=== PATIENT | female | born 1945 | race Caucasian/White ===

== ENCOUNTER → 2020-02-14 11:13 | Outpatient (BNVA) | payer MEDICARE, OTHER, SELFPAY | PROVIDERS: PCP Internal Medicine; Referring Provider Internal Medicine; Visit Provider Surgery | DX: Z85.3 Personal history of malignant neoplasm of breast (principal) | CPT/HCPCS: 99212 ==

== ENCOUNTER → 2020-02-21 08:05 | Outpatient (BNVA) | payer MEDICARE, OTHER, SELFPAY | PROVIDERS: PCP Internal Medicine; Referring Provider Internal Medicine; Visit Provider Psychiatry & Neurology Neurology | DX: R06.83 Snoring (principal); G47.19 Other hypersomnia | CPT/HCPCS: Q3014 ==

== ENCOUNTER 2020-03-07 08:22 | Outpatient (REF) | payer MEDICARE, OTHER, SELFPAY ==
[2020-03-07 11:23] LABS: MANUAL DIFF FLAG NO
[2020-03-07 11:39] LABS: Estimated Average Glucose 126 mg/dL; Hemoglobin A1C 149.2796 umol/L
[2020-03-07 11:42] LABS: Basophils Absolute Auto 0.1 X10*3/uL (0.0-0.2); Basophils Percent Auto 0.9 % (0-2); Eosinophils Absolute Auto 0.2 X10*3/uL (0.0-0.4); Eosinophils Percent Auto 2.8 % (0-4); Hematocrit 41.8 % (37-47); Imm Gran Abs Auto 0.02 X10*3/uL (0.00-0.03); Imm Gran Pct Auto 0.3 % (0.0-0.4); Lymphocytes Absolute Auto 3.2 X10*3/uL (1.2-4.9); Lymphocytes Percent Auto 40.8 % (20-40); Mean Corpuscular HGB Conc 33.5 g/dl (31.0-35.0); Mean Corpuscular Hemoglobin 32.7 pg (27.0-33.0); Mean Corpuscular Volume 97.7 fL (80-98); Mean Platelet Volume 11.6 fL (9.4-12.3); Monocytes Absolute Auto 0.5 X10*3/uL (0.1-1.2); Monocytes Percent Auto 6.2 % (2-11); Neutrophils Absolute Auto 3.9 X10*3/uL (2.0-8.3); Platelet Count 251 X10*3/uL (160-400); Red Blood Count 4.28 X10*6/uL (4.20-5.50); Red Cell Distribution Width 12.8 % (11.0-16.0); White Blood Count 7.9 X10*3/uL (4.8-10.8)
[2020-03-07 11:44] LABS: Glucose Urine UA NEG (NEG); Leukocyte Esterase Urine NEG (NEG); Nitrite Urine NEG (NEG); PH 6.5 (5.0-8.0); Urine Blood NEG (NEG); Urine Ketones NEG (NEG); Urine Protein NEG (NEG-TRACE)
[2020-03-07 11:51] LABS: Appearance Urine CLEAR; Color Urine YELLOW
[2020-03-07 12:03] LABS: Alanine Aminotransferase 16 U/L (0-31); Albumin Level 4.4 g/dL (3.5-5.0); Alkaline Phosphatase 70 U/L (39-117); Anion Gap 14 (12-20); Aspartate Amino Transferase 14 U/L (5-31); Blood Urea Nitrogen 17 mg/dL (9-16); Calcium 9.2 mg/dL (8.4-10.2); Carbon Dioxide 28 mmol/L (22-29); Chloride 103 mmol/L (96-108); Cholesterol 195 mg/dL; Estimated Glomerular Filt Rate > 60; Glucose Fasting 112 mg/dL (60-99); HDL Cholesterol 49 mg/dL; LDL Cholesterol Calculated 121 mg/dl; Potassium 4.3 mmol/l (3.3-5.1); Sodium 141 mmol/L (135-145); Total Protein 6.7 g/dL (6.5-8.0); Triglycerides 129 mg/dL
[2020-03-07 12:05] LABS: RBC Urine 0 /HPF (0); Squamous Epithelial Cell Urine 1+ /LPF; WBC Urine 0 /HPF (0-4)
[2020-03-07 12:25] LABS: Free T4 (Free Thyroxine) 0.87 ng/dL (0.71-1.85); Thyroid Stimulating Hormone 4.45 uIU/mL (0.32-4.0)
== END 2020-03-07 08:23 | disposition home or self-care (01) ==
LOC: HO.HMGCLDS 08:22
PROVIDERS: PCP Internal Medicine; Visit Provider Internal Medicine
DX: E78.00 Pure hypercholesterolemia, unspecified (principal); I10 Essential (primary) hypertension; R73.01 Impaired fasting glucose; E03.9 Hypothyroidism, unspecified; R53.83 Other fatigue; E66.3 Overweight; K21.9 Gastro-esophageal reflux disease without esophagitis; J30.9 Allergic rhinitis, unspecified
CPT/HCPCS: 36415; 80053; 80061; 81001; 83036; 84439; 84443; 85025

== ENCOUNTER → 2020-04-11 19:24 | Outpatient (REF) | payer MEDICARE, OTHER, SELFPAY | LOC: HO.SL 19:24 | PROVIDERS: Visit Provider Psychiatry & Neurology Neurology | DX: G47.19 Other hypersomnia (principal); G47.33 Obstructive sleep apnea (adult) (pediatric); G47.61 Periodic limb movement disorder | CPT/HCPCS: 95810 ==

== ENCOUNTER 2020-05-07 10:47 | Outpatient (REF) | payer MEDICARE, OTHER, SELFPAY ==
--- NOTE | 2020-05-07 10:51 | XR_ITS ---
EXAMINATION: XR CHEST CLINICAL INFORMATION: SOB COMPARISON: None TECHNIQUE: 2 views of the chest were obtained. FINDINGS: The lungs are well-expanded and clear. The heart size and pulmonary vascularity is normal. There is mild spondylosis dorsal spine. No lytic process. XR/XR chest 2V IMPRESSION: Unremarkable chest exam.
== END 2020-05-07 10:48 | disposition home or self-care (01) ==
LOC: HO.HMGCX 10:47
PROVIDERS: PCP Internal Medicine; Visit Provider Physician Assistant
DX: R06.02 Shortness of breath (principal); J98.8 Other specified respiratory disorders; R05 Cough; Z20.822 Contact with and (suspected) exposure to COVID-19
CPT/HCPCS: 36415; 71046; U0003; U0005

== ENCOUNTER 2020-06-19 09:32 | Outpatient (REF) | payer MEDICARE, OTHER, SELFPAY ==
[2020-06-19 11:11] LABS: MANUAL DIFF FLAG NO
[2020-06-19 11:29] LABS: Glucose Urine UA NEG (NEG); Leukocyte Esterase Urine NEG (NEG); Nitrite Urine NEG (NEG); Specific Gravity - Urine 1.015 (1.005-1.025); Urine Blood TRACE (NEG); Urine Ketones NEG (NEG); Urine Protein NEG (NEG-TRACE)
[2020-06-19 11:31] LABS: Appearance Urine HAZY; Basophils Absolute Auto 0.1 X10*3/uL (0.0-0.2); Basophils Percent Auto 0.8 % (0-2); Color Urine YELLOW; Eosinophils Absolute Auto 0.2 X10*3/uL (0.0-0.4); Eosinophils Percent Auto 3.3 % (0-4); Hematocrit 42.7 % (37-47); Hemoglobin 13.9 g/dl (12.0-16.0); Imm Gran Abs Auto 0.02 X10*3/uL (0.00-0.03); Imm Gran Pct Auto 0.3 % (0.0-0.4); Lymphocytes Absolute Auto 2.5 X10*3/uL (1.2-4.9); Lymphocytes Percent Auto 38.4 % (20-40); Mean Corpuscular HGB Conc 32.6 g/dl (31.0-35.0); Mean Corpuscular Volume 98.4 fL (80-98); Mean Platelet Volume 11.3 fL (9.4-12.3); Monocytes Absolute Auto 0.4 X10*3/uL (0.1-1.2); Monocytes Percent Auto 6.1 % (2-11); Neutrophils Absolute Auto 3.4 X10*3/uL (2.0-8.3); Neutrophils Percent Auto 51.1 % (45-73); Platelet Count 231 X10*3/uL (160-400); Red Blood Count 4.34 X10*6/uL (4.20-5.50); Red Cell Distribution Width 12.6 % (11.0-16.0); White Blood Count 6.6 X10*3/uL (4.8-10.8)
[2020-06-19 11:44] LABS: Alanine Aminotransferase 14 U/L (0-31); Albumin Level 4.4 g/dL (3.5-5.0); Alkaline Phosphatase 69 U/L (39-117); Anion Gap 12 (12-20); Aspartate Amino Transferase 15 U/L (5-31); Bilirubin Total 1.4 mg/dL (0.0-1.0); Blood Urea Nitrogen 13 mg/dL (9-16); Calcium 9.5 mg/dL (8.4-10.2); Carbon Dioxide 30 mmol/L (22-29); Chloride 104 mmol/L (96-108); Cholesterol 185 mg/dL; Estimated Glomerular Filt Rate > 60; Glucose Fasting 108 mg/dL (60-99); HDL Cholesterol 46 mg/dL; LDL Cholesterol Calculated 105 mg/dl; Potassium 4.1 mmol/L (3.3-5.1); Sodium 142 mmol/L (135-145); Total Protein 6.9 g/dL (6.5-8.0); Triglycerides 170 mg/dL
[2020-06-19 12:10] LABS: Thyroid Stimulating Hormone 3.76 uIU/mL (0.32-4.0); Vitamin D 25-OH Total 63.4 ng/mL (>30)
[2020-06-19 12:11] LABS: RBC Urine 0-2 /HPF (0); Squamous Epithelial Cell Urine 3+ /LPF; WBC Urine 0-2 /HPF (0-4)
== END 2020-06-19 09:33 | disposition home or self-care (01) ==
LOC: HO.HMGCLDS 09:32
PROVIDERS: PCP Internal Medicine; Visit Provider Internal Medicine
DX: I10 Essential (primary) hypertension (principal); K59.00 Constipation, unspecified; K21.9 Gastro-esophageal reflux disease without esophagitis; E78.00 Pure hypercholesterolemia, unspecified; R73.01 Impaired fasting glucose; E03.9 Hypothyroidism, unspecified; E55.9 Vitamin D deficiency, unspecified; Z85.528 Personal history of other malignant neoplasm of kidney
CPT/HCPCS: 36415; 80053; 80061; 81001; 82306; 84439; 84443; 85025

== ENCOUNTER 2020-06-27 14:39 | Outpatient (REF) | payer MEDICARE, OTHER, SELFPAY ==
--- NOTE | ~2020-06-27 | XR_ITS ---
EXAMINATION: XR HAND, RIGHT CLINICAL INFORMATION: Pain COMPARISON: Previous x-ray March 2007 TECHNIQUE: PA, lateral, and oblique views of the right hand. FINDINGS: Bone alignment is normal. No fracture or dislocation is seen. There is a new screw and arthrodesis at the IP joint of the thumb. There is arthritis at the IP joints with joint space narrowing and osteophyte formation. This is greatest at the second finger. There is also mild arthritis at the first and third MCP joints and first [facility] joint. Soft tissues are unremarkable. XR/XR hand RT min 3V IMPRESSION: Osteoarthritis.
== END 2020-06-27 14:40 | disposition home or self-care (01) ==
LOC: HO.HMGCX 14:39
PROVIDERS: PCP Internal Medicine; Visit Provider Internal Medicine
DX: M79.641 Pain in right hand (principal); Z91.81 History of falling
CPT/HCPCS: 73130

== ENCOUNTER → 2020-07-17 09:40 | Outpatient (BNVA) | payer MEDICARE, OTHER, SELFPAY | PROVIDERS: PCP Internal Medicine; Visit Provider Psychiatry & Neurology Neurology | DX: Z13.89 Encounter for screening for other disorder (principal) | CPT/HCPCS: Q3014 ==

== ENCOUNTER → 2020-10-09 09:38 | Outpatient (REF) | payer MEDICARE, OTHER, SELFPAY | LOC: HO.SL 09:38 | PROVIDERS: PCP Internal Medicine; Visit Provider Psychiatry & Neurology Neurology | DX: G47.33 Obstructive sleep apnea (adult) (pediatric) (principal) | CPT/HCPCS: 99211 ==

== ENCOUNTER 2020-12-18 12:47 | Outpatient (REF) | payer MEDICARE, OTHER, SELFPAY ==
--- NOTE | ~2020-12-18 | MM_ITS ---
EXAMINATION: BONE DENSITOMETRY CLINICAL INDICATION: Asymptomatic menopausal state. COMPARISON: This is the patient's baseline examination. TECHNIQUE: Using a [employer] DXA System (software version: 13.1) manufactured by [employer], dual-energy x-ray absorptiometry was performed of the lumbar spine and left hip. The images are of good technical quality. Summary results are attached. FINDINGS: AP SPINE L1-L4: BMD 1.188 g/cm2, Z-score 1.6, T-score 0.1, normal. LEFT FEMUR, NECK: BMD 0.952 g/cm2, Z-score 1.2, T-score -0.6, normal. LEFT FEMUR, TOTAL: BMD 1.054 g/cm2, Z-score 2.0, T-score 0.4, normal. IDENTIFIED RISK FACTORS: Height loss, renal, menopause. HISTORY OF FRACTURE: None listed. MEDICATIONS: Vitamin D. MM/XR DEXA axial skeleton IMPRESSION: 1. DIAGNOSIS: Normal bone density based on the lowest T-score value of -0.6 in the femoral neck applying World Health Organization criteria. 2. 10-YEAR FRACTURE RISK PREDICTION, FRAX: Major osteoporotic fracture (clinical spine, forearm, hip or shoulder) 8.3%. Hip fracture 1.0%. 3. Treatment Recommendations: NOF guidelines recommend consideration for treatment in postmenopausal women and men age 50 and older presenting with the following: -A hip or vertebral (clinical or morphometric) fracture. -T-score less than or equal to -2.5 at the femoral neck or spine after appropriate evaluation to exclude secondary causes. -Low bone mass at the hip or spine and a 10-year fracture probability by FRAX of greater than or equal to 3% for hip fracture or greater than or equal to 20% for major osteoporotic fracture based on the [place] adapted WHO algorithm. 4. Other Recommendations: All treatment decisions require clinical judgment and consideration of individual patient factors, including patient preferences, comorbidities, previous drug use, risk factors not captured in the FRAX model (e.g. frailty, falls, vitamin D deficiency, increased bone turnover, interval significant decline in bone density) and possible under or overestimation of fracture risk by FRAX. FUTURE SCAN RECOMMENDATION: People with diagnosed cases of osteoporosis or at high risk for fracture should have regular bone mineral density tests. For patients eligible for Medicare, routine testing is allowed once every 2 years. The testing frequency can be increased to one year for patients who have rapidly progressing disease, those who are receiving or discontinuing medical therapy to restore bone mass, or have additional risk factors.
== END 2020-12-18 12:48 | disposition home or self-care (01) ==
LOC: HO.MAMMO 12:47
PROVIDERS: PCP Internal Medicine; Visit Provider Nurse Practitioner Family
DX: Z13.820 Encounter for screening for osteoporosis (principal); Z78.0 Asymptomatic menopausal state; Z79.899 Other long term (current) drug therapy
CPT/HCPCS: 77080

== ENCOUNTER 2020-12-25 10:24 | Outpatient (REF) | payer MEDICARE, OTHER, SELFPAY ==
[2020-12-25 11:30] LABS: Appearance Urine HAZY; Color Urine YELLOW; Glucose Urine UA NEG (NEG); Leukocyte Esterase Urine NEG (NEG); Nitrite Urine NEG (NEG); Urine Blood NEG (NEG); Urine Ketones NEG (NEG); Urine Protein NEG (NEG-TRACE)
[2020-12-25 11:38] LABS: MANUAL DIFF FLAG NO
[2020-12-25 11:50] LABS: Basophils Percent Auto 0.7 % (0-2); Eosinophils Absolute Auto 0.1 X10*3/uL (0.0-0.4); Eosinophils Percent Auto 2.3 % (0-4); Hematocrit 41.2 % (37-47); Hemoglobin 13.7 g/dl (12.0-16.0); Imm Gran Abs Auto 0.03 X10*3/uL (0.00-0.03); Imm Gran Pct Auto 0.5 % (0.0-0.4); Lymphocytes Percent Auto 32.7 % (20-40); Mean Corpuscular HGB Conc 33.3 g/dl (31.0-35.0); Mean Corpuscular Hemoglobin 32.3 pg (27.0-33.0); Mean Corpuscular Volume 97.2 fL (80-98); Mean Platelet Volume 11.3 fL (9.4-12.3); Monocytes Absolute Auto 0.4 X10*3/uL (0.1-1.2); Monocytes Percent Auto 6.3 % (2-11); Neutrophils Absolute Auto 3.5 X10*3/uL (2.0-8.3); Neutrophils Percent Auto 57.5 % (45-73); Platelet Count 246 X10*3/uL (160-400); Red Blood Count 4.24 X10*6/uL (4.20-5.50); Red Cell Distribution Width 12.4 % (11.0-16.0)
[2020-12-25 12:08] LABS: Alanine Aminotransferase 15 U/L (0-31); Albumin Level 4.4 g/dL (3.5-5.0); Alkaline Phosphatase 78 U/L (39-117); Anion Gap 13 (12-20); Aspartate Amino Transferase 13 U/L (5-31); Bilirubin Total 1.1 mg/dL (0.0-1.0); Blood Urea Nitrogen 11 mg/dL (9-16); Calcium 9.6 mg/dL (8.4-10.2); Carbon Dioxide 28 mmol/L (22-29); Chloride 104 mmol/L (96-108); Cholesterol 191 mg/dL; Estimated Glomerular Filt Rate > 60; Glucose Fasting 114 mg/dL (60-99); HDL Cholesterol 47 mg/dL; LDL Cholesterol Calculated 115 mg/dl; Potassium 4.2 mmol/L (3.3-5.1); Sodium 141 mmol/L (135-145); Total Protein 6.8 g/dL (6.5-8.0); Triglycerides 147 mg/dL
[2020-12-25 12:18] LABS: Free T4 (Free Thyroxine) 0.96 ng/dL (0.71-1.85); Thyroid Stimulating Hormone 1.03 uIU/mL (0.32-4.0)
[2020-12-25 12:34] LABS: Estimated Average Glucose 126 mg/dL; Hemoglobin A1C 152.7056 umol/L
== END 2020-12-25 10:25 | disposition home or self-care (01) ==
LOC: HO.HMGCLDS 10:24
PROVIDERS: PCP Internal Medicine; Visit Provider Internal Medicine
DX: R73.01 Impaired fasting glucose (principal); E78.00 Pure hypercholesterolemia, unspecified; E03.9 Hypothyroidism, unspecified; E66.3 Overweight; I10 Essential (primary) hypertension; E55.9 Vitamin D deficiency, unspecified; K21.9 Gastro-esophageal reflux disease without esophagitis; Z85.528 Personal history of other malignant neoplasm of kidney
CPT/HCPCS: 36415; 80053; 80061; 81003; 82306; 83036; 84439; 84443; 85025

== ENCOUNTER → 2021-02-05 11:06 | Outpatient (BNVA) | payer MEDICARE, OTHER, SELFPAY | PROVIDERS: PCP Internal Medicine; Referring Provider Internal Medicine; Visit Provider Psychiatry & Neurology Neurology | DX: G47.33 Obstructive sleep apnea (adult) (pediatric) (principal); G47.61 Periodic limb movement disorder | CPT/HCPCS: Q3014 ==

== ENCOUNTER → 2021-02-14 10:42 | Outpatient (BNVA) | payer MEDICARE, OTHER, SELFPAY | PROVIDERS: PCP Internal Medicine; Referring Provider Internal Medicine; Visit Provider Surgery | DX: C50.912 Malignant neoplasm of unspecified site of left female breast (principal) | CPT/HCPCS: 99212 ==

== ENCOUNTER 2021-03-18 10:39 | Outpatient (REF) | payer MEDICARE, OTHER, SELFPAY ==
--- NOTE | ~2021-03-18 | XR_ITS ---
EXAMINATION: XR CHEST CLINICAL INFORMATION: Acute upper respiratory infection. COMPARISON: None TECHNIQUE: 2 views of the chest were obtained. FINDINGS: No significant abnormality is noted involving the heart, lungs, mediastinum, bony thorax or soft tissues. XR/XR chest 2V IMPRESSION: Unremarkable chest examination.
[2021-03-18 12:54] LABS: Influenza A PCR NEGATIVE (Negative); Influenza B PCR NEGATIVE (Negative); Resp Syncy Virus RNA Qual PCR NEGATIVE (Negative); SARS COV2 PCR INHOUSE NEGATIVE (Negative)
== END 2021-03-18 10:40 | disposition home or self-care (01) ==
LOC: HO.HMGCX 10:39
PROVIDERS: PCP Internal Medicine; Visit Provider Physician Assistant
DX: J06.9 Acute upper respiratory infection, unspecified (principal); R09.89 Other specified symptoms and signs involving the circulatory and respiratory systems; Z20.822 Contact with and (suspected) exposure to COVID-19
CPT/HCPCS: 0241U; 36415; 71046

== ENCOUNTER → 2021-03-19 08:57 | Outpatient (REF) | payer MEDICARE, OTHER, SELFPAY | LOC: HO.SL 08:57 | PROVIDERS: PCP Internal Medicine; Visit Provider Psychiatry & Neurology Neurology | DX: G47.33 Obstructive sleep apnea (adult) (pediatric) (principal) | CPT/HCPCS: 99211 ==

== ENCOUNTER 2021-05-07 08:47 | Outpatient (REF) | payer MEDICARE, OTHER, SELFPAY ==
[2021-05-07 11:32] LABS: Appearance Urine HAZY; Color Urine YELLOW; Glucose Urine UA NEG (NEG); Leukocyte Esterase Urine NEG (NEG); Nitrite Urine NEG (NEG); Urine Blood NEG (NEG); Urine Ketones NEG (NEG); Urine Protein NEG (NEG-TRACE)
[2021-05-07 11:34] LABS: MANUAL DIFF FLAG NO
[2021-05-07 11:38] LABS: Basophils Absolute Auto 0.1 X10*3/uL (0.0-0.2); Basophils Percent Auto 0.9 % (0-2); Eosinophils Absolute Auto 0.2 X10*3/uL (0.0-0.4); Eosinophils Percent Auto 2.1 % (0-4); Hematocrit 43.9 % (37.0-47.0); Hemoglobin 14.7 g/dl (12.0-16.0); Imm Gran Abs Auto 0.03 X10*3/uL (0.00-0.03); Imm Gran Pct Auto 0.4 % (0.0-0.4); Lymphocytes Absolute Auto 3.2 X10*3/uL (1.2-4.9); Lymphocytes Percent Auto 42.5 % (20-40); Mean Corpuscular HGB Conc 33.5 g/dl (31.0-35.0); Mean Corpuscular Hemoglobin 32.9 pg (27.0-33.0); Mean Corpuscular Volume 98.2 fL (80.0-98.0); Mean Platelet Volume 11.3 fL (9.4-12.3); Monocytes Absolute Auto 0.5 X10*3/uL (0.1-1.2); Monocytes Percent Auto 6.1 % (2-11); Neutrophils Absolute Auto 3.7 x10*3/uL (2.0-8.3); Platelet Count 263 X10*3/uL (160-400); Red Blood Count 4.47 X10*6/uL (4.20-5.50); Red Cell Distribution Width 12.5 % (11.0-16.0); White Blood Count 7.6 X10*3/uL (4.8-10.8)
[2021-05-07 11:52] LABS: Estimated Average Glucose 128 mg/dL; Hemoglobin A1c % 6.1 %
[2021-05-07 12:00] LABS: Creatinine Urine 108.55 mg/dL; Microalbum/Creatinine Ratio Ur 5.5 ug/mg cr
[2021-05-07 12:13] LABS: Free T4 (Free Thyroxine) 0.98 ng/dL (0.71-1.85); Thyroid Stimulating Hormone 2.72 uIU/mL (0.32-4.0); Vitamin D 25-OH Total 66.6 ng/mL (>30)
[2021-05-07 12:16] LABS: Alanine Aminotransferase 18 U/L (0-31); Albumin Level 4.4 g/dL (3.5-5.0); Alkaline Phosphatase 74 U/L (39-117); Anion Gap 10 (12-20); Aspartate Amino Transferase 18 U/L (5-31); Bilirubin Total 1.2 mg/dL (0.0-1.0); Blood Urea Nitrogen 12 mg/dL (9-16); Calcium 10.2 mg/dL (8.4-10.2); Carbon Dioxide 30 mmol/L (22-29); Chloride 105 mmol/L (96-108); Cholesterol 198 mg/dL; Estimated Glomerular Filt Rate > 60; Glucose Fasting 113 mg/dL (60-99); HDL Cholesterol 44 mg/dL; LDL Cholesterol Calculated 113 mg/dl; Potassium 4.4 mmol/L (3.3-5.1); Sodium 141 mmol/L (135-145); Total Protein 6.9 g/dL (6.5-8.0); Triglycerides 209 mg/dL
[2021-05-08 03:26] LABS: SARS COV2 IgG Negative (Negative)
== END 2021-05-07 08:48 | disposition home or self-care (01) ==
LOC: HO.HMGCLDS 08:47
PROVIDERS: Visit Provider Internal Medicine
DX: Z20.822 Contact with and (suspected) exposure to COVID-19 (principal); E03.9 Hypothyroidism, unspecified; R73.01 Impaired fasting glucose; E78.00 Pure hypercholesterolemia, unspecified; E55.9 Vitamin D deficiency, unspecified; I10 Essential (primary) hypertension
CPT/HCPCS: 36415; 80053; 80061; 81003; 82043; 82306; 83036; 84439; 84443; 85025; 86769

== ENCOUNTER 2021-08-28 08:47 | Outpatient (REF) | payer MEDICARE, OTHER, SELFPAY ==
[2021-08-28 11:15] LABS: MANUAL DIFF FLAG NO
[2021-08-28 11:22] LABS: Basophils Absolute Auto 0.1 X10*3/uL (0.0-0.2); Basophils Percent Auto 0.6 % (0-2); Eosinophils Absolute Auto 0.2 X10*3/uL (0.0-0.4); Eosinophils Percent Auto 2.4 % (0-4); Hematocrit 41.8 % (37.0-47.0); Imm Gran Abs Auto 0.03 X10*3/uL (0.00-0.03); Imm Gran Pct Auto 0.4 % (0.0-0.4); Lymphocytes Absolute Auto 3.4 X10*3/uL (1.2-4.9); Lymphocytes Percent Auto 43.3 % (20-40); Mean Corpuscular HGB Conc 33.5 g/dl (31.0-35.0); Mean Corpuscular Hemoglobin 32.8 pg (27.0-33.0); Mean Corpuscular Volume 97.9 fL (80.0-98.0); Mean Platelet Volume 11.2 fL (9.4-12.3); Monocytes Absolute Auto 0.5 X10*3/uL (0.1-1.2); Monocytes Percent Auto 6.8 % (2-11); Neutrophils Absolute Auto 3.6 x10*3/uL (2.0-8.3); Neutrophils Percent Auto 46.5 % (45-73); Platelet Count 248 X10*3/uL (160-400); Red Blood Count 4.27 X10*6/uL (4.20-5.50); Red Cell Distribution Width 12.5 % (11.0-16.0); White Blood Count 7.8 X10*3/uL (4.8-10.8)
[2021-08-28 11:36] LABS: Estimated Average Glucose 128 mg/dL; Hemoglobin A1c % 6.1 %
[2021-08-28 11:42] LABS: Appearance Urine HAZY; Color Urine YELLOW; Glucose Urine UA NEG (NEG); Leukocyte Esterase Urine NEG (NEG); Nitrite Urine NEG (NEG); Urine Blood NEG (NEG); Urine Ketones NEG (NEG); Urine Protein NEG (NEG-TRACE)
[2021-08-28 11:46] LABS: Alanine Aminotransferase 16 U/L (0-31); Albumin Level 4.2 g/dL (3.5-5.0); Alkaline Phosphatase 77 U/L (39-117); Anion Gap 11 (12-20); Aspartate Amino Transferase 11 U/L (5-31); Bilirubin Total 1.1 mg/dL (0.0-1.0); Blood Urea Nitrogen 14 mg/dL (9-16); Calcium 9.4 mg/dL (8.4-10.2); Carbon Dioxide 27 mmol/L (22-29); Chloride 107 mmol/L (96-108); Cholesterol 187 mg/dL; Estimated Glomerular Filt Rate > 60; Glucose Fasting 123 mg/dL (60-99); HDL Cholesterol 44 mg/dL; LDL Cholesterol Calculated 114 mg/dl; Potassium 4.2 mmol/L (3.3-5.1); Sodium 141 mmol/L (135-145); Total Protein 6.8 g/dL (6.5-8.0); Triglycerides 148 mg/dL
[2021-08-28 11:54] LABS: Free T4 (Free Thyroxine) 0.89 ng/dL (0.71-1.85); Thyroid Stimulating Hormone 2.23 uIU/mL (0.32-4.0); Vitamin D 25-OH Total 67.3 ng/mL (>30)
== END 2021-08-28 08:48 | disposition home or self-care (01) ==
LOC: HO.HMGCLDS 08:47
PROVIDERS: PCP Internal Medicine; Visit Provider Internal Medicine
DX: E78.00 Pure hypercholesterolemia, unspecified (principal); R73.01 Impaired fasting glucose; E55.9 Vitamin D deficiency, unspecified; E03.9 Hypothyroidism, unspecified; I10 Essential (primary) hypertension
CPT/HCPCS: 36415; 80053; 80061; 81003; 82306; 83036; 84439; 84443; 85025

== ENCOUNTER 2021-09-05 15:06 | Outpatient (REF) | payer MEDICARE, OTHER, SELFPAY ==
--- NOTE | ~2021-09-05 | XR_ITS ---
EXAMINATION: XR LUMBOSACRAL SPINE CLINICAL INFORMATION: Low back pain COMPARISON: None TECHNIQUE: Three views of the lumbosacral spine. FINDINGS: Bone alignment is normal. No fracture or dislocation is seen. There is degenerative spondylosis of the lower thoracic spine. There is mild disc space narrowing at L3-L4. Disc spaces are otherwise normal. There is lower lumbar spine facet arthritis. There are surgical clips in the left upper quadrant. XR/XR lumbar spine 2-3V IMPRESSION: Degenerative changes.
--- NOTE | ~2021-09-05 | XR_ITS ---
EXAMINATION: XR HIP, RIGHT CLINICAL INFORMATION: Right hip pain COMPARISON: None TECHNIQUE: Two views of the right hip. FINDINGS: Bones and soft tissues are normal. No fracture. Alignment is anatomic. Hip joint space is maintained. XR/XR hip RT min 2V IMPRESSION: Normal right hip.
== END 2021-09-05 15:07 | disposition home or self-care (01) ==
LOC: HO.HMGCX 15:06
PROVIDERS: PCP Internal Medicine; Visit Provider Internal Medicine
DX: M25.551 Pain in right hip (principal); M54.50 Low back pain, unspecified
CPT/HCPCS: 72100; 73502

== ENCOUNTER 2021-12-11 09:39 | Outpatient (REF) | payer MEDICARE, OTHER, SELFPAY ==
[2021-12-11 11:13] LABS: MANUAL DIFF FLAG NO
[2021-12-11 11:31] LABS: Appearance Urine Clear; Basophils Percent Auto 0.5 % (0-2); Color Urine Yellow; Eosinophils Absolute Auto 0.1 X10*3/uL (0.0-0.4); Eosinophils Percent Auto 1.5 % (0-4); Glucose Urine UA Negative (Negative); Hematocrit 42.9 % (37.0-47.0); Hemoglobin 14.6 g/dl (12.0-16.0); Imm Gran Abs Auto 0.03 X10*3/uL (0.00-0.03); Imm Gran Pct Auto 0.4 % (0.0-0.4); Leukocyte Esterase Urine Negative (Negative); Lymphocytes Absolute Auto 2.7 X10*3/uL (1.2-4.9); Lymphocytes Percent Auto 35.1 % (20-40); Mean Corpuscular Hemoglobin 32.9 pg (27.0-33.0); Mean Corpuscular Volume 96.6 fL (80.0-98.0); Mean Platelet Volume 11.2 fL (9.4-12.3); Monocytes Absolute Auto 0.4 X10*3/uL (0.1-1.2); Monocytes Percent Auto 5.5 % (2-11); Neutrophils Absolute Auto 4.5 x10*3/uL (2.0-8.3); Nitrite Urine Negative (Negative); Platelet Count 244 X10*3/uL (160-400); Red Blood Count 4.44 X10*6/uL (4.20-5.50); Red Cell Distribution Width 11.9 % (11.0-16.0); Urine Blood Negative (Negative); Urine Ketones Negative (Negative); Urine Protein Negative (Neg-Trace); White Blood Count 7.8 X10*3/uL (4.8-10.8)
[2021-12-11 12:08] LABS: Free T4 (Free Thyroxine) 1.03 ng/dL (0.71-1.85); Thyroid Stimulating Hormone 2.03 uIU/mL (0.32-4.0); Vitamin D 25-OH Total 72.6 ng/mL (>30)
[2021-12-11 12:20] LABS: Alanine Aminotransferase 15 U/L (0-31); Albumin Level 4.5 g/dL (3.5-5.0); Alkaline Phosphatase 80 U/L (39-117); Anion Gap 16 (12-20); Aspartate Amino Transferase 14 U/L (5-31); Blood Urea Nitrogen 11 mg/dL (9-16); Calcium 9.4 mg/dL (8.4-10.2); Carbon Dioxide 27 mmol/L (22-29); Chloride 102 mmol/L (96-108); Cholesterol 217 mg/dL; Estimated Glomerular Filt Rate > 60; Glucose Fasting 125 mg/dL (60-99); HDL Cholesterol 43 mg/dL; LDL Cholesterol Calculated 122 mg/dl; Potassium 4.3 mmol/L (3.3-5.1); Sodium 141 mmol/L (135-145); Total Protein 7.3 g/dL (6.5-8.0); Triglycerides 263 mg/dL
== END 2021-12-11 09:40 | disposition home or self-care (01) ==
LOC: HO.HMGCLDS 09:39
PROVIDERS: PCP Internal Medicine; Visit Provider Internal Medicine
DX: E03.9 Hypothyroidism, unspecified (principal); E55.9 Vitamin D deficiency, unspecified; E78.00 Pure hypercholesterolemia, unspecified; I10 Essential (primary) hypertension
CPT/HCPCS: 36415; 80053; 80061; 81003; 82306; 84439; 84443; 85025

== ENCOUNTER 2022-01-01 08:12 | Day surgery (SDC) | payer MEDICARE, OTHER, SELFPAY ==
[2021-12-27 10:03] VITALS: BMI 32.6
--- NOTE | 2021-12-31 12:48 | P.CONAN_ITS ---
Documented by User: Sarah Samaniego NP 12/31/21 12:51 HPI - Anesthesia Eval Consult details Narrative: 76yo F for Colonoscopy PMFSH Active Problems Active Problems: All Active Problems (Updated 12/18/21 @ 04:10 by Calvin Maldonado MD) Headache (Acute) Obesity (BMI 30-39.9) (Acute) Restless legs syndrome (RLS) (Acute) Right hip pain (Acute) Upper respiratory tract infection (Acute) CAP (community acquired pneumonia) (Acute) URI (upper respiratory infection) (Acute) Laryngitis (Acute) Adult general medical exam (Acute) Post-menopausal (Acute) Overweight (BMI 25.0-29.9) (Acute) Periodic limb movements of sleep (Acute) Obstructive sleep apnea (Acute) Right hand pain (Acute) Cough in adult (Acute) Overweight (Acute) Anxiety (Acute) Daytime somnolence (Acute) History of renal cell cancer (Acute) History of breast cancer (Acute) Constipation (Acute) Vitamin D deficiency (Acute) Allergic rhinitis (Acute) Osteoarthritis of right knee (Acute) GERD without esophagitis (Acute) Impaired fasting glucose (Acute) Acquired hypothyroidism (Acute) Pure hypercholesterolemia (Acute) Benign essential hypertension (Acute) Excessive daytime sleepiness (Acute) Sleep disorder (Acute) Snoring (Acute) Past Medical History Medical History Acquired hypothyroidism Allergic rhinitis Anxiety Benign essential hypertension Congestion of upper respiratory tract Constipation Daytime somnolence Esophagitis GERD without esophagitis History of breast cancer History of renal cell cancer HTN (hypertension) Hypothyroid Impaired fasting glucose Invasive ductal carcinoma of left breast Mixed irritable bowel syndrome Obesity (BMI 30-39.9) Obstructive sleep apnea Osteoarthritis of right knee Otitis media of right ear Overweight Overweight (BMI 25.0-29.9) Post-menopausal Pure hypercholesterolemia Renal cancer Right hand pain Short of breath on exertion Vitamin D deficiency Family History Family History Father History of gastric cancer History of lung cancer Mother History of heart disease Brother Family history of prostate cancer History of colon cancer History of lung cancer Daughter History of breast cancer Paternal Aunt History of breast cancer Maternal Uncle History of leukemia Maternal Aunt History of breast cancer Surgical History Surgical History History of bunionectomy History of cataract surgery History of colon resection (~2001) History of colonoscopy History of esophagogastroduodenoscopy (EGD) (~09/16/12) History of eye surgery (~09/2012) History of kidney surgery History of left breast biopsy (~01/2014) History of lumpectomy of left breast (~03/2014) History of partial nephrectomy (~2002) History of removal of cyst History of removal of skin mole History of right knee surgery (~06/2017) History of thumb surgery (~04/26/15) Social History Social History Housing: [facility] Alcohol intake: current Alcohol intake frequency: holidays/special occasions only Alcohol type: wine Patient Tobacco Use Status: Never used Tobacco Second Hand Smoke Exposure: Yes Use of substances other than those prescribed or required for medical reasons: No Are you DNR?: No Advance Directives: No Advance Directives Information Provided: Yes service: No Current occupational status: retired Cognitive needs: No Hearing needs: No Vision needs: Yes Meds Allergies Allergy/AdvReac Type Severity Reaction Status Date / Time adhesive tape Allergy Intermediate BLISTERS Verified 12/17/21 16:58 albuterol [From PROAIR HFA] Allergy Intermediate TREMOR Verified 12/17/21 16:58 Sulfa (Sulfonamide Allergy Intermediate ITCH/RASH, Verified 12/17/21 16:58 Antibiotics) itching, [SULFA (SULFONAMIDE hives ANTIBIOTICS)] ropinirole Allergy Mild joint pain Verified 12/17/21 16:58 oxybutynin Allergy shortness Verified 12/27/21 09:54 of breath codeine [CODEINE] AdvReac Intermediate GI UPSET Verified 12/17/21 16:58 Home Medications Medication Instructions Recorded Confirmed Last Taken Type cetirizine 10 mg tablet (Zyrtec) 5 mg PO DAILY PRN 02/14/20 12/17/21 Unknown History cholecalciferol (vitamin D3) 50 50 mcg PO DAILY 02/14/20 12/17/21 Unknown History mcg (2,000 unit) capsule multivitamin (Multiple Vitamins 1 tab PO DAILY 02/14/20 12/17/21 Unknown History tablet) olopatadine 0.2 % eye drops 1 drp ophthalmic (eye) DAILY 02/14/20 12/17/21 Unknown History (Pat) omega-3 fatty acids 1,000 mg 1,000 mg PO DAILY 11/22/20 12/17/21 12/25/21 History capsule (Fish Oil Concentrate) glucosamine sulfate 750 mg tablet 750 mg PO DAILY 01/09/21 12/17/21 Unknown History clobetasol 0.05 % scalp solution 0.25 - 0.5 ml topical 05/14/21 12/17/21 Unknown History azelastine 137 mcg (0.1 %) nasal 2 spray intranasal BID 09/04/21 12/17/21 Unknown History spray aerosol Exam Exam Date and Time: December 31, 2021 1249 Height,Weight and Vital Signs: Height 4 ft 10.5 in Weight 72.121 kg Pertinent Lab Results Pertinent Lab Results: Laboratory Tests 12/11/21 12/11/21 09:47 09:47 WBC 7.8 Hgb 14.6 Hct 42.9 Plt Count 244 Sodium 141 Potassium 4.3 Chloride 102 Carbon Dioxide 27 BUN 11 Creatinine 0.75 Assessment and Plan Assessment Anesthesia Assessment: Chart Reviewed Documented by User: Cassandra Toure MD 01/01/22 09:55 PMFSH Past Medical History Medical History Acquired hypothyroidism Allergic rhinitis Anxiety Benign essential hypertension Congestion of upper respiratory tract Constipation Daytime somnolence Esophagitis GERD without esophagitis History of breast cancer History of renal cell cancer HTN (hypertension) Hypothyroid Impaired fasting glucose Invasive ductal carcinoma of left breast Mixed irritable bowel syndrome Obesity (BMI 30-39.9) Obstructive sleep apnea Osteoarthritis of right knee Otitis media of right ear Overweight Overweight (BMI 25.0-29.9) Post-menopausal Pure hypercholesterolemia Renal cancer Right hand pain Short of breath on exertion Vitamin D deficiency Family History Family History Father History of gastric cancer History of lung cancer Mother History of heart disease Brother Family history of prostate cancer History of colon cancer History of lung cancer Daughter History of breast cancer Paternal Aunt History of breast cancer Maternal Uncle History of leukemia Maternal Aunt History of breast cancer Surgical History Surgical History History of bunionectomy History of cataract surgery History of colon resection (~2001) History of colonoscopy History of esophagogastroduodenoscopy (EGD) (~09/16/12) History of eye surgery (~09/2012) History of kidney surgery History of left breast biopsy (~01/2014) History of lumpectomy of left breast (~03/2014) History of partial nephrectomy (~2002) History of removal of cyst History of removal of skin mole History of right knee surgery (~06/2017) History of thumb surgery (~04/26/15) History of Problems with Anesthesia: No Social History Social History Housing: [facility] Alcohol intake: current Alcohol intake frequency: holidays/special occasions only Alcohol type: wine Patient Tobacco Use Status: Never used Tobacco Second Hand Smoke Exposure: Yes Use of substances other than those prescribed or required for medical reasons: No Are you DNR?: No Advance Directives: No Advance Directives Information Provided: Yes service: No Current occupational status: retired Cognitive needs: No Hearing needs: No Vision needs: Yes Meds Allergies Allergy/AdvReac Type Severity Reaction Status Date / Time adhesive tape Allergy Intermediate BLISTERS Verified 12/17/21 16:58 albuterol [From PROAIR HFA] Allergy Intermediate TREMOR Verified 12/17/21 16:58 Sulfa (Sulfonamide Allergy Intermediate ITCH/RASH, Verified 12/17/21 16:58 Antibiotics) itching, [SULFA (SULFONAMIDE hives ANTIBIOTICS)] ropinirole Allergy Mild joint pain Verified 12/17/21 16:58 oxybutynin Allergy shortness Verified 12/27/21 09:54 of breath codeine [CODEINE] AdvReac Intermediate GI UPSET Verified 12/17/21 16:58 Home Medications Medication Instructions Recorded Confirmed Last Taken Type cetirizine 10 mg tablet (Zyrtec) 5 mg PO DAILY PRN 02/14/20 12/17/21 Unknown History cholecalciferol (vitamin D3) 50 50 mcg PO DAILY 02/14/20 12/17/21 Unknown History mcg (2,000 unit) capsule multivitamin (Multiple Vitamins 1 tab PO DAILY 02/14/20 12/17/21 Unknown History tablet) olopatadine 0.2 % eye drops 1 drp ophthalmic (eye) DAILY 02/14/20 12/17/21 Unknown History (Pataday) omega-3 fatty acids 1,000 mg 1,000 mg PO DAILY 11/22/20 12/17/21 12/25/21 History capsule (Fish Oil Concentrate) glucosamine sulfate 750 mg tablet 750 mg PO DAILY 01/09/21 12/17/21 Unknown History clobetasol 0.05 % scalp solution 0.25 - 0.5 ml topical 05/14/21 12/17/21 Unknown History azelastine 137 mcg (0.1 %) nasal 2 spray intranasal BID 09/04/21 12/17/21 Unknown History spray aerosol Exam Airway Mallampati Class: II TM Dist: >3cm Neck ROM: Full Loose/Missing/Broken Teeth: No Heart: RRR Lungs: CTA Assessment and Plan Assessment Anesthesia Assessment: Anesthesia Plan Discussed Final Anesthetic Review History of Problems with Anesthesia: No NPO: Yes ASA Class: III Final Preanesthetic Review: Meds/Allgs Chart Reviewed, Consent Obtained/Reviewed and Anes Risks/Benef Reviewed Patient Risk: Intermediate Procedure Risk: Low Anesthetic Plan Anesthetic Plan: MAC: Disposition: Standard PACU
[2022-01-01 08:26] VITALS: BMI 31.8
[2022-01-01 08:30] VITALS: BP 153/77; PULSE 83; RESP 16; TEMP 36.2; O2SAT 94
[2022-01-01] MEDS: Lactated Ringers 1,000 ML 100 ML IVCONT (09:23)
[2022-01-01 10:48] VITALS: BP 116/60; PULSE 80; RESP 20; TEMP 36.6; O2SAT 96
--- NOTE | 2022-01-01 10:51 | PM.OP ---
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 Transverse colon polyp B. Cecal polyp C. Polyp at 40cm ) Condition: stable Disposition: PACU
[2022-01-01 11:03] VITALS: BP 128/71; PULSE 66; RESP 20; TEMP 36.8; O2SAT 96
[2022-01-01 11:18] VITALS: BP 138/78; PULSE 70; RESP 16; TEMP 36.9; O2SAT 95
--- NOTE | 2022-01-01 11:33 | OP_ITS ---
SURGEON: Uziel Ventura MD INDICATIONS: The patient presents for evaluation of personal history of tubular adenoma of the colon, family history of colon polyps, and colorectal cancer screening. Full consent has been obtained from her for this, including risks of bleeding and perforation. PREOPERATIVE DIAGNOSIS: POSTOPERATIVE DIAGNOSIS: PROCEDURE PERFORMED: Colonoscopy to the cecum with cold snare polypectomy x3. ESTIMATED BLOOD LOSS: COMPLICATIONS: ANESTHESIA: Monitored anesthesia care. ASSISTANTS: SPECIMENS: PREOPERATIVE DIAGNOSES: Colorectal cancer screening and personal history of tubular adenoma of the colon, and family history of colorectal polyps and colon cancer. POSTOPERATIVE DIAGNOSES: Colorectal cancer screening and personal history of tubular adenoma of the colon, and family history of colorectal polyps and colon cancer, colon polyps, diverticulosis, and internal hemorrhoids. DESCRIPTION OF PROCEDURE: The patient was placed in the left lateral decubitus position the digital rectal exam revealed no abnormalities. The [employer] video pediatric colonoscope was entered into the rectum and advanced easily to the cecum. Once in the cecum, I did identify cecal pouch with appendiceal orifice and a normal-appearing ileocecal valve. In the region of the appendiceal orifice was an approximately 4 or 5 mm polyp. This was initially removed by cold snare polypectomy and then recovered with the biopsy forceps. The remainder of the cecum appeared normal. There was no sign of any residual polyp nor significant bleeding at the polypectomy site. The scope was slowly withdrawn assessing all mucosal surfaces carefully. Preparation was excellent. In the transverse colon and at 40 cm were approximately 4 or 5 mm polyps, which were each removed by cold snare polypectomy and recovered by suction. The polypectomy sites appeared clean, without any sign of residual polyp nor bleeding. I did not visualize any other polyps, colitis, nor angiodysplasia. There was a mild amount of sigmoid diverticulosis. The anastomosis from her previous surgery appeared normal at approximately 20 cm. In the rectum, scope was retroflexed visualizing some small internal hemorrhoids, but no other pathology. The rectal mucosa appeared normal. Scope was straightened and withdrawn from the patient, she tolerated the procedure well and was returned to the recovery area in stable condition. IMPRESSION: 1. Colon polyps. 2. Diverticulosis. 3. Internal hemorrhoids. PLAN: The results of the pathology will be checked. Given these relatively minimal findings and her age, I do not think she will need a further screening colonoscopy. She will see me on a p.r.n. basis. MD ARJUN Kern/RAFAL / [phone]
== END 2022-01-01 12:18 | disposition home or self-care (01) ==
PROVIDERS: PCP Internal Medicine; Visit Provider Internal Medicine
PROC: 0DJD8ZZ Inspection of Lower Intestinal Tract, Via Natural or Artificial Opening Endoscopic (ICD-10-PCS; CPT 45378; principal; 2022-01-01 09:30)
DX: Z12.11 Encounter for screening for malignant neoplasm of colon (principal); Z86.010 Personal history of colon polyps; Z83.71 Family history of colonic polyps; D12.0 Benign neoplasm of cecum; D12.5 Benign neoplasm of sigmoid colon; K57.30 Diverticulosis of large intestine without perforation or abscess without bleeding; K64.8 Other hemorrhoids; K58.9 Irritable bowel syndrome, unspecified; K21.9 Gastro-esophageal reflux disease without esophagitis; I10 Essential (primary) hypertension; E78.5 Hyperlipidemia, unspecified; Z79.899 Other long term (current) drug therapy; Z85.3 Personal history of malignant neoplasm of breast; Z85.528 Personal history of other malignant neoplasm of kidney; Z88.2 Allergy status to sulfonamides; Z88.8 Allergy status to other drugs, medicaments and biological substances; Z98.0 Intestinal bypass and anastomosis status; Z90.49 Acquired absence of other specified parts of digestive tract
CPT/HCPCS: 45385; 88300; 88305

== ENCOUNTER 2022-03-10 07:44 | Outpatient (REF) | payer MEDICARE, OTHER, SELFPAY ==
[2022-03-10 11:20] LABS: MANUAL DIFF FLAG NO
[2022-03-10 11:35] LABS: Basophils Absolute Auto 0.1 X10*3/uL (0.0-0.2); Basophils Percent Auto 0.8 % (0-2); Eosinophils Absolute Auto 0.2 X10*3/uL (0.0-0.4); Hematocrit 41.2 % (37.0-47.0); Hemoglobin 13.7 g/dl (12.0-16.0); Imm Gran Abs Auto 0.04 X10*3/uL (0.00-0.03); Imm Gran Pct Auto 0.5 % (0.0-0.4); Lymphocytes Absolute Auto 2.8 X10*3/uL (1.2-4.9); Lymphocytes Percent Auto 35.5 % (20-40); Mean Corpuscular HGB Conc 33.3 g/dl (31.0-35.0); Mean Corpuscular Hemoglobin 32.5 pg (27.0-33.0); Mean Corpuscular Volume 97.9 fL (80.0-98.0); Mean Platelet Volume 11.6 fL (9.4-12.3); Monocytes Absolute Auto 0.5 X10*3/uL (0.1-1.2); Monocytes Percent Auto 5.8 % (2-11); Neutrophils Absolute Auto 4.4 x10*3/uL (2.0-8.3); Neutrophils Percent Auto 55.4 % (45-73); Platelet Count 253 X10*3/uL (160-400); Red Blood Count 4.21 X10*6/uL (4.20-5.50); Red Cell Distribution Width 12.4 % (11.0-16.0)
[2022-03-10 11:37] LABS: Appearance Urine Cloudy; Color Urine Dark Yellow; Glucose Urine UA Negative (Negative); Leukocyte Esterase Urine Trace (Negative); Nitrite Urine Negative (Negative); UMIC TRIGGER UACC YES; Urine Blood Trace (Negative); Urine Ketones Trace mg/dL (Negative); Urine Protein Negative (Neg-Trace)
[2022-03-10 11:41] LABS: Bacteria Urine 2+ (None Seen); Hyaline Casts Urine 0-2 /LPF (0-2); Squamous Epithelial Cell Urine >20 /HPF (0-2); WBC Urine 0-5 /HPF (0-5)
[2022-03-10 11:48] LABS: Estimated Average Glucose 131 mg/dL; Hemoglobin A1c % 6.2 %
[2022-03-10 12:19] LABS: Alanine Aminotransferase 13 U/L (0-31); Albumin Level 4.3 g/dL (3.5-5.0); Alkaline Phosphatase 76 U/L (39-117); Anion Gap 13 (12-20); Aspartate Amino Transferase 12 U/L (5-31); Bilirubin Total 1.6 mg/dL (0.0-1.0); Blood Urea Nitrogen 12 mg/dL (9-16); Calcium 9.4 mg/dL (8.4-10.2); Carbon Dioxide 27 mmol/L (22-29); Chloride 107 mmol/L (96-108); Cholesterol 195 mg/dL; Estimated Glomerular Filt Rate > 60; Free T4 (Free Thyroxine) 1.01 ng/dL (0.71-1.85); Glucose Fasting 135 mg/dL (60-99); HDL Cholesterol 41 mg/dL; LDL Cholesterol Calculated 118 mg/dl; Potassium 4.2 mmol/L (3.3-5.1); Sodium 143 mmol/L (135-145); Thyroid Stimulating Hormone 2.86 uIU/mL (0.32-4.0); Total Protein 6.7 g/dL (6.5-8.0); Triglycerides 180 mg/dL; Vitamin D 25-OH Total 68.4 ng/mL (>30)
== END 2022-03-10 07:45 | disposition home or self-care (01) ==
LOC: HO.HMGCLDS 07:44
PROVIDERS: PCP Internal Medicine; Visit Provider Internal Medicine
DX: E11.9 Type 2 diabetes mellitus without complications (principal); E03.9 Hypothyroidism, unspecified; E55.9 Vitamin D deficiency, unspecified; I10 Essential (primary) hypertension; E78.00 Pure hypercholesterolemia, unspecified
CPT/HCPCS: 36415; 80053; 80061; 81001; 82306; 83036; 84439; 84443; 85025

== ENCOUNTER 2022-07-08 07:50 | Outpatient (REF) | payer MEDICARE, OTHER, SELFPAY ==
[2022-07-08 11:30] LABS: MANUAL DIFF FLAG NO
[2022-07-08 11:40] LABS: Appearance Urine Clear; Color Urine Yellow; Glucose Urine UA Negative (Negative); Leukocyte Esterase Urine Negative (Negative); Nitrite Urine Negative (Negative); Urine Blood Negative (Negative); Urine Ketones Negative (Negative); Urine Protein Negative (Neg-Trace)
[2022-07-08 11:52] LABS: Basophils Absolute Auto 0.1 X10*3/uL (0.0-0.2); Basophils Percent Auto 0.8 % (0-2); Eosinophils Absolute Auto 0.2 X10*3/uL (0.0-0.4); Eosinophils Percent Auto 2.2 % (0-4); Hemoglobin 14.1 g/dl (12.0-16.0); Imm Gran Abs Auto 0.02 X10*3/uL (0.00-0.03); Imm Gran Pct Auto 0.3 % (0.0-0.4); Lymphocytes Absolute Auto 3.1 X10*3/uL (1.2-4.9); Lymphocytes Percent Auto 40.5 % (20-40); Mean Corpuscular HGB Conc 33.6 g/dl (31.0-35.0); Mean Corpuscular Hemoglobin 32.6 pg (27.0-33.0); Mean Platelet Volume 11.2 fL (9.4-12.3); Monocytes Absolute Auto 0.5 X10*3/uL (0.1-1.2); Monocytes Percent Auto 6.2 % (2-11); Neutrophils Absolute Auto 3.8 x10*3/uL (2.0-8.3); Platelet Count 233 X10*3/uL (160-400); Red Blood Count 4.33 X10*6/uL (4.20-5.50); Red Cell Distribution Width 12.3 % (11.0-16.0); White Blood Count 7.6 X10*3/uL (4.8-10.8)
[2022-07-08 12:43] LABS: Alanine Aminotransferase 15 U/L (0-31); Albumin Level 4.1 g/dL (3.5-5.0); Alkaline Phosphatase 71 U/L (39-117); Anion Gap 14 (12-20); Aspartate Amino Transferase 12 U/L (5-31); Bilirubin Total 1.1 mg/dL (0.0-1.0); Blood Urea Nitrogen 17 mg/dL (9-16); Calcium 9.1 mg/dL (8.4-10.2); Carbon Dioxide 27 mmol/L (22-29); Chloride 104 mmol/L (96-108); Cholesterol 191 mg/dL; Estimated Glomerular Filt Rate > 60; Free T4 (Free Thyroxine) 0.93 ng/dL (0.71-1.85); Glucose Fasting 134 mg/dL (60-99); HDL Cholesterol 44 mg/dL; LDL Cholesterol Calculated 119 mg/dl; Potassium 4.2 mmol/L (3.3-5.1); Sodium 141 mmol/L (135-145); Thyroid Stimulating Hormone 1.82 uIU/mL (0.32-4.0); Total Protein 6.3 g/dL (6.5-8.0); Triglycerides 142 mg/dL; Vitamin D 25-OH Total 79.2 ng/mL (>30)
== END 2022-07-08 07:51 | disposition home or self-care (01) ==
LOC: HO.HMGCLDS 07:50
PROVIDERS: PCP Internal Medicine; Visit Provider Internal Medicine
DX: I10 Essential (primary) hypertension (principal); R30.0 Dysuria; E03.9 Hypothyroidism, unspecified; E55.9 Vitamin D deficiency, unspecified; E78.00 Pure hypercholesterolemia, unspecified
CPT/HCPCS: 36415; 80053; 80061; 81003; 82306; 84439; 84443; 85025

== ENCOUNTER → 2022-07-15 08:50 | Outpatient (BNVA) | payer MEDICARE, OTHER, SELFPAY | PROVIDERS: PCP Internal Medicine; Visit Provider Psychiatry & Neurology Neurology | DX: G47.33 Obstructive sleep apnea (adult) (pediatric) (principal); G47.61 Periodic limb movement disorder | CPT/HCPCS: 99212 ==

== ENCOUNTER 2022-10-21 10:41 | Outpatient (AMB) | payer MEDICARE, OTHER, SELFPAY ==
--- NOTE | 2022-10-21 10:43 | A.OFFVIS_ITS ---
Intake Vital Signs 10/21/22 10:45 Height 4 ft 1 in Weight 157 lb 8 oz BMI 46.1 BP 134/78 Blood Pressure Location Rt brachial Position Sitting Pulse 73 Pulse Source Pulse Oximeter Pulse Oximetry (%) 96 Oxygen Delivery Method Room Air Intake Visit Reasons: 3m follow up JEWELS Intake Note: Patient presents for 3 month follow up Allergies adhesive tape Allergy (Intermediate, Verified 10/21/22 10:47) BLISTERS albuterol [From PROAIR HFA] Allergy (Intermediate, Verified 10/21/22 10:47) TREMOR Sulfa (Sulfonamide Antibiotics) [SULFA (SULFONAMIDE ANTIBIOTICS)] Allergy (Intermediate, Verified 10/21/22 10:47) ITCH/RASH, itching, hives ropinirole Allergy (Mild, Verified 10/21/22 10:47) joint pain oxybutynin Allergy (Verified 10/21/22 10:47) shortness of breath codeine [CODEINE] Adverse Reaction (Intermediate, Verified 10/21/22 10:47) GI UPSET HPI HPI Comments History of Present Illness Details 77 y/o female comes for follow up of JEWELS on CPAP. Pt reports her mask is good but air leaks and caused her eyes very red and dry in the morning. The nocturia has been improved and she sleeps better, but her cat usually bothers her sleep. Sleeps better with CPAP and daytime functioning has improved. Leg movements are better with gabapentin 100 mg. Pt is on APAP [id number]. The compliance and therapy response (07/23/22-10/20/22) reviewed with the patient. Compliance report- 94%. The average usage hrs-7 hrs. AHI-0.3/hr. [facility] Medical History Acquired hypothyroidism Allergic rhinitis Anxiety Benign essential hypertension Constipation Daytime somnolence Esophagitis GERD without esophagitis History of breast cancer History of renal cell cancer HTN (hypertension) Hypothyroid Impaired fasting glucose Invasive ductal carcinoma of left breast Mixed irritable bowel syndrome Obesity (BMI 30-39.9) Obstructive sleep apnea Osteoarthritis of right knee Overactive bladder Overweight (BMI 25.0-29.9) Post-menopausal Pure hypercholesterolemia Renal cancer Short of breath on exertion Vitamin D deficiency Surgical History History of bunionectomy History of cataract surgery History of colon resection (~2001) History of colonoscopy History of esophagogastroduodenoscopy (EGD) (~09/16/12) History of eye surgery (~09/2012) History of kidney surgery History of left breast biopsy (~01/2014) History of lumpectomy of left breast (~03/2014) History of partial nephrectomy (~2002) History of removal of cyst History of removal of skin mole History of right knee surgery (~06/2017) History of thumb surgery (~04/26/15) Family History Father History of gastric cancer History of lung cancer Mother History of heart disease Brother Family history of prostate cancer History of colon cancer History of lung cancer Daughter History of breast cancer Paternal Aunt History of breast cancer Maternal Uncle History of leukemia Maternal Aunt History of breast cancer [facility] Alcohol intake: current Alcohol intake frequency: holidays/special occasions only Alcohol type: wine Patient Tobacco Use Status: Never used Tobacco Second Hand Smoke Exposure: Yes service: No Current occupational status: retired Cognitive needs: No Hearing needs: No Vision needs: Yes Review of Systems Const All systems reviewed & are unremarkable except as noted in HPI and below Physical Exam Vital Signs: Last Vital Signs Pulse 73 10/21/22 10:45 BP 134/78 10/21/22 10:45 Pulse Ox 96 10/21/22 10:45 Oxygen Delivery Method Room Air 10/21/22 10:45 BMI result Body Mass Index 46.1 Const General: cooperative, healthy appearing, comfortable and no acute distress Nutritional Appearance: average body habitus Orientation/consciousness: patient oriented x3 HEENT Head: Yes normal to inspection Neuro General: patient oriented x3 Assessment & Plan Assessment & Plan (1) Obstructive sleep apnea: Code(s): G47.33 - Obstructive sleep apnea (adult) (pediatric) Plan: Continue CPAP 5-20 cm . compliance stressed. (2) Periodic limb movements of sleep: Code(s): G47.61 - Periodic limb movement disorder Plan: she is sleeping better with CPAP. Plan Continue to use CPAP at [id number] as patient experiences good clinical effects. Advised patient to try CPAP mask liner or memory foam cushion to prevent air leaking. Continue to take gabapentin 100mg qhs. Coding Level of Care Code Est Pt Level 3 (13294) Diagnoses Obstructive sleep apnea G47.33 Periodic limb movements of sleep G47.61
[2022-10-21 10:45] VITALS: BP 134/78; PULSE 73; O2SAT 96; BMI 46.1
== END 2022-10-21 11:04 | disposition home or self-care (01) ==
LOC: HO.HSMC 10:41
PROVIDERS: PCP Internal Medicine; Visit Provider Nurse Practitioner Family
DX: G47.33 Obstructive sleep apnea (adult) (pediatric) (principal); G47.61 Periodic limb movement disorder
CPT/HCPCS: 99213

== ENCOUNTER → 2022-10-21 10:41 | Outpatient (BNVA) | payer MEDICARE, OTHER, SELFPAY | PROVIDERS: PCP Internal Medicine; Visit Provider Nurse Practitioner Family | DX: G47.33 Obstructive sleep apnea (adult) (pediatric) (principal); G47.61 Periodic limb movement disorder | CPT/HCPCS: 99212 ==

== ENCOUNTER 2022-11-10 08:23 | Outpatient (REF) | payer MEDICARE, OTHER, SELFPAY ==
[2022-11-10 11:24] LABS: MANUAL DIFF FLAG NO
[2022-11-10 11:25] LABS: Appearance Urine Clear; Color Urine Yellow; Glucose Urine UA Negative (Negative); Leukocyte Esterase Urine Negative (Negative); Nitrite Urine Negative (Negative); PH 6.5 (5.0-9.0); Urine Blood Negative (Negative); Urine Ketones Negative (Negative); Urine Protein Negative (Neg-Trace)
[2022-11-10 11:46] LABS: Basophils Absolute Auto 0.1 X10*3/uL (0.0-0.2); Basophils Percent Auto 0.7 % (0-2); Eosinophils Absolute Auto 0.2 X10*3/uL (0.0-0.4); Eosinophils Percent Auto 2.1 % (0-4); Hemoglobin 13.8 g/dl (12.0-16.0); Imm Gran Abs Auto 0.02 X10*3/uL (0.00-0.03); Imm Gran Pct Auto 0.3 % (0.0-0.4); Lymphocytes Absolute Auto 2.9 X10*3/uL (1.2-4.9); Lymphocytes Percent Auto 38.4 % (20-40); Mean Corpuscular HGB Conc 32.9 g/dl (31.0-35.0); Mean Corpuscular Hemoglobin 32.7 pg (27.0-33.0); Mean Corpuscular Volume 99.5 fL (80.0-98.0); Mean Platelet Volume 11.8 fL (9.4-12.3); Monocytes Absolute Auto 0.5 X10*3/uL (0.1-1.2); Monocytes Percent Auto 6.3 % (2-11); Neutrophils Percent Auto 52.2 % (45-73); Platelet Count 230 X10*3/uL (160-400); Red Blood Count 4.22 X10*6/uL (4.20-5.50); Red Cell Distribution Width 12.2 % (11.0-16.0); White Blood Count 7.6 X10*3/uL (4.8-10.8)
[2022-11-10 12:12] LABS: Estimated Average Glucose 134 mg/dL; Hemoglobin A1C 167.2496 umol/L; Hemoglobin A1c % 6.3 %
[2022-11-10 12:39] LABS: Alanine Aminotransferase 14 U/L (0-31); Albumin Level 4.1 g/dL (3.5-5.0); Alkaline Phosphatase 63 U/L (39-117); Anion Gap 16 (12-20); Aspartate Amino Transferase 14 U/L (5-31); Bilirubin Total 0.9 mg/dL (0.0-1.0); Blood Urea Nitrogen 16 mg/dL (9-16); Calcium 9.7 mg/dL (8.4-10.2); Carbon Dioxide 24 mmol/L (22-29); Chloride 105 mmol/L (96-108); Cholesterol 185 mg/dL; Estimated Glomerular Filt Rate > 60; Glucose Fasting 142 mg/dL (60-99); HDL Cholesterol 44 mg/dL; LDL Cholesterol Calculated 103 mg/dl; Potassium 4.3 mmol/L (3.3-5.1); Sodium 141 mmol/L (135-145); Triglycerides 194 mg/dL
[2022-11-10 12:43] LABS: TSH reflex Free T4 3.24 uIU/mL (0.32-4.0); Vitamin D 25-OH Total 100.7 ng/mL (>30)
== END 2022-11-10 08:24 | disposition home or self-care (01) ==
LOC: HO.HMGCLDS 08:23
PROVIDERS: PCP Internal Medicine; Visit Provider Internal Medicine
DX: I10 Essential (primary) hypertension (principal); R30.0 Dysuria; E55.9 Vitamin D deficiency, unspecified; E78.00 Pure hypercholesterolemia, unspecified; E11.9 Type 2 diabetes mellitus without complications
CPT/HCPCS: 36415; 80053; 80061; 81003; 82306; 83036; 84443; 85025

== ENCOUNTER 2022-11-17 12:44 | Outpatient (AMB) | payer MEDICARE, OTHER, SELFPAY ==
[2022-11-17 13:00] VITALS: BP 118/60; PULSE 68; O2SAT 96; BMI 32.3
--- NOTE | 2022-11-17 13:00 | A.OFFPC_ITS ---
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 Required: No Accompanied by: Self / Same As Patient Allergies adhesive tape Allergy (Intermediate, Verified 11/17/22 13:15) BLISTERS albuterol [From PROAIR HFA] Allergy (Intermediate, Verified 11/17/22 13:15) TREMOR Sulfa (Sulfonamide Antibiotics) [SULFA (SULFONAMIDE ANTIBIOTICS)] Allergy (Intermediate, Verified 11/17/22 13:15) ITCH/RASH, itching, hives ropinirole Allergy (Mild, Verified 11/17/22 13:15) joint pain oxybutynin Allergy (Verified 11/17/22 13:15) shortness of breath codeine [CODEINE] Adverse Reaction (Intermediate, Verified 11/17/22 13:15) GI UPSET Medication List - Last Reconciled 11/17/22 by Calvin Maldonado MD azelastine 2 sprays intranasal BID yrcdqqfufi-jenyeemvvoflp-iobi 50-300-40 mg (Fioricet) 1 cap PO Q8H PRN 10 days cetirizine (Zyrtec) 5 mg PO DAILY PRN cholecalciferol (vitamin D3) 50 mcg PO DAILY citalopram 10 mg PO DAILY clobetasol 0.05% 0.25 - 0.5 mL topical esomeprazole magnesium 40 mg PO DAILY gabapentin 100 mg PO BEDTIME glucosamine sulfate 750 mg PO DAILY levothyroxine 50 mcg PO DAILY 90 days losartan 50 mg PO DAILY mirabegron ER (Myrbetriq) 25 mg PO DAILY 30 days multivitamin (Multiple Vitamins tablet) 1 tab PO DAILY olopatadine 0.2% (Pataday) 1 drp ophthalmic (eye) DAILY omega-3 fatty acids (Fish Oil Concentrate) 1,000 mg PO DAILY rosuvastatin 5 mg PO DAILY Tobacco use date assessed: 11/17/22 Fall risk assessment: No Falls in past year Last assessed Fall Risk: 11/17/22 Dental Screening Dental Screen Date: 11/17/22 Did you have a dental visit in the last 12 months?: Yes Did you have a dental problem in the last 6 months where you did not have access to dental care?: No Was dental information given to patient?: Patient has dentist HPI 4mth f/u HPI Details Patient comes in today for her follow up visit States that she feels okay She denies any headaches or dizziness Denies any chest pains, no SOB No nausea/vomiting, no abdominal pain No change in bowel habits noted Still has trouble sleeping at night but this has improved a lot with CPAP therapy for her JEWELS although she continues to experience problems with the fit of her mask Needs a couple of her Rx refilled Had her follow up labs done last week - to discuss her results [facility] Medical History Acquired hypothyroidism Allergic rhinitis Anxiety Benign essential hypertension Constipation Daytime somnolence Esophagitis GERD without esophagitis History of breast cancer History of renal cell cancer HTN (hypertension) Hypothyroid Impaired fasting glucose Invasive ductal carcinoma of left breast Mixed irritable bowel syndrome Obesity (BMI 30-39.9) Obstructive sleep apnea Osteoarthritis of right knee Overactive bladder Overweight (BMI 25.0-29.9) Post-menopausal Pure hypercholesterolemia Renal cancer Short of breath on exertion Vitamin D deficiency Surgical History History of bunionectomy History of cataract surgery History of colon resection (~2001) History of colonoscopy History of esophagogastroduodenoscopy (EGD) (~09/16/12) History of eye surgery (~09/2012) History of kidney surgery History of left breast biopsy (~01/2014) History of lumpectomy of left breast (~03/2014) History of partial nephrectomy (~2002) History of removal of cyst History of removal of skin mole History of right knee surgery (~06/2017) History of thumb surgery (~04/26/15) Family History Father History of gastric cancer History of lung cancer Mother History of heart disease Brother Family history of prostate cancer History of colon cancer History of lung cancer Daughter History of breast cancer Paternal Aunt History of breast cancer Maternal Uncle History of leukemia Maternal Aunt History of breast cancer Social History Housing: [facility] Alcohol intake: current Alcohol intake frequency: holidays/special occasions only Alcohol type: wine Patient Tobacco Use Status: Never used Tobacco e-Cigarette/Vaping Use: Never Used Second Hand Smoke Exposure: Yes service: No Current occupational status: retired Cognitive needs: No Hearing needs: No Vision needs: Yes Questionnaire PHQ-9 Over the last 2 weeks, how often have you been bothered by any of the following problems? 1. Little interest or pleasure in doing things: not at all 2. Feeling down, depressed, or hopeless: not at all 3. Trouble falling or staying asleep, or sleeping too much: not at all 4. Feeling tired or having little energy: not at all 5. Poor appetite or overeating: not at all 6. Feeling bad about yourself - or that you are a failure or have let yourself or your family down: not at all 7. Trouble concentrating on things, such as reading the newspaper or watching television: not at all 8. Moving or speaking so slowly that other people could have noticed. Or the opposite - being so fidgety or restless that you have been moving around a lot more than usual: not at all 9. Thoughts that you would be better off or of hurting yourself in some way: not at all Total score: 0 Depression Screening Interpretation: Negative 73332 - PHQ-9 Billing: Yes Source: Developed by Drs. Uziel Morillo, Celina Matute, Pete Patterson and colleagues, with an educational sandra from [employer]. Thrive Questionnaire Date Thrive assessed: 11/17/22 I am a: Patient What is your living situation today?: I have a steady place to live Within the past 12 months, did the food you bought not last and you didn't have the money to get more?: Never true Within the past 12 months, did you worry whether your food would run out before you got money to buy more?: Never true Do you have trouble paying for medicines?: No Do you have trouble getting transportation to medical appointments?: No Do you have trouble paying your heating and electricity bill?: No Do you have trouble taking care of your child, family member or friend?: No Do you have trouble with day-to-day activities such as bathing, preparing meals, shopping, managing finances, etc.?: No Are you currently unemployed and looking for a job?: No Are you interested in more education?: No Please select the resources that you would like help with: None Currently or been in a relationship where the following occur: no concerns reported AUDIT C Alcohol Use Questionnaire (AUDIT-C) 1. How often do you have a drink containing alcohol?: Monthly or less 2. How many drinks containing alcohol do you have on a typical day when you are drinking?: 1 or 2 3. How often do you have six or more drinks on one occasion?: Never Total Score: 1 Score Reviewed/Action Taken: Yes DELIA-7 AMB Questionnaire DELIA-7 Date DELIA - 7 assessed: 11/17/22 Feeling nervous, anxious, or on edge: 0 = Not at all Not being able to stop or control worryin = Not at all Worrying too much about different things: 0 = Not at all Trouble relaxin = Not at all Being so restless that it is hard to sit still: 0 = Not at all Becoming easily annoyed or irritable: 0 = Not at all Feeling afraid as if something awful might happen: 0 = Not at all Total DELIA-7 score (0-4 normal; 5-9 mild; 10-14 moderate; 15-21 severe): 0 Source: Developed by Drs. Uziel Morillo, Celina Matute, Pete Patterson and colleagues, with an educational sandra from [employer]. Review of Systems Const Denies chills, Reports difficulty sleeping (improved with CPAP device), Reports fatigue, Denies fever(s) and Denies headache(s) ENT Denies dysphagia, Denies dizziness, Denies otalgia, Denies headache(s) and Denies sore throat Card Denies chest pain, Reports palpitations (on and off, mostly at night - see HPI) and Denies dyspnea Resp Denies cough and Denies dyspnea GI Denies abdominal pain, Denies constipation, Denies dysphagia, Denies heartburn, Denies diarrhea, Denies nausea and Denies vomiting Denies difficulty voiding, Reports nocturia (at least 3 times a night), Denies dysuria and Denies urinary incontinence Musc Reports back pain (over the lower back - on and off) and Reports arthralgias (above the right hip - on and off) Neuro Denies dizziness, Denies headache(s) and Reports restless legs Endo Reports fatigue and Reports palpitations (on and off, mostly at night - see HPI) Physical exam (Primary Care) Vital Signs: Oxygen Delivery Method Room Air 11/17/22 13:00 Tobacco/Smoking Status: Tobacco use Status Tobacco use date assessed 11/17/22 11/17/22 13:03 Patient Tobacco Use Status Never used Tobacco 11/17/22 13:03 e-Cigarette/Vaping Use Never Used 11/17/22 13:03 PHQ-9: PHQ-9 Score PHQ-9: Total score 0 11/17/22 13:03 Depression Screening Interpretation: Negative Thrive Assessment: Date of Thrive Assessment Date Thrive assessed 11/17/22 11/17/22 13:03 Currently or been in a relationship where the following occur: no concerns r eported Const General: no acute distress and alert HENMT Ears: TM's normal bilaterally and EAC's normal Throat: Yes posterior oropharynx normal and Yes tonsils normal (no TP congestion noted) Neck Neck: Yes no lymphadenopathy and Yes supple Resp Auscultation: clear to auscultation bilaterally, no rales and no wheezes Cardio Rate: regular rate Rhythm: regular rhythm Heart sounds: no murmurs GI Palpation (GI): Soft to palpation and nontender Auscultation: normal bowel sounds Extrem General: Yes no clubbing, cyanosis or edema Results Reviewed Results Reviewed: Laboratory Tests 11/10/22 11/10/22 11/10/22 08:29 08:29 08:29 WBC 7.6 Hgb 13.8 Hct 42.0 Plt Count 230 Sodium 141 Potassium 4.3 Creatinine 0.74 Estimated GFR > 60 Fasting Glucose 142 H Hemoglobin A1c % Calcium 9.7 D AST 14 ALT 14 Triglycerides 194 Cholesterol 185 LDL Cholesterol, Calc 103 HDL Cholesterol 44 25-OH Vitamin D Total 100.7 TSH 3.24 Ur Specific [place] 1.010 Urine Protein Negative Urine Glucose (UA) Negative Urine Blood Negative 11/10/22 08:29 WBC Hgb Hct Plt Count Sodium Potassium Creatinine Estimated GFR Fasting Glucose Hemoglobin A1c % 6.3 Calcium AST ALT Triglycerides Cholesterol LDL Cholesterol, Calc HDL Cholesterol 25-OH Vitamin D Total TSH Ur Specific [place] Urine Protein Urine Glucose (UA) Urine Blood Assessment and Plan Assessment & Plan (1) Pure hypercholesterolemia: Code(s): E78.00 - Pure hypercholesterolemia, unspecified Plan: Results of her labs done last week reviewed and discussed with patient - lipids have improved slightly from previous Reinforced low cholesterol diet Continue Crestor 5 mg QD Will recheck her labs in 4 months for follow-up (2) Benign essential hypertension: Code(s): I10 - Essential (primary) hypertension Plan: Reinforced low sodium diet - goal is systolic BP of at least 130 to 140 mm or less Continue Losartan 50 mg QD (3) Obstructive sleep apnea: Code(s): G47.33 - Obstructive sleep apnea (adult) (pediatric) Plan: Continue using her CPAP machine at 5 - 15 cm pressure when sleeping at night States that she has been sleeping better with Tx of her JEWELS Follow up with sleep medicine as scheduled (4) Acquired hypothyroidism: Code(s): E03.9 - Hypothyroidism, unspecified Plan: TFTs were normal on her recent labs done last week Continue Levothyroxine 50 mcg QD Will continue to monitor her TFTs regularly (5) Palpitations: Code(s): R00.2 - Palpitations Plan: States that these occur only occasionally now and mostly at night when she is sitting down watching television; episodes usually last only a few seconds at most, and that their duration is too short to even be associated with any other significant symptoms Have offered to refer her for additional testing and work ups but patient continues to decline - states that they are not occurring often enough or lasting long enough to really bother her and she will call for referrals/orders if she changes her mind about getting these checked out further (6) Impaired fasting glucose: Code(s): R73.01 - Impaired fasting glucose Plan: HgbA1c was at 6.3% on her labs done last week; was previously at 6.2% a few months ago Reinforced low calorie diet / exercise as tolerated (7) Headache: Code(s): R51.9 - Headache, unspecified Qualifiers: Headache type: tension-type Headache chronicity pattern: chronic headache Intractability: not intractable Qualified Code(s): G44.229 - Chronic tension-type headache, not intractable Plan: Likely tension headaches - states that these occur rarely now Continue Fioricet 50-300-40 mg 1 capsule TID PRN (8) GERD without esophagitis: Code(s): K21.9 - Gastro-esophageal reflux disease without esophagitis Plan: Dietary restrictions reinforced Continue on Nexium 40 mg QD; she also takes Tums 500 mg 4 times a day when needed (9) Osteoarthritis of right knee: Comment: S/P arthroplasty of the right knee in November 2019 Code(s): M17.11 - Unilateral primary osteoarthritis, right knee Qualifiers: Osteoarthritis type: primary Qualified Code(s): M17.11 - Unilateral primary osteoarthritis, right knee Plan: Continue Gabapentin 100 mg 2 times a day in the morning and afternoon and 2 capsules at bedtime, Celebrex 200 mg once a day and Tylenol Arthritis 650 mg 3 times a day as needed Also takes CBD (OTC Cannabidiol) as needed for increased knee pain (10) Restless legs syndrome (RLS): Code(s): G25.81 - Restless legs syndrome Plan: Was started on Ropinirole 0.5 mg QHS but patient had to stop taking this recently as she feels that the Rx made her headaches worse States that her leg symptoms have been better controlled lately (11) Allergic rhinitis: Code(s): J30.9 - Allergic rhinitis, unspecified Qualifiers: Allergic rhinitis trigger: unspecified Allergic rhinitis seasonality: unspecified Qualified Code(s): J30.9 - Allergic rhinitis, unspecified Plan: Continue Cetirizine 10 mg QD PRN and Montelukast 10 mg QD (12) Vitamin D deficiency: Code(s): E55.9 - Vitamin D deficiency, unspecified Plan: Corrected Was on Vitamin D3 2000 units QD but is also advised to HOLD her Vitamin D for now as her Vitamin D level has been steadily increasing over the past year and her level is now high at 100.7 ng/ml Will recheck her Vitamin D level in 4 months for follow up (13) Constipation: Code(s): K59.00 - Constipation, unspecified Qualifiers: Constipation type: unspecified constipation type Qualified Code(s): K59.00 - Constipation, unspecified Plan: Encouraged increased oral fluids and dietary fiber Continue MiraLax 17 gm once a day (14) Overactive bladder: Code(s): N32.81 - Overactive bladder Plan: Is most likely the reason for her nocturia and increased fatigue She was started on a trial of Myrbetriq 25 mg Q HS and if we can control / limit her trips to the bathroom at night, she may be able to sleep better (uninterrupted) and not feel as tired constantly throughout the day (15) History of breast cancer: Comment: S/P Tamoxifen x 5 years Code(s): Z85.3 - Personal history of malignant neoplasm of breast Plan: Follow up with Oncology as scheduled for continuing surveillance (16) History of renal cell cancer: Comment: S/P partial left nephrectomy Code(s): Z85.528 - Personal history of other malignant neoplasm of kidney Plan: Follow up with Oncology and Nephrology as scheduled for continuing surveillance (17) Anxiety: Code(s): F41.9 - Anxiety disorder, unspecified Plan: Continue Citalopram 10 mg QD (18) Obesity (BMI 30-39.9): Code(s): E66.9 - Obesity, unspecified Plan: Reinforced diet/exercise as tolerated/lose weight Plan Follow up in 4 months Orders: Orders Vitamin B12 and Folate 4 Months E53.8 - Deficiency of other specified B group vitamins Comprehensive [place]. Panel Fast 4 Months E78.00 - Pure hypercholesterolemia, unspecified Hemoglobin A1c 4 Months R73.01 - Impaired fasting glucose Lipid Panel 4 Months E78.00 - Pure hypercholesterolemia, unspecified Free T4 (Free Thyroxine) 4 Months E03.9 - Hypothyroidism, unspecified Thyroid Stimulating Hormone 4 Months E03.9 - Hypothyroidism, unspecified Vitamin D 25-OH Total 4 Months E55.9 - Vitamin D deficiency, unspecified Complete Blood Count Auto Diff 4 Months I10 - Essential (primary) hypertension UA CC w/rflx Micro + Cult 4 Months R30.0 - Dysuria Medications: Refilled esomeprazole magnesium 40 mg PO DAILY 90 caps 3RF levothyroxine 50 mcg PO DAILY 90 days 90 tabs 3RF E03.9 - Hypothyroidism, unspecified Coding Level of Care Code Est Pt Level 4 (10245) Diagnoses Pure hypercholesterolemia E78.00 Benign essential hypertension I10 Obstructive sleep apnea G47.33 Acquired hypothyroidism E03.9 Palpitations R00.2 Impaired fasting glucose R73.01 Headache G44.229 Headache type: tension-type Headache chronicity pattern: chronic headache Intractability: not intractable GERD without esophagitis K21.9 Osteoarthritis of right knee M17.11 Osteoarthritis type: primary Restless legs syndrome (RLS) G25.81 Allergic rhinitis J30.9 Allergic rhinitis trigger: unspecified Allergic rhinitis seasonality: unspecified Vitamin D deficiency E55.9 Constipation K59.00 Constipation type: unspecified constipation type Overactive bladder N32.81 History of breast cancer Z85.3 History of renal cell cancer Z85.528 Anxiety F41.9 Obesity (BMI 30-39.9) E66.9
== END 2022-11-17 13:56 | disposition home or self-care (01) ==
PROVIDERS: Visit Provider Internal Medicine
DX: I10 Essential (primary) hypertension (principal); E03.9 Hypothyroidism, unspecified; G44.229 Chronic tension-type headache, not intractable; E55.9 Vitamin D deficiency, unspecified; E78.00 Pure hypercholesterolemia, unspecified; R00.2 Palpitations; G47.33 Obstructive sleep apnea (adult) (pediatric); R73.01 Impaired fasting glucose; K21.9 Gastro-esophageal reflux disease without esophagitis; M17.11 Unilateral primary osteoarthritis, right knee; G25.81 Restless legs syndrome; J30.9 Allergic rhinitis, unspecified
CPT/HCPCS: 99214

== ENCOUNTER 2023-03-19 08:06 | Outpatient (REF) | payer MEDICARE, OTHER, SELFPAY ==
[2023-03-19 11:28] LABS: MANUAL DIFF FLAG NO
[2023-03-19 12:02] LABS: Basophils Absolute Auto 0.1 X10*3/uL (0.0-0.2); Basophils Percent Auto 0.6 % (0-2); Eosinophils Absolute Auto 0.2 X10*3/uL (0.0-0.4); Eosinophils Percent Auto 2.6 % (0-4); Hematocrit 42.8 % (37.0-47.0); Hemoglobin 14.2 g/dl (12.0-16.0); Imm Gran Abs Auto 0.03 X10*3/uL (0.00-0.03); Imm Gran Pct Auto 0.4 % (0.0-0.4); Lymphocytes Absolute Auto 2.5 X10*3/uL (1.2-4.9); Lymphocytes Percent Auto 30.4 % (20-40); Mean Corpuscular HGB Conc 33.2 g/dl (31.0-35.0); Mean Corpuscular Hemoglobin 32.7 pg (27.0-33.0); Mean Corpuscular Volume 98.6 fL (80.0-98.0); Mean Platelet Volume 11.3 fL (9.4-12.3); Monocytes Absolute Auto 0.5 X10*3/uL (0.1-1.2); Monocytes Percent Auto 6.1 % (2-11); Neutrophils Absolute Auto 4.9 x10*3/uL (2.0-8.3); Neutrophils Percent Auto 59.9 % (45-73); Platelet Count 233 X10*3/uL (160-400); Red Blood Count 4.34 X10*6/uL (4.20-5.50); Red Cell Distribution Width 12.6 % (11.0-16.0); White Blood Count 8.2 X10*3/uL (4.8-10.8)
[2023-03-19 12:04] LABS: Appearance Urine Clear; Color Urine Yellow; Estimated Average Glucose 140 mg/dL; Glucose Urine UA Negative (Negative); Hemoglobin A1c % 6.5 % (<6.0); Leukocyte Esterase Urine Negative (Negative); Nitrite Urine Negative (Negative); PH 6.5 (5.0-9.0); Specific Gravity - Urine 1.015 (1.005-1.025); Urine Blood Negative (Negative); Urine Ketones Negative (Negative); Urine Protein Negative (Neg-Trace)
[2023-03-19 12:29] LABS: Alanine Aminotransferase 14 U/L (0-31); Albumin Level 4.3 g/dL (3.5-5.0); Alkaline Phosphatase 61 U/L (39-117); Anion Gap 13 (12-20); Aspartate Amino Transferase 15 U/L (5-31); Bilirubin Total 1.2 mg/dL (0.0-1.0); Blood Urea Nitrogen 14 mg/dL (9-16); Calcium 9.5 mg/dL (8.4-10.2); Carbon Dioxide 28 mmol/L (22-29); Chloride 102 mmol/L (96-108); Cholesterol 186 mg/dL (<200); Estimated Glomerular Filt Rate > 60; Glucose Fasting 142 mg/dL (60-99); HDL Cholesterol 42 mg/dL (>40); LDL Cholesterol Calculated 107 mg/dL (<100); Sodium 139 mmol/L (135-145); Total Protein 7.2 g/dL (6.5-8.0); Triglycerides 189 mg/dL (<150)
[2023-03-19 12:32] LABS: Free T4 (Free Thyroxine) 0.93 ng/dL (0.71-1.85); Thyroid Stimulating Hormone 2.27 uIU/mL (0.32-4.0); Vitamin D 25-OH Total 82.3 ng/mL (>30)
[2023-03-19 12:34] LABS: Folate 14.5 ng/mL (> or = 4.0); Vitamin B12 508 pg/mL (200-900)
== END 2023-03-19 08:07 | disposition home or self-care (01) ==
LOC: HO.HMGCLDS 08:06
PROVIDERS: PCP Internal Medicine; Visit Provider Internal Medicine
DX: R73.01 Impaired fasting glucose (principal); E03.9 Hypothyroidism, unspecified; E53.8 Deficiency of other specified B group vitamins; I10 Essential (primary) hypertension; E78.00 Pure hypercholesterolemia, unspecified; E55.9 Vitamin D deficiency, unspecified; R30.0 Dysuria
CPT/HCPCS: 36415; 80053; 80061; 81003; 82306; 82607; 82746; 83036; 84439; 84443; 85025

== ENCOUNTER 2023-03-25 10:09 | Outpatient (AMB) | payer MEDICARE, OTHER, SELFPAY ==
[2023-03-25 10:15] VITALS: BP 150/92; PULSE 88; O2SAT 98; BMI 32.4
--- NOTE | 2023-03-25 10:15 | MHC.PC.OV ---
Vital Signs 03/25/23 10:15 03/25/23 11:47 Height 4 ft 10.5 in Weight 157 lb 8 oz BMI 32.4 BP 150/92 H 160/90 H Blood Pressure Location Lt brachial Lt brachial Position Sitting Sitting Pulse 88 Pulse Source Pulse Oximeter Pulse Oximetry (%) 98 Oxygen Delivery Method Room Air Intake Visit Reasons: 4mth f/u Senior [employer]st Required: No Accompanied by: Self / Same As Patient Allergies adhesive tape Allergy (Intermediate, Verified 03/25/23 11:22) BLISTERS albuterol [From PROAIR HFA] Allergy (Intermediate, Verified 03/25/23 11:22) TREMOR Sulfa (Sulfonamide Antibiotics) [SULFA (SULFONAMIDE ANTIBIOTICS)] Allergy (Intermediate, Verified 03/25/23 11:22) ITCH/RASH, itching, hives ropinirole Allergy (Mild, Verified 03/25/23 11:22) joint pain oxybutynin Allergy (Verified 03/25/23 11:22) shortness of breath codeine [CODEINE] Adverse Reaction (Intermediate, Verified 03/25/23 11:22) GI UPSET Medication List - Last Reconciled 03/25/23 by Calvin Maldonado MD azelastine 2 sprays intranasal BID [id number] 50-300-40 mg (Fioricet) 1 cap PO Q8H PRN 10 days cetirizine (Zyrtec) 5 mg PO DAILY PRN cholecalciferol (vitamin D3) 50 mcg PO DAILY citalopram 10 mg PO DAILY clobetasol 0.05% 0.25 - 0.5 mL topical esomeprazole magnesium 40 mg PO DAILY gabapentin 100 mg PO BEDTIME glucosamine sulfate 750 mg PO DAILY levothyroxine 50 mcg PO DAILY 90 days losartan 50 mg PO DAILY multivitamin (Multiple Vitamins tablet) 1 tab PO DAILY olopatadine 0.2% (Pataday) 1 drp ophthalmic (eye) DAILY rosuvastatin 5 mg PO DAILY Tobacco use date assessed: 03/25/23 Fall risk assessment: No Falls in past year Last assessed Fall Risk: 03/25/23 Dental Screening Dental Screen Date: 03/25/23 Did you have a dental visit in the last 12 months?: Yes Did you have a dental problem in the last 6 months where you did not have access to dental care?: No Was dental information given to patient?: Patient has dentist HPI 4mth f/u HPI Details Patient comes in today for her follow up visit States that she feels okay but has some nasal and chest congestion for the past couple of weeks Relates that she tested positive for COVID back in January 2023 when they got back from [place] and her respiratory symptoms have been recurrent since She denies any fever or sore throat She denies any headaches or dizziness Denies any chest pains, no increased SOB No nausea/vomiting, no abdominal pain No change in bowel habits noted Had her follow up labs done last week - to discuss her results [facility] Medical History Overactive bladder Obesity (BMI 30-39.9) Post-menopausal Overweight (BMI 25.0-29.9) Obstructive sleep apnea Short of breath on exertion Anxiety Daytime somnolence History of renal cell cancer History of breast cancer Constipation Vitamin D deficiency Allergic rhinitis Osteoarthritis of right knee GERD without esophagitis Impaired fasting glucose Acquired hypothyroidism Pure hypercholesterolemia Benign essential hypertension Invasive ductal carcinoma of left breast Renal cancer Hypothyroid HTN (hypertension) Esophagitis Mixed irritable bowel syndrome Surgical History History of removal of skin mole History of right knee surgery (~06/2017) History of thumb surgery (~04/26/15) History of lumpectomy of left breast (~03/2014) History of left breast biopsy (~01/2014) History of removal of cyst History of bunionectomy History of kidney surgery History of cataract surgery History of colon resection (~2001) History of partial nephrectomy (~2002) History of colonoscopy History of esophagogastroduodenoscopy (EGD) (~09/16/12) History of eye surgery (~09/2012) Family History Father History of gastric cancer History of lung cancer Mother History of heart disease Brother Family history of prostate cancer History of colon cancer History of lung cancer Daughter History of breast cancer Paternal Aunt History of breast cancer Maternal Uncle History of leukemia Maternal Aunt History of breast cancer Social History Housing: Condominium Alcohol intake: current Alcohol intake frequency: holidays/special occasions only Alcohol type: wine Patient Tobacco Use Status: Never used Tobacco e-Cigarette/Vaping Use: Never Used Second Hand Smoke Exposure: Yes service: No Current occupational status: retired Cognitive needs: No Hearing needs: No Vision needs: Yes Questionnaire PHQ-9 Over the last 2 weeks, how often have you been bothered by any of the following problems? 1. Little interest or pleasure in doing things: not at all 2. Feeling down, depressed, or hopeless: not at all 3. Trouble falling or staying asleep, or sleeping too much: not at all 4. Feeling tired or having little energy: not at all 5. Poor appetite or overeating: not at all 6. Feeling bad about yourself - or that you are a failure or have let yourself or your family down: not at all 7. Trouble concentrating on things, such as reading the newspaper or watching television: not at all 8. Moving or speaking so slowly that other people could have noticed. Or the opposite - being so fidgety or restless that you have been moving around a lot more than usual: not at all 9. Thoughts that you would be better off or of hurting yourself in some way: not at all Total score: 0 Depression Screening Interpretation: Negative Depression Screening Done: Yes 76190 - PHQ-9 Billing: Yes Source: Developed by Drs. Uziel Morillo, Celina Matute, Pete Patterson and colleagues, with an educational sandra from [employer]. Thrive Questionnaire Date Thrive assessed: 03/25/23 I am a: Patient What is your living situation today?: I have a steady place to live Within the past 12 months, did the food you bought not last and you didn't have the money to get more?: Never true Within the past 12 months, did you worry whether your food would run out before you got money to buy more?: Never true Do you have trouble paying for medicines?: No Do you have trouble getting transportation to medical appointments?: No Do you have trouble paying your heating and electricity bill?: No Do you have trouble taking care of your child, family member or friend?: No Do you have trouble with day-to-day activities such as bathing, preparing meals, shopping, managing finances, etc.?: No Are you currently unemployed and looking for a job?: No Are you interested in more education?: No Please select the resources that you would like help with: None Currently or been in a relationship where the following occur: no concerns reported AUDIT C Alcohol Use Questionnaire (AUDIT-C) 1. How often do you have a drink containing alcohol?: Monthly or less 2. How many drinks containing alcohol do you have on a typical day when you are drinking?: 1 or 2 3. How often do you have six or more drinks on one occasion?: Never Total Score: 1 Score Reviewed/Action Taken: Yes DELIA-7 AMB Questionnaire DELIA-7 Date DELIA - 7 assessed: 03/25/23 Feeling nervous, anxious, or on edge: 0 = Not at all Not being able to stop or control worryin = Not at all Worrying too much about different things: 0 = Not at all Trouble relaxin = Not at all Being so restless that it is hard to sit still: 0 = Not at all Becoming easily annoyed or irritable: 0 = Not at all Feeling afraid as if something awful might happen: 0 = Not at all Total DELIA-7 score (0-4 normal; 5-9 mild; 10-14 moderate; 15-21 severe): 0 Source: Developed by Drs. Uziel Morillo, Celina Matute, Pete Patterson and colleagues, with an educational sandra from [employer]. Review of Systems Const Denies chills, Reports difficulty sleeping (improved with CPAP device), Reports fatigue, Denies fever(s) and Denies headache(s) ENT Denies dysphagia, Denies dizziness, Denies otalgia, Denies headache(s), Reports nasal congestion (on and off), Denies odynophagia and Denies sore throat Card Denies chest pain, Reports palpitations (on and off, mostly at night - see HPI) and Denies dyspnea Resp Denies cough and Denies dyspnea GI Denies abdominal pain, Denies constipation, Denies dysphagia, Denies heartburn, Denies diarrhea, Denies nausea, Denies odynophagia and Denies vomiting Denies difficulty voiding, Reports nocturia (at least 3 times a night), Denies dysuria, Denies urinary incontinence and Denies urinary urgency Musc Reports back pain (over the lower back - on and off) and Reports arthralgias (above the right hip - on and off) Skin/Breast Denies rash Neuro Denies dizziness, Denies headache(s) and Reports restless legs Endo Reports fatigue and Reports palpitations (on and off, mostly at night - see HPI) Physical exam (Primary Care) Vital Signs: Last Vital Signs Pulse 88 03/25/23 10:15 BP 160/90 H 03/25/23 11:47 Pulse Ox 98 03/25/23 10:15 Oxygen Delivery Method Room Air 03/25/23 10:15 BMI result Body Mass Index 32.4 Tobacco/Smoking Status: Tobacco use Status Tobacco use date assessed 03/25/23 03/25/23 10:16 Patient Tobacco Use Status Never used Tobacco 03/25/23 10:16 e-Cigarette/Vaping Use Never Used 03/25/23 10:16 PHQ-9: PHQ-9 Score PHQ-9: Total score 0 03/25/23 11:27 Depression Screening Interpretation: Negative Thrive Assessment: Date of Thrive Assessment Date Thrive assessed 03/25/23 03/25/23 10:16 Currently or been in a relationship where the following occur: no concerns reported Const General: no acute distress and alert HENMT Ears: TM's normal bilaterally and EAC's normal Throat: Yes posterior oropharynx normal and Yes tonsils normal (no TP congestion noted) Neck Neck: Yes no lymphadenopathy and Yes supple Resp Auscultation: clear to auscultation bilaterally, no rales and no wheezes Cardio Rate: regular rate Rhythm: regular rhythm Heart sounds: no murmurs GI Palpation (GI): Soft to palpation and nontender Auscultation: normal bowel sounds Skin Rashes: no rashes Extrem General: Yes no clubbing, cyanosis or edema Results Reviewed Results Reviewed: Laboratory Tests 03/19/23 08:18 WBC 8.2 Hgb 14.2 Hct 42.8 Plt Count 233 Sodium 139 Potassium 4.0 Creatinine 0.72 Estimated GFR > 60 Fasting Glucose 142 H Hemoglobin A1c % 6.5 H Calcium 9.5 AST 15 ALT 14 Triglycerides 189 H Cholesterol 186 LDL Cholesterol, Calc 107 H HDL Cholesterol 42 Vitamin B12 508 25-OH Vitamin D Total 82.3 TSH 2.27 Free T4 0.93 Urine pH 6.5 Ur Specific [place] 1.015 Urine Protein Negative Urine Glucose (UA) Negative Urine Blood Negative Assessment and Plan Assessment & Plan (1) Pure hypercholesterolemia: Code(s): E78.00 - Pure hypercholesterolemia, unspecified Plan: Results of her labs done last week reviewed and discussed with patient Reinforced low cholesterol diet Continue Crestor 5 mg QD Will recheck her labs and fasting lipids in 4 months for follow-up (2) Benign essential hypertension: Code(s): I10 - Essential (primary) hypertension Plan: Reinforced low sodium diet - goal is systolic BP of at least 130 to 140 mm or less Continue Losartan 50 mg QD (3) Palpitations: Code(s): R00.2 - Palpitations Plan: States that these occur only occasionally now and mostly at night when she is sitting down watching television; episodes usually last only a few seconds at most, and that their duration is too short to even be associated with any other significant symptoms Have offered to refer her for additional testing and work ups but patient continues to decline - states that they are not occurring often enough or lasting long enough to really bother her and she will call for referrals/orders if she changes her mind about getting these checked out further (4) Impaired fasting glucose: Code(s): R73.01 - Impaired fasting glucose Plan: Her HgbA1c has gone up at 6.5% on her labs done last week; was previously at 6.3% a few months ago She is advised that her HgbA1c of 6.5% puts her in diabetes category and if she still cannot get her glycemic control improved significantly at her next visit, will have to start her on some Rx for diabetes Reinforced low calorie diet / exercise as tolerated (5) Acquired hypothyroidism: Code(s): E03.9 - Hypothyroidism, unspecified Plan: TFTs were normal on her recent labs done last week Continue Levothyroxine 50 mcg QD Will continue to monitor her TFTs regularly (6) Obstructive sleep apnea: Code(s): G47.33 - Obstructive sleep apnea (adult) (pediatric) Plan: Continue using her CPAP machine at 5 - 15 cm pressure when sleeping at night States that she has been sleeping better with Tx of her JEWELS Follow up with Sleep Medicine as scheduled (7) Headache: Code(s): R51.9 - Headache, unspecified Qualifiers: Headache chronicity pattern: chronic headache Headache type: tension-type Intractability: not intractable Qualified Code(s): G44.229 - Chronic tension-type headache, not intractable Plan: Likely tension headaches - states that these occur rarely now Continue Fioricet 50-300-40 mg 1 capsule TID PRN (8) GERD without esophagitis: Code(s): K21.9 - Gastro-esophageal reflux disease without esophagitis Plan: Dietary restrictions reinforced Continue Nexium 40 mg QD; she also takes Tums 500 mg 4 times a day when needed (9) Osteoarthritis of right knee: Comment: S/P arthroplasty of the right knee in November 2019 Code(s): M17.11 - Unilateral primary osteoarthritis, right knee Qualifiers: Osteoarthritis type: primary Qualified Code(s): M17.11 - Unilateral primary osteoarthritis, right knee Plan: Continue Gabapentin 100 mg 2 times a day in the morning and afternoon and 2 capsules at bedtime, Celebrex 200 mg once a day and Tylenol Arthritis 650 mg 3 times a day as needed Also takes CBD (OTC Cannabidiol) as needed for increased knee pain (10) Restless legs syndrome (RLS): Code(s): G25.81 - Restless legs syndrome Plan: Was started on Ropinirole 0.5 mg QHS but patient had to stop taking this recently as she feels that the Rx made her headaches worse States that her leg symptoms have been better controlled lately (11) Allergic rhinitis: Code(s): J30.9 - Allergic rhinitis, unspecified Qualifiers: Allergic rhinitis seasonality: unspecified Allergic rhinitis trigger: unspecified Qualified Code(s): J30.9 - Allergic rhinitis, unspecified Plan: Continue Cetirizine 10 mg QD PRN and Montelukast 10 mg QD (12) Vitamin D deficiency: Code(s): E55.9 - Vitamin D deficiency, unspecified Plan: She was previously advised to HOLD her Vitamin D as her Vitamin D level has steadily increased over the past year and her level was at 100.7 ng/ml a few months ago Her level has decreased since to 82.3 recently Will recheck her Vitamin D level in 4 months for follow up (13) Constipation: Code(s): K59.00 - Constipation, unspecified Qualifiers: Constipation type: unspecified constipation type Qualified Code(s): K59.00 - Constipation, unspecified Plan: Encouraged increased oral fluids and dietary fiber Continue MiraLax 17 gm once a day (14) Overactive bladder: Code(s): N32.81 - Overactive bladder Plan: Is most likely the reason for her nocturia and increased fatigue She was started on a trial of Myrbetriq 25 mg Q HS but she could not tolerate the Rx Was advised that she should probably see urology for further evaluation and management of her urinary symptoms - patient states that she will call for referral when she is ready to see urology but would like to hold off on referral for now (15) History of breast cancer: Comment: S/P Tamoxifen x 5 years Code(s): Z85.3 - Personal history of malignant neoplasm of breast Plan: Follow up with Oncology as scheduled for continuing surveillance (16) History of renal cell cancer: Comment: S/P partial left nephrectomy Code(s): Z85.528 - Personal history of other malignant neoplasm of kidney Plan: Follow up with Oncology and Nephrology as scheduled for continuing surveillance (17) Anxiety: Code(s): F41.9 - Anxiety disorder, unspecified Plan: Continue Citalopram 10 mg QD (18) Obesity (BMI 30-39.9): Code(s): E66.9 - Obesity, unspecified Plan: Reinforced diet/exercise as tolerated/lose weight Plan Follow up in 4 months Orders: Orders Complete Blood Count Auto Diff 4 Months I10 - Essential (primary) hypertension Hemoglobin A1c 4 Months R73.01 - Impaired fasting glucose Thyroid Stimulating Hormone 4 Months E03.9 - Hypothyroidism, unspecified Vitamin B12 and Folate 4 Months E53.8 - Deficiency of other specified B group vitamins Comprehensive [place]. Panel Fast 4 Months E78.00 - Pure hypercholesterolemia, unspecified Lipid Panel 4 Months E78.00 - Pure hypercholesterolemia, unspecified Free T4 (Free Thyroxine) 4 Months E03.9 - Hypothyroidism, unspecified Vitamin D 25-OH Total 4 Months E55.9 - Vitamin D deficiency, unspecified UA CC w/rflx Micro + Cult 4 Months R30.0 - Dysuria Coding Level of Care Code Est Pt Level 4 (29587) Diagnoses Pure hypercholesterolemia E78.00 Benign essential hypertension I10 Palpitations R00.2 Impaired fasting glucose R73.01 Acquired hypothyroidism E03.9 Obstructive sleep apnea G47.33 Chronic tension-type headache, not intractable G44.229 Headache chronicity pattern: chronic headache Headache type: tension-type Intractability: not intractable GERD without esophagitis K21.9 Primary osteoarthritis of right knee M17.11 Osteoarthritis type: primary Restless legs syndrome (RLS) G25.81 Allergic rhinitis, unspecified seasonality, unspecified trigger J30.9 Allergic rhinitis seasonality: unspecified Allergic rhinitis trigger: unspecified Vitamin D deficiency E55.9 Constipation, unspecified constipation type K59.00 Constipation type: unspecified constipation type Overactive bladder N32.81 History of breast cancer Z85.3 History of renal cell cancer Z85.528 Anxiety F41.9 Obesity (BMI 30-39.9) E66.9
[2023-03-25 11:47] VITALS: BP 160/90
== END 2023-03-25 11:52 | disposition home or self-care (01) ==
PROVIDERS: PCP Internal Medicine; Visit Provider Internal Medicine
DX: E78.00 Pure hypercholesterolemia, unspecified (principal); I10 Essential (primary) hypertension; E66.9 Obesity, unspecified; Z68.32 Body mass index [BMI] 32.0-32.9, adult; R00.2 Palpitations; R73.01 Impaired fasting glucose; E03.9 Hypothyroidism, unspecified; G47.33 Obstructive sleep apnea (adult) (pediatric); G44.229 Chronic tension-type headache, not intractable; K21.9 Gastro-esophageal reflux disease without esophagitis; G25.81 Restless legs syndrome; F41.9 Anxiety disorder, unspecified
CPT/HCPCS: 99214

== ENCOUNTER 2023-07-21 09:08 | Outpatient (REF) | payer MEDICARE, OTHER, SELFPAY ==
[2023-07-21 10:17] LABS: MANUAL DIFF FLAG NO
[2023-07-21 10:18] LABS: Appearance Urine Clear; Color Urine Yellow; Glucose Urine UA Negative (Negative); Leukocyte Esterase Urine Negative (Negative); Nitrite Urine Negative (Negative); PH 6.5 (5.0-9.0); Urine Blood Negative (Negative); Urine Ketones Negative (Negative); Urine Protein Negative (Neg-Trace)
[2023-07-21 10:23] LABS: Basophils Absolute Auto 0.1 X10*3/uL (0.0-0.2); Basophils Percent Auto 0.8 % (0-2); Eosinophils Absolute Auto 0.2 X10*3/uL (0.0-0.4); Eosinophils Percent Auto 2.4 % (0-4); Hematocrit 43.3 % (37.0-47.0); Hemoglobin 14.7 g/dl (12.0-16.0); Imm Gran Abs Auto 0.03 X10*3/uL (0.00-0.03); Imm Gran Pct Auto 0.4 % (0.0-0.4); Lymphocytes Percent Auto 38.5 % (20-40); Mean Corpuscular HGB Conc 33.9 g/dl (31.0-35.0); Mean Corpuscular Hemoglobin 32.8 pg (27.0-33.0); Mean Corpuscular Volume 96.7 fL (80.0-98.0); Mean Platelet Volume 11.2 fL (9.4-12.3); Monocytes Absolute Auto 0.5 X10*3/uL (0.1-1.2); Monocytes Percent Auto 6.4 % (2-11); Neutrophils Absolute Auto 4.1 x10*3/uL (2.0-8.3); Neutrophils Percent Auto 51.5 % (45-73); Platelet Count 259 X10*3/uL (160-400); Red Blood Count 4.48 X10*6/uL (4.20-5.50); Red Cell Distribution Width 12.5 % (11.0-16.0); White Blood Count 7.9 X10*3/uL (4.8-10.8)
[2023-07-21 10:57] LABS: Estimated Average Glucose 151 mg/dL; Hemoglobin A1c % 6.9 % (<6.0)
[2023-07-21 11:07] LABS: Alanine Aminotransferase 18 U/L (0-31); Albumin Level 4.3 g/dL (3.5-5.0); Alkaline Phosphatase 71 U/L (39-117); Anion Gap 12 (12-20); Aspartate Amino Transferase 17 U/L (5-31); Bilirubin Total 1.3 mg/dL (0.0-1.0); Blood Urea Nitrogen 12 mg/dL (9-16); Calcium 9.6 mg/dL (8.4-10.2); Carbon Dioxide 28 mmol/L (22-29); Chloride 104 mmol/L (96-108); Cholesterol 207 mg/dL (<200); Estimated Glomerular Filt Rate > 60; Glucose Fasting 149 mg/dL (60-99); HDL Cholesterol 45 mg/dL (>40); LDL Cholesterol Calculated 128 mg/dL (<100); Potassium 3.9 mmol/L (3.3-5.1); Sodium 140 mmol/L (135-145); Total Protein 7.1 g/dL (6.5-8.0); Triglycerides 173 mg/dL (<150)
[2023-07-21 11:11] LABS: Free T4 (Free Thyroxine) 0.99 ng/dL (0.71-1.85); Thyroid Stimulating Hormone 2.71 uIU/mL (0.32-4.0)
[2023-07-21 11:39] LABS: Folate 12.5 ng/mL (> or = 4.0); Vitamin B12 645 pg/mL (200-900)
== END 2023-07-21 09:09 | disposition home or self-care (01) ==
LOC: HO.HMGCLDS 09:08
PROVIDERS: PCP Internal Medicine; Visit Provider Internal Medicine
DX: I10 Essential (primary) hypertension (principal); E03.9 Hypothyroidism, unspecified; R73.01 Impaired fasting glucose; R30.0 Dysuria; E78.00 Pure hypercholesterolemia, unspecified; E53.8 Deficiency of other specified B group vitamins; E55.9 Vitamin D deficiency, unspecified
CPT/HCPCS: 36415; 80053; 80061; 81003; 82306; 82607; 82746; 83036; 84439; 84443; 85025

== ENCOUNTER 2023-07-30 11:05 | Outpatient (AMB) | payer MEDICARE, OTHER, SELFPAY ==
[2023-07-30 11:07] VITALS: BP 130/80; PULSE 70; O2SAT 96; BMI 32.3
--- NOTE | 2023-07-30 11:07 | A.OFFPC_ITS ---
Vital Signs 07/30/23 11:07 Height 4 ft 10.5 in Weight 157 lb BMI 32.3 BP 130/80 Blood Pressure Location Lt brachial Position Sitting Pulse 70 Pulse Source Pulse Oximeter Pulse Oximetry (%) 96 Oxygen Delivery Method Room Air Intake Visit Reasons: HTN, hyperlipidemia Boiler Installer Required: No Box Fabricator: Not Required per policy Accompanied by: Self / Same As Patient Allergies adhesive tape Allergy (Intermediate, Verified 07/30/23 11:29) BLISTERS albuterol [From PROAIR HFA] Allergy (Intermediate, Verified 07/30/23 11:29) TREMOR Sulfa (Sulfonamide Antibiotics) [SULFA (SULFONAMIDE ANTIBIOTICS)] Allergy (Intermediate, Verified 07/30/23 11:29) ITCH/RASH, itching, hives ropinirole Allergy (Mild, Verified 07/30/23 11:29) joint pain oxybutynin Allergy (Verified 07/30/23 11:29) shortness of breath codeine [CODEINE] Adverse Reaction (Intermediate, Verified 07/30/23 11:29) GI UPSET Medication List - Last Reconciled 07/30/23 by Calvin Maldonado MD azelastine 2 sprays intranasal BID [id number]-matszqwnwwhmn-vovm 50-300-40 mg (Fioricet) 1 cap PO Q8H PRN 10 days cetirizine (Zyrtec) 5 mg PO DAILY PRN cholecalciferol (vitamin D3) 50 mcg PO DAILY citalopram 10 mg PO DAILY clobetasol 0.05% 0.25 - 0.5 mL topical esomeprazole magnesium 40 mg PO DAILY gabapentin 100 mg PO BEDTIME glucosamine sulfate 750 mg PO DAILY levothyroxine 50 mcg PO DAILY 90 days losartan 50 mg PO DAILY multivitamin (Multiple Vitamins tablet) 1 tab PO DAILY olopatadine 0.2% (Pataday) 1 drp ophthalmic (eye) DAILY rosuvastatin 5 mg PO DAILY Tobacco use date assessed: 07/30/23 Fall risk assessment: No Falls in past year Last assessed Fall Risk: 07/30/23 Dental Screening Dental Screen Date: 07/30/23 Did you have a dental visit in the last 12 months?: Yes Did you have a dental problem in the last 6 months where you did not have access to dental care?: No Was dental information given to patient?: Patient has dentist HPI HTN, hyperlipidemia HPI Details Patient comes in today for her follow up visit States that she has been experiencing a recurrent tickle /pressure-like sensation over the back of the right side of her throat for a while now Notes that this will often be followed by repeated coughing spells that can last for a few minutes She denies any recent cough/cold symptoms but notes that her throat sometimes feel sore at night She denies any trouble swallowing She contacted ENT a while back to schedule an appointment so she can get her symptoms checked out and was scheduled to see Dr. Gallardo on 10/13/2023 - was advised that this is the earliest appointment they could give her She denies any headaches or dizziness; denies any fever or ear symptoms Denies any chest pains, no SOB No nausea/vomiting, no abdominal pain No change in bowel habits noted Had her follow up labs done last week - to discuss her results FOR[facility]LY [facility], [facility] Medical History Overactive bladder Obesity (BMI 30-39.9) Post-menopausal Overweight (BMI 25.0-29.9) Obstructive sleep apnea Short of breath on exertion Anxiety Daytime somnolence History of renal cell cancer History of breast cancer Constipation Vitamin D deficiency Allergic rhinitis Osteoarthritis of right knee GERD without esophagitis Impaired fasting glucose Acquired hypothyroidism Pure hypercholesterolemia Benign essential hypertension Invasive ductal carcinoma of left breast Renal cancer Hypothyroid HTN (hypertension) Esophagitis Mixed irritable bowel syndrome Surgical History History of removal of skin mole History of right knee surgery (~06/2017) History of thumb surgery (~04/26/15) History of lumpectomy of left breast (~03/2014) History of left breast biopsy (~01/2014) History of removal of cyst History of bunionectomy History of kidney surgery History of cataract surgery History of colon resection (~2001) History of partial nephrectomy (~2002) History of colonoscopy History of esophagogastroduodenoscopy (EGD) (~09/16/12) History of eye surgery (~09/2012) Family History Father History of gastric cancer History of lung cancer Mother History of heart disease Brother Family history of prostate cancer History of colon cancer History of lung cancer Daughter History of breast cancer Paternal Aunt History of breast cancer Maternal Uncle History of leukemia Maternal Aunt History of breast cancer Social History Housing: Condominium Alcohol intake: current Alcohol intake frequency: holidays/special occasions only Alcohol type: wine Patient Tobacco Use Status: Never used Tobacco e-Cigarette/Vaping Use: Never Used Second Hand Smoke Exposure: Yes service: No Current occupational status: retired Cognitive needs: No Hearing needs: No Vision needs: Yes (glasses) Questionnaire PHQ-9 Over the last 2 weeks, how often have you been bothered by any of the following problems? 1. Little interest or pleasure in doing things: not at all 2. Feeling down, depressed, or hopeless: not at all 3. Trouble falling or staying asleep, or sleeping too much: not at all 4. Feeling tired or having little energy: not at all 5. Poor appetite or overeating: not at all 6. Feeling bad about yourself - or that you are a failure or have let yourself or your family down: not at all 7. Trouble concentrating on things, such as reading the newspaper or watching television: not at all 8. Moving or speaking so slowly that other people could have noticed. Or the opposite - being so fidgety or restless that you have been moving around a lot more than usual: not at all 9. Thoughts that you would be better off or of hurting yourself in some way: not at all Total score: 0 Depression Screening Interpretation: Negative Depression Screening Done: Yes 94576 - PHQ-9 Billing: Yes Source: Developed by Drs. Uziel Morillo, Celina Matute, Pete Patterson and colleagues, with an educational sandra from [employer]. Thrive Questionnaire Date Thrive assessed: 07/30/23 I am a: Patient What is your living situation today?: I have a steady place to live Within the past 12 months, did the food you bought not last and you didn't have the money to get more?: Never true Within the past 12 months, did you worry whether your food would run out before you got money to buy more?: Never true Do you have trouble paying for medicines?: No Do you have trouble getting transportation to medical appointments?: No Do you have trouble paying your heating and electricity bill?: No Do you have trouble taking care of your child, family member or friend?: No Do you have trouble with day-to-day activities such as bathing, preparing meals, shopping, managing finances, etc.?: No Are you currently unemployed and looking for a job?: No Are you interested in more education?: No Please select the resources that you would like help with: None Currently or been in a relationship where the following occur: no concerns reported THRIVE Score: 0 AUDIT C Alcohol Use Questionnaire (AUDIT-C) 1. How often do you have a drink containing alcohol?: Monthly or less 2. How many drinks containing alcohol do you have on a typical day when you are drinking?: 1 or 2 3. How often do you have six or more drinks on one occasion?: Never Total Score: 1 Score Reviewed/Action Taken: Yes DELIA-7 AMB Questionnaire DELIA-7 Date DELIA - 7 assessed: 07/30/23 Feeling nervous, anxious, or on edge: 0 = Not at all Not being able to stop or control worryin = Not at all Worrying too much about different things: 0 = Not at all Trouble relaxin = Not at all Being so restless that it is hard to sit still: 0 = Not at all Becoming easily annoyed or irritable: 0 = Not at all Feeling afraid as if something awful might happen: 0 = Not at all Total DELIA-7 score (0-4 normal; 5-9 mild; 10-14 moderate; 15-21 severe): 0 Source: Developed by Drs. Uziel Morillo, Celina Matute, Pete Patterson and colleagues, with an educational sandra from [employer]. Review of Systems Const Denies chills, Reports difficulty sleeping (improved with CPAP device), Reports fatigue, Denies fever(s) and Denies headache(s) ENT Reports as per HPI, Denies dysphagia, Denies dizziness, Denies otalgia, Denies headache(s), Denies nasal congestion, Denies odynophagia and Reports sore throat (at night sometimes) Card Denies chest pain, Denies palpitations and Denies dyspnea Resp Denies cough and Denies dyspnea GI Denies abdominal pain, Denies constipation, Denies dysphagia, Denies heartburn, Denies diarrhea, Denies nausea, Denies odynophagia and Denies vomiting Denies difficulty voiding, Reports nocturia (at least 3 times a night), Denies dysuria, Denies urinary incontinence and Denies urinary urgency Musc Reports back pain (over the lower back - on and off) and Reports arthralgias (a taurus the right hip - on and off) Skin/Breast Denies rash Neuro Denies dizziness, Denies headache(s) and Reports restless legs Endo Reports fatigue and Denies palpitations Physical exam (Primary Care) Vital Signs: Last Vital Signs Pulse 70 07/30/23 11:07 BP 130/80 07/30/23 11:07 Pulse Ox 96 07/30/23 11:07 Oxygen Delivery Method Room Air 07/30/23 11:07 BMI result Body Mass Index 32.3 Tobacco/Smoking Status: Tobacco use Status Tobacco use date assessed 07/30/23 07/30/23 11:08 Patient Tobacco Use Status Never used Tobacco 07/30/23 11:08 e-Cigarette/Vaping Use Never Used 07/30/23 11:08 PHQ-9: PHQ-9 Score PHQ-9: Total score 0 07/30/23 14:32 Depression Screening Interpretation: Negative Thrive Assessment: Date of Thrive Assessment Date Thrive assessed 07/30/23 07/30/23 11:08 Currently or been in a relationship where the following occur: no concerns reported Const General: no acute distress and alert HENMT Ears: TM's normal bilaterally and EAC's normal Throat: Yes posterior oropharynx normal and Yes tonsils normal (no TP congestion noted) Neck Neck: Yes no lymphadenopathy and Yes supple Thyroid: Thyroid normal Resp Auscultation: clear to auscultation bilaterally, no rales and no wheezes Cardio Rate: regular rate Rhythm: regular rhythm Heart sounds: no murmurs GI Palpation (GI): Soft to palpation and nontender Auscultation: normal bowel sounds General: Yes no CVA tenderness Back/Spine/Pelvis Back: no CVA tenderness Skin Rashes: no rashes Extrem General: Yes no clubbing, cyanosis or edema Results Reviewed Results Reviewed: Laboratory Tests 07/21/23 07/21/23 07/21/23 09:11 09:12 09:20 WBC 7.9 Hgb 14.7 Hct 43.3 Plt Count 259 Sodium 140 Potassium 3.9 Creatinine 0.72 Estimated GFR > 60 Fasting Glucose 149 H Hemoglobin A1c % 6.9 H Calcium 9.6 AST 17 ALT 18 Triglycerides 173 H Cholesterol 207 H LDL Cholesterol, Calc 128 H HDL Cholesterol 45 Vitamin B12 645 25-OH Vitamin D Total 91.0 TSH 2.71 Free T4 0.99 Ur Specific [place] 1.020 Urine Protein Negative Urine Glucose (UA) Negative Urine Blood Negative Urine Nitrite Negative Ur Leukocyte Esterase Negative Assessment and Plan Assessment & Plan (1) Pure hypercholesterolemia: Code(s): E78.00 - Pure hypercholesterolemia, unspecified Plan: Results of her labs done last week reviewed and discussed with patient - she is advised that her cholesterol levels, especially her LDL cholesterol, has increased from previous Reinforced low cholesterol diet - patient states that she has not changed anything in her diet at all lately so she cannot understand why her cholesterol level would have gone up recently Continue Crestor 5 mg QD but advised that we may need to increase her dose at her next appointment if her cholesterol levels do not improve much over the next few months Will recheck her labs and fasting lipids in 4 months for follow-up (2) Benign essential hypertension: Code(s): I10 - Essential (primary) hypertension Plan: Reinforced low sodium diet - goal is systolic BP of at least 130 to 140 mm or less Continue Losartan 50 mg QD (3) Impaired fasting glucose: Code(s): R73.01 - Impaired fasting glucose Plan: Have cautioned patient as well that her HgbA1c has been slowly but steadily going up over the past year and her most recent HgbA1c last week is now at 6.9%, which makes her now officially a diabetic (her HgbA1c was at 6.5% a few months ago) - goal is at least <6.5% but should be lower IF she wants to continue trying to control this with diet modification alone Have advised her that we should start her on Rx at this time but she asked to hold off and will try one more time to get her HgbA1c back down without Rx and if she is not successful at her next visit, then will agree to start taking Rx Reinforced diabetic diet / exercise as tolerated (4) Palpitations: Code(s): R00.2 - Palpitations Plan: States that these only occur very occasionally nowadays and mostly at night when she is sitting down watching television; episodes usually last only a few seconds at most, and that their duration is too short to even be associated with any other significant symptoms Have offered to refer her for additional testing and work ups but patient continues to decline - states that they are not occurring often or lasting long enough to really bother her and she will call for referrals/orders if she changes her mind (5) Acquired hypothyroidism: Code(s): E03.9 - Hypothyroidism, unspecified Plan: TFTs were normal on her recent labs done last week Continue Levothyroxine 50 mcg QD Will continue to monitor her TFTs regularly (6) Obstructive sleep apnea: Code(s): G47.33 - Obstructive sleep apnea (adult) (pediatric) Plan: Continue using her CPAP machine at 5 - 15 cm pressure when sleeping at night States that she has been sleeping better with Tx of her JEWELS Follow up with Sleep Medicine as scheduled (7) Headache: Code(s): R51.9 - Headache, unspecified Qualifiers: Headache chronicity pattern: chronic headache Headache type: tension- type Intractability: not intractable Qualified Code(s): G44.229 - Chronic tension-type headache, not intractable Plan: Likely tension headaches - states that these occur rarely now Continue Fioricet 50-300-40 mg 1 capsule TID PRN (8) GERD without esophagitis: Code(s): K21.9 - Gastro-esophageal reflux disease without esophagitis Plan: Dietary restrictions reinforced Continue Nexium 40 mg QD; she also takes Tums 500 mg 4 times a day when needed (9) Osteoarthritis of right knee: Comment: S/P arthroplasty of the right knee in November 2019 Code(s): M17.11 - Unilateral primary osteoarthritis, right knee Qualifiers: Osteoarthritis type: primary Qualified Code(s): M17.11 - Unilateral primary osteoarthritis, right knee Plan: Continue Gabapentin 100 mg 2 times a day in the morning and afternoon and 2 capsules at bedtime, Celebrex 200 mg once a day and Tylenol Arthritis 650 mg 3 times a day as needed Also takes CBD (OTC Cannabidiol) as needed for increased knee pain (10) Restless legs syndrome (RLS): Code(s): G25.81 - Restless legs syndrome Plan: Was started on Ropinirole 0.5 mg QHS in the past but patient had to stop taking this as she felt that the Rx made her headaches worse States that her leg symptoms have been better controlled lately (11) Allergic rhinitis: Code(s): J30.9 - Allergic rhinitis, unspecified Qualifiers: Allergic rhinitis seasonality: unspecified Allergic rhinitis trigger: unspecified Qualified Code(s): J30.9 - Allergic rhinitis, unspecified Plan: Continue Cetirizine 10 mg QD PRN and Montelukast 10 mg QD Continue Azelastine nasal spray BID PRN - Rx refilled (12) Vitamin D deficiency: Code(s): E55.9 - Vitamin D deficiency, unspecified Plan: She was previously advised to HOLD her Vitamin D as her Vitamin D level has steadily increased over the past year and her level was as high as 100.7 ng/ml a few months ago Her level decreased 82.3 previously but she is back up slightly at 91 on her labs done last week Have advised patient to continue holding off on taking her Vitamin D daily and to take it only once a week for now Will recheck her Vitamin D level in 4 months for follow up (13) Constipation: Code(s): K59.00 - Constipation, unspecified Qualifiers: Constipation type: unspecified constipation type Qualified Code(s): K59.00 - Constipation, unspecified Plan: Encouraged increased oral fluids and dietary fiber Continue MiraLax 17 gm once a day (14) Overactive bladder: Code(s): N32.81 - Overactive bladder Plan: Is most likely the reason for her nocturia and increased fatigue She was started on a trial of Myrbetriq 25 mg Q HS but she could not tolerate the Rx Was advised that she should probably see urology for further evaluation and management of her urinary symptoms - patient states that she will call for referral when she feels she is ready to see urology but would like to hold off on referral for now (15) History of breast cancer: Comment: S/P Tamoxifen x 5 years Code(s): Z85.3 - Personal history of malignant neoplasm of breast Plan: Follow up with Oncology as scheduled for continuing surveillance (16) History of renal cell cancer: Comment: S/P partial left nephrectomy Code(s): Z85.528 - Personal history of other malignant neoplasm of kidney Plan: Follow up with Oncology and Nephrology as scheduled for continuing surveillance (17) Anxiety: Code(s): F41.9 - Anxiety disorder, unspecified Plan: Continue Citalopram 10 mg QD (18) Obesity (BMI 30-39.9): Code(s): E66.9 - Obesity, unspecified Plan: Reinforced diet/exercise as tolerated/lose weight Plan Follow up in 4 months Orders: Orders Thyroid Stimulating Hormone 4 Months E03.9 - Hypothyroidism, unspecified Vitamin D 25-OH Total 4 Months E55.9 - Vitamin D deficiency, unspecified Complete Blood Count Auto Diff 4 Months D64.9 - Anemia, unspecified Comprehensive [place]. Panel Fast 4 Months E78.00 - Pure hypercholesterolemia, unspecified Lipid Panel 4 Months E78.00 - Pure hypercholesterolemia, unspecified Hemoglobin A1c 4 Months E11.9 - Type 2 diabetes mellitus without complications Free T4 (Free Thyroxine) 4 Months E03.9 - Hypothyroidism, unspecified Microalbumin, Random (w Creat) 4 Months E11.9 - Type 2 diabetes mellitus without complications UA CC w/rflx Micro + Cult 4 Months R30.0 - Dysuria Medications: Changed From azelastine 2 sprays intranasal BID To azelastine 2 sprays intranasal BID 30 days 30 mL 5RF Coding Level of Care Code Est Pt Level 4 (00262) Diagnoses Pure hypercholesterolemia E78.00 Benign essential hypertension I10 Impaired fasting glucose R73.01 Palpitations R00.2 Acquired hypothyroidism E03.9 Obstructive sleep apnea G47.33 Chronic tension-type headache, not intractable G44.229 Headache chronicity pattern: chronic headache Headache type: tension-type Intractability: not intractable GERD without esophagitis K21.9 Primary osteoarthritis of right knee M17.11 Osteoarthritis type: primary Restless legs syndrome (RLS) G25.81 Allergic rhinitis, unspecified seasonality, unspecified trigger J30.9 Allergic rhinitis seasonality: unspecified Allergic rhinitis trigger: unspecified Vitamin D deficiency E55.9 Constipation, unspecified constipation type K59.00 Constipation type: unspecified constipation type Overactive bladder N32.81 History of breast cancer Z85.3 History of renal cell cancer Z85.528 Anxiety F41.9 Obesity (BMI 30-39.9) E66.9
== END 2023-07-30 12:10 | disposition home or self-care (01) ==
PROVIDERS: PCP Internal Medicine; Visit Provider Internal Medicine
DX: E78.00 Pure hypercholesterolemia, unspecified (principal); E66.9 Obesity, unspecified; Z68.32 Body mass index [BMI] 32.0-32.9, adult; I10 Essential (primary) hypertension; R73.01 Impaired fasting glucose; R00.2 Palpitations; E03.9 Hypothyroidism, unspecified; G47.33 Obstructive sleep apnea (adult) (pediatric); G44.229 Chronic tension-type headache, not intractable; K21.9 Gastro-esophageal reflux disease without esophagitis; M17.11 Unilateral primary osteoarthritis, right knee; G25.81 Restless legs syndrome
CPT/HCPCS: 99214

== ENCOUNTER 2023-10-29 08:06 | Outpatient (REF) | payer MEDICARE, OTHER, SELFPAY ==
[2023-10-29 10:56] LABS: MANUAL DIFF FLAG NO
[2023-10-29 10:58] LABS: Appearance Urine Clear; Color Urine Yellow; Glucose Urine UA Negative (Negative); Leukocyte Esterase Urine Negative (Negative); Nitrite Urine Negative (Negative); PH 7.5 (5.0-9.0); Urine Blood Negative (Negative); Urine Ketones Negative (Negative); Urine Protein Negative (Neg-Trace)
[2023-10-29 11:14] LABS: Basophils Absolute Auto 0.1 X10*3/uL (0.0-0.2); Basophils Percent Auto 0.7 % (0-2); Eosinophils Absolute Auto 0.2 X10*3/uL (0.0-0.4); Eosinophils Percent Auto 2.6 % (0-4); Hemoglobin 14.5 g/dl (12.0-16.0); Imm Gran Abs Auto 0.03 X10*3/uL (0.00-0.03); Imm Gran Pct Auto 0.4 % (0.0-0.4); Lymphocytes Absolute Auto 2.5 X10*3/uL (1.2-4.9); Lymphocytes Percent Auto 35.9 % (20-40); Mean Corpuscular HGB Conc 34.5 g/dl (31.0-35.0); Mean Corpuscular Hemoglobin 33.6 pg (27.0-33.0); Mean Corpuscular Volume 97.4 fL (80.0-98.0); Mean Platelet Volume 11.7 fL (9.4-12.3); Monocytes Absolute Auto 0.4 X10*3/uL (0.1-1.2); Monocytes Percent Auto 6.2 % (2-11); Neutrophils Absolute Auto 3.8 x10*3/uL (2.0-8.3); Neutrophils Percent Auto 54.2 % (45-73); Platelet Count 231 X10*3/uL (160-400); Red Blood Count 4.31 X10*6/uL (4.20-5.50); Red Cell Distribution Width 12.2 % (11.0-16.0); White Blood Count 7.1 X10*3/uL (4.8-10.8)
[2023-10-29 11:34] LABS: Estimated Average Glucose 143 mg/dL; Hemoglobin A1c % 6.6 % (<6.0)
[2023-10-29 11:42] LABS: Alanine Aminotransferase 15 U/L (0-31); Albumin Level 4.2 g/dL (3.5-5.0); Alkaline Phosphatase 53 U/L (39-117); Anion Gap 14 (12-20); Aspartate Amino Transferase 14 U/L (5-31); Bilirubin Total 0.9 mg/dL (0.0-1.0); Blood Urea Nitrogen 10 mg/dL (9-16); Calcium 9.5 mg/dL (8.4-10.2); Carbon Dioxide 26 mmol/L (22-29); Chloride 106 mmol/L (96-108); Cholesterol 183 mg/dL (<200); Estimated Glomerular Filt Rate > 60; Glucose Fasting 147 mg/dL (60-99); HDL Cholesterol 45 mg/dL (>40); LDL Cholesterol Calculated 104 mg/dL (<100); Sodium 142 mmol/L (135-145); Total Protein 6.9 g/dL (6.5-8.0); Triglycerides 174 mg/dL (<150)
[2023-10-29 11:48] LABS: Creatinine Urine 50.75 mg/dL; Microalbumin Urine < 5.0 mg/L
[2023-10-29 12:09] LABS: Free T4 (Free Thyroxine) 0.88 ng/dL (0.71-1.85); Thyroid Stimulating Hormone 2.26 uIU/mL (0.32-4.0); Vitamin D 25-OH Total 74.1 ng/mL (>30)
== END 2023-10-29 08:07 | disposition home or self-care (01) ==
LOC: HO.HMGCLDS 08:06
PROVIDERS: PCP Internal Medicine; Visit Provider Internal Medicine
DX: D64.9 Anemia, unspecified (principal); E55.9 Vitamin D deficiency, unspecified; E78.00 Pure hypercholesterolemia, unspecified; E03.9 Hypothyroidism, unspecified; E11.9 Type 2 diabetes mellitus without complications; R30.0 Dysuria
CPT/HCPCS: 36415; 80053; 80061; 81003; 82043; 82306; 82570; 83036; 84439; 84443; 85025

== ENCOUNTER 2023-11-04 10:25 | Outpatient (AMB) | payer MEDICARE, OTHER, SELFPAY ==
--- NOTE | 2023-11-04 10:41 | A.OFFPC_ITS ---
Vital Signs 11/04/23 10:42 Height 4 ft 10.5 in Weight 153 lb 0.2 oz BMI 31.4 BP 132/64 Blood Pressure Location Lt brachial Position Sitting Pulse 65 Pulse Source Pulse Oximeter Pulse Oximetry (%) 98 Oxygen Delivery Method Room Air Intake Visit Reasons: hyperlipidemia, DM, hypothyroidism Foreclosure Field Inspector Required: No Allergies adhesive tape Allergy (Intermediate, Verified 11/04/23 11:20) BLISTERS albuterol [From PROAIR HFA] Allergy (Intermediate, Verified 11/04/23 11:20) TREMOR Sulfa (Sulfonamide Antibiotics) [SULFA (SULFONAMIDE ANTIBIOTICS)] Allergy (Intermediate, Verified 11/04/23 11:20) ITCH/RASH, itching, hives ropinirole Allergy (Mild, Verified 11/04/23 11:20) joint pain oxybutynin Allergy (Verified 11/04/23 11:20) shortness of breath codeine [CODEINE] Adverse Reaction (Intermediate, Verified 11/04/23 11:20) GI UPSET Medication List - Last Reconciled 11/04/23 by Calvin Maldonado MD azelastine 2 sprays intranasal BID 30 days [id number]-oybmhlpjmlaww-[id number] 50-300-40 mg (Fioricet) 1 cap PO Q8H PRN 10 days cetirizine (Zyrtec) 5 mg PO DAILY PRN cholecalciferol (vitamin D3) 50 mcg PO DAILY citalopram 10 mg PO DAILY clobetasol 0.05% 0.25 - 0.5 mL topical esomeprazole magnesium 40 mg PO DAILY gabapentin 100 mg PO BEDTIME glucosamine sulfate 750 mg PO DAILY levothyroxine 50 mcg PO DAILY 90 days losartan 50 mg PO DAILY multivitamin (Multiple Vitamins tablet) 1 tab PO DAILY olopatadine 0.2% (Pataday) 1 drp ophthalmic (eye) DAILY rosuvastatin 5 mg PO DAILY Tobacco use date assessed: 07/30/23 Fall risk assessment: No Falls in past year Last assessed Fall Risk: 11/04/23 Dental Screening Dental Screen Date: 07/30/23 HPI hyperlipidemia, DM, hypothyroidism HPI Details Patient comes in today for her follow up visit States that she feels okay She denies any headaches or dizziness Denies any chest pains, no SOB No nausea/vomiting, no abdominal pain No change in bowel habits noted Had her follow up labs done last week - to discuss her results [facility] Medical History Overactive bladder Obesity (BMI 30-39.9) Post-menopausal Overweight (BMI 25.0-29.9) Obstructive sleep apnea Short of breath on exertion Anxiety Daytime somnolence History of renal cell cancer History of breast cancer Constipation Vitamin D deficiency Allergic rhinitis Osteoarthritis of right knee GERD without esophagitis Impaired fasting glucose Acquired hypothyroidism Pure hypercholesterolemia Benign essential hypertension Invasive ductal carcinoma of left breast Renal cancer Hypothyroid HTN (hypertension) Esophagitis Mixed irritable bowel syndrome Surgical History History of removal of skin mole History of right knee surgery (~06/2017) History of thumb surgery (~04/26/15) History of lumpectomy of left breast (~03/2014) History of left breast biopsy (~01/2014) History of removal of cyst History of bunionectomy History of kidney surgery History of cataract surgery History of colon resection (~2001) History of partial nephrectomy (~2002) History of colonoscopy History of esophagogastroduodenoscopy (EGD) (~09/16/12) History of eye surgery (~09/2012) Family History Father History of gastric cancer History of lung cancer Mother History of heart disease Brother Family history of prostate cancer History of colon cancer History of lung cancer Daughter History of breast cancer Paternal Aunt History of breast cancer Maternal Uncle History of leukemia Maternal Aunt History of breast cancer Social History Housing: Condominium Alcohol intake: current Alcohol intake frequency: holidays/special occasions only Alcohol type: wine Patient Tobacco Use Status: Never used Tobacco e-Cigarette/Vaping Use: Never Used Second Hand Smoke Exposure: Yes service: No Current occupational status: retired Cognitive needs: No Hearing needs: No Vision needs: Yes (glasses) Questionnaire Thrive Questionnaire Date Thrive assessed: 07/30/23 AUDIT C Alcohol Use Questionnaire (AUDIT-C) 1. How often do you have a drink containing alcohol?: Monthly or less 2. How many drinks containing alcohol do you have on a typical day when you are drinking?: 1 or 2 3. How often do you have six or more drinks on one occasion?: Never Total Score: 1 Score Reviewed/Action Taken: Yes DELIA-7 AMB Questionnaire DELIA-7 Date DELIA - 7 assessed: 07/30/23 Source: Developed by Drs. Uziel Morillo, Celina Matute, Pete Patterson and colleagues, with an educational sandra from [employer]. Review of Systems Const Denies chills, Reports difficulty sleeping (improved with CPAP device), Reports fatigue, Denies fever(s) and Denies headache(s) ENT Denies dysphagia, Denies dizziness, Denies otalgia, Denies headache(s), Denies odynophagia and Reports sore throat (at night sometimes) Card Denies chest pain, Denies palpitations and Denies dyspnea Resp Denies cough and Denies dyspnea GI Denies abdominal pain, Denies constipation, Denies dysphagia, Denies heartburn, Denies diarrhea, Denies nausea, Denies odynophagia and Denies vomiting Denies difficulty voiding, Reports nocturia (at least 3 times a night), Denies dysuria, Denies urinary incontinence and Denies urinary urgency Musc Reports back pain (over the lower back - on and off) and Reports arthralgias (above the right hip - on and off) Skin/Breast Denies rash Neuro Denies dizziness, Denies headache(s) and Reports restless legs Endo Reports fatigue and Denies palpitations Physical exam (Primary Care) Vital Signs: Last Vital Signs Pulse 65 11/04/23 10:42 BP 132/64 11/04/23 10:42 Pulse Ox 98 11/04/23 10:42 Oxygen Delivery Method Room Air 11/04/23 10:42 BMI result Body Mass Index 31.4 Tobacco/Smoking Status: Tobacco use Status Tobacco use date assessed 07/30/23 11/04/23 10:42 Patient Tobacco Use Status Never used Tobacco 11/04/23 10:42 e-Cigarette/Vaping Use Never Used 11/04/23 10:42 Thrive Assessment: Date of Thrive Assessment Date Thrive assessed 07/30/23 11/04/23 10:42 Const General: no acute distress and alert HENMT Ears: TM's normal bilaterally and EAC's normal Throat: Yes posterior oropharynx normal and Yes tonsils normal (no TP congestion noted) Neck Neck: Yes no lymphadenopathy and Yes supple Thyroid: Thyroid normal Resp Auscultation: clear to auscultation bilaterally, no rales and no wheezes Cardio Rate: regular rate Rhythm: regular rhythm Heart sounds: no murmurs GI Palpation (GI): Soft to palpation and nontender Auscultation: normal bowel sounds General: Yes no CVA tenderness Back/Spine/Pelvis Back: no CVA tenderness Skin Rashes: no rashes Extrem General: Yes no clubbing, cyanosis or edema Results Reviewed Results Reviewed: Laboratory Tests 10/29/23 10/29/23 06:18 08:16 WBC 7.1 Hgb 14.5 Hct 42.0 Plt Count 231 Sodium 142 Potassium 4.0 Creatinine 0.71 Estimated GFR > 60 Fasting Glucose 147 H Hemoglobin A1c % 6.6 H Calcium 9.5 AST 14 ALT 15 Triglycerides 174 H Cholesterol 183 LDL Cholesterol, Calc 104 H HDL Cholesterol 45 25-OH Vitamin D Total 74.1 TSH 2.26 Free T4 0.88 Ur Specific [place] 1.010 Urine Protein Negative Urine Glucose (UA) Negative Urine Blood Negative Urine Nitrite Negative Ur Leukocyte Esterase Negative Assessment and Plan Assessment & Plan (1) Pure hypercholesterolemia: Code(s): E78.00 - Pure hypercholesterolemia, unspecified Plan: Results of her labs done last week reviewed and discussed with patient - she is advised that her cholesterol levels, especially her LDL cholesterol, have impro minerva significantly from previous Reinforced low cholesterol diet Continue Crestor 5 mg QD Will recheck her labs and fasting lipids in 4 months for follow-up (2) Benign essential hypertension: Code(s): I10 - Essential (primary) hypertension Plan: Reinforced low sodium diet - goal is systolic BP of at least 130 to 140 mm or less Continue Losartan 50 mg QD (3) Impaired fasting glucose: Code(s): R73.01 - Impaired fasting glucose Plan: Her HgbA1c has improved to 6.6% on her labs done last week; was at 6.9% a few months ago - goal is again at least <6.5% but should be lower IF she wants to continue trying to control this with diet modification alone She would like to continue to hold off on Rx and prefers to continue on diet modification and lifestyle changes to control her blood sugar Reinforced diabetic diet / exercise as tolerated (4) Palpitations: Code(s): R00.2 - Palpitations Plan: States that these only occur very occasionally nowadays and mostly at night when she is sitting down watching television; episodes usually last only a few seconds at most, and that their duration is too short to even be associated with any pertinent symptoms Have offered to refer her for additional testing and work ups but patient continues to decline - states that they are not occurring often or lasting long enough to really bother her and she will call for referrals/orders if she changes her mind (5) Acquired hypothyroidism: Code(s): E03.9 - Hypothyroidism, unspecified Plan: Her TFTs were normal on her labs done last week Continue Levothyroxine 50 mcg QD Will continue to monitor her TFTs regularly (6) Obstructive sleep apnea: Code(s): G47.33 - Obstructive sleep apnea (adult) (pediatric) Plan: Continue using her CPAP machine at 5 - 15 cm pressure when sleeping at night States that she has been sleeping better with Tx of her JEWELS Follow up with Sleep Medicine as scheduled (7) Headache: Code(s): R51.9 - Headache, unspecified Qualifiers: Headache type: tension-type Headache chronicity pattern: chronic headache Intractability: not intractable Qualified Code(s): G44.229 - Chronic tension-type headache, not intractable Plan: Likely tension headaches - states that these are occuring very rarely nowadays Continue Fioricet 50-300-40 mg 1 capsule TID PRN (8) GERD without esophagitis: Code(s): K21.9 - Gastro-esophageal reflux disease without esophagitis Plan: Dietary restrictions reinforced Continue Nexium 40 mg QD; she also takes Tums 500 mg 4 times a day when needed (9) Osteoarthritis of right knee: Comment: S/P arthroplasty of the right knee in November 2019 Code(s): M17.11 - Unilateral primary osteoarthritis, right knee Qualifiers: Osteoarthritis type: primary Qualified Code(s): M17.11 - Unilateral primary osteoarthritis, right knee Plan: Continue Gabapentin 100 mg 2 times a day in the morning and afternoon and 2 capsules at bedtime, Celebrex 200 mg once a day and Tylenol Arthritis 650 mg 3 times a day as needed Also takes CBD (OTC Cannabidiol) as needed for increased knee pain (10) Restless legs syndrome (RLS): Code(s): G25.81 - Restless legs syndrome Plan: Was started on Ropinirole 0.5 mg QHS in the past but patient had to stop taking this as she felt that the Rx made her headaches worse States that her leg symptoms have been better controlled lately and she does not require anything else at this time (11) Allergic rhinitis: Code(s): J30.9 - Allergic rhinitis, unspecified Qualifiers: Allergic rhinitis trigger: unspecified Allergic rhinitis seasonality: unspecified Qualified Code(s): J30.9 - Allergic rhinitis, unspecified Plan: Continue Cetirizine 10 mg QD PRN and Montelukast 10 mg QD Continue Azelastine nasal spray BID PRN (12) Vitamin D deficiency: Code(s): E55.9 - Vitamin D deficiency, unspecified Plan: She was previously advised to HOLD her Vitamin D as her Vitamin D level has steadily increased over the past year and her level was as high as 100.7 ng/ml a few months ago Her level is now normal at 74.1 Have advised patient to continue taking her Vitamin D only once a week Will recheck her Vitamin D level in 4 months for follow up (13) Constipation: Code(s): K59.00 - Constipation, unspecified Qualifiers: Constipation type: unspecified constipation type Qualified Code(s): K59.00 - Constipation, unspecified Plan: Encouraged increased oral fluids and dietary fiber Continue MiraLax 17 gm QD (14) Overactive bladder: Code(s): N32.81 - Overactive bladder Plan: Is most likely the reason for her nocturia and increased fatigue She was started on a trial of Myrbetriq 25 mg Q HS but she could not tolerate the Rx Was advised that she should probably see urology for further evaluation and management of her urinary symptoms - patient states that she will call for referral when she feels she is ready to see urology but would like to hold off on referral for now (15) History of breast cancer: Comment: S/P Tamoxifen x 5 years Code(s): Z85.3 - Personal history of malignant neoplasm of breast Plan: Follow up with Oncology as scheduled for continuing surveillance (16) History of renal cell cancer: Comment: S/P partial left nephrectomy Code(s): Z85.528 - Personal history of other malignant neoplasm of kidney Plan: Follow up with Oncology and Nephrology as scheduled for continuing surveillance (17) Anxiety: Code(s): F41.9 - Anxiety disorder, unspecified Plan: Continue Citalopram 10 mg QD (18) Obesity (BMI 30-39.9): Code(s): E66.9 - Obesity, unspecified Plan: Reinforced diet/exercise as tolerated/lose weight Plan Follow up in 4 months Orders: Orders Complete Blood Count Auto Diff 4 Months D64.9 - Anemia, unspecified Vitamin D 25-OH Total 4 Months E55.9 - Vitamin D deficiency, unspecified Vitamin B12 and Folate 4 Months E53.8 - Deficiency of other specified B group vitamins Lipid Panel 4 Months E78.00 - Pure hypercholesterolemia, unspecified Comprehensive [place]. Panel Fast 4 Months E78.00 - Pure hypercholesterolemia, unspecified Thyroid Stimulating Hormone 4 Months E03.9 - Hypothyroidism, unspecified Free T4 (Free Thyroxine) 4 Months E03.9 - Hypothyroidism, unspecified Hemoglobin A1c 4 Months R73.01 - Impaired fasting glucose UA CC w/rflx Micro + Cult 4 Months R30.0 - Dysuria Coding Level of Care Code Est Pt Level 4 (73593) Complex EM visit Add On G2211 Diagnoses Pure hypercholesterolemia E78.00 Benign essential hypertension I10 Impaired fasting glucose R73.01 Palpitations R00.2 Acquired hypothyroidism E03.9 Obstructive sleep apnea G47.33 Chronic tension-type headache, not intractable G44.229 Headache type: tension-type Headache chronicity pattern: chronic headache Intractability: not intractable GERD without esophagitis K21.9 Primary osteoarthritis of right knee M17.11 Osteoarthritis type: primary Restless legs syndrome (RLS) G25.81 Allergic rhinitis, unspecified seasonality, unspecified trigger J30.9 Allergic rhinitis trigger: unspecified Allergic rhinitis seasonality: unspecified Vitamin D deficiency E55.9 Constipation, unspecified constipation type K59.00 Constipation type: unspecified constipation type Overactive bladder N32.81 History of breast cancer Z85.3 History of renal cell cancer Z85.528 Anxiety F41.9 Obesity (BMI 30-39.9) E66.9
[2023-11-04 10:42] VITALS: BP 132/64; PULSE 65; O2SAT 98; BMI 31.4
== END 2023-11-04 11:47 | disposition home or self-care (01) ==
PROVIDERS: PCP Internal Medicine; Visit Provider Internal Medicine
DX: E78.00 Pure hypercholesterolemia, unspecified (principal); I10 Essential (primary) hypertension; R73.01 Impaired fasting glucose; R00.2 Palpitations; E03.9 Hypothyroidism, unspecified; G47.33 Obstructive sleep apnea (adult) (pediatric); G44.229 Chronic tension-type headache, not intractable; K21.9 Gastro-esophageal reflux disease without esophagitis; M17.11 Unilateral primary osteoarthritis, right knee; G25.81 Restless legs syndrome; J30.9 Allergic rhinitis, unspecified; E55.9 Vitamin D deficiency, unspecified
CPT/HCPCS: 99214; G2211

== ENCOUNTER 2024-03-09 07:59 | Outpatient (REF) | payer MEDICARE, OTHER, SELFPAY ==
[2024-03-09 10:24] LABS: MANUAL DIFF FLAG NO
[2024-03-09 10:32] LABS: Basophils Absolute Auto 0.1 X10*3/uL (0.0-0.2); Eosinophils Absolute Auto 0.1 X10*3/uL (0.0-0.4); Eosinophils Percent Auto 1.9 % (0-4); Hematocrit 41.4 % (37.0-47.0); Hemoglobin 14.1 g/dl (12.0-16.0); Imm Gran Abs Auto 0.04 X10*3/uL (0.00-0.03); Imm Gran Pct Auto 0.6 % (0.0-0.4); Lymphocytes Absolute Auto 2.8 X10*3/uL (1.2-4.9); Lymphocytes Percent Auto 41.7 % (20-40); Mean Corpuscular HGB Conc 34.1 g/dl (31.0-35.0); Mean Corpuscular Hemoglobin 32.9 pg (27.0-33.0); Mean Corpuscular Volume 96.7 fL (80.0-98.0); Mean Platelet Volume 11.3 fL (9.4-12.3); Monocytes Absolute Auto 0.4 X10*3/uL (0.1-1.2); Monocytes Percent Auto 5.6 % (2-11); Neutrophils Absolute Auto 3.3 x10*3/uL (2.0-8.3); Neutrophils Percent Auto 49.2 % (45-73); Platelet Count 257 X10*3/uL (160-400); Red Blood Count 4.28 X10*6/uL (4.20-5.50); Red Cell Distribution Width 12.2 % (11.0-16.0); White Blood Count 6.8 X10*3/uL (4.8-10.8)
[2024-03-09 10:36] LABS: Estimated Average Glucose 157 mg/dL; Hemoglobin A1C 192.6818 umol/L; Hemoglobin A1c % 7.1 % (<6.0); Total Hemoglobin (HGBA1C) 3581.3628 umol/L
[2024-03-09 11:06] LABS: Appearance Urine Clear; Color Urine Yellow; Glucose Urine UA Negative (Negative); Leukocyte Esterase Urine Negative (Negative); Nitrite Urine Negative (Negative); Specific Gravity - Urine 1.015 (1.005-1.025); Urine Blood Negative (Negative); Urine Ketones Negative (Negative); Urine Protein Negative (Neg-Trace)
[2024-03-09 11:07] LABS: Alanine Aminotransferase 15 U/L (0-31); Albumin Level 4.2 g/dL (3.5-5.0); Alkaline Phosphatase 72 U/L (39-117); Anion Gap 11 (12-20); Aspartate Amino Transferase 19 U/L (5-31); Bilirubin Total 1.1 mg/dL (0.0-1.0); Blood Urea Nitrogen 12 mg/dL (9-16); Calcium 9.3 mg/dL (8.4-10.2); Carbon Dioxide 25 mmol/L (22-29); Chloride 108 mmol/L (96-108); Cholesterol 181 mg/dL (<200); Estimated Glomerular Filt Rate > 60; Glucose Fasting 149 mg/dL (60-99); HDL Cholesterol 47 mg/dL (>40); LDL Cholesterol Calculated 105 mg/dL (<100); Potassium 3.8 mmol/L (3.3-5.1); Sodium 140 mmol/L (135-145); Total Protein 6.8 g/dL (6.5-8.0); Triglycerides 147 mg/dL (<150)
[2024-03-09 11:19] LABS: Vitamin B12 511 pg/mL (200-900)
[2024-03-09 11:25] LABS: Thyroid Stimulating Hormone 3.06 uIU/mL (0.32-4.0); Vitamin D 25-OH Total 112.7 ng/mL (>30)
== END 2024-03-09 08:00 | disposition home or self-care (01) ==
LOC: HO.HMGCLDS 07:59
PROVIDERS: PCP Internal Medicine; Visit Provider Internal Medicine
DX: E78.00 Pure hypercholesterolemia, unspecified (principal); E53.8 Deficiency of other specified B group vitamins; E03.9 Hypothyroidism, unspecified; R30.0 Dysuria; D64.9 Anemia, unspecified; E55.9 Vitamin D deficiency, unspecified; R73.01 Impaired fasting glucose
CPT/HCPCS: 36415; 80053; 80061; 81003; 82306; 82607; 82746; 83036; 84439; 84443; 85025

== ENCOUNTER 2024-03-16 10:20 | Outpatient (AMB) | payer MEDICARE, OTHER, SELFPAY ==
[2024-03-16 10:29] VITALS: BP 120/84; PULSE 62; O2SAT 97; BMI 31.0
--- NOTE | 2024-03-16 10:29 | A.OFFPC_ITS ---
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: No Accompanied by: Spouse Allergies adhesive tape Allergy (Intermediate, Verified 03/20/24 14:44) BLISTERS albuterol [From PROAIR HFA] Allergy (Intermediate, Verified 03/20/24 14:44) TREMOR Sulfa (Sulfonamide Antibiotics) [SULFA (SULFONAMIDE ANTIBIOTICS)] Allergy (Intermediate, Verified 03/20/24 14:44) ITCH/RASH, itching, hives ropinirole Allergy (Mild, Verified 03/20/24 14:44) joint pain oxybutynin Allergy (Verified 03/20/24 14:44) shortness of breath codeine [CODEINE] Adverse Reaction (Intermediate, Verified 03/20/24 14:44) GI UPSET Medication List - Last Reconciled 03/20/24 by Calvin Maldonado MD azelastine 2 sprays intranasal BID 30 days [id number] 50-300-40 mg (Fioricet) 1 cap PO Q8H PRN 10 days cetirizine (Zyrtec) 5 mg PO DAILY PRN cholecalciferol (vitamin D3) 50 mcg PO DAILY citalopram 10 mg PO DAILY clobetasol 0.05% 0.25 - 0.5 mL topical esomeprazole magnesium 40 mg PO DAILY gabapentin 100 mg PO BEDTIME 90 days glucosamine sulfate 750 mg PO DAILY hydrocortisone 1% (Cortisone (hydrocortisone)) 1 appl topical BID PRN levothyroxine 50 mcg PO DAILY 90 days losartan 50 mg PO DAILY multivitamin (Multiple Vitamins tablet) 1 tab PO DAILY olopatadine 0.2% (Pataday) 1 drp ophthalmic (eye) DAILY rosuvastatin 5 mg PO DAILY sitagliptin phosphate (Januvia) 50 mg PO DAILY 90 days Tobacco use date assessed: 03/16/24 Fall risk assessment: No Falls in past year Last assessed Fall Risk: 03/16/24 Dental Screening Dental Screen Date: 03/16/24 HPI 4 Month F/U HPI Details Patient comes in today for her follow up visit Relates that she has been forgetting a lot for a while now and feels that her memory loss has been getting worse lately and she is very concerned about this She denies any headaches or dizziness Denies any chest pains, no increased shortness of breath No nausea/vomiting, no abdominal pain No change in bowel habits noted - she has a history of chronic constipation and takes some OTC stool softeners when needed States that she has not used her CPAP device in a while now and she feels much better without it - she no longer struggles with recurrent sore throat, nasal congestion and other symptoms that she attributed to the use of her CPAP device She had her last colonoscopy done with Dr. Ventura a couple of years ago in 2021 and was advised that she should not require anymore repeat screening colonoscopy unless there is an indication to do so She needs her Gabapentin and cortisone cream Rx refilled today She had her follow-up labs done last week - to discuss the results [facility] Medical History (Updated 03/20/24 @ 15:00 by Calvin Maldonado MD) Diabetes mellitus Overactive bladder Obesity (BMI 30-39.9) Post-menopausal Overweight (BMI 25.0-29.9) Obstructive sleep apnea Short of breath on exertion Anxiety Daytime somnolence History of renal cell cancer History of breast cancer Constipation Vitamin D deficiency Allergic rhinitis Osteoarthritis of right knee GERD without esophagitis Impaired fasting glucose Acquired hypothyroidism Pure hypercholesterolemia Benign essential hypertension Invasive ductal carcinoma of left breast Renal cancer Hypothyroid HTN (hypertension) Esophagitis Mixed irritable bowel syndrome Surgical History History of removal of skin mole History of right knee surgery (~06/2017) History of thumb surgery (~04/26/15) History of lumpectomy of left breast (~03/2014) History of left breast biopsy (~01/2014) History of removal of cyst History of bunionectomy History of kidney surgery History of cataract surgery History of colon resection (~2001) History of partial nephrectomy (~2002) History of colonoscopy History of esophagogastroduodenoscopy (EGD) (~09/16/12) History of eye surgery (~09/2012) Family History Father History of gastric cancer History of lung cancer Mother History of heart disease Brother Family history of prostate cancer History of colon cancer History of lung cancer Daughter History of breast cancer Paternal Aunt History of breast cancer Maternal Uncle History of leukemia Maternal Aunt History of breast cancer Social History Housing: Condominium Alcohol intake: current Alcohol intake frequency: holidays/special occasions only Alcohol type: wine Patient Tobacco Use Status: Never used Tobacco e-Cigarette/Vaping Use: Never Used Second Hand Smoke Exposure: Yes service: No Current occupational status: retired Cognitive needs: No Hearing needs: No Vision needs: Yes (glasses) Questionnaire PHQ-9 Over the last 2 weeks, how often have you been bothered by any of the following problems? 1. Little interest or pleasure in doing things: not at all 2. Feeling down, depressed, or hopeless: not at all 3. Trouble falling or staying asleep, or sleeping too much: not at all 4. Feeling tired or having little energy: not at all 5. Poor appetite or overeating: not at all 6. Feeling bad about yourself - or that you are a failure or have let yourself or your family down: not at all 7. Trouble concentrating on things, such as reading the newspaper or watching television: not at all 8. Moving or speaking so slowly that other people could have noticed. Or the opposite - being so fidgety or restless that you have been moving around a lot more than usual: not at all 9. Thoughts that you would be better off or of hurting yourself in some way: not at all Total score: 0 Depression Screening Interpretation: Negative Depression Screening Done: Yes 94600 - PHQ-9 Billing: Yes Source: Developed by Drs. Uziel Morillo, Celina Matute, Pete Patterson and colleagues, with an educational sandra from [employer]. Thrive Questionnaire Date Thrive assessed: 03/16/24 I am a: Patient What is your living situation today?: I have a steady place to live Within the past 12 months, did the food you bought not last and you didn't have the money to get more?: Never true Within the past 12 months, did you worry whether your food would run out before you got money to buy more?: Never true Do you have trouble paying for medicines?: No Do you have trouble getting transportation to medical appointments?: No Do you have trouble paying your heating and electricity bill?: No Do you have trouble taking care of your child, family member or friend?: No Do you have trouble with day-to-day activities such as bathing, preparing meals, shopping, managing finances, etc.?: No Are you currently unemployed and looking for a job?: No Are you interested in more education?: No Please select the resources that you would like help with: None Currently or been in a relationship where the following occur: No concerns reported THRIVE Score: 0 AUDIT C Alcohol Use Questionnaire (AUDIT-C) 1. How often do you have a drink containing alcohol?: Monthly or less 2. How many drinks containing alcohol do you have on a typical day when you are drinking?: 1 or 2 3. How often do you have six or more drinks on one occasion?: Never Total Score: 1 Score Reviewed/Action Taken: Yes DELIA-7 AMB Questionnaire DELIA-7 Date DELIA - 7 assessed: 03/16/24 Feeling nervous, anxious, or on edge: 0 = Not at all Not being able to stop or control worryin = Not at all Worrying too much about different things: 0 = Not at all Trouble relaxin = Not at all Being so restless that it is hard to sit still: 0 = Not at all Becoming easily annoyed or irritable: 0 = Not at all Feeling afraid as if something awful might happen: 0 = Not at all Total DELIA-7 score (0-4 normal; 5-9 mild; 10-14 moderate; 15-21 severe): 0 Source: Developed by Drs. Uziel Morillo, Celina Matute, Pete Patterson and colleagues, with an educational sandra from [employer]. Review of Systems Const Denies chills, Denies difficulty sleeping, Reports fatigue, Denies fever(s) and Denies headache(s) ENT Denies dysphagia, Denies dizziness, Denies otalgia, Denies headache(s), Denies neck pain, Denies odynophagia and Denies sore throat Card Denies chest pain, Denies palpitations and Denies dyspnea Resp Denies chest congestion, Denies cough and Denies dyspnea GI Denies abdominal pain, Denies constipation, Denies dysphagia, Denies heartburn, Denies diarrhea, Denies nausea, Denies odynophagia and Denies vomiting Denies difficulty voiding, Reports nocturia (at least 3 times a night), Denies dysuria, Denies urinary incontinence and Denies urinary urgency Musc Reports back pain (over the lower back - on and off), Reports arthralgias (above the right hip - on and off) and Denies neck pain Skin/Breast Denies rash Neuro Denies dizziness, Denies headache(s), Reports memory loss (feels that this is slowly getting worse) and Reports restless legs Psych Reports anxiety and Reports memory loss (feels that this is slowly getting worse) Endo Reports fatigue and Denies palpitations Physical exam (Primary Care) Vital Signs: Last Vital Signs Pulse 62 03/16/24 10:29 BP 120/84 03/16/24 10:29 Pulse Ox 97 03/16/24 10:29 Oxygen Delivery Method Room Air 03/16/24 10:29 BMI result Body Mass Index 31.0 Tobacco/Smoking Status: Tobacco use Status Tobacco use date assessed 03/16/24 03/16/24 10:32 Patient Tobacco Use Status Never used Tobacco 03/16/24 10:32 e-Cigarette/Vaping Use Never Used 03/16/24 10:32 PHQ-9: PHQ-9 Score PHQ-9: Total score 0 03/16/24 11:58 Depression Screening Interpretation: Negative Thrive Assessment: Date of Thrive Assessment Date Thrive assessed 03/16/24 03/16/24 10:32 Currently or been in a relationship where the following occur: No concerns reported Const General: no acute distress and alert HENMT Ears: TM's normal bilaterally and EAC's normal Throat: Yes posterior oropharynx normal and Yes tonsils normal (no TP congestion noted) Neck Neck: Yes supple and No lymphadenopathy Thyroid: Thyroid normal Resp Auscultation: clear to auscultation bilaterally, no rales and no wheezes Cardio Rate: regular rate Rhythm: regular rhythm Heart sounds: no murmurs GI Palpation (GI): Soft to palpation and nontender Auscultation: normal bowel sounds General: Yes no CVA tenderness Back/Spine/Pelvis Back: no CVA tenderness Thoracic/Lumbar Spine: No lumbar spinal tenderness Skin Rashes: no rashes Extrem General: Yes no clubbing, cyanosis or edema Results Reviewed Results Reviewed: Laboratory Tests 03/09/24 03/09/24 08:12 08:20 WBC 6.8 Hgb 14.1 Hct 41.4 Plt Count 257 Sodium 140 Potassium 3.8 Creatinine 0.73 Estimated GFR > 60 Fasting Glucose 149 H Hemoglobin A1c % 7.1 H Calcium 9.3 AST 19 ALT 15 Triglycerides 147 Cholesterol 181 LDL Cholesterol, Calc 105 H HDL Cholesterol 47 Vitamin B12 511 25-OH Vitamin D Total 112.7 TSH 3.06 Free T4 1.00 Ur Specific [place] 1.015 Urine Protein Negative Urine Glucose (UA) Negative Urine Blood Negative Urine Nitrite Negative Ur Leukocyte Esterase Negative Coding Level of Care Code Est Pt Level 4 (08405) Complex EM visit Add On G2211 Diagnoses Memory impairment R41.3 Pure hypercholesterolemia E78.00 Benign essential hypertension I10 Type 2 diabetes mellitus without complication, without long-term current use of insulin E11.9 Diabetes mellitus type: type 2 Diabetes mellitus prison insulin use: without prison use Diabetes mellitus complication status: without complication Palpitations R00.2 Acquired hypothyroidism E03.9 Obstructive sleep apnea G47.33 GERD without esophagitis K21.9 Primary osteoarthritis of right knee M17.11 Osteoarthritis type: primary Restless legs syndrome (RLS) G25.81 Allergic rhinitis, unspecified seasonality, unspecified trigger J30.9 Allergic rhinitis trigger: unspecified Allergic rhinitis seasonality: unspecified Vitamin D deficiency E55.9 Constipation, unspecified constipation type K59.00 Constipation type: unspecified constipation type Overactive bladder N32.81 History of breast cancer Z85.3 History of renal cell cancer Z85.528 Anxiety F41.9 Obesity (BMI 30-39.9) E66.9 Additional Codes PHQ-9 - 61871 - PHQ-9 Billing: Yes ([id number]) Assessment & Plan Assessment & Plan (1) Memory impairment: Code(s): R41.3 - Other amnesia Category: Medical Plan: Will refer patient to neurology for further evaluation and management (2) Pure hypercholesterolemia: Code(s): E78.00 - Pure hypercholesterolemia, unspecified Category: Medical Plan: Results of her labs done last week reviewed and discussed with patient Reinforced low cholesterol diet Continue Rosuvastatin 5 mg QD Will recheck her labs and fasting lipids in 4 months for follow-up (3) Benign essential hypertension: Code(s): I10 - Essential (primary) hypertension Category: Medical Plan: Reinforced low sodium diet - goal is systolic BP of at least 130 to 140 mm or less Continue Losartan 50 mg QD (4) Diabetes mellitus: Code(s): E11.9 - Type 2 diabetes mellitus without complications Category: Medical Qualifiers: Diabetes mellitus type: type 2 Diabetes mellitus 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 Diabetes mellitus complication status: without complication Qualified Code(s): E11.9 - Type 2 diabetes mellitus without complications Plan: Her HgbA1c has increased to 7.1% on her labs done last week (she was previously at 6.6% and 6.9% earlier this year She is advised that at her HgbA1c numbers this past year, she is now a diabetic and is no longer just borderline - her HgbA1c goal is again at least <7.0% but ideally should be <6.5% Reinforced diabetic diet / exercise as tolerated Will now go ahead and start her on Januvia 50 mg QD Will recheck her FBS and HgbA1c in 4 months for follow up (5) Palpitations: Code(s): R00.2 - Palpitations Category: Medical Plan: States that these only occur very occasionally nowadays and mostly at night when she is sitting down watching television; episodes usually last only a few seconds at most, and that their duration is too short to even be associated with any pertinent symptoms Have offered to refer her for additional testing and work ups but patient continues to decline - states that they are not occurring often or lasting long enough to really bother her and she will call for referrals/orders if she changes her mind (6) Acquired hypothyroidism: Code(s): E03.9 - Hypothyroidism, unspecified Category: Medical Plan: Her TFTs were again normal on her labs done last week Continue Levothyroxine 50 mcg QD Will continue to monitor her TFTs regularly (7) Obstructive sleep apnea: Code(s): G47.33 - Obstructive sleep apnea (adult) (pediatric) Category: Medical Plan: She was using her CPAP device at 5 - 15 cm pressure when sleeping at night previously but states that she decided to stop using it a while back and ironically started feeling much better without her device, with all of her previous symptoms of headaches, nasal congestion and sore throat completely clearing up once she stopped using her device Adds that she has actually been sleeping better without her CPAP device and she does not wish to go back on it at this time Follow up with Sleep Medicine as scheduled or as needed (8) GERD without esophagitis: Code(s): K21.9 - Gastro-esophageal reflux disease without esophagitis Category: Medical Plan: Dietary restrictions reinforced Continue Nexium 40 mg QD; she also takes Tums 500 mg 4 times a day when needed (9) Osteoarthritis of right knee: Comment: S/P arthroplasty of the right knee in November 2019 Code(s): M17.11 - Unilateral primary osteoarthritis, right knee Category: Medical Qualifiers: Osteoarthritis type: primary Qualified Code(s): M17.11 - Unilateral primary osteoarthritis, right knee Plan: Continue Gabapentin 100 mg 2 times a day in the morning and afternoon and 2 capsules at bedtime, Celebrex 200 mg once a day and Tylenol Arthritis 650 mg 3 times a day as needed She also takes CBD (OTC Cannabidiol) as needed for increased knee pain (10) Restless legs syndrome (RLS): Code(s): G25.81 - Restless legs syndrome Category: Medical Plan: She was started on Ropinirole 0.5 mg QHS in the past but patient had to stop taking this as she felt that the Rx made her headaches worse States that her leg symptoms have been better controlled lately and she does not require anything else at this time (11) Allergic rhinitis: Code(s): J30.9 - Allergic rhinitis, unspecified Category: Medical Qualifiers: Allergic rhinitis trigger: unspecified Allergic rhinitis seasonality: unspecified Qualified Code(s): J30.9 - Allergic rhinitis, unspecified Plan: Continue Cetirizine 10 mg QD PRN and Montelukast 10 mg QD Continue Azelastine nasal spray BID PRN Patient feels that her symptoms have improved a lot since she stopped using her CPAP device a few months ago (12) Vitamin D deficiency: Code(s): E55.9 - Vitamin D deficiency, unspecified Category: Medical Plan: Continue Vitamin D3 2000 units once a week Will recheck her Vitamin D level in 4 months for follow up (13) Constipation: Code(s): K59.00 - Constipation, unspecified Category: Medical Qualifiers: Constipation type: unspecified constipation type Qualified Code(s): K59.00 - Constipation, unspecified Plan: She is again encouraged on increased oral fluids and dietary fiber Continue MiraLax 17 gm QD (14) Overactive bladder: Code(s): N32.81 - Overactive bladder Category: Medical Plan: This is most likely the reason for her nocturia and increased fatigue She was started on a trial of Myrbetriq 25 mg Q HS but she could not tolerate the Rx She was advised that she should probably see urology for further evaluation and management of her urinary symptoms - patient states that she will call for referral when she feels she is ready to see urology but would like to hold off on referral for now (15) History of breast cancer: Comment: S/P Tamoxifen x 5 years Code(s): Z85.3 - Personal history of malignant neoplasm of breast Category: Medical Plan: Follow up with Oncology as scheduled for continuing surveillance (16) History of renal cell cancer: Comment: S/P partial left nephrectomy Code(s): Z85.528 - Personal history of other malignant neoplasm of kidney Category: Medical Plan: Follow up with Oncology and Nephrology as scheduled for continuing surveillance (17) Anxiety: Code(s): F41.9 - Anxiety disorder, unspecified Category: Medical Plan: Continue Citalopram 10 mg QD (18) Obesity (BMI 30-39.9): Code(s): E66.9 - Obesity, unspecified Category: Medical Plan: Reinforced diet/exercise as tolerated/lose weight Plan Follow up in 4 months Orders: Orders Hemoglobin A1c 4 Months E11.9 - Type 2 diabetes mellitus without complications Comprehensive [place]. Panel Fast 4 Months E78.00 - Pure hypercholesterolemia, unspecified Lipid Panel 4 Months E78.00 - Pure hypercholesterolemia, unspecified Thyroid Stimulating Hormone 4 Months E03.9 - Hypothyroidism, unspecified Microalbumin, Random (w Creat) 4 Months E11.9 - Type 2 diabetes mellitus without complications UA CC w/rflx Micro + Cult 4 Months R30.0 - Dysuria Vitamin D 25-OH Total 4 Months E55.9 - Vitamin D deficiency, unspecified Free T4 (Free Thyroxine) 4 Months E03.9 - Hypothyroidism, unspecified Complete Blood Count Auto Diff 4 Months D64.9 - Anemia, unspecified Vitamin B12 and Folate 4 Months E53.8 - Deficiency of other specified B group vitamins Referrals Neurology Referral R41.3 - Other amnesia Medications: New hydrocortisone 1% (Cortisone (hydrocortisone)) 1 appl topical BID PRN 60 grams 3RF skin irritation/rash sitagliptin phosphate (Januvia) 50 mg PO DAILY 90 days 90 tabs 1RF Changed From gabapentin 100 mg PO BEDTIME 30 caps 1RF To gabapentin 100 mg PO BEDTIME 90 days 90 caps 3RF
--- OUTSIDE RECORDS SUMMARY | 2024-03-17 00:19 | XMS_ITS | Continuity of Care Document ---
Author Name [facility] Organization [facility] Care Team Providers Care Lay Out Technician Name Role Phone [facility] Unavailable Unavailable Medications Combined list of outpatient medications from Department of Defense and Veterans Affairs facilities.Medications provided include 1) outpatient medications from the last 15 months, and 2) patient-reported medications. Medication Details Route Status Patient Instructions Prescription Expires Prescription Number Last Dispense Date Ordering Provider Order Date Order Qty Source AMOXICILLIN (AMOXICILLI N), 500 MG, CAPSULE, ORAL, SANDOZ, 500 ea. BOTTLE Active [id number] 4 2023 20 Pharmac y Data Transac tion Service Facilit y AZELASTINE HCL (AZELASTINE HCL), 137 MCG, SPRAY/PUMP, NASAL, [employer] KAY, 30 ml SQUEEZ BTL Active [id number] 4 2023 90 Pharmac y Data Transac tion Service Facilit y Benzonatate ([employer]) 100 CAPSULE in 1 BOTTLE Active [id number] 04/07/19 2 4 2023 21 Pharmac y Data Transac tion Service Facilit y CLOBETASOL PROPIONATE (clobetasol propionate) , 0.05 %, SOLUTION, TOPICAL, [employer] 50 ml BOTTLE Active [id number] 4 2023 150 Pharmac y Data Transac tion Service Facilit y CLOBETASOL PROPIONATE (clobetasol propionate) , 0.05 %, SOLUTION, TOPICAL, [facility],, 50 ml BOTTLE Cancele d [id number] : 2023 0 Pharmac y Data Transac tion Service Facilit y CLOBETASOL PROPIONATE (clobetasol propionate) , 0.05 %, SOLUTION, TOPICAL, [facility],, 50 ml BOTTLE Active [id number] 4 2023 50 Pharmac y Data Transac tion Service Facilit y ESOMEPRAZOL E MAGNESIUM (esomeprazo le magnesium), 40 MG, CAPSULE DR, ORAL, [employer], 30 ea. BOTTLE Cancele d [id number] : 2023 0 Pharmac y Data Transac tion Service Facilit y GABAPENTIN (gabapentin ), 100 MG, CAPSULE, ORAL, [employer] 1000 ea. BOTTLE Active [id number] 4 2023 90 Pharmac y Data Transac tion Service Facilit y GABAPENTIN (gabapentin ), 100 MG, CAPSULE, ORAL, [employer], 500 ea. BOTTLE Active [id number] 4 2023 90 Pharmac y Data Transac tion Service Facilit y LOSARTAN POTASSIUM (losartan potassium), 50 MG, TABLET, ORAL, [employer], 90 ea. BOTTLE Active [id number] 4 2023 90 Pharmac y Data Transac tion Service Facilit y LOSARTAN POTASSIUM (losartan potassium), 50 MG, TABLET, ORAL, [employer], 90 ea. BOTTLE Active [id number] 4 2023 90 Pharmac y Data Transac tion Service Facilit y ROSUVASTATI N CALCIUM (rosuvastat in calcium), 5 MG, TABLET, ORAL, [employer] 1000 ea. BOTTLE Active [id number] 4 2023 90 Pharmac y Data Transac tion Service Facilit y ROSUVASTATI N CALCIUM (rosuvastat in calcium), 5 MG, TABLET, ORAL, [employer] 1000 ea. BOTTLE Active [id number] 4 2023 90 Pharmac y Data Transac tion Service Facilit y ROSUVASTATI N CALCIUM (rosuvastat in calcium), 5 MG, TABLET, ORAL, [employer] 90 ea. BOTTLE Active [id number] 3 2022 90 Pharmac y Data Transac tion Service Facilit y SERNIVO (betamethas one dipropionat e), 0.05 %, SPRAY/PUMP, TOPICAL, [employer], 120 ml BOTTLE Cancele d [id number] : 2023 0 Pharmac y Data Transac tion Service Facilit y TRETINOIN (tretinoin) , 0.025 %, CREAM (G), TOPICAL, PERRIGO/PAD AGIS, 45 g TUBE Active [id number] 3 2022 135 Pharmac y Data Transac tion Service Facilit y Immunizations Combined list of available immunizations from the Department of Defense and Veterans Affairs facilities. Immunization Series Date Given Administered By Site Reaction Lot Number CVX Code Drug Cherry Pitter Status Comments Source influenza, high-dose, quadrivalent 2020 DICK, () Not Given influenza , high-dose , quadrival ent [facility] influenza, high-dose, quadrivalent 2019 BOGDASARIAN, () Not Given influenza , high-dose , quadrival ent [facility] influenza, trivalent, adjuvanted 2018 BOGDASARIAN, () Not Given influenza , trivalent , adjuvante d [facility] zoster recombinant 2017 BOGDASARIAN, () Not Given zoster recombina nt [facility] Influenza, high dose seasonal 2014 JORDIN, () Not Given Influenza , high dose seasonal [employer] influenza virus vaccine, split virus (incl. purified surface antigen)-reti red CODE 1 2004 Unknown, Provider [id number] 15 Sanofi Pasteur ([facility]) complet ed influenza virus vaccine, split virus (incl. purified surface antigen)- retired CODE [employer] Social History Combined list of available smoking, tobacco, and other social history from Department of Defense and Veterans Affairs facilities. Social History Type Response Date Comment Sour e This section is an empty social history section. [facility]
== END 2024-03-16 12:08 | disposition home or self-care (01) ==
PROVIDERS: PCP Internal Medicine; Visit Provider Internal Medicine
DX: R41.3 Other amnesia (principal); E11.9 Type 2 diabetes mellitus without complications; E78.00 Pure hypercholesterolemia, unspecified; I10 Essential (primary) hypertension; R00.2 Palpitations; E03.9 Hypothyroidism, unspecified; G47.33 Obstructive sleep apnea (adult) (pediatric); K21.9 Gastro-esophageal reflux disease without esophagitis; M17.11 Unilateral primary osteoarthritis, right knee; G25.81 Restless legs syndrome; J30.9 Allergic rhinitis, unspecified; E55.9 Vitamin D deficiency, unspecified

== ENCOUNTER → 2024-03-16 10:20 | Outpatient (BNVA) | payer MEDICARE, OTHER, SELFPAY | PROVIDERS: PCP Internal Medicine; Visit Provider Internal Medicine | DX: R41.3 Other amnesia (principal); E78.00 Pure hypercholesterolemia, unspecified; I10 Essential (primary) hypertension; E11.9 Type 2 diabetes mellitus without complications; E03.9 Hypothyroidism, unspecified; G47.33 Obstructive sleep apnea (adult) (pediatric); K21.9 Gastro-esophageal reflux disease without esophagitis; M17.11 Unilateral primary osteoarthritis, right knee; G25.81 Restless legs syndrome; J30.9 Allergic rhinitis, unspecified; E55.9 Vitamin D deficiency, unspecified; K59.00 Constipation, unspecified; N32.81 Overactive bladder; F41.9 Anxiety disorder, unspecified; E66.9 Obesity, unspecified; Z85.3 Personal history of malignant neoplasm of breast; Z85.528 Personal history of other malignant neoplasm of kidney | CPT/HCPCS: 96127; 99212 ==

== ENCOUNTER 2024-05-23 13:23 | Outpatient (REF) | payer MEDICARE, OTHER, SELFPAY ==
--- NOTE | ~2024-05-23 | XR_ITS ---
EXAMINATION: XR SHOULDER, RIGHT CLINICAL INFORMATION: M25.511 - Pain in right shoulder COMPARISON: None available. TECHNIQUE: AP external rotation, Grashey, scapular Y, and axillary views of the right shoulder. FINDINGS: Normal bone mineralization. No fracture, dislocation, or suspicious bone lesion. Normal alignment. The glenohumeral joint demonstrates mild to moderate degenerative arthritis with small marginal osteophytes. There is mild to moderate predominantly superior surface spurring of the AC joint. There is a neutral lateral acromion. No undersurface spurring. The subacromial space is preserved. Remainder of the soft tissue and bony structures appear normal. XR/XR shoulder RT min 2V IMPRESSION: 1. No acute abnormalities right shoulder. 2. Mild to moderate glenohumeral joint and AC joint osteoarthrosis. Electronically signed by: Melvin Salvador MD 05/24/2024 10:37 AM JUAN CARLOS THAO
--- OUTSIDE RECORDS SUMMARY | 2024-05-23 13:26 | XMS_ITS | Clinical Summary ---
Author Organization [facility] Address [address] [place] [address] Phone Care Team Providers Care Yield Analyst Name Role Phone Calvin Maldonado MD Primary Care Provider Surgical History Surgery Date Site/Laterality Comments BREAST LUMPECTOMY PROCEDURE:BREAST LUMPECTOMY Medical History Medical History Date Comments Breast cancer (CMS/HCC) DX:Breas t cancer (HCC) IBS (irritable bowel syndrome) D X:IBS (irritable bowel syndrome) Esophagitis DX:Esophagitis Acid reflux DX:Acid reflux Hypertension DX:Hypertension Disease of thyroid gland DX:Dise ase of thyroid gland;COMMENT:hypothyroidism Anxiety DX:Anxiety Chronic kidney disease DX:Chroni c kidney disease;COMMENT:nephrectomy Family History Medical History Relation Name Comments Cancer Brother prostate,colon ,and lung ca Cancer Father gqastric,lung c ancer Cancer Father's Sister breast ca Cancer Mother's Sister leukemia Relation Name Status Comments Brother Father Father's Sister Mother's Sister Social History Tobacco Use Types Packs/Day Years Used Date Smoking Tobacco: Never Smokeless Tobacco: Never Alcohol Use Standard Drinks/Week Comments No 0 (1 standard drink = 0.6 oz pur e alcohol) Comments Unknown Sex and Gender Information Value Date Recorded Sex Assigned at Not on file Legal Sex Female 8:48 PM EST Gender Identity Not on file Sexual Orientation Not on file Obstetrics History Last Filed Vital Signs Vital Sign Reading [...] Mass Index 32.19 01/06/2024 11:33 AM EDT Plan of Treatment Upcoming Encounters Date Type Department Care Team (Late st Contact Info) Description 01/31/2025 11:30 AM EDT Office Visit [facility] Hematology Oncology [address] [place] [id number] Rema Carlos, [address] [place] [address] Health Maintenance Due Date Last Done Comments COVID-19 Vaccine (#1) 1950 DTaP,Tdap,and Td Vaccines (1 - Tdap) 1965 Pneumococcal Vaccine: 50+ Years (1 of 2 - PCV) 1965 Zoster Vaccines (1 of 2) 1965 RSV Immunization Patients 60 + Years Old (1 - 1-dose 75+ series) 2021 Cholesterol Screening (Lipid Panel) 03/13/2022 Depression Screening 03/13/2022 Falls Risk Assessment 03/13/2022 Hepatitis C Screening 03/13/2022 Medicare Annual Wellness Visit 03/13/2022 Osteoporosis Screening (Bone Density Screening) 03/13/2022 Social Influencers of Health Screening 03/13/2022 Influenza Vaccine (#1) 2023 12/19/2016 HIB Vaccines Aged Out No longer eligi ble based on patient's age to complete this topic HPV Vaccines Aged Out No longer eligi ble based on patient's age to complete this topic Hepatitis A Vaccines Aged Out No long er eligible based on patient's age to complete this topic Hepatitis B Vaccines Aged Out No long er eligible based on patient's age to complete this topic IPV Vaccines Aged Out No longer eligi ble based on patient's age to complete this topic MMR Vaccines Aged Out No longer eligi ble based on patient's age to complete this topic Meningococcal ACWY Vaccine Aged Out N o longer eligible based on patient's age to complete this topic Meningococcal B Vacine Aged Out No lo nger eligible based on patient's age to complete this topic RSV Immunization Patients Under 20 months Aged Out No longer eligible b ased on patient's age to complete this topic Varicella Vaccines Aged Out No longer eligible based on patient's age to complete this topic Insurance MEDICARE [employer] Care Teams Yield Analyst Relationship Specialty Start Date End Date Calvin Maldonado MD [address] [place] [address] [address] CHINYERE Ramsay PCP - General Internal Medicine 12/22/19
--- OUTSIDE RECORDS SUMMARY | 2024-05-23 13:26 | XMS_ITS | Patient Health Record ---
Author Organization [facility] Address [address] [place] [address] Care Team Providers Care Senior Principal Process Engineer Name Role Phone Calvin Maldonado MD Primary Care Provider Melia Montes Unavailable [phone] ALLERGIES Allergen (clinical drug ingredient) Drug/Non Drug Allergy documented on EMR Reaction Allergy Type Onset Date Status Surgical Glue Unknown Allergy Active Substance with sulfonamide structure and antibacterial mechanism of action (substance) Sulfa Antibiotics Unknown Drug Allergy Active codeine Codeine Unknown Drug Allergy Active REASON FOR REFERRAL No Information MEDICATIONS Medication SIG (Take, Route, Frequency, Duration) Notes Start Date End Date Status Multivitamin Active Levothyroxine Sodium Active Biotin Active Rosuvastatin Calcium Active Melatonin Active Citalopram Hydrobromide Active Losartan Potassium A ctive Pataday Active Magnesium Active Esomeprazole Magnesium Active Fish Oil Active Triamcinolone Acetonide Active Azelastine HCl Activ e rOPINIRole HCl Activ e ZyrTEC 10 MG 1 tablet Orally Once a day Active Vitamin D 50 MCG (1999 [place]) 1 tablet Orally bid Active Nasonex Not-Taking Crestor Active Hydrocortisone-Iodoquinol Active IMMUNIZATIONS Vaccine Route Administration Date Status Comme nts Influenza Unknown 11/19/2021 Administered SOCIAL HISTORY Tobacco Use: Social History Observation Description Date Details (start date - stop date) Never Smoker NA - NA Sex Assigned At : Social History Observation Description Sex Assigned At Unknown Tobacco Use/Smoking Question Answer Notes Patient is a nonsmoker Alcohol Screen Question Answer Notes Did you have a drink contain ing alcohol in the past year? Yes How often did you have a dri nk containing alcohol in the past year? Monthly or less (1 point) How many drinks did you have on a typical day when you were drinking in the past year? 1 or 2 drinks (0 point) How often did you have 6 or more drinks on one occasion in the past year? Never (0 point) Points 1 Interpretation Negative PROBLEMS Problem Type ICD Code Onset Dates Problem Status W/U Status Risk SNOMED Code Notes Problem History of adenomatous polyp of colon (Z86.010) Active confirmed History of adenomatous polyp of colon (210435373) Problem Colon cancer screening (Z12.11) Active confirmed Colon cancer screening (999726466) Problem GERD (gastroesophageal reflux disease) (K21.9) Active confirmed Gastroesophagea l reflux disease (641127144) Problem Irritable bowel syndrome (K58.9) Active confirmed Irritable b owel syndrome (77082305) Problem Diverticulosis of colon (K57.30) Active confirmed Diverticulosi s of colon (234611639) PLAN OF TREATMENT Pending Test Test Name Order Date Pathology 01/01/2022 Future Test Test Name Order Date COLONOSCOPY 11/19/2021 Insurance Providers Payer Name Payer Address Payer Phone Subscriber Number Group Number Insured Name Patient Relationship to Insured Coverage Start Date Coverage End Date MEDICARE OF [place] [address] [facility] [place] [address] [id number] ROSE MENARD Self - patient is the insured [employer] [address] [place] [address] [phone] [id number] ROSE MENARD Self - patient is the insured MEDICAL (GENERAL) HISTORY Medical History History ICD Code HTN Breast cancer in 2014 with lumpectomy an d XRT Left Kidney cancer as below Denies [place],DM,CVA,Lung disease,renal dise ase GERD-EGD [place] [address] Randi hendersonis was negative for any esophagitis or Steward's esophagus-gastric biopsies were negative for H. pylori Hyperlipidemia Tubular adenoma removed in with Dr. Meeks; previous colonoscopies with Dr. David Cortez and Dr. Restrepo will reportedly negative for polyps. The colonoscopy with Dr. Cortez over 20 years ago was complicated by a sigmoid perforation and need for sigmoid resection. Surgical History Surgery Date(Month/Year) Lumpectomy right breast--benign 1968 Lumpectomy left breast stag e 1 cancer with negative lymph node dissection 2014 Partial left nephrectomy for cancer 2002 Colon resection due to perf from a colon oscopy 1999 Knee replacements 2017 & 2018 Bunion surgery 2000 Cataract surgery bilaterally 2015 Thumb fusion right hand 2016
--- OUTSIDE RECORDS SUMMARY | 2024-05-23 13:26 | XMS_ITS | Data Portability ---
Author Organization [place] - [facility], Allergy Address [address] [address] Assessment Encounter Date Assessment Date Assessment LastModified by Organization Details LastModified Time 08/27/2023 08/27/2023 78-year-old female presents for evaluation of red spot in the throat. Examination today demonstrated scarring of the tonsillar fossa bilaterally from prior tonsillectomy. No ulcer, lesion, or mass was noted. Reassurance was provided. We discussed fiberoptic laryngoscopy and CT neck with contrast to rule out underlying pathology. Patient elected to proceed with imaging today. Patient deferred FOL today. CT scan of the neck with contrast was ordered and patient will follow-up to review results. [email or web address] Not available 08/27/2023 15:12:56 11/06/2023 11/06/2023 78-year-old female presents for review of CT neck for chronic sore throat and intermittent otalgia. CT neck with contrast 10/20/2023 was normal. Reassurance was provided. She will follow-up in June for cerumen removal, or sooner with any concerns. [email or web address] Not available 11/06/2023 10:33:07 Plan of Treatment Reminders Order Date Submit Date Provider Last Modified By Organization Details Last Modified Time Details Appointments [facility] 2024 11:15A M LOWELL SANTILLAN PA-C Not available Not available Not available Lab None recorded . Referral None recorded . Procedures None recorded . Surgeries None recorded . Imaging CT, neck, soft tissue, w/ contrast - ct neck w contrast , red lesion in throat. hx of tonsille ctomy 2023 024 [email or web address] [facility], [address] [place] [address], [facility] [address], [place], [address], 09/29/2023 10:29:32 Medication Orders None recorded . Patient TargetsNo targets recorded. Patient InstructionsNo instructions recorded. Reason for Referral None Reported. Results Created Date Observation Date Name Description Value Unit Range Abnormal Flag Note LastModifiedBy Organization Detail LastModifiedTime 08/27/19 24 08/28/2023 BUN BUN 17 mg/dL 8-27 Not Available [facility] ([facility]) [address] [facility], [place], [address], 08/28/2023 03:11:17 08/27/19 24 08/28/2023 CREAT ININE creatinine 0.78 mg/dL 0.57-1 .00 Not Available [facility] ([facility]) [address] [facility], [place], [address], 08/28/2023 03:11:18 08/27/19 24 08/28/2023 CREAT ININE eGFR 78 mL/mi n/1.7 3 >59 Not Available [facility] ([facility]) [address] [facility], [place], [address], 08/28/2023 03:11:18 10/20/19 24 10/20/2023 CT, neck, soft tissu e, w/ contr ast No observ ation record ed. [email or web address] [facility] [address], [address], 10/21/2023 11:12:59 11/25/1906/09/2018 imagi ng/di agnos tic resul t No observ ation record ed. [email or web address] Not Available 16:40:37 11/25/1910/20/2019 imagi ng/di agnos tic resul t No observ ation record ed. [email or web address] Not Available 16:40:40 11/25/1906/09/2018 audio gram No observ ation record ed. [email or web address] Not Available 16:40:45 11/25/19 24 10/20/2019 audio gram No observ ation record ed. [email or web address] Not Available 16:40:53 Result Notes None recorded. Problems Name Problem SNOMED Code Status Onset Date Resolution Date Notes Provider Name and Address Organization Details Recorded Time Sensorine ural hearing loss of bilateral ears 907569377 Active 2018 Sensorine ural hearing loss, bilateral ; Note: Date Diagnosed : 06/09/2018 10:58 AM (H90.3) Not Available [facility] 4 02:14:21 Hypertrop hy of nasal turbinate s 48914233 Active 2013 Nasal turbinate hypertrop hy; Location: bilateral CMS Risk: low risk Not Available [facility] 4 02:14:55 Allergic rhinitis 83170135 Active 2021 Allergic rhinitis, unspecifi ed; Note: Date Diagnosed : 08/05/2021 1:48 PM (J30.9) Not Available [facility] 4 02:14:58 Postopera tive follow-up visit Active 2013 Post op; Note: Date Diagnosed : 4 10:45 AM (V67.00) Not Available [facility] 4 02:13:52 Impacted cerumen in right ear 19354877843 90727 Active 2021 Impacted cerumen, right ear; Note: Date Diagnosed : 08/05/2021 1:48 PM (H61.21) Not Available [facility] 4 02:12:53 Cough 71118126 Active 2021 Cough, unspecifi ed; Note: Changed from R05 to R05.9 (08/06/2021 1:29 PM) , Date Diagnosed : 08/05/2021 1:48 PM (R05) Not Available [facility] 4 02:15:09 Bilateral disorder of Eustachia n tubes 45407943756 47301 Active 2018 Other specified disorders of Eustachia n tube, bilateral ; Note: Date Diagnosed : 06/09/2018 12:44 PM (H69.83) Not Available [facility] 4 02:13:38 Gastroeso phageal reflux disease without esophagit is 878600570 Active 2021 Gastro-es ophageal reflux disease without esophagit is; Note: Date Diagnosed : 08/05/2021 1:48 PM (K21.9) Not Available [facility] 4 02:13:28 Deviated nasal septum 283127096 Active 2013 Nasal septal deviation ; [facility] Risk: moderate risk Note : Date Diagnosed : 4 11:41 AM (470) Not Available [facility] 02:14:51 Chronic rhinitis 06198237 Active 2013 Rhinitis, chronic; CMS Risk: moderate risk Note : Date Diagnosed : 4 11:41 AM (472.0) Not Available [facility] 02:14:55 Chronic sore throat 494102774 Active 2023 LOWELL SANTILLAN PA-C [address] [place] [address], [place], [address] , [facility] - [facility] 4 15:10:01 Otalgia of right ear 9129987576 Active 2023 LOWELL SANTILLAN PA-C [address] [place] [address], [place], [address] , [facility] - [facility] 4 15:10:59 Impacted cerumen of bilateral ears 89651818447 48346 Active 2023 Impacted cerumen, bilateral ; Note: Date Diagnosed : 06/22/2023 4:28 PM (H61.23) Not Available [facility] 4 02:13:05 Problem Notes None recorded. Procedures Surgical History None recorded. Imaging Results Imaging Date Name Status LastModified by [facility] Details LastModified Time 10/20/2023 CT, neck, soft tissue, w/ contrast completed [email or web address] [facility] [address] [facility] [address], [place], [address], 10/21/2023 11:12:59 06/09/2018 imaging/diagno stic result completed Information not available 11/25/2023 16:40:37 10/20/2019 imaging/diagno stic result completed [email or web address] Information not available 11/25/2023 16:40:40 06/09/2018 audiogram completed Information not available 11/25/2023 16:40:45 10/20/2019 audiogram completed Information not available 11/25/2023 16:40:53 Procedure Notes None recorded. Medical Equipment None Reported. Allergies Allergen ID Allergen Name Allergen Category Reaction Reaction Severity Criticality Documentation Date Start Date Code Code System Note Provider Name and Address Organization Details Recorded Time 62212 adhesive tape environme nt,medica tion other Not available Not available 08/18/2023 18797 UNK React ion: unkno wn, unspe cifie d;; Not Available [facility] 4 00:49:11 83673 Substance with sulfonami de structure and antibacte rial mechanism of action (substanc e) medicatio n other Not available Not available 08/18/2023 40966 8003 SNOMED React ion: unkno wn, unspe cifie d;; Not Available [facility] 4 00:50:15 Medications Name Sig Start Date Stop Date Status Note LastModified by Organization Details LastModified Time losartan 50 mg tablet active Not Available Not Available Not Available amoxicilli n 500 mg capsule TAKE 1 CAPSULE BY MOUTH TWICE DAILY FOR 10 DAYS active Not Available Not Available No t Available citalopram 10 mg tablet 2013 active Medicatio n ID: [id number] [address] Name: citalopra m Send Method: E-Prescri bed Subs Allowed: subs OK Medica tionGener icName: citalopra m Not Available Not Available Not Available hydrocodon e 5 mg-acetami nophen 325 mg tablet 1-2 tablet by mouth 2013 active Medicatio n ID: [id number] Dur ation Value: 7 Prescrib ed By Name: Drew Ascencio Name: hydrocodo ne-acetam inophen S end Method: E-Prescri bed Subs Allowed: subs OK Medica tionGener icName: hydrocodo ne-acetam inophen Not Available Not Available Not Available tretinoin 0.025 % topical cream APPLY TO FACE AFTER WASHING AND MOISTURIZ ING AT BEDTIME active Not Available Not Available No t Available alclometas one 0.05 % topical cream 2019 active Medicatio n ID: [id number] Du ration Value: 7 Brand Name: alclometa sone Send Method: E-Prescri bed Subs Allowed: subs OK Specia l Instructi on: APPLY TO EARS BID PRN Medic ationGene ricName: alclometa sone Not Available Not Available Not Available levothyrox ine 25 mcg tablet 2013 active Medicatio n ID: [id number] Bran d Name: levothyro xine Send Method: E-Prescri bed Subs Allowed: subs OK Medica tionGener icName: levothyro xine Not Available Not Available Not Available benzonatat e 100 mg capsule TAKE 1 CAPSULE BY MOUTH THREE TIMES DAILY active Not Available Not Available No t Available levothyrox ine 50 mcg tablet active Not Available Not Available Not Available esomeprazo le magnesium 40 mg capsule,de layed release active Not Available Not Available Not Available betamethas one dipropiona te 0.05 % topical cream 2019 active Medicatio n ID: [id number] Du ration Value: 14 Brand Name: betametha sone dipropion ate Send Method: E-Prescri bed Subs Allowed: subs OK Specia l Instructi on: APPLY TO RASH ON THE NECK BID FOR 1 TO 2 WEEKS Med icationGe nericName : betametha sone dipropion ate Not Available Not Available Not Available omeprazole 20 mg capsule,de layed release 2018 active Medicatio n ID: [id number] Du ration Value: 90 Brand Name: omeprazol e Send Method: E-Prescri bed Subs Allowed: subs OK Medica tionGener icName: omeprazol e Not Available Not Available Not Available gabapentin 100 mg capsule TAKE 1 CAPSULE BY MOUTH AT BEDTIME active Not Available Not Available No t Available azelastine 137 mcg (0.1 %) nasal spray USE 2 SPRAYS IN EACH NOSTRIL TWICE DAILY active Not Available Not Available No t Available clobetasol 0.05 % scalp solution APPLY 5 TO 10 DROPS ONCE TO TWICE DAILY TO SCALP AND MASSAGE IN active Not Available Not Available No t Available neomycin 3.5 mg/g-polym yxin B 10,000 unit/g-dex ameth 0.1 % eye oint APPLY SMALL RIBBON TO BOTH EYELIDS THREE TIMES DAILY active Not Available Not Available No t Available rosuvastat in 5 mg tablet active Not Available Not Available Not Available biotin 1 mg tablet 2019 active Medicatio n ID: [id number] Br and Name: biotin Se nd Method: E-Prescri bed Subs Allowed: subs OK Medica tionGener icName: biotin Not Available Not Available Not Available Fish Oil 300 mg-1,000 mg capsule 2013 active Medicatio n ID: [id number] Bran d Name: Fish Oil Send Method: E-Prescri bed Subs Allowed: subs OK Medica tionGener icName: Fish Oil Not Available Not Available Not Available Zyrtec 10 mg capsule 2013 active Medicatio n ID: [id number] Bran d Name: Zyrtec Se nd Method: E-Prescri bed Subs Allowed: subs OK Specia l Instructi on: take 1 tablet by mouth everyday Medicatio nGenerbentleyN trevor: Zyrtec Not Available Not Available Not Available Vitamin D3 50 mcg (2,000 unit) capsule 2013 active Medicatio n ID: [id number] Bran d Name: Vitamin D3 Send Method: E-Prescri bed Subs Allowed: subs OK Medica tionGener icName: Vitamin D3 Not Available Not Available Not Available Myrbetriq 25 mg tablet,ext ended release active Not Available Not Available Not Available Azo Bladder Control 300 mg capsule 2019 active Medicatio n ID: [id number] Br and Name: Azo Bladder Control S end Method: E-Prescri bed Subs Allowed: subs OK Medica tionGener icName: Azo Bladder Control Not Available Not Available Not Available Vitals Date Recorded Body height Body mass index (BMI) Body weight Provider Name and Address Organization Details Last Updated DateTime 11/06/2023 157.48 cm 27.8 kg/m2 84543.04 g Artemio Blum [place] - [facility] 11/06/2023 10:17:29 Date Recorded Body height Provider Name an d Address Organization Details Last Updated DateTime 08/27/2023 157.48 cm Eduardo Vera [facility] 08/27/2023 14:33:20 Social History None recorded. Functional Status None recorded. Mental Status None recorded. Family History Nothing Reported. Medical History No medical history recorded. Gynecological HistoryNo gynecological history recorded. Obstetrics History GPAL:G 0 P 0 0 0 0 Past Encounters Encounter ID Performer Location Encounter Start Date Encounter Closed Date Diagnosis/Indication Diagnosis SNOMED-CT Code Diagnosis ICD10 Code Diagnosis Note [id number] JASE DALEY MD [facility] [address] [place] [address] 08/27/2023 13:39:36 08/27/2023 14:44:09 Chronic sore throat 211438448 R07.0 Otalgia of right ear 891 2070882 H92.01 [id number] LELE CUEVAS MD [facility] [address] [place] [address] 11/06/2023 09:48:18 11/06/2023 10:32:19 Chronic sore throat 292090872 R07.0 Otalgia of right ear 250 2799920 H92.01 Health Concerns Section Related Observation LastModified by Organization Detai ls LastModified Time None Recorded Concern Status LastModified by Organization Details LastModified Time None Recorded Advance Directives Directive None Recorded Payers Encounter Date Sequence Insurance Name Policy Number Policy Young Covered Member ID Young Member ID Guarantor Name 08/27/2023 2 FOR LIFE () Uziel Kramer [id number] Lisa Gonzalez 08/27/2023 1 MEDICARE B-KS: NATIONAL [employer] Татьяна Kramer [id number] Lisa Gonzalez 11/06/2023 2 FOR LIFE () Uziel Kramer [id number] Lisa Gonzalez 11/06/2023 1 MEDICARE B-KS: NATIONAL [employer] Татьяна Kramer [id number] Lisa Gonzalez Notes Date Note Type Note Provider Name and Address Organization Details Recorded Time 08/27/2023 text/html 78-year-old princess edwards presents for evaluation of red spot in the throat. She noticed this last December. She was previously evaluated for this and examination was benign. She continues to appreciate a red spot in the back of her throat near her tonsillar pillar on the right. Intermittently has right-sided ear pain, but denies sore throat, dysphagia, voice changes, and hemoptysis. Denies history of tobacco use. History of breast and renal cancer. JASE DALEY MD [address] [facility],[address], [address], [place] - [facility] 08/27/2023 16:00:26 11/06/2023 text/html 78-year-old femkain edwards presents for review of CT neck. Patient was previously evaluated for a spot in the throat and was noted to be benign. She was evaluated again back in August and exam was benign. Patient declined FOL and elected to proceed with imaging. Intermittently has right-sided ear pain, but denies sore throat, dysphagia, voice changes, and hemoptysis. Denies history of tobacco use. History of breast and renal cancer. LELE CUEVAS MD [address] [facility],[place] [address], [place], [address], [place] - [facility] 11/06/2023 10:38:11 OBGyn Episode No OBEpisode recorded.
--- OUTSIDE RECORDS SUMMARY | 2024-05-23 13:26 | XMS_ITS | Continuity of Care Document ---
Author Name [facility] Organization [facility] Care Team Providers Care Reconstructive Surgeon Name Role Phone [facility] Unavailable Unavailable Medications Combined list of outpatient medications from Department of Defense and Veterans Affairs facilities.Medications provided include 1) outpatient medications from the last 15 months, and 2) patient-reported medications. Medication Details Route Status Patient Instructions Prescription Expires Prescription Number Last Dispense Date Ordering Provider Order Date Order Qty Source AMOXICILLIN (AMOXICILLI N), 500 MG, CAPSULE, ORAL, SANDOZ, 500 ea. BOTTLE Active [id number] 4 2023 20 Pharmac y Data Transac tion Service Facilit y AZELASTINE HCL (AZELASTINE HCL), 137 MCG, SPRAY/PUMP, NASAL, [employer] KAY, 30 ml SQUEEZ BTL Active [id number] 4 2023 90 Pharmac y Data Transac tion Service Facilit y Benzonatate ([employer]) 100 CAPSULE in 1 BOTTLE Active [id number] 04/07/19 2 4 2023 21 Pharmac y Data Transac tion Service Facilit y CLOBETASOL PROPIONATE (clobetasol propionate) , 0.05 %, SOLUTION, TOPICAL, [employer] 50 ml BOTTLE Active [id number] 4 2023 150 Pharmac y Data Transac tion Service Facilit y CLOBETASOL PROPIONATE (clobetasol propionate) , 0.05 %, SOLUTION, TOPICAL, [facility],, 50 ml BOTTLE Cancele d [id number] : 2023 0 Pharmac y Data Transac tion Service Facilit y CLOBETASOL PROPIONATE (clobetasol propionate) , 0.05 %, SOLUTION, TOPICAL, [facility],, 50 ml BOTTLE Active [id number] 4 2023 50 Pharmac y Data Transac tion Service Facilit y ESOMEPRAZOL E MAGNESIUM (esomeprazo le magnesium), 40 MG, CAPSULE DR, ORAL, [employer], 30 ea. BOTTLE Cancele d [id number] : 2023 0 Pharmac y Data Transac tion Service Facilit y GABAPENTIN (gabapentin ), 100 MG, CAPSULE, ORAL, [employer] 1000 ea. BOTTLE Active [id number] 4 2023 90 Pharmac y Data Transac tion Service Facilit y GABAPENTIN (gabapentin ), 100 MG, CAPSULE, ORAL, [employer], 500 ea. BOTTLE Active [id number] 4 2023 90 Pharmac y Data Transac tion Service Facilit y ROSUVASTATI N CALCIUM (rosuvastat in calcium), 5 MG, TABLET, ORAL, [employer] 1000 ea. BOTTLE Active [id number] 4 2023 90 Pharmac y Data Transac tion Service Facilit y ROSUVASTATI N CALCIUM (rosuvastat in calcium), 5 MG, TABLET, ORAL, [employer] 1000 ea. BOTTLE Active [id number] 4 2023 90 Pharmac y Data Transac tion Service Facilit y ROSUVASTATI N CALCIUM (rosuvastat in calcium), 5 MG, TABLET, ORAL, [employer] 90 ea. BOTTLE Active [id number] 3 2022 90 Pharmac y Data Transac tion Service Facilit y SERNIVO (betamethas one dipropionat e), 0.05 %, SPRAY/PUMP, TOPICAL, [employer], 120 ml BOTTLE Cancele d [id number] : 2023 0 Pharmac y Data Transac tion Service Facilit y TRETINOIN (tretinoin) , 0.025 %, CREAM (G), TOPICAL, PERRIGO/PAD AGIS, 45 g TUBE Active [id number] 3 2022 135 Pharmac y Data Transac tion Service Facilit y Immunizations Combined list of available immunizations from the Department of Defense and Veterans Affairs facilities. Immunization Series Date Given Administered By Site Reaction Lot Number CVX Code Drug Digital Sales Director Status Comments Source influenza, high-dose, quadrivalent 2020 DICK, () Not Given influenza , high-dose , quadrival ent DoD influenza, high-dose, quadrivalent 2019 BOGDASARIAN, () Not Given influenza , high-dose , quadrival ent DoD influenza, trivalent, adjuvanted 2018 BOGDASARIAN, () Not Given influenza , trivalent , adjuvante d DoD zoster recombinant 2017 BOGDASARIAN, () Not Given zoster recombina nt DoD Influenza, high dose seasonal 2014 WOOD, () Not Given Influenza , high dose seasonal DoD influenza virus vaccine, split virus (incl. purified surface antigen)-reti red CODE 1 2004 Unknown, Provider [id number] 15 Sanofi Pasteur ([facility]MC) complet ed influenza virus vaccine, split virus (incl. purified surface antigen)- retired CODE DoD Social History Combined list of available smoking, tobacco, and other social history from Department of Defense and Veterans Affairs facilities. Social History Type Response Date Comment Sour e This section is an empty social history section. DoD
--- OUTSIDE RECORDS SUMMARY | 2024-05-23 13:26 | XMS_ITS | Clinical Summary ---
Author Organization [facility] Address [address] [place] [address] Care Team Providers Care Mental Health Practitioner Name Role Phone Calvin Maldonado MD Primary Care Provider [phone] Allergies Active Allergy Reactions Criticality Noted Date Comments Codeine 12/04/2016 Albuterol 12/04/2016 Sulfa Antibiotics 12/04/2016 Tape 12/04/2016 Medications Medication Sig Dispensed Refills Start Date End Date Status Magnesium 500 MG TABS Take 500 mg by mouth daily. 0 Active levothyroxine (SYNTHROID, LEVOXYL) tablet 25 mcg Take 2 tablets (50 mcg total) by mouth every morning on an empty stomach. 0 Active mometasone (NASONEX) 50 MCG/ACT nasal spray spray or apply 2 sprays inside Nose daily. 0 Active [place]-3 Fatty Acids (FISH OIL PO) Take 1,400 mg by mouth daily. 0 Active losartan (COZAAR) tablet 50 mg Take 1 tablet (50 mg total) by mouth daily. 0 Active Probiotic Product (PROBIOTIC DAILY PO) Take by mouth. 0 Active esomeprazole (NEXIUM) 40 MG packet Take 40 mg by mouth every morning before breakfast. 0 Active omeprazole (PRILOSEC) 40 MG capsule Take 1 capsule (40 mg total) by mouth daily. 0 Active VITAMIN D PO Take 5,000 Units by mouth daily. 0 Active rosuvastatin (CRESTOR) tablet 40 mg Take 1 tablet (40 mg total) by mouth daily. 0 Active Olopatadine HCl (Pataday) 0.2 % ophthalmic solution 1 drop daily. 0 Ac tive Respiratory Therapy Supplies (CareTouch 2 CPAP Hose Wood Crew Supervisor) MISC by Does not apply route. 0 Active Active Problems Problem Noted Date Diagnosed Date Malignant neoplasm of central portion of left fe male breast 12/09/2016 Family History Medical History Relation Name Comments Cancer Brother prostate,colon ,and lung ca Cancer Father gqastric,lung c ancer Cancer Maternal Aunt leukemia Cancer Paternal Aunt breast ca Relation Name Status Comments Brother Father Maternal Aunt Paternal Aunt Social History Tobacco Use Types Packs/Day Years Used Date Smoking Tobacco: Never Smokeless Tobacco: Never Alcohol Use Standard Drinks/Week Comments No 0 (1 standard drink = 0.6 oz pur e alcohol) Sex and Gender Information Value Date Recorded Sex Assigned at Not on file Gender Identity Not on file Sexual Orientation Not on file Job Start Date Occupation Industry Not on file Not on file Not on file Last Filed Vital Signs Vital Sign Reading Time Taken Comments Blood Pressure 148/61 01/06/2024 11:33 AM EDT Pulse 64 01/06/2024 11:33 AM EDT Temperature 36.8 ??C (98.2 ??F) 01/06/2024 11:33 AM E DT Respiratory Rate - - Oxygen Saturation 95% 01/06/2024 11:33 AM EDT Inhaled Oxygen Concentration - - Weight 69.9 kg (154 lb) 01/06/2024 11:33 AM EDT Height 147.3 cm (4' 10 ) 01/06/2024 11:33 AM EDT Body Mass Index 32.19 01/06/2024 11:33 AM EDT Plan of Treatment Health Maintenance Due Date Last Done Comments Hepatitis C Screening 1945 COVID-19 Vaccine (#1) 1951 Pneumococcal Vaccine (1 of 2 - PCV) 1952 Depression Screening 1958 Preventative Health Evaluation 1964 DTap / Tdap / Td (1 - Tdap) 1965 Shingrix-Zoster Vaccine (1 of 2) 1965 Fall Risk Assessment 2011 Osteoporosis Screening (DEXA Scan) 2011 RSV Adult > 60+ Yrs or Pregn ant (1 - 1-dose 75+ series) 2021 Influenza Vaccine (#1) 2023 11/19/2021 Hepatitis B Vaccines Aged Out No long er eligible based on patient's age to complete this topic RSV Ped < 20 months Aged Out No longe r eligible based on patient's age to complete this topic Care Teams Mental Health Practitioner Relationship Specialty Start Date End Date Calvin Maldonado MD [address] [place] [address] [place] [address] PCP - General Internal Medicine 12/01/16
--- OUTSIDE RECORDS SUMMARY | 2024-05-23 13:26 | XMS_ITS | Continuity of Care Document ---
Author Organization [employer] Address [address] [place] [address] Insurance Providers Payer Plan Claims Address Claims Phone Policy Number Group Number Relation Employer Guarantor Name Guarantor Guarantor Address Guarantor Phone [employer] [facility] [employer] [address], [place] [address] tel:[phone] Self Татьяна Kramer [address] [place] [address] [employer] [address] [address] tel:[phone] Self Татьяна Kramer [address] [place] [address] [employer] [place] [address], [place] [address] tel:[phone] Self Татьяна Kramer [address] [place] [address] Problems Unknown Problems Results Test Value / Unit Interpretation Reference Ran ge Lab Report Татьяна [email or web address].pdf Allergies, adverse reactions, alerts No known allergies and adverse reactions Medications No administered medications reported Vital Signs No vital signs reported Social History No smoking Hx information available
--- OUTSIDE RECORDS SUMMARY | 2024-05-23 13:26 | XMS_ITS | Encounter Summary ---
Author Organization [email or web address] Address [address] [place] [address] Care Team Providers Care Production Assembly Operator Name Role Phone Calvin Maldonado MD Primary Care Provider [phone] Encounter Details Date Type Department Care Team (Late st Contact Info) Description 01/06/2024 10:44 AM EDT Hospital Encounter TH HISTORIC ENCOUNTERS EASTERN CONVERSION ONLY Rema Carlos, DO [address] [place] [address] Social History Tobacco Use Types Packs/Day Years [...] 12:02 PM Encounter Date: 01/06/2024 Status: Signed Lean Manufacturing Engineer: Rema Carlos DO (Physician) Hematology/Oncology Progress [...] HCl (Pataday) 0.2 % ophthalmic solution ? [place]-3 Fatty Acids (FISH OIL PO) ? omeprazole (PRILOSEC) 40 MG capsule ? Probiotic Product (PROBIOTIC DAILY PO) ? Respiratory Therapy Supplies (CareTouch 2 CPAP Hose Counseling Center Director) MISC ? rosuvastatin (CRESTOR) tablet 40 mg [...] Social history She is , lives in [place]. She is a never smoker Labs: Relevant data reviewed. 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 She also completed 5 years of tamoxifen. She is doing well and remains NICKO Left breast carcinoma, pT1b, ER + [place] + HER 2 negative Continue to monitor [...] DO - Hematology/Oncology [facility] documented in this encounter Plan of Treatment Upcoming Encounters Date Type Department Care Team (Late st Contact Info) Description 01/31/2025 11:30 AM EDT Office Visit [facility] Hematology Oncology [address] [place] [address] Rema Carlos DO [address] [place] [address] documented as of this encounter Procedures Procedure Name Priority Date/Time Associated Diagnosis Comments HISTORICAL IMAGING SCAN RESULT 01/06/2024 documented in this encounter Results * HISTORICAL IMAGING SCAN RESULT (01/06/2024) Anatomical Region Laterality Modality Ultrasound us Provider Onbase IMG US PROCEDURES Final Resul t documented in this encounter Visit Diagnoses Not on filedocumented in this encounter Care Teams Production Assembly Operator Relationship Specialty Start Date End Date Calvin Maldonado MD [address] [place] [address] [address] [place] PCP - General Internal Medicine 12/22/19 documented as of this encounter
== END 2024-05-23 13:24 | disposition home or self-care (01) ==
LOC: HO.XRAY 13:23
PROVIDERS: PCP Internal Medicine; Visit Provider Internal Medicine
DX: M25.511 Pain in right shoulder (principal)
CPT/HCPCS: 73030

== ENCOUNTER → 2024-05-23 13:28 | Outpatient (BNV) | payer MEDICARE, OTHER, SELFPAY | PROVIDERS: PCP Internal Medicine; Visit Provider Radiology Diagnostic Radiology | DX: M19.011 Primary osteoarthritis, right shoulder (principal) | CPT/HCPCS: 73030 ==

== ENCOUNTER 2024-06-30 10:38 | Outpatient (AMB) | payer MEDICARE, OTHER, SELFPAY ==
--- NOTE | 2024-06-30 10:42 | A.OFFVIS_ITS ---
Vital Signs 06/30/24 10:43 Height 4 ft 10.5 in Weight 151 lb BMI 31.0 Intake Visit Reasons: Right shoulder pain and weakness Intake Note: Татьяна is a 79 year old right hand dominant female who presents with complaints of progressively worsening right shoulder pain and weakness. The patient states that her symptoms have gotten worse over the last year in spite of continued non operative treatments. She has failed the last 3 months of conservative treatment which has included physical therapy exercises, a home exercise program, Tylenol, anti-inflammatory medicines and topical creams. She reports weakness when lifting her right hand above shoulder height. Allergies adhesive tape Allergy (Intermediate, Verified 06/30/24 10:49) BLISTERS albuterol [From PROAIR HFA] Allergy (Intermediate, Verified 06/30/24 10:49) TREMOR Sulfa (Sulfonamide Antibiotics) [SULFA (SULFONAMIDE ANTIBIOTICS)] Allergy (Intermediate, Verified 06/30/24 10:49) ITCH/RASH, itching, hives ropinirole Allergy (Mild, Verified 06/30/24 10:49) joint pain oxybutynin Allergy (Verified 06/30/24 10:49) shortness of breath codeine [CODEINE] Adverse Reaction (Intermediate, Verified 06/30/24 10:49) GI UPSET Medication List - Last Reconciled 06/30/24 by Chris Valenzuela MD azelastine 2 sprays intranasal BID 30 days duayfinkpr-bkjghdtqkvxar-czmt 50-300-40 mg (Fioricet) 1 cap PO Q8H PRN 10 days cetirizine (Zyrtec) 5 mg PO DAILY PRN cholecalciferol (vitamin D3) 50 mcg PO DAILY citalopram 10 mg PO DAILY clobetasol 0.05% 0.25 - 0.5 mL topical esomeprazole magnesium 40 mg PO DAILY gabapentin 100 mg PO BEDTIME 90 days glucosamine sulfate 750 mg PO DAILY hydrocortisone 1% (Cortisone (hydrocortisone)) 1 appl topical BID PRN levothyroxine 50 mcg PO DAILY 90 days losartan 50 mg PO DAILY multivitamin (Multiple Vitamins tablet) 1 tab PO DAILY olopatadine 0.2% (Pataday) 1 drp ophthalmic (eye) DAILY rosuvastatin 5 mg PO DAILY COUNTS INCLUDE 234 BEDS AT [facility] Medical History (Updated 06/30/24 @ 11:26 by Chris Valenzuela MD) Diabetes mellitus Overactive bladder Obesity (BMI 30-39.9) Post-menopausal Overweight (BMI 25.0-29.9) Obstructive sleep apnea Short of breath on exertion Anxiety Daytime somnolence History of renal cell cancer History of breast cancer Constipation Vitamin D deficiency Allergic rhinitis Osteoarthritis of right knee GERD without esophagitis Impaired fasting glucose Acquired hypothyroidism Pure hypercholesterolemia Benign essential hypertension Invasive ductal carcinoma of left breast Renal cancer Hypothyroid HTN (hypertension) Esophagitis Mixed irritable bowel syndrome Surgical History History of removal of skin mole History of right knee surgery (~06/2017) History of thumb surgery (~04/26/15) History of lumpectomy of left breast (~03/2014) History of left breast biopsy (~01/2014) History of removal of cyst History of bunionectomy History of kidney surgery History of cataract surgery History of colon resection (~2001) History of partial nephrectomy (~2002) History of colonoscopy History of esophagogastroduodenoscopy (EGD) (~09/16/12) History of eye surgery (~09/2012) Family History Father History of gastric cancer History of lung cancer Mother History of heart disease Brother Family history of prostate cancer History of colon cancer History of lung cancer Daughter History of breast cancer Paternal Aunt History of breast cancer Maternal Uncle History of leukemia Maternal Aunt History of breast cancer Social [facility] Alcohol intake: current Alcohol intake frequency: holidays/special occasions on ly Alcohol type: wine Patient Tobacco Use Status: Never used Tobacco e-Cigarette/Vaping Use: Never Used Second Hand Smoke Exposure: Yes service: No Current occupational status: retired Cognitive needs: No Hearing needs: No Vision needs: Yes (glasses) Physical Exam Vital Signs: BMI result Body Mass Index 31.0 Const Other: Well-nourished well-developed very friendly female awake alert and oriented x3 in no acute distress Extrem Other: Bilateral upper extremity examination shows good capillary refill, no skin lesions noted, normal sensation light touch Right shoulder examination shows decreased range motion when compared to her left shoulder, 4+ out of 5 strength with supraspinatus testing, positive impingement signs, tenderness over her acromioclavicular joint, no instability Results Reviewed Results Reviewed: X-rays of the patient's right shoulder show severe acromioclavicular joint narrowing, a type 2 acromion, no acute bony abnormalities Assessment & Plan Assessment & Plan (1) Rotator cuff insufficiency of right shoulder: Code(s): M25.311 - Other instability, right shoulder Category: Medical Plan Ms. Kramer presents with right shoulder pain and weakness due to impingement syndrome and possible rotator cuff tearing. Thus, I will send the patient for an MRI of her right shoulder for further evaluation. I will see her back once the MRI is completed to discuss the findings and treatment options. Feel free to call me at any time should questions regarding her orthopedic management arise. I spent 20 minutes in reviewing the patient's records and imaging studies, seeing the patient and documenting in the medical record. Orders: Orders MR shoulder RT wo con Today M25.311 - Other instability, right shoulder Medications: New methylprednisolone (Medrol (Miki)) PO PER PKG DIR 21 ea 0RF Coding Level of Care Code New Pt Level 3 (80530) Complex EM visit Add On G2211 Diagnoses Rotator cuff insufficiency of right shoulder M25.311
[2024-06-30 10:43] VITALS: BMI 31.0
== END 2024-06-30 11:20 | disposition home or self-care (01) ==
LOC: HO.HOS 10:38
PROVIDERS: PCP Internal Medicine; Visit Provider Orthopaedic Surgery
DX: M25.311 Other instability, right shoulder (principal); M75.41 Impingement syndrome of right shoulder
CPT/HCPCS: 99203; G2211

== ENCOUNTER → 2024-06-30 10:38 | Outpatient (BNVA) | payer MEDICARE, OTHER, SELFPAY | PROVIDERS: PCP Internal Medicine; Visit Provider Orthopaedic Surgery | DX: M25.311 Other instability, right shoulder (principal); M25.511 Pain in right shoulder | CPT/HCPCS: 99202 ==

== ENCOUNTER 2024-07-06 08:14 | Outpatient (REF) | payer MEDICARE, OTHER, SELFPAY ==
--- OUTSIDE RECORDS SUMMARY | 2024-07-06 08:25 | XMS_ITS | Encounter Summary ---
Author Organization [employer] Address [address] [place] [address] Care Team Providers Care Neon Tube Pumper Name Role Phone Calvin Maldonado MD Primary Care Provider Encounter Details Date Type Department Care Team (Late st Contact Info) Description 01/06/2024 10:44 AM EDT Hospital Encounter TH HISTORIC ENCOUNTERS EASTERN CONVERSION ONLY Rema Carlos, DO [address] [place] [address] Social History Tobacco Use Types Packs/Day Years [...] 12:02 PM Encounter Date: 01/06/2024 Status: Signed Aluminum Siding Applicator: Rema Carlos DO (Physician) Hematology/Oncology Progress Note [...] HCl (Pataday) 0.2 % ophthalmic solution ? [place]-3 Fatty Acids (FISH OIL PO) ? omeprazole (PRILOSEC) 40 MG capsule ? Probiotic Product (PROBIOTIC DAILY PO) ? Respiratory Therapy Supplies (CareTouch 2 CPAP Hose Help Desk Technician) MISC ? rosuvastatin (CRESTOR) tablet 40 mg [...] Social history She is , lives in [place]. She is a never smoker Labs: Relevant data reviewed. 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 She also completed 5 years of tamoxifen. She is doing well and remains NICKO Left breast carcinoma, pT1b, ER + [place] + HER 2 negative Continue to monitor [...] 01/31/2025 11:30 AM EDT Office Visit [facility] Hematology Oncology [address] [place] [address] Rema Carlos DO [address] [place] [address] documented as of this encounter Procedures Procedure Name Priority Date/Time Associated Diagnosis Comments HISTORICAL IMAGING SCAN RESULT 01/06/2024 documented in this encounter Results * HISTORICAL IMAGING SCAN RESULT (01/06/2024) Anatomical Region Laterality Modality Ultrasound us Provider Onbase IMG US PROCEDURES Final Resul t documented in this encounter Visit Diagnoses Not on filedocumented in this encounter Care Teams Neon Tube Pumper Relationship Specialty Start Date End Date Calvin Maldonado MD [address] [place] [address] [address] [place] PCP - General Internal Medicine 12/22/19 documented as of this encounter
--- OUTSIDE RECORDS SUMMARY | 2024-07-06 08:25 | XMS_ITS | Clinical Summary ---
Author Organization [facility] Address [address] [place] [address] Phone Care Team Providers Care Vacuum Cleaner Repairer Name Role Phone Calvin Maldonado MD Primary Care Provider Surgical History Surgery Date Site/Laterality Comments BREAST LUMPECTOMY PROCEDURE:BREAST LUMPECTOMY Medical History Medical History Date Comments Breast cancer DX:Breast cancer (HCC) IBS (irritable bowel syndrome) D [...] Description 01/31/2025 11:30 AM EDT Office Visit [facility] Hematology Oncology [address] [place] [id number] Rema Carlos, DO [address] [place] [address] Health Maintenance Due Date Last Done Comments COVID-19 Vaccine (#1) 1950 DTaP,Tdap,and Td Vaccines (1 - Tdap) 1965 Pneumococcal Vaccine: 50+ Years (1 of 2 - PCV) 1965 Zoster Vaccines (1 of 2) 1965 RSV Immunization Adult Patients (1 - 1-dose 75+ series) 2021 Cholesterol Screening (Lipid Panel) 03/13/2022 Depression Screening 03/13/2022 Falls Risk Assessment 03/13/2022 Hepatitis C Screening 03/13/2022 Medicare Annual Wellness Visit 03/13/2022 Osteoporosis Screening (Bone Density Screening) 03/13/2022 Social Influencers of Health Screening 03/13/2022 Influenza Vaccine (#1) 2023 8, 12/19/2016 HIB Vaccines Aged Out No longer [...] age to complete this topic Insurance MEDICARE [facility] Care Teams Vacuum Cleaner Repairer Relationship Specialty Start Date End Date Calvin Maldonado MD [address] [place] [address] [address] [place] PCP - General Internal Medicine 12/22/19
--- OUTSIDE RECORDS SUMMARY | 2024-07-06 08:25 | XMS_ITS | Clinical Summary ---
Author Organization [facility] Address [address] [place] [address] Care Team Providers Care Ring Striker Name Role Phone Calvin Maldonado MD Primary Care Provider [phone] Allergies Active Allergy Reactions Criticality Noted Date [...] 2 sprays inside Nose daily. 0 Active [place]-3 Fatty Acids (FISH OIL PO) Take 1,400 [...] Respiratory Therapy Supplies (CareTouch 2 CPAP Hose Branch Sales And Service Representative) MISC by Does not apply route. 0 [...] age to complete this topic Care Teams Ring Striker Relationship Specialty Start Date End Date Calvin Maldonado MD [address] [place] [address] [place] [address] PCP - General Internal Medicine 12/01/16
--- OUTSIDE RECORDS SUMMARY | 2024-07-06 08:26 | XMS_ITS | Data Portability ---
Author Organization [place] - [facility], Allergy Address [address] [address] Care Team Providers Care Director Organizational Name Role Phone DUKE RODRIGUEZ Primary Care Provider Assessment Encounter Date Assessment Date Assessment LastModified [...] and patient will follow-up to review results. miguel a Not available 08/27/2023 15:12:56 11/06/2023 11/06/2023 78-year-old female presents for review of CT neck for chronic sore throat and intermittent otalgia. CT neck with contrast 10/20/2023 was normal. Reassurance was provided. She will follow-up in June for cerumen removal, or sooner with any concerns. miguel a Not available 11/06/2023 10:33:07 06/06/2024 06/06/2024 79-year-old female presents for cerumen removal. Cerumen impaction removed bilaterally. Bilateral TMs are intact with well aerated middle ear spaces. Follow up in 6 months for routine debridement, or sooner with concerns. miguel a Not available 06/06/2024 11:32:06 Plan of Treatment Reminders Order Date Submit Date Provider Last Modified By Organization Details Last Modified Time Details Appointments Establis hed 15 2024 09:15A M LOWELL SANTILLAN PA-C Not available Not available Not available Lab None recorded . Referral None recorded . Procedures None recorded . Surgeries None recorded . Imaging CT, neck, soft tissue, w/ contrast - ct neck w contrast , red lesion in throat. hx of tonsille ctomy 2023 024 [email or web address] [facility] [place], [address] [facility], [address], [address], 09/29/2023 10:29:32 Medication Orders None recorded . Patient TargetsNo targets recorded. Patient InstructionsNo instructions recorded. Reason for Referral None Reported. Results Created Date Observation Date Name Description Value Unit Range Abnormal Flag Note LastModifiedBy Organization Detail LastModifiedTime 08/27/19 24 08/28/2023 BUN BUN 17 mg/dL 8-27 Not Available [facility] ([facility]) [address] [facility], [place], [address], 08/28/2023 03:11:17 08/27/19 24 08/28/2023 CREAT ININE creatinine 0.78 mg/dL 0.57-1 .00 Not Available [facility] ([facility]) [address] [facility], [place], [address], 08/28/2023 03:11:18 08/27/19 24 08/28/2023 CREAT ININE eGFR 78 mL/mi n/1.7 3 >59 Not Available [facility] ([facility]) [address] [place], [address], 08/28/2023 03:11:18 10/20/19 24 10/20/2023 CT, neck, soft tissu e, w/ contr ast No observ ation record ed. [email or web address] [facility] [place] [address], [address], 10/21/2023 11:12:59 11/25/19 24 06/09/2018 imagi ng/di agnos tic resul t No observ ation record ed. [email or web address] Not Available 16:40:37 11/25/19 24 10/20/2019 imagi ng/di agnos tic resul t No observ ation record ed. [email or web address] Not Available 16:40:40 11/25/19 24 06/09/2018 audio gram No observ ation record ed. [email or web address] Not Available 16:40:45 11/25/19 24 10/20/2019 audio gram No observ ation record ed. [email or web address] Not Available 16:40:53 Result Notes None recorded. Problems Name Problem SNOMED Code Status Onset Date Resolution Date Notes Provider Name and Address Organization Details Recorded Time Sensorine ural hearing loss of bilateral ears 320764440 Active 2018 Sensorine ural hearing loss, bilateral ; Note: Date Diagnosed : 06/09/2018 10:58 AM (H90.3) Not Available [facility] 4 02:14:21 Hypertrop hy of nasal turbinate s 79738686 Active 2013 Nasal turbinate hypertrop hy; Location: bilateral CMS Risk: low risk Not Available [facility] 4 02:14:55 Allergic rhinitis 88573018 Active 2021 Allergic rhinitis, unspecifi ed; Note: Date Diagnosed : 08/05/2021 1:48 PM (J30.9) Not Available [facility] 4 02:14:58 Postopera tive follow-up visit Active 2013 Post op; Note: Date Diagnosed : 4 10:45 AM (V67.00) Not Available [facility] 4 02:13:52 Impacted cerumen in right ear 88189778440 91317 Active 2021 Impacted cerumen, right ear; Note: Date Diagnosed : 08/05/2021 1:48 PM (H61.21) Not Available [facility] 4 02:12:53 Cough 23003645 Active 2021 Cough, unspecifi ed; Note: Changed from R05 to R05.9 (08/06/2021 1:29 PM) , Date Diagnosed : 08/05/2021 1:48 PM (R05) Not Available [facility] 4 02:15:09 Bilateral disorder of Eustachia n tubes 47266230236 81644 Active 2018 Other specified disorders of Eustachia n tube, bilateral ; Note: Date Diagnosed : 06/09/2018 12:44 PM (H69.83) Not Available [facility] 4 02:13:38 Gastroeso phageal reflux disease without esophagit is 753512015 Active 2021 Gastro-es ophageal reflux disease without esophagit is; Note: Date Diagnosed : 08/05/2021 1:48 PM (K21.9) Not Available [facility] 4 02:13:28 Deviated nasal septum 117130729 Active 2013 Nasal septal deviation ; CMS Risk: moderate risk Note : Date Diagnosed : 4 11:41 AM (470) Not Available [facility] 4 02:14:51 Chronic rhinitis 65483409 Active 2013 Rhinitis, chronic; CMS Risk: moderate risk Note : Date Diagnosed : 4 11:41 AM (472.0) Not Available [facility] 4 02:14:55 Chronic sore throat 934197460 Active 2023 LOWELL SANTILLAN PA-C [address] [facility],[place] [address], [place], [address] , [facility] - [facility] 4 15:10:01 Otalgia of right ear 6843169279 Active 2023 LOWELL SANTILLAN PA-C [address] [facility] [address], [place], [address] , [facility] - [facility] 4 15:10:59 Impacted cerumen of bilateral ears 96769579089 02119 Active 2023 Impacted cerumen, bilateral ; Note: Date Diagnosed : 06/22/2023 4:28 PM (H61.23) Not Available [facility] 4 02:13:05 Problem Notes None recorded. Procedures Surgical History Date Name Laterality Status Provider Name and Address Organization Details Recorded Time Cerumen removal without microscope bilat completed LOWELL SANTILLAN PA-C [address] [facility] [address], [place], [address], [facility] - [facility] 06/06/2024 11:30:34 Imaging Results Imaging Date Name Status LastModified by Organiz ation Details LastModified Time 10/20/2023 CT, neck, soft tissue, w/ contrast completed [email or web address] [facility] [place] [address] [facility] [address], [place], [address], 10/21/2023 11:12:59 06/09/2018 imaging/diagno stic result completed Information not available 11/25/2023 16:40:37 10/20/2019 imaging/diagno stic result completed Information not available 11/25/2023 16:40:40 06/09/2018 audiogram completed Information not available 11/25/2023 16:40:45 10/20/2019 audiogram completed Information not available 11/25/2023 16:40:53 Procedure Notes None recorded. Medical Equipment None Reported. Allergies Allergen ID Allergen Name Allergen Category Reaction Reaction Severity Criticality Documentation Date Start Date Code Code System Note Provider Name and Address Organization Details Recorded Time 20894 adhesive tape environme nt,medica tion other Not available Not available 08/18/2023 24063 UNK React ion: unkno wn, unspe cifie d;; Not Available [facility] 4 00:49:11 65482 Substance with sulfonami de structure and antibacte rial mechanism of action (substanc e) medicatio n other Not available Not available 08/18/2023 27895 8003 SNOMED React ion: unkno wn, unspe cifie d;; Not Available [facility] 4 00:50:15 Medications Name Sig Start Date Stop Date Status Note LastModified by Organization Details LastModified Time losartan 50 mg tablet active Not Available Not Available Not Available amoxicilli n 500 mg capsule TAKE 1 CAPSULE BY MOUTH TWICE DAILY FOR 10 DAYS active Not Available Not Available No t Available prednisone 10 mg tablet TAKE 5 TABLETS BY MOUTH DAILY FOR 5 DAYS active Not Available Not Available No t Available citalopram 10 mg tablet 2013 active Medicatio n ID: [id number] Bran jazmin Name: citalopra m Send Method: E-Prescri bed Subs Allowed: subs OK Medica tionGener icName: citalopra m Not Available Not Available Not Available hydrocodon e 5 mg-acetami nophen 325 mg tablet 1-2 tablet by mouth 2013 active Medicatio n ID: [id number] Dur ation Value: 7 Prescrib ed By [...] topical cream 2019 active Medicatio n ID: [id number] Du ration Value: 7 Brand Name: alclometa sone Send Method: E-Prescri bed Subs Allowed: subs OK Specia l Instructi on: APPLY TO EARS BID PRN Medic ationGene ricName: alclometa sone Not Available Not Available Not Available levothyrox ine 25 mcg tablet 2013 active Medicatio n ID: [id number] [place]u Name: levothyro xine Send Method: E-Prescri bed Subs Allowed: subs OK Medica tionGener icName: levothyro xine Not Available Not Available Not Available benzonatat e 100 mg capsule TAKE 1 CAPSULE BY MOUTH THREE TIMES DAILY active Not Available Not Available No t Available hydrocorti sone 1 % topical cream APPLY TOPICALLY TWICE DAILY NEEDED FOR SKIN IRRITATIO N RASH active Not Available Not Available No t Available levothyrox ine 50 mcg tablet active Not Available Not Available Not Available esomeprazo le magnesium 40 mg capsule,de layed release active Not Available Not Available Not Available betamethas one dipropiona te 0.05 % topical cream 2019 active Medicatio n ID: [id number] Du ration Value: 14 Brand Name: betametha sone dipropion ate Send Method: E-Prescri bed Subs Allowed: subs OK Specia l Instructi on: APPLY TO RASH ON THE NECK BID FOR 1 TO 2 WEEKS Med icationGe nericName : betametha sone dipropion ate Not Available Not Available Not Available omeprazole 20 mg capsule,de layed release 2018 active Medicatio n ID: [id number] Du ration Value: 90 Brand Name: omeprazol [...] mg tablet 2019 active Medicatio n ID: [id number] Br and Name: biotin Se nd Method: E-Prescri bed Subs Allowed: subs OK Medica tionGener icName: biotin Not Available Not Available Not Available Fish Oil 300 mg-1,000 mg capsule 2013 active Medicatio n ID: [id number] Bran d Name: Fish Oil Send Method: E-Prescri bed Subs Allowed: subs OK Medica tionGener icName: Fish Oil Not Available Not Available Not Available Januvia 50 mg tablet active Not Available Not Available No t Available Zyrtec 10 mg capsule 2013 active Medicatio n ID: [id number] Bran d Name: Zyrtec Se nd Method: E-Prescri bed Subs Allowed: subs OK Specia l Instructi on: take 1 tablet by mouth everyday Medicatio nGenericN trevor: Zyrtec Not Available Not Available Not Available Vitamin D3 50 mcg (2,000 unit) capsule 2013 active Medicatio n ID: [id number] Bran d Name: Vitamin D3 Send Method: E-Prescri bed Subs Allowed: subs OK Medica tiDylan icName: Vitamin D3 Not Available Not Available Not Available Myrbetriq 25 mg tablet,ext ended release active Not Available Not Available Not Available Azo Bladder Control 300 mg capsule 2019 active Medicatio n ID: [id number] Br and Name: Azo Bladder Control S end Method: E-Prescri bed Subs Allowed: subs OK Medica tionGener icName: Azo Bladder Control Not Available Not Available Not Available Vitals Date Recorded Body height Body mass index (BMI) Body weight Provider Name and Address Organization Details Last Updated DateTime 06/06/2024 157.48 cm 27.8 kg/m2 61693.04 g Mone Boland [place] - [facility] 06/06/2024 11:07:34 Date Recorded Body height Body mass index (BMI) Body weight Provider Name and Address Organization Details Last Updated DateTime 11/06/2023 157.48 cm 27.8 kg/m2 03819.04 g Artemio Blum [facility] 11/06/2023 10:17:29 Date Recorded Body height Provider Name an d Address Organization Details Last Updated DateTime 08/27/2023 157.48 cm Eduardo Vera [facility] 08/27/2023 14:33:20 [...] Note 1338 JASE DALEY MD [facility] [address] [address] 08/27/2023 13:39:36 08/27/2023 14:44:09 Chronic sore throat 405670267 R07.0 Otalgia of right ear 234 9670687 H92.01 65314 LELE CUEVAS MD [facility] [address] [place] [address] 11/06/2023 09:48:18 11/06/2023 10:32:19 Chronic sore throat 384260618 R07.0 Otalgia of right ear 397 7857778 H92.01 59211 LELE CUEVAS MD [facility] [address] [place] [address] 06/06/2024 10:57:50 06/06/2024 12:10:45 Impacted cerumen of bilateral ears 4666750902 560406 H61.23 Health Concerns Section Related Observation LastModified by Organization Detai ls LastModified Time None Recorded Concern Status LastModified by Organization Details LastModified Time None Recorded Advance Directives Directive None Recorded Payers Encounter Date Sequence Insurance Name Policy Number Policy Young Covered Member ID Young Member ID Guarantor Name 08/27/2023 2 FOR LIFE () Uziel Kramer [id number] Lisa Gonzalez 08/27/2023 1 MEDICARE B-[place]: [facility] Татьяна Kramer [id number] Lisa Gonzalez 11/06/2023 2 FOR LIFE () Uziel Kramer [id number] Lisa Gonzalez 11/06/2023 1 [place] [facility] Татьяна Kramer [id number] Lias Gonzalez 06/06/2024 2 FOR LIFE () Uziel Kramer [id number] Lisa Gonzalez 06/06/2024 1 [place] [facility] Татьяна Kramer [id number] Lisa Gonzalez Notes Date Note Type Note [...] and renal cancer. JASE DALEY MD [address] [facility],[address], [address], [place] - [facility] [place] 08/27/2023 16:00:26 11/06/2023 text/html 78-year-old princess edwards presents for review of CT neck. [...] and renal cancer. LELE CUEVAS MD [address] [facility],[address], [address], [facility] - [facility] 11/06/2023 10:38:11 06/06/2024 text/html 79-year-old princess edwards presents for cerumen removal. No concerns today. LELE CUEVAS MD [address] [facility],[place] [address], [place], [address], [facility] - [facility] 06/06/2024 17:09:07 OBGyn Episode No OBEpisode recorded.
--- OUTSIDE RECORDS SUMMARY | 2024-07-06 08:26 | XMS_ITS | Patient Health Record ---
Author Organization [facility] Address [address] [place] [address] Care Team Providers Care Skiagrapher Name Role Phone Calvin Maldonado MD Primary Care Provider UnaMelia Simon Unavailable [phone] Allergies Allergen (clinical drug ingredient) Drug/Non Drug Allergy documented on EMR Reaction Allergy Type Onset Date Status Surgical Glue Unknown Allergy Active Substance with sulfonamide structure and antibacterial mechanism of action (substance) Sulfa Antibiotics Unknown Drug Allergy Active codeine Codeine Unknown Drug Allergy Active Reason For Referral No Information Medications Medication SIG (Take, Route, Frequency, Duration) Notes [...] Active Nasonex Not-Taking Crestor Active Hydrocortisone-Iodoquinol Active Immunizations Vaccine Route Administration Date Status Comme nts Influenza Unknown 11/19/2021 Administered Social History Tobacco Use: Social History Observation Description Date Details (start date - stop date) Never Smoker NA - NA Tobacco Use/Smoking Question Answer Notes Patient is [...] Never (0 point) Points 1 Interpretation Negative Section Notes: Nonsmoker; no sig. alcohol u se Problems Problem Type SNOMED Code ICD Code Onset Dates Problem Status W/U Status Risk Notes Problem Colon cancer screening (717782761) Colon cancer screening (Z12.11) Active confirmed Problem Irritable bowel syndrome (29689899) Irritable bowel syndrome (K58.9) Active confirmed Problem History of adenomatous polyp of colon (992730277) History of adenomatous polyp of colon (Z86.010) Active confirmed Problem Gastroesophageal reflux disease (741279051) GERD (gastroesophageal reflux disease) (K21.9) Active confirmed Problem Diverticulosis of colon (702648234) Diverticulosis of colon (K57.30) Active confirmed Plan Of Treatment Pending Test Test Name Order Date Pathology 01/01/2022 Future Test Test Name Order Date COLONOSCOPY 11/19/2021 Insurance Providers Payer Name Payer Address Payer Phone Subscriber Number Group Number Insured Name Patient Relationship to Insured Coverage Start Date Coverage End Date MEDICARE OF [place] [address] [place] [address] [phone] [id number] ROSE MENARD Self - patient is the insured [employer] [address] [place] [address] [id number] ROSE MENARD Self - patient is the insured Medical (General) History Medical History History ICD Code HTN Breast cancer in 2014 with lumpectomy an d XRT Left Kidney cancer as below Denies NH,DM,CVA,Lung disease,renal dise ase GERD-EGD [place] [address] Bryan rris was negative for any esophagitis or Steward's [...] due to perf from a colon oscopy 1998 Knee replacements 2017 & 2018 Bunion surgery 2000 Cataract surgery bilaterally 2015 Thumb fusion right hand 2016
[2024-07-06 10:26] LABS: Appearance Urine Clear; Color Urine Yellow; Glucose Urine UA Negative (Negative); Leukocyte Esterase Urine Negative (Negative); Nitrite Urine Negative (Negative); Urine Blood Negative (Negative); Urine Ketones Negative (Negative); Urine Protein Negative (Neg-Trace)
[2024-07-06 10:34] LABS: MANUAL DIFF FLAG NO
[2024-07-06 10:43] LABS: Basophils Percent Auto 0.4 % (0-2); Eosinophils Absolute Auto 0.1 X10*3/uL (0.0-0.4); Hematocrit 44.1 % (37.0-47.0); Hemoglobin 15.3 g/dl (12.0-16.0); Imm Gran Abs Auto 0.09 X10*3/uL (0.00-0.03); Imm Gran Pct Auto 0.9 % (0.0-0.4); Lymphocytes Absolute Auto 2.8 X10*3/uL (1.2-4.9); Lymphocytes Percent Auto 27.9 % (20-40); Mean Corpuscular HGB Conc 34.7 g/dl (31.0-35.0); Mean Corpuscular Hemoglobin 32.8 pg (27.0-33.0); Mean Corpuscular Volume 94.6 fL (80.0-98.0); Mean Platelet Volume 10.9 fL (9.4-12.3); Monocytes Absolute Auto 0.5 X10*3/uL (0.1-1.2); Monocytes Percent Auto 4.8 % (2-11); Neutrophils Absolute Auto 6.6 x10*3/uL (2.0-8.3); Platelet Count 277 X10*3/uL (160-400); Red Blood Count 4.66 X10*6/uL (4.20-5.50); Red Cell Distribution Width 12.6 % (11.0-16.0); White Blood Count 10.2 X10*3/uL (4.8-10.8)
[2024-07-06 10:48] LABS: Estimated Average Glucose 143 mg/dL; Hemoglobin A1C 196.2821 umol/L; Hemoglobin A1c % 6.6 % (<6.0); Total Hemoglobin (HGBA1C) 4072.6965 umol/L
[2024-07-06 11:19] LABS: Creatinine Urine 63.87 mg/dL; Microalbum/Creatinine Ratio Ur 9.3 ug/mg cr (<30)
[2024-07-06 11:30] LABS: Folate 14.1 ng/mL (> or = 4.0); Vitamin B12 581 pg/mL (200-900)
[2024-07-06 11:40] LABS: Alanine Aminotransferase 12 U/L (0-31); Albumin Level 4.4 g/dL (3.5-5.0); Alkaline Phosphatase 65 U/L (39-117); Anion Gap 13 (12-20); Aspartate Amino Transferase 21 U/L (5-31); Bilirubin Total 1.6 mg/dL (0.0-1.0); Blood Urea Nitrogen 21 mg/dL (9-16); Calcium 9.4 mg/dL (8.4-10.2); Carbon Dioxide 25 mmol/L (22-29); Chloride 105 mmol/L (96-108); Cholesterol 207 mg/dL (<200); Estimated Glomerular Filt Rate > 60; Glucose Fasting 150 mg/dL (60-99); HDL Cholesterol 52 mg/dL (>40); LDL Cholesterol Calculated 123 mg/dL (<100); Potassium 4.2 mmol/L (3.3-5.1); Sodium 139 mmol/L (135-145); Total Protein 7.1 g/dL (6.5-8.0); Triglycerides 162 mg/dL (<150)
[2024-07-06 11:43] LABS: Free T4 (Free Thyroxine) 1.01 ng/dL (0.71-1.85); Thyroid Stimulating Hormone 2.39 uIU/mL (0.32-4.0); Vitamin D 25-OH Total 110.3 ng/mL (>30)
== END 2024-07-06 08:15 | disposition home or self-care (01) ==
LOC: HO.HMGCLDS 08:14
PROVIDERS: PCP Internal Medicine; Visit Provider Internal Medicine
DX: E11.9 Type 2 diabetes mellitus without complications (principal); E78.00 Pure hypercholesterolemia, unspecified; R30.0 Dysuria; E03.9 Hypothyroidism, unspecified; E55.9 Vitamin D deficiency, unspecified; D64.9 Anemia, unspecified; E53.8 Deficiency of other specified B group vitamins
CPT/HCPCS: 36415; 80053; 80061; 81003; 82043; 82306; 82570; 82607; 82746; 83036; 84439; 84443; 85025

== ENCOUNTER 2024-07-10 10:08 | Outpatient (REF) | payer MEDICARE, OTHER, SELFPAY ==
--- NOTE | ~2024-07-10 | MR_ITS ---
CLINICAL HISTORY: M25.311 - Other instability, right shoulder MR right shoulder without gadolinium Comparison: None Findings: No acute fracture or pathologic bone lesion. Degenerative bony productive changes are seen in the acromioclavicular joint. Type I acromion without downsloping. Fluid is seen within the subacromial subdeltoid bursa. There is an intrasubstance tear of the infraspinatus tendon. There is attenuation of the distal supraspinatus tendon. There may be a partial-thickness bursal surface tear. Intrasubstance tear is not excluded. There may be a small rim rent tear at the insertion of the subscapularis and infraspinatus tendons. Subchondral cysts are seen in the region of the infraspinatus and supraspinatus insertions. There is tenosynovitis of the long head of the biceps. No tears of the glenoid labrum. There is osteophytic spurring of the greater tuberosity. IMPRESSION: 1. Intrasubstance tear of the infraspinatus tendon and possible intrasubstance tear of the supraspinatus tendon. 2. Suspect partial thickness bursal surface tear of the supraspinatus tendon. 3. Possible small rim rent tears at the insertions of the subscapularis and infraspinatus tendons. 4. Tenosynovitis of the long head of the biceps. 5. Osteophytic squaring of the greater tuberosity. 6. Degenerative and bony productive changes at the acromioclavicular joint. Impression fluid is present within the subacromial subdeltoid bursa. Types of acromion process This document has been electronically signed by: Ambrose Santos MD on 07/12/2024 06:52:06
--- OUTSIDE RECORDS SUMMARY | 2024-07-10 10:13 | XMS_ITS | Clinical Summary ---
Author Organization [facility] Address [address] [place] [address] Care Team Providers Care Mortician Helper Name Role Phone Calvin Maldonado MD Primary Care Provider [phone] Allergies Active Allergy Reactions Criticality Noted Date [...] 2 sprays inside Nose daily. 0 Active Quin[place]-3 Fatty Acids (FISH OIL PO) Take 1,400 [...] Respiratory Therapy Supplies (CareTouch 2 CPAP Hose Otolaryngology Rep) MISC by Does not apply route. 0 [...] age to complete this topic Care Teams Mortician Helper Relationship Specialty Start Date End Date Calvin Maldonado MD [address] [place] [address] [place] [address] PCP - General Internal Medicine 12/01/16
--- OUTSIDE RECORDS SUMMARY | 2024-07-10 10:13 | XMS_ITS | Encounter Summary ---
Author Organization [facility] Address [address] [place] [address] Care Team Providers Care Travel Registered Nurse Pacu Name Role Phone Calvin Maldonado MD Primary Care Provider Encounter Details Date Type Department Care Team (Late st Contact Info) Description 01/06/2024 10:44 AM EDT Hospital Encounter TH HISTORIC ENCOUNTERS EASTERN CONVERSION ONLY Rema Carlos, DO [address] [place] [address] Social History Tobacco Use Types Packs/Day Years [...] 12:02 PM Encounter Date: 01/06/2024 Status: Signed Apprentice Machinist Outside: Rema Carlos DO (Physician) Hematology/Oncology Progress Note [...] HCl (Pataday) 0.2 % ophthalmic solution ? [place]-3 Fatty Acids (FISH OIL PO) ? omeprazole (PRILOSEC) 40 MG capsule ? Probiotic Product (PROBIOTIC DAILY PO) ? Respiratory Therapy Supplies (CareTouch 2 CPAP Hose Aniline Press Worker) MISC ? rosuvastatin (CRESTOR) tablet 40 mg [...] Social history She is , lives in [place]. She is a never smoker Labs: Relevant data reviewed. 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 She also completed 5 years of tamoxifen. She is doing well and remains NICKO Left breast carcinoma, pT1b, ER + [place] + HER 2 negative Continue to monitor [...] DO - Hematology/Oncology [facility] documented in this encounter Plan of Treatment Upcoming Encounters Date Type Department Care Team (Late st Contact Info) Description 01/31/2025 11:30 AM EDT Office Visit [facility] Hematology Oncology [address] [place] [address] Rema Carlos DO [address] [place] [address] documented as of this encounter Procedures Procedure Name Priority Date/Time Associated Diagnosis Comments HISTORICAL IMAGING SCAN RESULT 01/06/2024 documented in this encounter Results * HISTORICAL IMAGING SCAN RESULT (01/06/2024) Anatomical Region Laterality Modality Ultrasound us Provider Onbase IMG US PROCEDURES Final Resul t documented in this encounter Visit Diagnoses Not on filedocumented in this encounter Care Teams Travel Registered Nurse Pacu Relationship Specialty Start Date End Date Calvin Maldonado MD [address] [place] [address] Dr Loren[address] [place] PCP - General Internal Medicine 12/22/19 documented as of this encounter
--- OUTSIDE RECORDS SUMMARY | 2024-07-10 10:13 | XMS_ITS | Clinical Summary ---
Author Organization [facility] Address [address] [place] [address] Phone Care Team Providers Care Wheel Alignment Technician Name Role Phone Calvin Maldonado MD Primary [...] Description 01/31/2025 11:30 AM EDT Office Visit [facility] Hematology Oncology [address] [place] [address] Rema Carlos, DO [address] [place] [address] Health Maintenance Due Date Last Done Comments [...] Influencers of Health Screening 03/13/2022 Influenza Vaccine (Season Ended) 2024 01/01/2018, 12/19/2016 HIB Vaccines Aged Out No longer [...] age to complete this topic Insurance MEDICARE [facility] Care Teams Wheel Alignment Technician Relationship Specialty Start Date End Date Calvin Maldonado MD [address] [place] [address] [address] [place] PCP - General Internal Medicine 12/22/19
--- OUTSIDE RECORDS SUMMARY | 2024-07-10 10:14 | XMS_ITS | Patient Health Record ---
Author Organization [facility] Address [address] [place] [address] Care Team Providers Care Employee Communications Intern Name Role Phone Calvin Maldonado MD Primary Care Provider UnaMelia Simon Unavailable [phone] Allergies Allergen (clinical drug ingredient) Drug/Non Drug [...] Status Risk Notes Problem Colon cancer screening (615630319) Colon cancer screening (Z12.11) Active confirmed Problem Irritable bowel syndrome (80543328) Irritable bowel syndrome (K58.9) Active confirmed Problem History of adenomatous polyp of colon (207966844) History of adenomatous polyp of colon (Z86.010) Active confirmed Problem Gastroesophageal reflux disease (513283667) GERD (gastroesophageal reflux disease) (K21.9) Active confirmed Problem Diverticulosis of colon (072969932) Diverticulosis of colon (K57.30) Active confirmed Plan Of Treatment Pending Test Test Name Order Date Pathology 01/01/2022 Future Test Test Name Order Date COLONOSCOPY 11/19/2021 Insurance Providers Payer Name Payer Address Payer Phone Subscriber Number Group Number Insured Name Patient Relationship to Insured Coverage Start Date Coverage End Date MEDICARE OF [place] [address] [place] [address] [id number] ROSE MENARD Self - patient is the insured [employer] [address] [place] [address] [id number] ROSE MENARD Self - patient is the insured Medical (General) History Medical History History ICD Code HTN Breast cancer in 2014 with lumpectomy an d XRT Left Kidney cancer as below Denies [place],DM,CVA,Lung disease,renal dise ase GERD-EGD in 2012 with [...]
--- OUTSIDE RECORDS SUMMARY | 2024-07-10 10:14 | XMS_ITS | Data Portability ---
Author Organization [place] - [facility], Allergy Address [address] [address] Care Team Providers Care Pathology Lab Technician Name Role Phone DUKE RODRIGUEZ Primary Care [...] tonsille ctomy 2023 024 pgustavson [facility] [place], [address] [facility], [address], [address], 09/29/2023 10:29:32 Medication Orders None recorded . Patient TargetsNo targets recorded. Patient InstructionsNo instructions recorded. Reason for Referral None Reported. Results Created Date Observation Date Name Description Value Unit Range Abnormal Flag Note LastModifiedBy Organization Detail LastModifiedTime 08/27/19 24 08/28/2023 BUN BUN 17 mg/dL 8-27 Not Available [facility] ([facility]) [address] [facility], [place], [address], 08/28/2023 03:11:17 08/27/19 24 08/28/2023 CREAT ININE creatinine 0.78 mg/dL 0.57-1 .00 Not Available [facility] ([facility]) [address] [facility], [place], [address], 08/28/2023 03:11:18 08/27/19 24 08/28/2023 CREAT ININE eGFR 78 mL/mi n/1.7 3 >59 Not Available [facility] ([facility]) [address] [place], [address], 08/28/2023 03:11:18 10/20/19 24 10/20/2023 CT, neck, soft tissu e, w/ contr ast No observ ation record ed. [email or web address] [facility] [place] [address], [address], 10/21/2023 11:12:59 11/25/19 24 06/09/2018 imagi ng/di [...] Sensorine ural hearing loss of bilateral ears 216269700 Active 2018 Sensorine ural hearing loss, bilateral ; Note: Date Diagnosed : 06/09/2018 10:58 AM (H90.3) Not Available [facility] 4 02:14:21 Hypertrop hy of nasal turbinate s 09788531 Active 2013 Nasal turbinate hypertrop hy; Location: bilateral CMS Risk: low risk Not Available [facility] 4 02:14:55 Allergic rhinitis 03670636 Active 2021 Allergic rhinitis, unspecifi ed; Note: Date Diagnosed : 08/05/2021 1:48 PM (J30.9) Not Available [facility] 4 02:14:58 Postopera tive follow-up visit Active 2013 Post op; Note: Date Diagnosed : 4 10:45 AM (V67.00) Not Available [facility] 4 02:13:52 Impacted cerumen in right ear 48155379590 38568 Active 2021 Impacted cerumen, right ear; Note: Date Diagnosed : 08/05/2021 1:48 PM (H61.21) Not Available [facility] 4 02:12:53 Cough 44488571 Active 2021 Cough, unspecifi ed; Note: Changed from R05 to R05.9 (08/06/2021 1:29 PM) , Date Diagnosed : 08/05/2021 1:48 PM (R05) Not Available [facility] 4 02:15:09 Bilateral disorder of Eustachia n tubes 26596158223 26769 Active 2018 Other specified disorders of Eustachia n tube, bilateral ; Note: Date Diagnosed : 06/09/2018 12:44 PM (H69.83) Not Available [facility] 4 02:13:38 Gastroeso phageal reflux disease without esophagit is 127260700 Active 2021 Gastro-es ophageal reflux disease without esophagit is; Note: Date Diagnosed : 08/05/2021 1:48 PM (K21.9) Not Available [facility] 4 02:13:28 Deviated nasal septum 828983801 Active 2013 Nasal septal deviation ; CMS Risk: moderate risk Note : Date Diagnosed : 4 11:41 AM (470) Not Available [facility] 4 02:14:51 Chronic rhinitis 08278899 Active 2013 Rhinitis, chronic; CMS Risk: moderate risk Note : Date Diagnosed : 4 11:41 AM (472.0) Not Available [facility] 4 02:14:55 Chronic sore throat 233063064 Active 2023 LOWELL SANTILLAN PA-C [address] [facility],[place] [address], [place], [address] , [facility] - [facility] 4 15:10:01 Otalgia of right ear 6506790167 Active 2023 LOWELL SANTILLAN PA-C [address] [facility] [address], [place], [address] , [facility] - [facility] 4 15:10:59 Impacted cerumen of bilateral ears 97792791456 96726 Active 2023 Impacted cerumen, bilateral ; Note: Date Diagnosed : 06/22/2023 4:28 PM (H61.23) Not Available [facility] 4 02:13:05 Problem Notes None recorded. Procedures Surgical History Date Name Laterality Status Provider Name and Address Organization Details Recorded Time Cerumen removal without microscope bilat completed LOWELL SANTILLAN PA-C 100 [facility] [address], [place], [address], [facility] - [facility] 06/06/2024 11:30:34 Imaging Results Imaging Date Name Status LastModified by Organiz ation Details LastModified Time 10/20/2023 CT, neck, soft tissue, w/ contrast completed [facility] [place] [address] [facility] [address], [place], [address], 10/21/2023 11:12:59 06/09/2018 imaging/diagno stic result completed [...] Name and Address Organization Details Recorded Time 54229 adhesive tape environme nt,medica tion other Not available Not available 08/18/2023 71790 UNK React ion: unkno wn, unspe cifie d;; Not Available [facility] 4 00:49:11 01210 Substance with sulfonami de structure and antibacte rial mechanism of action (substanc e) medicatio n other Not available Not available 08/18/2023 38889 8003 SNOMED React ion: unkno wn, unspe cifie d;; Not Available [facility] 4 00:50:15 Medications Name Sig Start Date [...] by mouth 2013 active Medicatio n ID: [id number] Dur ation Value: 7 Prescrib ed By [...] topical cream 2019 active Medicatio n ID: [id number] Du ration Value: 7 Brand Name: alclometa [...] topical cream 2019 active Medicatio n ID: [id number] Du ration Value: 14 Brand Name: betametha sone dipropion ate Send Method: E-Prescri bed Subs Allowed: subs OK Specia l Instructi on: APPLY TO RASH ON THE NECK BID FOR 1 TO 2 WEEKS Med icationGe nericName : betametha sone dipropion ate Not Available Not Available Not Available omeprazole 20 mg capsule,de layed release 2018 active Medicatio n ID: [id number] Du ration Value: 90 Brand Name: omeprazol [...] mg tablet 2019 active Medicatio n ID: [id number] Br and Name: biotin Se nd Method: [...] mg capsule 2019 active Medicatio n ID: [id number] Br and Name: Azo Bladder Control S end Method: E-Prescri bed Subs Allowed: subs OK Medica tionGener icName: Azo Bladder Control Not Available Not Available Not Available Vitals Date Recorded Body height Body mass index (BMI) Body weight Provider Name and Address Organization Details Last Updated DateTime 06/06/2024 157.48 cm 27.8 kg/m2 58410.04 g Mone Boland [place] - [facility] 06/06/2024 11:07:34 Date Recorded Body height Body mass index (BMI) Body weight Provider Name and Address Organization Details Last Updated DateTime 11/06/2023 157.48 cm 27.8 kg/m2 60503.04 g Artemio Blum [facility] 11/06/2023 10:17:29 Date Recorded Body height Provider Name an d Address Organization Details Last Updated DateTime 08/27/2023 157.48 cm Eduardo Vera [facility] 08/27/2023 14:33:20 Social History None recorded. [...] Note 1338 JASE DALEY MD [facility] [address] [address] 08/27/2023 13:39:36 08/27/2023 14:44:09 Chronic sore throat 497043131 R07.0 Otalgia of right ear 889 5954240 H92.01 67162 LELE CUEVAS MD [facility] [address] [place] [address] 11/06/2023 09:48:18 11/06/2023 10:32:19 Chronic sore throat 957293086 R07.0 Otalgia of right ear 541 9368962 H92.01 [id number] LELE CUEVAS MD [facility] [address] [facility] [place] [address] 06/06/2024 10:57:50 06/06/2024 12:10:45 Impacted cerumen of bilateral ears 3218860068 089147 H61.23 Health Concerns Section Related Observation LastModified by Organization Detai ls LastModified Time None Recorded Concern Status LastModified by Organization Details LastModified Time None Recorded Advance Directives Directive None Recorded Payers Encounter Date Sequence Insurance Name Policy Number Policy Young Covered Member ID Young Member ID Guarantor Name 08/27/2023 2 FOR LIFE () Uziel Kramer [id number] Lisa Gonzalez 08/27/2023 1 [place] [facility] Татьяна Kramer [id number] Lisa Gonzalez 11/06/2023 2 FOR LIFE () Uziel Kramer [id number] Lisa Gonzalez 11/06/2023 1 [place] [facility] Татьяна Kramer [id number] Lisa Gonzalez 06/06/2024 2 FOR LIFE () Uziel Kramer [id number] Lisa Gonzalez 06/06/2024 1 [place] [facility] Татьяна Kramer [id number] Lisa Gonzalez Notes Date Note Type Note [...] and renal cancer. JASE DALEY MD 100 [facility],[address], [address], [place] - [facility] 08/27/2023 16:00:26 11/06/2023 text/html 78-year-old princess edwards [...] and renal cancer. LELE CUEVAS MD 100 [facility],[address], [address], [facility] - [facility] 11/06/2023 10:38:11 06/06/2024 text/html 79-year-old princess edwards presents for cerumen removal. No concerns today. LELE CUEVAS MD [address] [facility],[place] [address], [place], [address], [facility] - [facility] 06/06/2024 17:09:07 OBGyn Episode No OBEpisode recorded.
== END 2024-07-10 10:09 | disposition home or self-care (01) ==
LOC: HO.MRI 10:08
PROVIDERS: Visit Provider Orthopaedic Surgery
DX: M25.311 Other instability, right shoulder (principal)
CPT/HCPCS: 73221

== ENCOUNTER → 2024-07-10 10:26 | Outpatient (BNV) | payer MEDICARE, OTHER, SELFPAY | PROVIDERS: Visit Provider Radiology Diagnostic Radiology | DX: M75.111 Incomplete rotator cuff tear or rupture of right shoulder, not specified as traumatic (principal); M65.821 Other synovitis and tenosynovitis, right upper arm; M19.011 Primary osteoarthritis, right shoulder | CPT/HCPCS: 73221 ==

== ENCOUNTER 2024-07-14 10:32 | Outpatient (AMB) | payer MEDICARE, OTHER, SELFPAY ==
--- NOTE | 2024-07-14 10:35 | A.OFFVIS_ITS ---
Vital Signs 07/14/24 10:36 Height 4 ft 10.5 in Weight 151 lb BMI 31.0 Intake Visit Reasons: Right shoulder pain and stiffness Intake Note: Татьяна is a 79 year old right hand dominant female who presents with complaints of progressively worsening right shoulder pain and stiffness. The patient describes her pain as sharp and severe in nature. Most of the pain is along the superior and lateral aspects of her shoulder. Her pain has gotten worse over the last few years in spite of continued non operative treatments. The patient reports difficulty lifting her right hand above shoulder height. She has tried physical therapy exercises which aggravated her pain. She has also tried Tylenol and anti-inflammatory medicines which gave her minimal relief. The patient states that her right shoulder pain and stiffness are now interfering with her activities of daily living and her ability to sleep well through the night. Allergies adhesive tape Allergy (Intermediate, Verified 07/14/24 10:36) BLISTERS albuterol [From PROAIR HFA] Allergy (Intermediate, Verified 07/14/24 10:36) TREMOR Sulfa (Sulfonamide Antibiotics) [SULFA (SULFONAMIDE ANTIBIOTICS)] Allergy (Intermediate, Verified 07/14/24 10:36) ITCH/RASH, itching, hives ropinirole Allergy (Mild, Verified 07/14/24 10:36) joint pain oxybutynin Allergy (Verified 07/14/24 10:36) shortness of breath codeine [CODEINE] Adverse Reaction (Intermediate, Verified 07/14/24 10:36) GI UPSET Medication List - Last Reconciled 07/14/24 by Chris Valenzuela MD azelastine 2 sprays intranasal BID 30 days waminxnluc-nkjbukwazzobd-yflw 50-300-40 mg (Fioricet) 1 cap PO Q8H PRN 10 days cetirizine (Zyrtec) 5 mg PO DAILY PRN cholecalciferol (vitamin D3) 50 mcg PO DAILY citalopram 10 mg PO DAILY clobetasol 0.05% 0.25 - 0.5 mL topical esomeprazole magnesium 40 mg PO DAILY gabapentin 100 mg PO BEDTIME 90 days glucosamine sulfate 750 mg PO DAILY hydrocortisone 1% (Cortisone (hydrocortisone)) 1 appl topical BID PRN levothyroxine 50 mcg PO DAILY 90 days losartan 50 mg PO DAILY multivitamin (Multiple Vitamins tablet) 1 tab PO DAILY olopatadine 0.2% (Pataday) 1 drp ophthalmic (eye) DAILY rosuvastatin 5 mg PO DAILY [facility] Medical History Diabetes mellitus Overactive bladder Obesity (BMI 30-39.9) Post-menopausal Overweight (BMI 25.0-29.9) Obstructive sleep apnea Short of breath on exertion Anxiety Daytime somnolence History of renal cell cancer History of breast cancer Constipation Vitamin D deficiency Allergic rhinitis Osteoarthritis of right knee GERD without esophagitis Impaired fasting glucose Acquired hypothyroidism Pure hypercholesterolemia Benign essential hypertension Invasive ductal carcinoma of left breast Renal cancer Hypothyroid HTN (hypertension) Esophagitis Mixed irritable bowel syndrome Surgical History History of removal of skin mole History of right knee surgery (~06/2017) History of thumb surgery (~04/26/15) History of lumpectomy of left breast (~03/2014) History of left breast biopsy (~01/2014) History of removal of cyst History of bunionectomy History of kidney surgery History of cataract surgery History of colon resection (~2001) History of partial nephrectomy (~2002) History of colonoscopy History of esophagogastroduodenoscopy (EGD) (~09/16/12) History of eye surgery (~09/2012) Family History Father History of gastric cancer History of lung cancer Mother History of heart disease Brother Family history of prostate cancer History of colon cancer History of lung cancer Daughter History of breast cancer Paternal Aunt History of breast cancer Maternal Uncle History of leukemia Maternal Aunt History of breast cancer Social History Housing: Condominium Alcohol intake: current Alcohol intake frequency: holidays/special occasions only Alcohol type: wine Patient Tobacco Use Status: Never used Tobacco e-Cigarette/Vaping Use: Never Used Second Hand Smoke Exposure: Yes service: No Current occupational status: retired Current occupation: rt handed Cognitive needs: No Hearing needs: No Vision needs: Yes (glasses) Physical Exam Vital Signs: BMI result Body Mass Index 31.0 Const Other: Well-nourished well-developed very friendly female awake alert and oriented x3 in no acute distress Extrem Other: Bilateral upper extremity examination shows good capillary refill, no skin lesions noted, normal sensation light touch Right shoulder examination shows decreased active and passive range of motion when compared to her left shoulder, 4+ out of 5 strength with supraspinatus testing, positive impingement signs, tenderness over her acromioclavicular joint, no instability Results Reviewed Results Reviewed: MRI of the patient's right shoulder show severe acromioclavicular joint narrowing, a type 3 acromion, signal change within the supraspinatus tendon most likely due to adhesive capsulitis Assessment & Plan Assessment & Plan (1) Impingement of right shoulder: Code(s): M25.811 - Other specified joint disorders, right shoulder Category: Medical Plan Mrs. Kramer presents with progressively worsening right shoulder pain and stiffness due to impingement syndrome, acromioclavicular joint arthritis and adhesive capsulitis. I had a lengthy discussion with the patient regarding the treatment options. At this point she has failed continued non operative treatments. The risks and benefits of right shoulder surgery were discussed at length with the patient. The patient wishes to proceed with surgery. Surgery will involve right shoulder distal clavicle excision, acromioplasty, capsular release and manipulation under anesthesia. She will be scheduled for next available date. She will follow-up as instructed. Feel free to call me at any time should questions regarding her orthopedic management arise. I spent 21 minutes in reviewing the patient's records and imaging studies, seeing the patient and documenting in the medical record. Coding Level of Care Code Est Pt Level 3 (89977) Complex EM visit Add On G2211 Diagnoses Impingement of right shoulder M25.811
[2024-07-14 10:36] VITALS: BMI 31.0
--- OUTSIDE RECORDS SUMMARY | 2024-07-14 12:27 | XMS_ITS | Clinical Summary ---
Author Organization [facility] Address [address] [place] [address] Care Team Providers Care Housecleaner Name Role Phone Calvin Maldonado MD Primary Care Provider [phone] Allergies Active Allergy Reactions Criticality Noted Date [...] 2 sprays inside Nose daily. 0 Active [place]-3 Fatty Acids (FISH OIL PO) Take 1,400 [...] Respiratory Therapy Supplies (CareTouch 2 CPAP Hose Social Staff Worker) MISC by Does not apply route. 0 [...] age to complete this topic Care Teams Housecleaner Relationship Specialty Start Date End Date Calvin Maldonado MD [address] [place] [address] [place] [address] PCP - General Internal Medicine 12/01/16
--- OUTSIDE RECORDS SUMMARY | 2024-07-14 12:27 | XMS_ITS | Encounter Summary ---
Author Organization [employer] Address [address] [place] [address] Care Team Providers Care Postal Service Mail Processor Name Role Phone Calvin Maldonado MD Primary Care Provider Encounter Details Date Type Department Care Team (Late st Contact Info) Description 01/06/2024 10:44 AM EDT Hospital Encounter TH HISTORIC ENCOUNTERS EASTERN CONVERSION ONLY Rema Carlos, DO [address] [place] [address] Social History Tobacco Use Types Packs/Day Years [...] 12:02 PM Encounter Date: 01/06/2024 Status: Signed Senior Software Qa Engineer: Rema Carlos DO (Physician) Hematology/Oncology Progress [...] HCl (Pataday) 0.2 % ophthalmic solution ? [place]-3 Fatty Acids (FISH OIL PO) ? omeprazole (PRILOSEC) 40 MG capsule ? Probiotic Product (PROBIOTIC DAILY PO) ? Respiratory Therapy Supplies (CareTouch 2 CPAP Hose Auditor Supervisor) MISC ? rosuvastatin (CRESTOR) tablet 40 mg [...] Social history She is , lives in [place]. She is a never smoker Labs: Relevant data reviewed. 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 She also completed 5 years of tamoxifen. She is doing well and remains NICKO Left breast carcinoma, pT1b, ER + MI + HER 2 negative Continue to monitor [...] DO - Hematology/Oncology [facility] documented in this encounter Plan of Treatment Upcoming Encounters Date Type Department Care Team (Late st Contact Info) Description 01/31/2025 11:30 AM EDT Office Visit [facility] Hematology Oncology [address] [place] [address] Rema Carlos DO [address] [place] [address] documented as of this encounter Procedures Procedure Name Priority Date/Time Associated Diagnosis Comments HISTORICAL IMAGING SCAN RESULT 01/06/2024 documented in this encounter Results * HISTORICAL IMAGING SCAN RESULT (01/06/2024) Anatomical Region Laterality Modality Ultrasound us Provider Onbase IMG US PROCEDURES Final Resul t documented in this encounter Visit Diagnoses Not on filedocumented in this encounter Care Teams Postal Service Mail Processor Relationship Specialty Start Date End Date Calvin Maldonado MD [address] [place] [address] Dr [address] [place] PCP - General Internal Medicine 12/22/19 documented as of this encounter
--- OUTSIDE RECORDS SUMMARY | 2024-07-14 12:27 | XMS_ITS | Clinical Summary ---
Author Organization [facility] Address [address] [place] [address] Phone Care Team Providers Care Athlete Marketing Agent Name Role Phone Calvin Maldonado MD Primary Care Provider Surgical History Surgery Date Site/Laterality Comments BREAST LUMPECTOMY PROCEDURE:BREAST LUMPECTOMY Medical History Medical History Date Comments Breast cancer ([facility] V24, [facility] V28) DX:Breast cancer (HCC) IBS (irritable bowel syndrome) [...] Description 01/31/2025 11:30 AM EDT Office Visit [facility] Hematology Oncology [address] [place] [id number] Rema Carlos, DO [address] [place] [address] Health Maintenance Due Date Last Done Comments [...] age to complete this topic Meningococcal B Vaccine Aged Out No l onger eligible based on patient's age to complete this topic RSV Immunization Patients Under 20 months Aged Out No longer eligible b ased on patient's age to complete this topic Varicella Vaccines Aged Out No longer eligible based on patient's age to complete this topic Insurance MEDICARE [facility] Care Teams Athlete Marketing Agent Relationship Specialty Start Date End Date Calvin Maldonado MD [address] [place] [address] Dr [address] [place]IN[place]ERE Ramsay PCP - General Internal Medicine 12/22/19
--- OUTSIDE RECORDS SUMMARY | 2024-07-14 12:28 | XMS_ITS | Data Portability ---
Author Organization [place] - [facility], Allergy Address [address] [address] Care Team Providers Care Veterinary Radiologist Name Role Phone DUKE RODRIGUEZ Primary Care Provider [phone] Assessment Encounter Date Assessment Date Assessment LastModified [...] tonsille ctomy 2023 024 pgustavson [facility] [place], [address] [facility], [address], [address], 09/29/2023 10:29:32 Medication Orders None recorded . Patient TargetsNo targets recorded. Patient InstructionsNo instructions recorded. Reason for Referral None Reported. Results Created Date Observation Date Name Description Value Unit Range Abnormal Flag Note LastModifiedBy Organization Detail LastModifiedTime 08/27/19 24 08/28/2023 BUN BUN 17 mg/dL 8-27 Not Available [facility] ([facility]) [address] [facility], [place], [address], 08/28/2023 03:11:17 08/27/19 24 08/28/2023 CREAT ININE creatinine 0.78 mg/dL 0.57-1 .00 Not Available [facility] ([facility]) [address] [facility], [place], [address], 08/28/2023 03:11:18 08/27/19 24 08/28/2023 CREAT ININE eGFR 78 mL/mi n/1.7 3 >59 Not Available [facility] ([facility]) [address] [place], [address], 08/28/2023 03:11:18 10/20/19 24 10/20/2023 CT, neck, soft tissu e, w/ contr ast No observ ation record ed. [email or web address] [facility] [place] [address], [address], 10/21/2023 11:12:59 11/25/19 24 06/09/2018 imagi ng/di [...] Sensorine ural hearing loss of bilateral ears 045549660 Active 2018 Sensorine ural hearing loss, bilateral ; Note: Date Diagnosed : 06/09/2018 10:58 AM (H90.3) Not Available [facility] 4 02:14:21 Hypertrop hy of nasal turbinate s 06249885 Active 2013 Nasal turbinate hypertrop hy; Location: bilateral CMS Risk: low risk Not Available [facility] 4 02:14:55 Allergic rhinitis 06688502 Active 2021 Allergic rhinitis, unspecifi ed; Note: Date Diagnosed : 08/05/2021 1:48 PM (J30.9) Not Available [facility] 4 02:14:58 Postopera tive follow-up visit Active 2013 Post op; Note: Date Diagnosed : 4 10:45 AM (V67.00) Not Available [facility] 4 02:13:52 Impacted cerumen in right ear 73849896886 42798 Active 2021 Impacted cerumen, right ear; Note: Date Diagnosed : 08/05/2021 1:48 PM (H61.21) Not Available [facility] 4 02:12:53 Cough 48600325 Active 2021 Cough, unspecifi ed; Note: Changed from R05 to R05.9 (08/06/2021 1:29 PM) , Date Diagnosed : 08/05/2021 1:48 PM (R05) Not Available Counts include 234 beds at the [facility] 4 02:15:09 Bilateral disorder of Eustachia n tubes 85823260604 64613 Active 2018 Other specified disorders of Eustachia n tube, bilateral ; Note: Date Diagnosed : 06/09/2018 12:44 PM (H69.83) Not Available Counts include 234 beds at the [facility] 4 02:13:38 Gastroeso phageal reflux disease without esophagit is 160043775 Active 2021 Gastro-es ophageal reflux disease without esophagit is; Note: Date Diagnosed : 08/05/2021 1:48 PM (K21.9) Not Available Counts include 234 beds at the [facility] 4 02:13:28 Deviated nasal septum 514992203 Active 2013 Nasal septal deviation ; CMS Risk: moderate risk Note : Date Diagnosed : 4 11:41 AM (470) Not Available Counts include 234 beds at the [facility] 4 02:14:51 Chronic rhinitis 96774910 Active 2013 Rhinitis, chronic; CMS Risk: moderate risk Note : Date Diagnosed : 4 11:41 AM (472.0) Not Available Counts include 234 beds at the [facility] 4 02:14:55 Chronic sore throat 801108039 Active 2023 LOWELL SANTILLAN PA-C [address] [facility],[place] [address], [place], [address] , [facility] - [facility] 4 15:10:01 Otalgia of right ear 8580166571 Active 2023 LOWELL SANTILLAN PA-C 100 [facility] [address], [place], [address] , [facility] - [facility] 4 15:10:59 Impacted cerumen of bilateral ears 89990354844 52915 Active 2023 Impacted cerumen, bilateral ; Note: Date Diagnosed : 06/22/2023 4:28 PM (H61.23) Not Available Counts include 234 beds at the [facility] 4 02:13:05 Problem Notes None recorded. Procedures Surgical History Date Name Laterality Status Provider Name and Address Organization Details Recorded Time Cerumen removal without microscope bilat completed LOWELL SANTILLAN PA-C 100 [facility] [address], [place], [address], [facility] - [facility] 06/06/2024 11:30:34 Imaging Results Imaging Date Name Status LastModified by Organiz ation Details LastModified Time 10/20/2023 CT, neck, soft tissue, w/ contrast completed [email or web address] [facility] [place] [address] [facility] [address], [place], [address], 10/21/2023 11:12:59 06/09/2018 imaging/diagno stic result completed [...] Name and Address Organization Details Recorded Time 93152 adhesive tape environme nt,medica tion other Not available Not available 08/18/2023 97537 UNK React ion: unkno wn, unspe cifie d;; Not Available [facility] 4 00:49:11 10771 Substance with sulfonami de structure and antibacte rial mechanism of action (substanc e) medicatio n other Not available Not available 08/18/2023 71732 8003 SNOMED React ion: unkno wn, unspe cifie d;; Not Available Counts include 234 beds at the [facility] 4 00:50:15 Medications Name Sig Start [...] by mouth 2013 active Medicatio n ID: [id number] Dur ation Value: 7 Prescrib ed By [...] topical cream 2019 active Medicatio n ID: [id number] Du ration Value: 7 Brand Name: alclometa [...] topical cream 2019 active Medicatio n ID: [id number] Du ration Value: 14 Brand Name: betametha sone dipropion ate Send Method: E-Prescri bed Subs Allowed: subs OK Specia l Instructi on: APPLY TO RASH ON THE NECK BID FOR 1 TO 2 WEEKS Med icationGe nericName : betametha sone dipropion ate Not Available Not Available Not Available omeprazole 20 mg capsule,de layed release 2018 active Medicatio n ID: [id number] Du ration Value: 90 Brand Name: omeprazol [...] mg tablet 2019 active Medicatio n ID: [id number] Br and Name: biotin Se nd Method: [...] mg capsule 2019 active Medicatio n ID: [id number] Br and Name: Azo Bladder Control S end Method: E-Prescri bed Subs Allowed: subs OK Medica tionGener icName: Azo Bladder Control Not Available Not Available Not Available Vitals Date Recorded Body height Body mass index (BMI) Body weight Provider Name and Address Organization Details Last Updated DateTime 06/06/2024 157.48 cm 27.8 kg/m2 57821.04 g Mone Boland MD - [facility] 06/06/2024 11:07:34 Date Recorded Body height Body mass index (BMI) Body weight Provider Name and Address Organization Details Last Updated DateTime 11/06/2023 157.48 cm 27.8 kg/m2 44519.04 g Artemio Blum [facility] 11/06/2023 10:17:29 Date Recorded Body height Provider Name an d Address Organization Details Last Updated DateTime 08/27/2023 157.48 cm Eduardo Vera [facility] 08/27/2023 14:33:20 Social History None recorded. Functional [...] Note 1338 JASE DALEY MD [facility] [address] [address] 08/27/2023 13:39:36 08/27/2023 14:44:09 Chronic sore throat 205967350 R07.0 Otalgia of right ear 243 2896004 H92.01 27630 LELE CUEVAS MD [facility] [address] [place] [address] 11/06/2023 09:48:18 11/06/2023 10:32:19 Chronic sore throat 439144029 R07.0 Otalgia of right ear 907 1070970 H92.01 55488 LELE CUEVAS MD [facility] [address] [facility] [address] 06/06/2024 10:57:50 06/06/2024 12:10:45 Impacted cerumen of bilateral ears 2292442193 591937 H61.23 Health Concerns Section Related Observation LastModified by Organization Detai ls LastModified Time None Recorded Concern Status LastModified by Organization Details LastModified Time None Recorded Advance Directives Directive None Recorded Payers Encounter Date Sequence Insurance Name Policy Number Policy Young Covered Member ID Young Member ID Guarantor Name 08/27/2023 2 FOR LIFE () Uziel Kramer [id number] Lisa Gonzalez 08/27/2023 1 [place]IC[place] B[place] [facility] Татьяна Kramer [id number] Lisa Gonzalez 11/06/2023 2 FOR LIFE () Uziel Kramer [id number] Lisa Gonzalez 11/06/2023 1 [place] [facility] Татьяна Kramer [id number] Lisa Gonzalez 06/06/2024 2 FOR LIFE () Uziel Kramer [id number] Lisa Gonzalez 06/06/2024 1 [place] [facility] Татьяна Kramer [id number] Lisa Gonzalez Notes Date Note Type Note [...] and renal cancer. JASE DALEY MD [address] [facility],[address], [address], [place] - [facility] 08/27/2023 16:00:26 11/06/2023 text/html 78-year-old princess edwards [...] and renal cancer. LELE CUEVAS MD [address] [facility],[address], [address], [facility] - [facility] 11/06/2023 10:38:11 06/06/2024 text/html 79-year-old princess dewards presents for cerumen removal. No concerns today. LELE CUEVAS MD [address] [facility],[place] [address], [place], [address], [facility] - [facility] 06/06/2024 17:09:07 OBGyn Episode No OBEpisode recorded.
--- OUTSIDE RECORDS SUMMARY | 2024-07-14 12:28 | XMS_ITS | Patient Health Record ---
Author Organization [facility] Address [address] [place] [address] Care Team Providers Care Post Commander Name Role Phone Calvin Maldonado MD Primary Care Provider UnaMelia Simon Unavailable [phone] Allergies Allergen (clinical drug ingredient) Drug/Non Drug [...] Status Risk Notes Problem Colon cancer screening (895741317) Colon cancer screening (Z12.11) Active confirmed Problem Irritable bowel syndrome (84061128) Irritable bowel syndrome (K58.9) Active confirmed Problem History of adenomatous polyp of colon (947184477) History of adenomatous polyp of colon (Z86.010) Active confirmed Problem Gastroesophageal reflux disease (043500112) GERD (gastroesophageal reflux disease) (K21.9) Active confirmed Problem Diverticulosis of colon (187658192) Diverticulosis of colon (K57.30) Active confirmed Plan Of Treatment Pending Test Test Name Order Date Pathology 01/01/2022 Future Test Test Name Order Date COLONOSCOPY 11/19/2021 Insurance Providers Payer Name Payer Address Payer Phone Subscriber Number Group Number Insured Name Patient Relationship to Insured Coverage Start Date Coverage End Date MEDICARE OF [place] [address] [place] [address] [phone] [id number] ROSE MENARD Self - patient is the insured [employer] [address] [place] [address] [id number] ROSE MENARD Self - patient is the insured Medical (General) History Medical History History ICD Code HTN Breast cancer in 2014 with lumpectomy an d XRT Left Kidney cancer as below Denies [place],DM,CVA,Lung disease,renal dise ase GERD-EGD in 2012 with [...]
== END 2024-07-14 11:02 | disposition home or self-care (01) ==
LOC: HO.HOS 10:33
PROVIDERS: PCP Internal Medicine; Visit Provider Orthopaedic Surgery
DX: M25.811 Other specified joint disorders, right shoulder (principal)
CPT/HCPCS: 99214; G2211

== ENCOUNTER → 2024-07-14 10:32 | Outpatient (BNVA) | payer MEDICARE, OTHER, SELFPAY | PROVIDERS: PCP Internal Medicine; Visit Provider Orthopaedic Surgery | DX: M25.811 Other specified joint disorders, right shoulder (principal); M25.611 Stiffness of right shoulder, not elsewhere classified | CPT/HCPCS: 99212 ==

== ENCOUNTER 2024-07-15 09:45 | Outpatient (AMB) | payer MEDICARE, OTHER, SELFPAY ==
[2024-07-15 10:02] VITALS: BP 152/62; PULSE 70; TEMP 36.1; O2SAT 96; BMI 31.0
--- NOTE | 2024-07-15 10:02 | MHC.PC.OV ---
Vital Signs 07/15/24 10:02 07/15/24 11:03 Height 4 ft 10.5 in Weight 151 lb BMI 31.0 BP 152/62 H 138/78 Blood Pressure Location Lt brachial Lt brachial Position Sitting Sitting Pulse 70 Pulse Source Pulse Oximeter Temp 97.0 F Temp Source Temporal Artery Scan Pulse Oximetry (%) 96 Oxygen Delivery Method Room Air Intake Visit Reasons: 4 month f/u Communication Engineer Required: No Accompanied by: Spouse Allergies adhesive tape Allergy (Intermediate, Verified 07/15/24 10:48) BLISTERS albuterol [From PROAIR HFA] Allergy (Intermediate, Verified 07/15/24 10:48) TREMOR Sulfa (Sulfonamide Antibiotics) [SULFA (SULFONAMIDE ANTIBIOTICS)] Allergy (Intermediate, Verified 07/15/24 10:48) ITCH/RASH, itching, hives ropinirole Allergy (Mild, Verified 07/15/24 10:48) joint pain oxybutynin Allergy (Verified 07/15/24 10:48) shortness of breath codeine [CODEINE] Adverse Reaction (Intermediate, Verified 07/15/24 10:48) GI UPSET sitagliptin Adverse Reaction (Intermediate, Verified 07/15/24 10:57) joint pains Medication List - Last Reconciled 07/15/24 by Calvin Maldonado MD azelastine 2 sprays intranasal BID 30 days ikfqozliyp-yefsfwxalwnup-nrpe 50-300-40 mg (Fioricet) 1 cap PO Q8H PRN 10 days cetirizine (Zyrtec) 5 mg PO DAILY PRN cholecalciferol (vitamin D3) 50 mcg PO DAILY citalopram 10 mg PO DAILY clobetasol 0.05% 0.25 - 0.5 mL topical esomeprazole magnesium 40 mg PO DAILY gabapentin 100 mg PO BEDTIME 90 days glucosamine sulfate 750 mg PO DAILY hydrocortisone 1% (Cortisone (hydrocortisone)) 1 appl topical BID PRN levothyroxine 50 mcg PO DAILY 90 days losartan 50 mg PO DAILY multivitamin (Multiple Vitamins tablet) 1 tab PO DAILY olopatadine 0.2% (Pataday) 1 drp ophthalmic (eye) DAILY rosuvastatin 5 mg PO DAILY Tobacco use date assessed: 07/15/24 Fall risk assessment: No Falls in past year Last assessed Fall Risk: 07/15/24 Dental Screening Dental Screen Date: 07/15/24 Did you have a dental visit in the last 12 months?: Yes Did you have a dental problem in the last 6 months where you did not have access to dental care?: No Was dental information given to patient?: Patient has dentist HPI 4 month f/u HPI Details Patient comes in today for her follow up visit States that she feels okay She denies any headaches or dizziness Denies any chest pains, no increased shortness of breath No nausea/vomiting, no abdominal pain No change in bowel habits noted - (+) history of chronic constipation and she takes OTC stool softeners when needed Patient states that she has not used her CPAP device in a while now and that she feels much better without it - she no longer struggles with recurrent sore throat, nasal congestion and other symptoms that she attributed to the use of her CPAP device She feels that she is still forgetting a lot and is very concerned about this - she was referred to neurology at her last visit but does not recall ever getting called to schedule an appointment with neurology She also continues to experience increased pain in her right shoulder and is scheduled for arthroscopic surgery with Dr. Valenzuela next month States that she stopped taking her Januvia about a month ago as she was experiencing significantly increased shoulder and joint pains ever since she started taking the Rx - states that her joint pains gradually improved once she stopped taking her Januvia She had her follow-up labs done last week - to discuss the results [facility] Medical History Diabetes mellitus Overactive bladder Obesity (BMI 30-39.9) Post-menopausal Overweight (BMI 25.0-29.9) Obstructive sleep apnea Short of breath on exertion Anxiety Daytime somnolence History of renal cell cancer History of breast cancer Constipation Vitamin D deficiency Allergic rhinitis Osteoarthritis of right knee GERD without esophagitis Impaired fasting glucose Acquired hypothyroidism Pure hypercholesterolemia Benign essential hypertension Invasive ductal carcinoma of left breast Renal cancer Hypothyroid HTN (hypertension) Esophagitis Mixed irritable bowel syndrome Surgical History History of removal of skin mole History of right knee surgery (~06/2017) History of thumb surgery (~04/26/15) History of lumpectomy of left breast (~03/2014) History of left breast biopsy (~01/2014) History of removal of cyst History of bunionectomy History of kidney surgery History of cataract surgery History of colon resection (~2001) History of partial nephrectomy (~2002) History of colonoscopy History of esophagogastroduodenoscopy (EGD) (~09/16/12) History of eye surgery (~09/2012) Family History Father History of gastric cancer History of lung cancer Mother History of heart disease Brother Family history of prostate cancer History of colon cancer History of lung cancer Daughter History of breast cancer Paternal Aunt History of breast cancer Maternal Uncle History of leukemia Maternal Aunt History of breast cancer Social History Housing: Condominium Alcohol intake: current Alcohol intake frequency: holidays/special occasions only Alcohol type: wine Patient Tobacco Use Status: Never used Tobacco e-Cigarette/Vaping Use: Never Used Second Hand Smoke Exposure: Yes service: No Current occupational status: retired Current occupation: rt handed Cognitive needs: No Hearing needs: No Vision needs: Yes (glasses) Questionnaire PHQ-9 Over the last 2 weeks, how often have you been bothered by any of the following problems? 1. Little interest or pleasure in doing things: not at all 2. Feeling down, depressed, or hopeless: not at all 3. Trouble falling or staying asleep, or sleeping too much: not at all 4. Feeling tired or having little energy: not at all 5. Poor appetite or overeating: not at all 6. Feeling bad about yourself - or that you are a failure or have let yourself or your family down: not at all 7. Trouble concentrating on things, such as reading the newspaper or watching television: not at all 8. Moving or speaking so slowly that other people could have noticed. Or the opposite - being so fidgety or restless that you have been moving around a lot more than usual: not at all 9. Thoughts that you would be better off or of hurting yourself in some way: not at all Total score: 0 Depression Screening Interpretation: Negative Depression Screening Done: Yes 61430 - PHQ-9 Billing: Yes Source: Developed by William De La Oet B.W. Giovani, Pete Patterson and colleagues, with an educational sandra from [employer]. Thrive Questionnaire Date Thrive assessed: 07/15/24 I am a: Patient What is your living situation today?: I have a steady place to live Within the past 12 months, did the food you bought not last and you didn't have the money to get more?: Never true Within the past 12 months, did you worry whether your food would run out before you got money to buy more?: Never true Do you have trouble paying for medicines?: No Do you have trouble getting transportation to medical appointments?: No Do you have trouble paying your heating and electricity bill?: No Do you have trouble taking care of your child, family member or friend?: No Do you have trouble with day-to-day activities such as bathing, preparing meals, shopping, managing finances, etc.?: No Are you currently unemployed and looking for a job?: No Are you interested in more education?: No Please select the resources that you would like help with: None Currently or been in a relationship where the following occur: No concerns reported THRIVE Score: 0 AUDIT C Alcohol Use Questionnaire (AUDIT-C) 1. How often do you have a drink containing alcohol?: Never 3. How often do you have six or more drinks on one occasion?: Never Total Score: 0 Score Reviewed/Action Taken: Yes DELIA-7 AMB Questionnaire DELIA-7 Date DELIA - 7 assessed: 07/15/24 Feeling nervous, anxious, or on edge: 0 = Not at all Not being able to stop or control worryin = Not at all Worrying too much about different things: 0 = Not at all Trouble relaxin = Not at all Being so restless that it is hard to sit still: 0 = Not at all Becoming easily annoyed or irritable: 0 = Not at all Feeling afraid as if something awful might happen: 0 = Not at all Total DELIA-7 score (0-4 normal; 5-9 mild; 10-14 moderate; 15-21 severe): 0 Source: Developed by Celina De La O, Pete Patterson and colleagues, with an educational sandra from [employer]. DELIA-7 Assessment Billing DELIA-7 Assessment Tool: DELIA-7 Assessment 46348 Review of Systems Const Denies chills, Denies difficulty sleeping, Reports fatigue, Denies fever(s) and Denies headache(s) ENT Denies dysphagia, Denies dizziness, Denies otalgia, Denies headache(s), Denies neck pain, Denies odynophagia and Denies sore throat Card Denies chest pain, Denies palpitations and Denies dyspnea Resp Denies chest congestion, Denies cough and Denies dyspnea GI Denies abdominal pain, Denies constipation, Denies dysphagia, Denies heartburn, Denies diarrhea, Denies nausea, Denies odynophagia and Denies vomiting Denies difficulty voiding, Reports nocturia (at least 3 times a night), Denies dysuria, Denies urinary incontinence and Denies urinary urgency Musc Reports back pain (over the lower back - on and off), Reports arthralgias (increased in the right shoulder) and Denies neck pain Skin/Breast Denies rash Neuro Denies dizziness, Denies headache(s), Reports memory loss (feels that this is slowly getting worse) and Reports restless legs Psych Reports anxiety and Reports memory loss (feels that this is slowly getting worse) Endo Reports fatigue and Denies palpitations Physical exam (Primary Care) Vital Signs: Last Vital Signs Temp 97.0 F 07/15/24 10:02 Pulse 70 07/15/24 10:02 BP 152/62 H 07/15/24 10:02 Pulse Ox 96 07/15/24 10:02 Oxygen Delivery Method Room Air 07/15/24 10:02 BMI result Body Mass Index 31.0 Tobacco/Smoking Status: Tobacco use Status Tobacco use date assessed 07/15/24 07/15/24 10:15 Patient Tobacco Use Status Never used Tobacco 07/15/24 10:04 e-Cigarette/Vaping Use Never Used 07/15/24 10:04 PHQ-9: PHQ-9 Score PHQ-9: Total score 0 07/15/24 10:04 Depression Screening Interpretation: Negative Thrive Assessment: Date of Thrive Assessment Date Thrive assessed 07/15/24 07/15/24 10:04 Currently or been in a relationship where the following occur: No concerns reported Const General: no acute distress and alert HENMT Ears: TM's normal bilaterally and EAC's normal Throat: Yes posterior oropharynx normal and Yes tonsils normal (no TP congestion noted) Neck Neck: Yes supple and No lymphadenopathy Thyroid: Thyroid normal Resp Auscultation: clear to auscultation bilaterally, no rales and no wheezes Cardio Rate: regular rate Rhythm: regular rhythm Heart sounds: no murmurs GI Palpation (GI): Soft to palpation and nontender Auscultation: normal bowel sounds General: Yes no CVA tenderness Back/Spine/Pelvis Back: no CVA tenderness Thoracic/Lumbar Spine: No lumbar spinal tenderness Skin Rashes: no rashes Extrem General: Yes no clubbing, cyanosis or edema Right upper extremity: shoulder/upper arm Details: tenderness Location: of the A-C joint; no swelling Results Reviewed Results Reviewed: Laboratory Tests 07/06/24 07/06/24 08:20 08:25 WBC 10.2 Hgb 15.3 Hct 44.1 Plt Count 277 Sodium 139 Potassium 4.2 Estimated GFR > 60 Fasting Glucose 150 H Hemoglobin A1c % 6.6 H Calcium 9.4 AST 21 ALT 12 Triglycerides 162 H Cholesterol 207 H LDL Cholesterol, Calc 123 H HDL Cholesterol 52 Vitamin B12 581 25-OH Vitamin D Total 110.3 TSH 2.39 Free T4 1.01 Ur Specific Damon 1.010 Urine Protein Negative Urine Glucose (UA) Negative Urine Blood Negative Urine Nitrite Negative Ur Leukocyte Esterase Negative Microalb/Creat Ratio 9.3 Coding Level of Care Code Est Pt Level 4 (95663) Complex EM visit Add On G2211 Diagnoses Pure hypercholesterolemia E78.00 Benign essential hypertension I10 Type 2 diabetes mellitus without complication, without long-term current use of insulin E11.9 Diabetes mellitus type: type 2 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[employer] insulin use: without halfway use Diabetes mellitus complication status: without complication Palpitations R00.2 Acquired hypothyroidism E03.9 Obstructive sleep apnea G47.33 Memory impairment R41.3 GERD without esophagitis K21.9 Primary osteoarthritis of right knee M17.11 Osteoarthritis type: primary Impingement of right shoulder M25.811 Restless legs syndrome (RLS) G25.81 Allergic rhinitis, unspecified seasonality, unspecified trigger J30.9 Allergic rhinitis trigger: unspecified Allergic rhinitis seasonality: unspecified Vitamin D deficiency E55.9 Constipation, unspecified constipation type K59.00 Constipation type: unspecified constipation type Overactive bladder N32.81 History of breast cancer Z85.3 History of renal cell cancer Z85.528 Anxiety F41.9 Obesity (BMI 30-39.9) E66.9 Additional Codes DELIA-7 Assessment Billing - DELIA-7 Assessment Tool: DELIA-7 Assessment 52052 ([id number]) PHQ-9 - 23394 - PHQ-9 Billing: Yes ([id number]) Assessment & Plan Assessment & Plan (1) Pure hypercholesterolemia: Code(s): E78.00 - Pure hypercholesterolemia, unspecified Category: Medical Plan: Results of her labs done last week reviewed and discussed with patient - patient is cautioned that her cholesterol levels have all increased by at least 20 points across the board She admits to eating a lot of ice cream lately - reinforced low cholesterol diet Continue Rosuvastatin 5 mg QD for now Will recheck her labs and fasting lipids in 4 months for follow-up (2) Benign essential hypertension: Code(s): I10 - Essential (primary) hypertension Category: Medical Plan: Reinforced low sodium diet - goal is systolic BP of at least 130 to 140 mm or less Continue Losartan 50 mg QD (3) Diabetes mellitus: Code(s): E11.9 - Type 2 diabetes mellitus without complications Category: Medical Qualifiers: Diabetes mellitus type: type 2 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 insulin use: without superintendent [employer] use Diabetes mellitus complication status: without complication Qualified Code(s): E11.9 - Type 2 diabetes mellitus without complications Plan: Her HgbA1c has improved from 7.1% to 6.6% on her labs done last week - goal is at least <7.0% but ideally <6.5% Reinforced diabetic diet / exercise as tolerated We started her previously on Januvia 50 mg QD but she stopped taking this about a month ago as she has been reportedly experiencing increased joint pains every since she was started on the Rx States that her joint pains (except for her right shoulder) gradually improved with discontinuation of the medication Will recheck her FBS and HgbA1c in 4 months for follow up (4) Palpitations: Code(s): R00.2 - Palpitations Category: Medical Plan: States that these only occur very occasionally nowadays and mostly at night when she is sitting down watching television; episodes usually last only a few seconds at most, and that their duration is too short to even be associated with any pertinent symptoms Have offered to refer her for additional testing and work ups but patient continues to decline - states that they are not occurring often or lasting long enough to really bother her and she will call for referrals/orders if she changes her mind (5) Acquired hypothyroidism: Code(s): E03.9 - Hypothyroidism, unspecified Category: Medical Plan: Her TFTs were again normal on her labs done last week Continue Levothyroxine 50 mcg QD Will continue to monitor her TFTs regularly (6) Obstructive sleep apnea: Code(s): G47.33 - Obstructive sleep apnea (adult) (pediatric) Category: Medical Plan: She was using her CPAP device at 5 - 15 cm pressure when sleeping at night previously but states that she decided to stop using it a few months ago and states that she actually started feeling better without her device, with all of her previous symptoms of headaches, nasal congestion and sore throat completely clearing up once she stopped using her device States that she has been sleeping much better without her CPAP device and does not wish to go back on it Follow up with Sleep Medicine as scheduled or as needed (7) Memory impairment: Code(s): R41.3 - Other amnesia Category: Medical Plan: Patient was previously referred to neurology for further evaluation and management at her last appointment but states that she has not heard back from neurology to schedule any appointment so far Will have office staff look into this referral and to make sure it gets reprocessed (8) GERD without esophagitis: Code(s): K21.9 - Gastro-esophageal reflux disease without esophagitis Category: Medical Plan: Dietary restrictions reinforced Continue Nexium 40 mg QD; she also takes Tums 500 mg 4 times a day when needed (9) Osteoarthritis of right knee: Comment: S/P arthroplasty of the right knee in November 2019 Code(s): M17.11 - Unilateral primary osteoarthritis, right knee Category: Medical Qualifiers: Osteoarthritis type: primary Qualified Code(s): M17.11 - Unilateral primary osteoarthritis, right knee Plan: Continue Gabapentin 100 mg 2 times a day in the morning and afternoon and 2 capsules at bedtime, Celebrex 200 mg once a day and Tylenol Arthritis 650 mg 3 times a day as needed She also takes CBD (OTC Cannabidiol) as needed for increased knee pain (10) Impingement of right shoulder: Code(s): M25.811 - Other specified joint disorders, right shoulder Category: Medical Plan: (+) OA, RTC tendinitis and impingement syndrome of the right shoulder She has been seeing orthopedics for this and is now scheduled for arthroscopic surgery of the right shoulder with Dr. Valenzuela next month (11) Restless legs syndrome (RLS): Code(s): G25.81 - Restless legs syndrome Category: Medical Plan: She was started on Ropinirole 0.5 mg QHS in the past but patient had to stop taking this as she felt that the Rx made her headaches worse States that her leg symptoms have been better controlled lately and she does not require anything else at this time (12) Allergic rhinitis: Code(s): J30.9 - Allergic rhinitis, unspecified Category: Medical Qualifiers: Allergic rhinitis trigger: unspecified Allergic rhinitis seasonality: unspecified Qualified Code(s): J30.9 - Allergic rhinitis, unspecified Plan: Continue Cetirizine 10 mg QD PRN and Montelukast 10 mg QD Continue Azelastine nasal spray BID PRN Patient feels that her symptoms have improved a lot since she stopped using her CPAP device a few months ago (13) Vitamin D deficiency: Code(s): E55.9 - Vitamin D deficiency, unspecified Category: Medical Plan: Have advised her that her Vitamin D level remains very high on her recent labs and to cut back on her Vitamin D dosing further to just 2 times a week for now Will recheck her Vitamin D level in 4 months for follow up (14) Constipation: Code(s): K59.00 - Constipation, unspecified Category: Medical Qualifiers: Constipation type: unspecified constipation type Qualified Code(s): K59.00 - Constipation, unspecified Plan: She is again encouraged on increased oral fluids and dietary fiber Continue MiraLax 17 gm QD (15) Overactive bladder: Code(s): N32.81 - Overactive bladder Category: Medical Plan: This is most likely the reason for her nocturia and increased fatigue She was started on a trial of Myrbetriq 25 mg Q HS but she could not tolerate the Rx She was advised that she should probably see urology for further evaluation and management of her urinary symptoms - patient states that she will call for referral when she feels she is ready to see urology but would like to hold off on referral for now (16) History of breast cancer: Comment: S/P Tamoxifen x 5 years Code(s): Z85.3 - Personal history of malignant neoplasm of breast Category: Medical Plan: Follow up with Oncology as scheduled for continuing surveillance (17) History of renal cell cancer: Comment: S/P partial left nephrectomy Code(s): Z85.528 - Personal history of other malignant neoplasm of kidney Category: Medical Plan: Follow up with Oncology and Nephrology as scheduled for continuing surveillance (18) Anxiety: Code(s): F41.9 - Anxiety disorder, unspecified Category: Medical Plan: Continue Citalopram 10 mg QD (19) Obesity (BMI 30-39.9): Code(s): E66.9 - Obesity, unspecified Category: Medical Plan: Reinforced diet/exercise as tolerated/lose weight Plan Follow up in 4 months Orders: Orders Thyroid Stimulating Hormone 4 Months E03.9 - Hypothyroidism, unspecified Free T4 (Free Thyroxine) 4 Months E03.9 - Hypothyroidism, unspecified Lipid Panel 4 Months E78.00 - Pure hypercholesterolemia, unspecified UA CC w/rflx Micro + Cult 4 Months R30.0 - Dysuria Vitamin D 25-OH Total 4 Months E55.9 - Vitamin D deficiency, unspecified Complete Blood Count Auto Diff 4 Months D64.9 - Anemia, unspecified Comprehensive [place]. Panel Fast 4 Months E78.00 - Pure hypercholesterolemia, unspecified Hemoglobin A1c 4 Months E11.9 - Type 2 diabetes mellitus without complications Microalbumin, Random (w Creat) 4 Months E11.9 - Type 2 diabetes mellitus without complications
--- OUTSIDE RECORDS SUMMARY | 2024-07-15 10:19 | XMS_ITS | Encounter Summary ---
Author Organization [facility] Address [address] [place] [address] Care Team Providers Care Parks Recreation Coordinator Name Role Phone Calvin Maldonado MD Primary Care Provider Encounter Details Date Type Department Care Team (Late st Contact Info) Description 01/06/2024 10:44 AM EDT Hospital Encounter [facility] HISTORIC ENCOUNTERS [facility] CONVERSION ONLY Rema Carlos, DO [address] [place] [address] Social History Tobacco Use Types Packs/Day Years [...] 12:02 PM Encounter Date: 01/06/2024 Status: Signed Home Care Rn: Rema Carlos DO (Physician) Hematology/Oncology Progress Note [...] HCl (Pataday) 0.2 % ophthalmic solution ? [place]-3 Fatty Acids (FISH OIL PO) ? omeprazole (PRILOSEC) 40 MG capsule ? Probiotic Product (PROBIOTIC DAILY PO) ? Respiratory Therapy Supplies (CareTouch 2 CPAP Hose Shipyard Helper) MISC ? rosuvastatin (CRESTOR) tablet 40 mg [...] Social history She is , lives in [place]. She is a never smoker Labs: Relevant data reviewed. 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 She also completed 5 years of tamoxifen. She is doing well and remains NICKO Left breast carcinoma, pT1b, ER + [place] + HER 2 negative Continue to monitor [...] DO - Hematology/Oncology [facility] documented in this encounter Plan of Treatment Upcoming Encounters Date Type Department Care Team (Late st Contact Info) Description 01/31/2025 11:30 AM EDT Office Visit [facility] Hematology Oncology [address] [place] [address] Rema Carlos DO [address] [place] [address] documented as of this encounter Procedures Procedure Name Priority Date/Time Associated Diagnosis Comments HISTORICAL IMAGING SCAN RESULT 01/06/2024 documented in this encounter Results * HISTORICAL IMAGING SCAN RESULT (01/06/2024) Anatomical Region Laterality Modality Ultrasound us Provider Onbase IMG US PROCEDURES Final Resul t documented in this encounter Visit Diagnoses Not on filedocumented in this encounter Care Teams Parks Recreation Coordinator Relationship Specialty Start Date End Date Calvin Maldonado MD [address] [place] [address] [address] [place] PCP - General Internal Medicine 12/22/19 documented as of this encounter
--- OUTSIDE RECORDS SUMMARY | 2024-07-15 10:19 | XMS_ITS | Clinical Summary ---
Author Organization [facility] Address [address] [place] [address] Phone Care Team Providers Care Nurse Special Name Role Phone Calvin Maldonado MD Primary Care Provider Surgical History Surgery Date Site/Laterality Comments BREAST LUMPECTOMY PROCEDURE:BREAST LUMPECTOMY Medical History Medical History Date Comments Breast cancer ([facility] V24, [facility] V28) DX:Breast cancer (HCC) IBS (irritable bowel [...] 11:30 AM EDT Office Visit [facility] [address] [place] [phone] Rema Carlos, DO [address] [place] [address] Health Maintenance Due Date Last Done Comments [...] age to complete this topic Insurance MEDICARE [facility] Care Teams Nurse Special Relationship Specialty Start Date End Date Calvin Maldonado MD [address] [place] [address] Dr [address] CHINYERE Ramsay PCP - General Internal Medicine 12/22/19
--- OUTSIDE RECORDS SUMMARY | 2024-07-15 10:19 | XMS_ITS | Patient Health Record ---
Author Organization [facility] Address [address] [place] [address] Care Team Providers Care String Studies Director Name Role Phone Calvin Maldonado MD Primary Care Provider UnaMelia Simon Unavailable [phone] Allergies Allergen (clinical drug ingredient) Drug/Non Drug [...] Status Risk Notes Problem Colon cancer screening (039530951) Colon cancer screening (Z12.11) Active confirmed Problem Irritable bowel syndrome (82958141) Irritable bowel syndrome (K58.9) Active confirmed Problem History of adenomatous polyp of colon (731571271) History of adenomatous polyp of colon (Z86.010) Active confirmed Problem Gastroesophageal reflux disease (367687828) GERD (gastroesophageal reflux disease) (K21.9) Active confirmed Problem Diverticulosis of colon (870004759) Diverticulosis of colon (K57.30) Active confirmed Plan Of Treatment Pending Test Test Name Order Date Pathology 01/01/2022 Future Test Test Name Order Date COLONOSCOPY 11/19/2021 Insurance Providers Payer Name Payer Address Payer Phone Subscriber Number Group Number Insured Name Patient Relationship to Insured Coverage Start Date Coverage End Date MEDICARE OF [place] [address] [place] [address] [id number] ROSE MENARD Self - patient is the insured [employer] [address] [place] [address] [id number] ROSE MENARD Self - patient is the insured Medical (General) History Medical History History ICD Code HTN Breast cancer in 2014 with lumpectomy an d XRT Left Kidney cancer as below Denies NC,DM,CVA,Lung disease,renal dise ase GERD-EGD in 2012 with [...]
--- OUTSIDE RECORDS SUMMARY | 2024-07-15 10:19 | XMS_ITS | Clinical Summary ---
Author Organization [facility] Address [address] [place] [address] Care Team Providers Care Research Test Engine Operator Name Role Phone Calvin Maldonado MD Primary Care Provider [phone] Allergies Active Allergy Reactions Criticality Noted Date [...] 2 sprays inside Nose daily. 0 Active Titus-3 Fatty Acids (FISH OIL PO) Take 1,400 [...] Respiratory Therapy Supplies (CareTouch 2 CPAP Hose Residential Gas Heat Technician) MISC by Does not apply route. 0 [...] age to complete this topic Care Teams Research Test Engine Operator Relationship Specialty Start Date End Date Calvin Maldonado MD [address] [place] [address] [place] [address] PCP - General Internal Medicine 12/01/16
[2024-07-15 11:03] VITALS: BP 138/78
== END 2024-07-15 11:09 | disposition home or self-care (01) ==
LOC: HO.HMCH 09:46
PROVIDERS: PCP Internal Medicine; Visit Provider Internal Medicine
DX: E78.00 Pure hypercholesterolemia, unspecified (principal); E11.9 Type 2 diabetes mellitus without complications; E66.9 Obesity, unspecified; Z68.31 Body mass index [BMI] 31.0-31.9, adult; I10 Essential (primary) hypertension; R00.2 Palpitations; E03.9 Hypothyroidism, unspecified; G47.33 Obstructive sleep apnea (adult) (pediatric); R41.3 Other amnesia; K21.9 Gastro-esophageal reflux disease without esophagitis; M17.11 Unilateral primary osteoarthritis, right knee; M25.811 Other specified joint disorders, right shoulder

== ENCOUNTER → 2024-07-15 09:45 | Outpatient (BNVA) | payer MEDICARE, OTHER, SELFPAY | PROVIDERS: PCP Internal Medicine; Visit Provider Internal Medicine | DX: E78.00 Pure hypercholesterolemia, unspecified (principal); I10 Essential (primary) hypertension; E11.9 Type 2 diabetes mellitus without complications; R00.2 Palpitations; E03.9 Hypothyroidism, unspecified; G47.33 Obstructive sleep apnea (adult) (pediatric); R41.3 Other amnesia; K21.9 Gastro-esophageal reflux disease without esophagitis; M17.11 Unilateral primary osteoarthritis, right knee; M25.811 Other specified joint disorders, right shoulder; G25.81 Restless legs syndrome; J30.9 Allergic rhinitis, unspecified; E55.9 Vitamin D deficiency, unspecified; K59.09 Other constipation; N32.81 Overactive bladder; F41.9 Anxiety disorder, unspecified; E66.9 Obesity, unspecified; Z85.3 Personal history of malignant neoplasm of breast; Z85.528 Personal history of other malignant neoplasm of kidney; Z68.31 Body mass index [BMI] 31.0-31.9, adult | CPT/HCPCS: 96127; 99212 ==

== ENCOUNTER → 2024-08-12 10:48 | Outpatient (BNV) | payer MEDICARE, OTHER, SELFPAY | PROVIDERS: Visit Provider Internal Medicine | DX: I45.10 Unspecified right bundle-branch block (principal) | CPT/HCPCS: 93010 ==

== ENCOUNTER 2024-08-26 10:59 | Day surgery (SDC) | payer MEDICARE, OTHER, SELFPAY ==
--- OUTSIDE RECORDS SUMMARY | 2024-07-14 14:08 | XMS_ITS | Clinical Summary ---
Author Organization [facility] Address [address] [place] [address] Phone Care Team Providers Care Rotary Soil Stabilizer Operator Name Role Phone Calvin Maldonado MD Primary Care Provider Surgical History Surgery Date Site/Laterality Comments BREAST LUMPECTOMY PROCEDURE:BREAST LUMPECTOMY Medical History Medical History Date Comments Breast cancer ([facility] V24, [facility] V28) DX:Breast cancer (HCC) IBS (irritable bowel [...] Description 01/31/2025 11:30 AM EDT Office Visit [facility] Hematology Oncology [address] [place] [id number] Rema Carlos, DO [address] [place] [address] Health Maintenance Due Date Last Done Comments [...] age to complete this topic Insurance MEDICARE [facility] Care Teams Rotary Soil Stabilizer Operator Relationship Specialty Start Date End Date Calvin Maldonado MD [address] [place] [address] Dr [address] [place] Rasmay PCP - General Internal Medicine 12/22/19
--- OUTSIDE RECORDS SUMMARY | 2024-07-14 14:08 | XMS_ITS | Clinical Summary ---
Author Organization [facility] Address [address] [place] [address] Care Team Providers Care Environmental Services Aide Name Role Phone Calvin Maldonado MD Primary Care Provider [phone] Allergies Active Allergy Reactions Criticality Noted Date [...] 2 sprays inside Nose daily. 0 Active [place]-3 Fatty Acids (FISH OIL PO) Take 1,400 [...] Respiratory Therapy Supplies (CareTouch 2 CPAP Hose Oil Expert) MISC by Does not apply route. 0 [...] age to complete this topic Care Teams Environmental Services Aide Relationship Specialty Start Date End Date Calvin Maldonado MD [address] [place] [address] [place] [address] PCP - General Internal Medicine 12/01/16
--- OUTSIDE RECORDS SUMMARY | 2024-07-14 14:08 | XMS_ITS | Encounter Summary ---
Author Organization [facility] Address [address] [place] [address] Care Team Providers Care Storage Consultant Name Role Phone Calvin Maldonado MD Primary Care Provider Encounter Details Date Type Department Care Team (Late st Contact Info) Description 01/06/2024 10:44 AM EDT Hospital Encounter TH HISTORIC ENCOUNTERS EASTERN CONVERSION ONLY Rema Carlos, DO [address] [place] [address] Social History Tobacco Use Types Packs/Day Years [...] 12:02 PM Encounter Date: 01/06/2024 Status: Signed Front Loader Residential Driver: Rema Carlos DO (Physician) Hematology/Oncology Progress Note [...] HCl (Pataday) 0.2 % ophthalmic solution ? [place]-3 Fatty Acids (FISH OIL PO) ? omeprazole (PRILOSEC) 40 MG capsule ? Probiotic Product (PROBIOTIC DAILY PO) ? Respiratory Therapy Supplies (CareTouch 2 CPAP Hose Drum Handler) MISC ? rosuvastatin (CRESTOR) tablet 40 mg [...] Social history She is , lives in [place]. She is a never smoker Labs: Relevant data reviewed. 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 She also completed 5 years of tamoxifen. She is doing well and remains NICKO Left breast carcinoma, pT1b, ER + [place] + HER 2 negative Continue to monitor [...] DO - Hematology/Oncology [facility] documented in this encounter Plan of Treatment Upcoming Encounters Date Type Department Care Team (Late st Contact Info) Description 01/31/2025 11:30 AM EDT Office Visit [facility] Hematology Oncology [address] [place] [address] Rema Carlos DO [address] [place] [address] documented as of this encounter Procedures Procedure Name Priority Date/Time Associated Diagnosis Comments HISTORICAL IMAGING SCAN RESULT 01/06/2024 documented in this encounter Results * HISTORICAL IMAGING SCAN RESULT (01/06/2024) Anatomical Region Laterality Modality Ultrasound us Provider Onbase IMG US PROCEDURES Final Resul t documented in this encounter Visit Diagnoses Not on filedocumented in this encounter Care Teams Storage Consultant Relationship Specialty Start Date End Date Calvin Maldonado MD [address] [place] [address] Dr [address] [place] PCP - General Internal Medicine 12/22/19 documented as of this encounter
--- NOTE | 2024-08-12 | ECG_ITS ---
Test Reason : PREOP Blood Pressure : */* mmHG Vent. Rate : 66 BPM Atrial Rate : 66 BPM P-R Int : 148 ms QRS Dur : 126 ms QT Int : 412 ms P-R-T Axes : 26 9 12 degrees QTcB Int : 431 ms Normal sinus rhythm Right bundle branch block Abnormal ECG When compared with ECG of 05-Nov-2016 10:37, Right bundle branch block is now Present Referred By: Sarah Samaniego Electronically Signed By: LISA OLIVO
[2024-08-12 10:17] VITALS: BP 158/70; PULSE 72; RESP 20; O2SAT 96; BMI 31.0
--- NOTE | 2024-08-12 10:26 | HO.ANESPROP2 ---
HPI - Anesthesia Eval Consult details Narrative: 79yo F for Right Shoulder Arthroscopy, distal clavicle excisiom, acromioplasty, capsular release, and manipulation, 08/26/24 No recent illness. Seasonal allergies. - Takes butterbur supplement. Some increased bleeding tendancy, will stop 7 days preop No CP/SOB with ADLs, house work JEWELS: Cannot tolerate CPAP Possible awareness under anesthesia. First, reports waking during hand and foot surgery, ? likely MAC. Second, per pt report, anesthesiologist for nephrectomy asked Do you remember waking up during surgery? , but pt does not remember waking. Multiple other surgeries without issue. PMFSH Active Problems Active Problems: All Active Problems Impingement of right shoulder (Acute) Rotator cuff insufficiency of right shoulder (Acute) Memory impairment (Acute) Palpitations (Acute) Headache (Acute) Restless legs syndrome (RLS) (Acute) Right hip pain (Acute) Upper respiratory tract infection (Acute) CAP (community acquired pneumonia) (Acute) URI (upper respiratory infection) (Acute) Laryngitis (Acute) Adult general medical exam (Acute) Periodic limb movements of sleep (Acute) Right hand pain (Acute) Cough in adult (Acute) Overweight (Acute) Daytime somnolence (Acute) Excessive daytime sleepiness (Acute) Sleep disorder (Acute) Snoring (Acute) Diabetes mellitus (Acute) Overactive bladder (Acute) Obesity (BMI 30-39.9) (Acute) Post-menopausal (Acute) Overweight (BMI 25.0-29.9) (Acute) Obstructive sleep apnea (Acute) Anxiety (Acute) History of renal cell cancer (Acute) History of breast cancer (Acute) Constipation (Acute) Vitamin D deficiency (Acute) Allergic rhinitis (Acute) Osteoarthritis of right knee (Acute) GERD without esophagitis (Acute) Impaired fasting glucose (Acute) Acquired hypothyroidism (Acute) Pure hypercholesterolemia (Acute) Benign essential hypertension (Acute) Past Medical History Medical History Arthritis Duodenal ulcer Awareness under anesthesia Diabetes mellitus Overactive bladder Obesity (BMI 30-39.9) Post-menopausal Overweight (BMI 25.0-29.9) Obstructive sleep apnea Anxiety History of renal cell cancer History of breast cancer Constipation Vitamin D deficiency Allergic rhinitis Osteoarthritis of right knee GERD without esophagitis Impaired fasting glucose Acquired hypothyroidism Pure hypercholesterolemia Benign essential hypertension Invasive ductal carcinoma of left breast Hypothyroid HTN (hypertension) Esophagitis Mixed irritable bowel syndrome Family History Family History Father History of gastric cancer History of lung cancer Mother History of heart disease Brother Family history of prostate cancer History of colon cancer History of lung cancer Daughter History of breast cancer Paternal Aunt History of breast cancer Maternal Uncle History of leukemia Maternal Aunt History of breast cancer Family history of problems with anesthesia: No Surgical History Surgical History Hx of lymph node excision Hx of excision of mass Hx of nasal septoplasty History of bilateral knee replacement History of removal of skin mole History of thumb surgery (~04/26/15) History of lumpectomy of left breast (~03/2014) History of left breast biopsy (~01/2014) History of removal of cyst History of bunionectomy History of kidney surgery History of cataract surgery History of colon resection (~2001) History of partial nephrectomy (~2002) History of colonoscopy History of esophagogastroduodenoscopy (EGD) (~09/16/12) History of eye surgery (~09/2012) History of Problems with Anesthesia: No (? awareness under anesthesia) Social History Social History Housing: Condominium Are you a primary health and social care teacher to a significant other at home: No Do you presently have visiting nurse or other home services: No Alcohol intake: current Alcohol intake frequency: holidays/special occasions only Alcohol type: wine Patient Tobacco Use Status: Never used Tobacco e-Cigarette/Vaping Use: Never Used Second Hand Smoke Exposure: Yes service: No Current occupational status: retired Current occupation: rt handed Cognitive needs: No Hearing needs: No Vision needs: Yes (glasses) Meds Allergies Allergy/AdvReac Type Severity Reaction Status Date / Time adhesive tape Allergy Intermediate BLISTERS Verified 08/26/24 11:38 albuterol [From PROAIR HFA] Allergy Intermediate TREMOR Verified 08/26/24 11:38 oxybutynin Allergy Intermediate shortness Verified 08/26/24 11:38 of breath Sulfa (Sulfonamide Allergy Intermediate itching, Verified 08/26/24 11:38 Antibiotics) hives [SULFA (SULFONAMIDE ANTIBIOTICS)] ropinirole Allergy Mild joint pain Verified 08/26/24 11:38 codeine [CODEINE] AdvReac Intermediate GI UPSET Verified 08/26/24 11:38 sitagliptin AdvReac Intermediate joint pains Verified 08/26/24 11:38 Home Medications ?Medication ?Instructions ?Recorded ?Confirmed ?Last Taken ?Type cholecalciferol (vitamin D3) 50 50 mcg PO DAILY 02/14/20 08/26/24 Unknown History mcg (2,000 unit) capsule multivitamin (Multiple Vitamins 1 tab PO DAILY 02/14/20 08/26/24 Unknown History tablet) glucosamine sulfate 750 mg tablet 750 mg PO DAILY 01/09/21 08/26/24 Unknown History clobetasol 0.05 % scalp solution 0.25 - 0.5 ml topical DAILY 05/14/21 08/26/24 Unknown History citalopram 10 mg tablet 10 mg PO QAM 08/12/24 08/12/24 08/26/24 09:00 History esomeprazole magnesium 40 mg 40 mg PO QAM 08/12/24 08/12/24 Unknown History capsule,delayed release olopatadine 0.2 % eye drops 1 drp ophthalmic (eye) DAILY 08/12/24 08/26/24 Unknown History Exam Height,Weight and Vital Signs: Height 4 ft 10.5 in Weight 68.492 kg Last Vital Signs Pulse 72 08/12/24 10:17 Resp 20 08/12/24 10:17 BP 158/70 H 08/12/24 10:17 Pulse Ox 96 08/12/24 10:17 O2 Del Method Room Air 08/12/24 10:17 Pertinent Lab Results Pertinent Lab Results: Laboratory Tests 07/06/24 08:20 WBC 10.2 Hgb 15.3 Hct 44.1 Plt Count 277 Sodium 139 Potassium 4.2 Chloride 105 Carbon Dioxide 25 BUN 21 H Creatinine 0.69 Narrative Narrative: EKG 07/2024 Vent. Rate : 66 BPM Atrial Rate : 66 BPM P-R Int : 148 ms QRS Dur : 126 ms QT Int : 412 ms P-R-T Axes : 26 9 12 degrees QTcB Int : 431 ms Normal sinus rhythm Right bundle branch block Abnormal ECG When compared with ECG of 05-Nov-2016 10:37, Right bundle branch block is now Present Airway Mallampati Class: II TM Dist: >3cm Neck ROM: Limited (d/t shoulder pain) Loose/Missing/Broken Teeth: Yes (missing right lower, left implant) Heart: RRR Lungs: CTAB Assessment and Plan Assessment Anesthesia Assessment: Anesthesia Plan Discussed and PAT Visit Final Anesthetic Review Family History of Problems with Anesthesia: No History of Problems with Anesthesia: No (? awareness under anesthesia)
[2024-08-26] VITALS (10 sets, daily range): BP systolic 130–167; BP diastolic 58–75; PULSE 67–81; RESP 16–18; TEMP 36.1–36.9; O2SAT 92–100; BMI 27.6
[2024-08-26] MEDS: Lactated Ringers 1,000 ML 100 ML IVCONT (12:13)
--- NOTE | 2024-08-26 12:21 | PC.NURSE ---
Pt states she can and has used her left arm for blood pressure checks, blood draws, and IVs. Pt states she has never been told she cannot use her left arm post breast surgery.
[2024-08-26] MEDS: ceFAZolin Sodium/Dextrose,Iso 2 GM/50 ML PIGGYBACK IV (13:25)
[2024-08-26] MEDS: Acetaminophen 1,000 MG/100 ML PIGGYBACK 400 MG IV (13:40)
[2024-08-26] MEDS: cefTRIAXone sodium 1 GM VIAL IVPUSH (14:58)
--- NOTE | 2024-08-26 15:09 | PM.OP ---
Brief Operative Note Date of Service: 08/26/24 Pre-op diagnosis: Right shoulder impingement syndrome, right shoulder acromioclavicular joint arthritis, right shoulder adhesive capsulitis Post-op diagnosis: same Procedure: Right shoulder arthroscopic distal clavicle excision, right shoulder arthroscopic acromioplasty, right shoulder arthroscopic anterior capsular release, right shoulder manipulation under anesthesia Implants: none Surgeon: Chris Valenzuela MD Anesthesia: GETA and regional Was an Emergency Management Specialist used for this Procedure?: No Estimated blood loss (mL): 10 Pathology: none sent Condition: stable Disposition: PACU
--- NOTE | 2024-08-26 15:10 | W.PM.OPN ---
Operative Note Operative Note Date of Service: 08/26/24 Narrative: After the patient was identified as Татьяна Kramer and her right shoulder was initialed by myself the patient was brought to the holding area where a right shoulder interscalene regional block was performed by the anesthesiologist in routine fashion. The patient was then brought to the operating room where general anesthesia was induced by the anesthesiologist in routine fashion. The patient was given 2 g of IV Ancef preoperatively for infection prophylaxis. Examination under anesthesia of the patient's right shoulder showed decreased passive range of motion when compared to the left shoulder. The patient's right shoulder had passive forward flexion to 130 degrees compared to 170 degrees, external rotation to 30 degrees compared to 60 degrees, and internal rotation to 40 degrees compared to 60 degrees. The patient was gently positioned in the beach chair position with all bony prominences well padded. The patient's right shoulder region and upper extremity were prepped and draped in sterile fashion. A formal time-out was completed. A #11 scalpel blade was used to make a posterior portal 2 cm inferior and 1 cm medial to the posterolateral corner of the acromion. Blunt trocar technique was used to enter the glenohumeral joint in routine fashion. An anterior portal was made just lateral to the coracoid process after proper positioning was confirmed using a spinal needle. Diagnostic arthroscopy showed diffuse grade 1 and 2 degenerative changes of the glenoid articular surface as well as grade 2 and 3 degenerative changes of the humeral head articular surface. The articular surface of the humeral head was made smooth using the arthroscopic shaver. The glenoid articular surface was already smooth so no chondroplasty was indicated. There was no evidence of rotator cuff tearing. There was no evidence of injury to the biceps tendon or its insertion onto the glenoid. There was inflammation of the anterior joint capsule consistent with adhesive capsulitis. The ArthroCare Wand was then used to perform an anterior capsular release between the inferior border of the biceps tendon and the superior border of the subscapularis tendon. The arthroscope was then placed from the posterior portal into the subacromial space. A lateral portal was made 2 fingerbreadths lateral to the anterior lateral corner of the acromion. The ArthroCare Wand was used to ablate soft tissues along the undersurface of the acromion as well as to excise the coracoacromial ligament. There was a sharp spur along the undersurface of the acromion which was removed using the hooded bur. The arthroscope was then placed into the lateral portal and the acromioplasty was completed with the bur in the posterior portal using the posterior aspect of the acromion as a cutting block. The ArthroCare Wand was then brought in through the anterior portal and was used to ablate soft tissues along the acromioclavicular joint and distal clavicle. The posterior and superior ligamentous structures were left intact. A distal clavicle excision of 8 mm was performed using the fluted bur. Any remaining bursal tissue was removed using the arthroscopic shaver. The subacromial space was irrigated and then drained. All arthroscopic instruments were removed. A gentle manipulation under anesthesia was then performed. Full passive range of motion was easily attained. The 3 portals were closed with 3-0 nylon interrupted suture. The subacromial space was injected with Marcaine. Dry sterile dressing was placed over all incisions. The patient's right upper extremity was placed into a sling. The patient was awoken and extubated in the operating room. The patient was transferred to the recovery room in stable condition.
[2024-08-26] MEDS: ondansetron HCL 4 MG/2 ML VIAL IVPUSH (15:19)
[2024-08-26] MEDS: fentaNYL citrate/PF 100 MCG/2 ML VIAL 25 MCG IVPUSH (15:31)
== END 2024-08-26 16:10 | disposition home or self-care (01) ==
PROVIDERS: Visit Provider Orthopaedic Surgery
PROC: (CPT 29805; principal; 2024-08-26 13:30)
DX: M75.01 Adhesive capsulitis of right shoulder (principal); M75.41 Impingement syndrome of right shoulder; M25.511 Pain in right shoulder; M25.611 Stiffness of right shoulder, not elsewhere classified; M19.019 Primary osteoarthritis, unspecified shoulder; I10 Essential (primary) hypertension; E11.9 Type 2 diabetes mellitus without complications; N32.81 Overactive bladder; Z85.528 Personal history of other malignant neoplasm of kidney; Z85.3 Personal history of malignant neoplasm of breast; E55.9 Vitamin D deficiency, unspecified; E03.9 Hypothyroidism, unspecified; E78.00 Pure hypercholesterolemia, unspecified; G47.33 Obstructive sleep apnea (adult) (pediatric); E66.3 Overweight; Z68.31 Body mass index [BMI] 31.0-31.9, adult; Z79.899 Other long term (current) drug therapy; L23.1 Allergic contact dermatitis due to adhesives; Z88.2 Allergy status to sulfonamides; Z88.5 Allergy status to narcotic agent; Z88.8 Allergy status to other drugs, medicaments and biological substances; Z98.890 Other specified postprocedural states
CPT/HCPCS: 29824; 29825; 29826; 93005; J0131; J0171; J0665; J0690; J0696; J1100; J2003; J2250; J2371; J2405; J2704; J2795; J3010

== ENCOUNTER → 2024-08-26 10:59 | Outpatient (BNV) | payer MEDICARE, OTHER, SELFPAY | PROVIDERS: Visit Provider Orthopaedic Surgery | DX: M75.41 Impingement syndrome of right shoulder (principal); M19.011 Primary osteoarthritis, right shoulder; M75.01 Adhesive capsulitis of right shoulder | CPT/HCPCS: 29823; 29824; 29826 ==

== ENCOUNTER 2024-09-08 11:20 | Outpatient (AMB) | payer MEDICARE, OTHER, SELFPAY ==
--- NOTE | 2024-09-08 11:24 | MHC.OFFVIS ---
Intake Visit Reasons: PO RT shoulder 08/26/24 DR Intake Note: Татьяна is a 79 year old female who presents post operatively after undergoing a right shoulder , 08/26/[address] Valenzuela. Patient reports she is doing well, states being sore. Her current pain level is a 4-5 out of 10. Allergies adhesive tape Allergy (Intermediate, Verified 09/08/24 11:25) BLISTERS albuterol [From PROAIR HFA] Allergy (Intermediate, Verified 09/08/24 11:25) TREMOR oxybutynin Allergy (Intermediate, Verified 09/08/24 11:25) shortness of breath Sulfa (Sulfonamide Antibiotics) [SULFA (SULFONAMIDE ANTIBIOTICS)] Allergy (Intermediate, Verified 09/08/24 11:25) itching, hives ropinirole Allergy (Mild, Verified 09/08/24 11:25) joint pain codeine [CODEINE] Adverse Reaction (Intermediate, Verified 09/08/24 11:25) GI UPSET sitagliptin Adverse Reaction (Intermediate, Verified 09/08/24 11:25) joint pains HPI HPI PO RT shoulder 08/26/24 DR: Details: 79 yo female returns to the office today s/p rt shoulder with dr Valenzuela on 08/26/24 . She is doing well, has mild discomfort. No concerns today. PENDING SALE TO [facility] Medical History Arthritis Duodenal ulcer Awareness under anesthesia Diabetes mellitus Overactive bladder Obesity (BMI 30-39.9) Post-menopausal Overweight (BMI 25.0-29.9) Obstructive sleep apnea Anxiety History of renal cell cancer History of breast cancer Constipation Vitamin D deficiency Allergic rhinitis Osteoarthritis of right knee GERD without esophagitis Impaired fasting glucose Acquired hypothyroidism Pure hypercholesterolemia Benign essential hypertension Invasive ductal carcinoma of left breast Hypothyroid HTN (hypertension) Esophagitis Mixed irritable bowel syndrome Surgical History Hx of lymph node excision Hx of excision of mass Hx of nasal septoplasty History of bilateral knee replacement History of removal of skin mole History of thumb surgery (~04/26/15) History of lumpectomy of left breast (~03/2014) History of left breast biopsy (~01/2014) History of removal of cyst History of bunionectomy History of kidney surgery History of cataract surgery History of colon resection (~2001) History of partial nephrectomy (~2002) History of colonoscopy History of esophagogastroduodenoscopy (EGD) (~09/16/12) History of eye surgery (~09/2012) Family History Father History of gastric cancer History of lung cancer Mother History of heart disease Brother Family history of prostate cancer History of colon cancer History of lung cancer Daughter History of breast cancer Paternal Aunt History of breast cancer Maternal Uncle History of leukemia Maternal Aunt History of breast cancer Social History Housing: Condominium Are you a primary acute care assistant to a significant other at home: No Do you presently have visiting nurse or other home services: No Alcohol intake: current Alcohol intake frequency: holidays/special occasions only Alcohol type: wine Patient Tobacco Use Status: Never used Tobacco e-Cigarette/Vaping Use: Never Used Second Hand Smoke Exposure: Yes service: No Current occupational status: retired Current occupation: rt handed Cognitive needs: No Hearing needs: No Vision needs: Yes (glasses) Review of Systems Const All systems reviewed & are unremarkable except as noted in HPI and below Physical Exam Const General: cooperative and no acute distress Orientation/consciousness: patient oriented x3 Resp Effort & Inspection: normal respiratory effort and able to speak in complete sentences Cardio Peripheral pulses: Peripheral pulses 2+ throughout Neuro General: patient oriented x3 Extrem Other: Right shoulder incision clean, dry and intact. No erythema or drainage. NVI. Results Reviewed Results Reviewed: Brief Operative Note Date of Service: 08/26/24 Pre-op diagnosis: Right shoulder impingement syndrome, right shoulder acromioclavicular joint arthritis, right shoulder adhesive capsulitis Post-op diagnosis: same Procedure: Right shoulder arthroscopic distal clavicle excision, right shoulder arthroscopic acromioplasty, right shoulder arthroscopic anterior capsular release, right shoulder manipulation under anesthesia Implants: none Surgeon: Chris Valenzuela MD Assessment & Plan Assessment & Plan (1) Impingement of right shoulder: Code(s): M25.811 - Other specified joint disorders, right shoulder Category: Medical Plan: Stutures removed today, sterie strips applied. She will avoid repetitive motion and heavy lifting over shoulder height for the next 4-6 weeks. She will begin PT to work on RTC/Periscap stabilization. She will increase activity as tolerated and see us back in 4 weeks, sooner if needed. Orders: Orders PT Evaluation and Treatment Today M25.811 - Other specified joint disorders, right shoulder Coding Level of Care Code Global (16858) Diagnoses Impingement of right shoulder M25.811
--- OUTSIDE RECORDS SUMMARY | 2024-09-08 13:30 | XMS_ITS | Clinical Summary ---
Author Organization [facility] Address [address] [place] [address] Phone Care Team Providers Care Telephone Appointment Clerk Name Role Phone Calvin Maldonado MD Primary Care Provider Surgical History Surgery Date Site/Laterality Comments BREAST LUMPECTOMY PROCEDURE:BREAST LUMPECTOMY Medical History Medical History Date Comments Breast cancer ([facility] V24, [facility] V28) DX:Breast cancer (HCC) IBS (irritable [...] Description 01/31/2025 11:30 AM EDT Office Visit [facility] Oncology [address] [place] [phone] Rema Carlos, DO [address] [place] [address] Health Maintenance Due Date Last Done Comments [...] 03/13/2022 Influenza Vaccine (Season Ended) 2024 01/01/2018, 12/19/2016, 04/15/2004 HIB Vaccines Aged Out No longer eligi [...] age to complete this topic Insurance MEDICARE [facility] Care Teams Telephone Appointment Clerk Relationship Specialty Start Date End Date Calvin Maldonado MD [address] [place] [address] Dr [address] CHINYERE Ramsay PCP - General Internal Medicine 12/22/19
== END 2024-09-08 12:18 | disposition home or self-care (01) ==
LOC: HO.HOS 11:20
PROVIDERS: PCP Internal Medicine; Visit Provider Physician Assistant
DX: M25.811 Other specified joint disorders, right shoulder (principal)
CPT/HCPCS: 99024

== ENCOUNTER → 2024-09-08 11:20 | Outpatient (BNVA) | payer MEDICARE, OTHER, SELFPAY | PROVIDERS: PCP Internal Medicine; Visit Provider Physician Assistant | DX: M25.511 Pain in right shoulder (principal); Z47.89 Encounter for other orthopedic aftercare; Z98.890 Other specified postprocedural states | CPT/HCPCS: 99212 ==

== ENCOUNTER 2024-10-06 10:11 | Outpatient (AMB) | payer MEDICARE, OTHER, SELFPAY ==
--- NOTE | 2024-10-06 10:17 | A.OFFVIS_ITS ---
Vital Signs 10/06/24 10:19 Height 4 ft 10.5 in Weight 134 lb BMI 27.5 Intake Visit Reasons: PO RT shoulder 08/26/24 DR Intake Note: Татьяна is a 79 year old female who presents post operatively after undergoing a right shoulder arthroscopy on 08/26/24. At her last post-operative visit she was referred to physical therapy however she never started it due to illness. Narayan calvin reports she is doing great. She is occasionally taking Tylenol with relief of pain. She continues with her home stretching program. She is due to start physical therapy next week. Allergies adhesive tape Allergy (Intermediate, Verified 10/06/24 10:20) BLISTERS albuterol (From PROAIR HFA) Allergy (Intermediate, Verified 10/06/24 10:20) TREMOR oxybutynin Allergy (Intermediate, Verified 10/06/24 10:20) shortness of breath Sulfa (Sulfonamide Antibiotics) (SULFA (SULFONAMIDE ANTIBIOTICS)) Allergy (Intermediate, Verified 10/06/24 10:20) itching, hives ropinirole Allergy (Mild, Verified 10/06/24 10:20) joint pain codeine (CODEINE) Adverse Reaction (Intermediate, Verified 10/06/24 10:20) GI UPSET sitagliptin Adverse Reaction (Intermediate, Verified 10/06/24 10:20) joint pains Medication List - Last Reconciled 10/06/24 by Chris Valenzuela MD azelastine 2 sprays intranasal BID 30 days cholecalciferol (vitamin D3) 50 mcg PO DAILY citalopram 10 mg PO QAM clobetasol 0.05% 0.25 - 0.5 mL topical DAILY esomeprazole magnesium 40 mg PO QAM glucosamine sulfate 750 mg PO DAILY hydrocortisone 1% (Cortisone (hydrocortisone)) 1 appl topical BID PRN hydromorphone (Dilaudid) 4 mg PO Q4H PRN levothyroxine 50 mcg PO DAILY 90 days losartan 50 mg PO DAILY multivitamin (Multiple Vitamins tablet) 1 tab PO DAILY olopatadine 0.2% 1 drp ophthalmic (eye) DAILY rosuvastatin 5 mg PO DAILY PFSH Medical History (Updated 10/06/24 @ 11:33 by Chris Valenzuela MD) Arthritis Duodenal ulcer Awareness under anesthesia Diabetes mellitus Overactive bladder Obesity (BMI 30-39.9) Post-menopausal Overweight (BMI 25.0-29.9) Obstructive sleep apnea Anxiety History of renal cell cancer History of breast cancer Constipation Vitamin D deficiency Allergic rhinitis Osteoarthritis of right knee GERD without esophagitis Impaired fasting glucose Acquired hypothyroidism Pure hypercholesterolemia Benign essential hypertension Invasive ductal carcinoma of left breast Hypothyroid HTN (hypertension) Esophagitis Mixed irritable bowel syndrome Surgical History Hx of lymph node excision Hx of excision of mass Hx of nasal septoplasty History of bilateral knee replacement History of removal of skin mole History of thumb surgery (~04/26/15) History of lumpectomy of left breast (~03/2014) History of left breast biopsy (~01/2014) History of removal of cyst History of bunionectomy History of kidney surgery History of cataract surgery History of colon resection (~2001) History of partial nephrectomy (~2002) History of colonoscopy History of esophagogastroduodenoscopy (EGD) (~09/16/12) History of eye surgery (~09/2012) Family History (Reviewed 07/15/24 @ 10:15 by Crystal De León [facility]) Father History of gastric cancer History of lung cancer Mother History of heart disease Brother Family history of prostate cancer History of colon cancer History of lung cancer Daughter History of breast cancer Paternal Aunt History of breast cancer Maternal Uncle History of leukemia Maternal Aunt History of breast cancer Social History [facility] Are you a primary emergency care tech to a significant other at home: No Do you presently have visiting nurse or other home services: No Alcohol intake: current Alcohol intake frequency: holidays/special occasions only Alcohol type: wine Patient Tobacco Use Status: Never used Tobacco e-Cigarette/Vaping Use: Never Used Second Hand Smoke Exposure: Yes service: No Current occupational status: retired Current occupation: rt handed Cognitive needs: No Hearing needs: No Vision needs: Yes (glasses) Physical Exam Vital Signs: BMI result Body Mass Index 27.5 Extrem Other: Right shoulder examination shows that the surgical incisions are well healed, no erythema, almost full range of motion when compared to her left shoulder, minimal discomfort with range of motion, no instability Assessment & Plan Assessment & Plan (1) Right shoulder pain: Code(s): M25.511 - Pain in right shoulder Category: Medical Plan Ms. Kramer continues to do well after undergoing right shoulder arthroscopic surgery on 08/26/2024. She will continue with her [id number] exercises. She will start physical therapy next week as scheduled. The do's and don'ts of lifting were discussed at length with the patient. She will contact me prior to her follow-up appointment in 3 months should any questions or concerns arise. Feel free to call me at any time should questions regarding her orthopedic management arise. Coding Level of Care Code Global (57922) Diagnoses Right shoulder pain M25.511
[2024-10-06 10:19] VITALS: BMI 27.5
--- OUTSIDE RECORDS SUMMARY | 2024-10-06 10:51 | XMS_ITS | Continuity of Care Document ---
Author Name [facility] Organization [facility] Care Team Providers Care Director Shopper Marketing Name Role Phone [facility] Unavailable Unavailable Medications Combined list of outpatient medications from Department of Defense and Veterans Affairs facilities.Medications provided include 1) outpatient medications from the last 15 months, and 2) patient-reported medications. Medication Details Route Status Patient Instructions Prescription Expires Prescription Number Last Dispense Date Ordering Provider Order Date Order Qty Source AZELASTINE HCL (AZELASTINE HCL), 137 MCG, SPRAY/PUMP, NASAL, APOTEX KAY, 30 ml SQUEEZ BTL Active [id number] 4 2023 90 Pharmac y Data Transac tion Service Facilit y CLOBETASOL PROPIONATE (clobetasol propionate) , 0.05 %, SOLUTION, TOPICAL, [employer] 50 ml BOTTLE Active [id number] 4 2023 150 Pharmac y Data Transac tion Service Facilit y CLOBETASOL PROPIONATE (clobetasol propionate) , 0.05 %, SOLUTION, TOPICAL, [employer],, 50 ml BOTTLE Cancele d [id number] : 2023 0 Pharmac y Data Transac tion Service Facilit y CLOBETASOL PROPIONATE (clobetasol propionate) , 0.05 %, SOLUTION, TOPICAL, [employer],, 50 ml BOTTLE Active [id number] 4 2023 50 Pharmac y Data Transac tion Service Facilit y Immunizations Combined list of available immunizations from the Department of Defense and Veterans Affairs facilities. Immunization Series Date Given Administered By Site Reaction Lot Number CVX Code Drug Cooling Pan Tender Status Comments Source influenza, high-dose, quadrivalent 2020 DICK, () Not Given influenza , high-dose , quadrival ent [facility] influenza, high-dose, quadrivalent 2019 BOGDARIFAZAL, () Not Given influenza , high-dose , quadrival ent [facility] influenza, trivalent, adjuvanted 2018 BOGDASARIAN, () Not Given influenza , trivalent , adjuvante d DoD zoster recombinant 2017 BOGDASARIAN, () Not Given zoster recombina nt Do[facility] Influenza, high dose seasonal 2014 WOOD, () Not Given Influenza , high dose seasonal [facility] influenza virus vaccine, split virus (incl. purified surface antigen)-reti red CODE 1 2004 Unknown, Provider [id number] 15 Sanofi Pasteur ([facility]) complet ed influenza virus vaccine, split virus (incl. purified surface antigen)- retired CODE DoD Social History Combined list of available smoking, tobacco, and other social history from Department of Defense and Veterans Affairs facilities. Social History Type Response Date Comment Sourc e This section is an empty social history section. DoD
--- OUTSIDE RECORDS SUMMARY | 2024-10-06 10:52 | XMS_ITS | Clinical Summary ---
Author Organization [facility] Address [address] [place] [address] Care Team Providers Care Svp Group Director Name Role Phone Calvin Maldonado MD Primary Care Provider [phone] Allergies Active Allergy Reactions Criticality Noted Date [...] 2 sprays inside Nose daily. 0 Active Seneca-3 Fatty Acids (FISH OIL PO) Take 1,400 [...] Respiratory Therapy Supplies (CareTouch 2 CPAP Hose Steam Powerplant Supervisor) MISC by Does not apply route. [...] 64 01/06/2024 11:33 AM EDT Temperature 36.8 C (98.2 F) 01/06/2024 11:33 AM EDT Respiratory Rate - - Oxygen Saturation 95% [...] - 1-dose 75+ series) 2021 Influenza Vaccine (Season Ended) 2024 11/20/19 22 Hepatitis B Vaccines Aged Out No long er eligible based on patient's age to complete this topic RSV Ped < 20 months Aged Out No longe r eligible based on patient's age to complete this topic Care Teams Svp Group Director Relationship Specialty Start Date End Date Calvin Maldonado MD [address] [place] [address] [place] [address] PCP - General Internal Medicine 12/01/16
--- OUTSIDE RECORDS SUMMARY | 2024-10-06 10:52 | XMS_ITS | Patient Health Record ---
Author Organization [facility] Address [address] [place] [address] Care Team Providers Care Interrelated Special Education Teacher Name Role Phone Calvin Maldonado MD Primary Care Provider UnaMelia Simon Unavailable [phone] Allergies Allergen (clinical drug ingredient) Drug/Non Drug [...] Status Risk Notes Problem Colon cancer screening (228685450) Colon cancer screening (Z12.11) Active confirmed Problem Irritable bowel syndrome (85210200) Irritable bowel syndrome (K58.9) Active confirmed Problem History of adenomatous polyp of colon (821326621) History of adenomatous polyp of colon (Z86.010) Active confirmed Problem Gastroesophageal reflux disease (878737519) GERD (gastroesophageal reflux disease) (K21.9) Active confirmed Problem Diverticulosis of colon (209131839) Diverticulosis of colon (K57.30) Active confirmed Plan Of Treatment Pending Test Test Name Order Date Pathology 01/01/2022 Future Test Test Name Order Date COLONOSCOPY 11/19/2021 Insurance Providers Payer Name Payer Address Payer Phone Subscriber Number Group Number Insured Name Patient Relationship to Insured Coverage Start Date Coverage End Date MEDICARE OF [place] [address] [place] [address] [id number] ROSE MENARD Self - patient is the insured [employer] [address] [place] [address] [id number] ROSE MENARD Self - patient is the insured Medical (General) History Medical History History ICD Code HTN Breast cancer in 2014 with lumpectomy an d XRT Left Kidney cancer as below Denies [place],DM,CVA,Lung disease,renal dise ase GERD-EGD in 2012 with [...]
--- OUTSIDE RECORDS SUMMARY | 2024-10-06 10:52 | XMS_ITS | Continuity of Care Document ---
Author Organization [facility] Address [address] [place] [address] Insurance Providers Payer Plan Claims Address Claims Phone Policy Number Group Number Relation Employer Guarantor Name Guarantor Guarantor Address Guarantor Phone LIZZY SEGUNDO TTS MEDIC ARE [facility] [employer] [address], [place] [address] tel:[phone] Self Татьяна Kramer [address] [place] [address] TRICA RE [address] [address] tel:[phone] Self Татьяна Kramer [address] [place] [address] MEDIC ARE OF [place] [address], [place] [address] tel:[phone] Self Татьяна Kramer [address] [place] [address] Problems Unknown Problems Results Test Value / Unit Interpretation Reference Ran ge Lab Report Татьяна Kramer.pdf Allergies, adverse reactions, alerts No known allergies and adverse reactions Medications No administered medications reported Vital Signs No vital signs reported Social History No smoking Hx information available
--- OUTSIDE RECORDS SUMMARY | 2024-10-06 10:52 | XMS_ITS | Clinical Summary ---
Author Organization [facility] Address [address] [place] [address] Phone Care Team Providers Care Selling Underwriter Name Role Phone Calvin Maldonado MD Primary Care Provider Surgical History Surgery Date Site/Laterality Comments BREAST LUMPECTOMY PROCEDURE:BREAST LUMPECTOMY Medical History Medical History Date Comments Breast cancer ([facility] V24, [facility] V28) DX:Breast cancer (HCC) IBS (irritable bowel [...] Description 01/31/2025 11:30 AM EDT Office Visit [facility] Oncology [address] [place] [id number] Rema Carlos, DO [address] [place] [address] Health Maintenance Due Date Last Done Comments [...] age to complete this topic Insurance MEDICARE [facility] Care Teams Selling Underwriter Relationship Specialty Start Date End Date Calvin Maldonado MD [address] [place] [address] [address] [place] PCP - General Internal Medicine 12/22/19
--- OUTSIDE RECORDS SUMMARY | 2024-10-06 10:52 | XMS_ITS | Continuity of Care Document ---
Author Organization [facility] Address [address] [place] [address] Insurance Providers Payer Plan Claims Address Claims Phone Policy Number Group Number Relation Employer Guarantor Name Guarantor Guarantor Address Guarantor Phone LIZZY SEGUNDO TTS MEDIC ARE [facility] [employer], [address], [place] [address] tel:[phone] Self Татьяна Kramer [address] [place] [address] TRICA RE [address] [address] tel:[phone] Self Татьяна Kramer [address] [place] [address], [place] [address] tel:[phone] Self Татьяна Kramer [address] [place] [address] Problems Unknown Problems Results Test Value / Unit Interpretation Reference Ran ge Lab Report Татьяна Kramer.pdf Allergies, adverse reactions, alerts No known allergies and adverse reactions Medications No administered medications reported Vital Signs No vital signs reported Social History No smoking Hx information available
--- OUTSIDE RECORDS SUMMARY | 2024-10-06 10:53 | XMS_ITS | Data Portability ---
Author Organization [place] [facility] Address [address] [address] Care Team Providers Care Room Service Food Server Name Role Phone DUKE RODRIGUEZ Primary Care [...] tonsille ctomy 2023 024 pgustavson [facility], [address], [place], [address], 09/29/2023 10:29:32 Medication Orders None recorded . Patient TargetsNo targets recorded. Patient InstructionsNo instructions recorded. Reason for Referral None Reported. Results Created Date Observation Date Name Description Value Unit Range Abnormal Flag Note LastModifiedBy Organization Detail LastModifiedTime 08/27/19 24 08/28/2023 BUN BUN 17 mg/dL 8-27 Not Available [facility] ([facility]) [address], [place], [address], 08/28/2023 03:11:17 08/27/19 24 08/28/2023 CREAT ININE creatinine 0.78 mg/dL 0.57-1 .00 Not Available [facility] ([facility]) [address], [place], [address], 08/28/2023 03:11:18 08/27/19 24 08/28/2023 CREAT ININE eGFR 78 mL/mi n/1.7 3 >59 Not Available [facility] ([facility]) [address] [place], [address], 08/28/2023 03:11:18 10/20/19 24 10/20/2023 CT, neck, soft tissu e, w/ contr ast No observ ation record ed. [email or web address] [facility] [address], [place], [address], 10/21/2023 11:12:59 11/25/1906/09/2018 imagi ng/di agnos tic [...] Sensorine ural hearing loss of bilateral ears 344362641 Active 2018 Sensorine ural hearing loss, bilateral ; Note: Date Diagnosed : 06/09/2018 10:58 AM (H90.3) Not Available [facility] 4 02:14:21 Hypertrop hy of nasal turbinate s 25821087 Active 2013 Nasal turbinate hypertrop hy; Location: bilateral CMS Risk: low risk Not Available [facility] 4 02:14:55 Allergic rhinitis 25076567 Active 2021 Allergic rhinitis, unspecifi ed; Note: Date Diagnosed : 08/05/2021 1:48 PM (J30.9) Not Available [facility] 4 02:14:58 Postopera tive follow-up visit Active 2013 Post op; Note: Date Diagnosed : 4 10:45 AM (V67.00) Not Available [facility] 4 02:13:52 Impacted cerumen in right ear 10735207281 14135 Active 2021 Impacted cerumen, right ear; Note: Date Diagnosed : 08/05/2021 1:48 PM (H61.21) Not Available [facility] 4 02:12:53 Cough 52385511 Active 2021 Cough, unspecifi ed; Note: Changed from R05 to R05.9 (08/06/2021 1:29 PM) , Date Diagnosed : 08/05/2021 1:48 PM (R05) Not Available [facility] 4 02:15:09 Bilateral disorder of Eustachia n tubes 76528910095 89904 Active 2018 Other specified disorders of Eustachia n tube, bilateral ; Note: Date Diagnosed : 06/09/2018 12:44 PM (H69.83) Not Available [facility] 4 02:13:38 Gastroeso phageal reflux disease without esophagit is 240395735 Active 2021 Gastro-es ophageal reflux disease without esophagit is; Note: Date Diagnosed : 08/05/2021 1:48 PM (K21.9) Not Available [facility] 4 02:13:28 Deviated nasal septum 411214184 Active 2013 Nasal septal deviation ; CMS Risk: moderate risk Note : Date Diagnosed : 4 11:41 AM (470) Not Available [facility] 4 02:14:51 Chronic rhinitis 43086163 Active 2013 Rhinitis, chronic; CMS Risk: moderate risk Note : Date Diagnosed : 4 11:41 AM (472.0) Not Available [facility] 4 02:14:55 Chronic sore throat 524137057 Active 2023 LOWELL SANTILLAN PA-C [address] [facility],[place] [address], [place], [address] , [facility] - [facility] 4 15:10:01 Otalgia of right ear 2479586099 Active 2023 LOWELL SANTILLAN PA-C [address] [facility], [place], [address] , [facility] - [facility] 4 15:10:59 Impacted cerumen of bilateral ears 91882005858 22912 Active 2023 Impacted cerumen, bilateral ; Note: Date Diagnosed : 06/22/2023 4:28 PM (H61.23) Not Available [facility] 4 02:13:05 Problem Notes None recorded. Procedures Surgical History Date Name Laterality Status Provider Name and Address Organization Details Recorded Time 5 Cerumen removal without microscope bilat completed LOWELL SANTILLAN PA-C [address] [place] [address], [address], [place] - [facility] 06/06/2024 11:30:34 Imaging Results None recorded. Procedure Notes None recorded. Medical Equipment None Reported. Allergies Allergen ID Allergen Name Allergen Category Reaction Reaction Severity Criticality Documentation Date Start Date Code Code System Note Provider Name and Address Organization Details Recorded Time 92893 adhesive tape environme nt,medica tion other Not available Not available 08/18/2023 16548 UNK React ion: unkno wn, unspe cifie d;; Not Available [facility] 4 00:49:11 15125 Substance with sulfonami de structure and antibacte rial mechanism of action (substanc e) medicatio n other Not available Not available 08/18/2023 37431 8003 SNOMED React ion: unkno wn, unspe cifie d;; Not Available [facility] 4 00:50:15 Medications Name Sig Start Date [...] by mouth 2013 active Medicatio n ID: [id number] Dur ation Value: 7 Prescrib ed By [...] topical cream 2019 active Medicatio n ID: [id number] Du ration Value: 7 Brand Name: alclometa [...] topical cream 2019 active Medicatio n ID: [id number] Du ration Value: 14 Brand Name: betametha sone dipropion ate Send Method: E-Prescri bed Subs Allowed: subs OK Specia l Instructi on: APPLY TO RASH ON THE NECK BID FOR 1 TO 2 WEEKS Med icationGe nericName : betametha sone dipropion ate Not Available Not Available Not Available omeprazole 20 mg capsule,de layed release 2018 active Medicatio n ID: [id number] Du ration Value: 90 Brand Name: omeprazol [...] mg tablet 2019 active Medicatio n ID: [id number] Br and Name: biotin Se nd Method: [...] take 1 tablet by mouth everyday Medicatio Jason trevor: Zyrtec Not Available Not Available Not Available Vitamin D3 50 mcg (2,000 unit) capsule 2013 active Medicatio n ID: [id number] Bran d Name: Vitamin D3 Send Method: E-Prescri bed Subs Allowed: subs OK Medica tionGerama icName: Vitamin D3 Not Available Not Available Not Available Myrbetriq 25 mg tablet,ext ended release active Not Available Not Available Not Available Azo Bladder Control 300 mg capsule 2019 active Medicatio n ID: [id number] Br and Name: Azo Bladder Control S end Method: E-Prescri bed Subs Allowed: subs OK Medica tionGener icName: Azo Bladder Control Not Available Not Available Not Available Vitals Date Recorded Body height Body mass index (BMI) Body weight Provider Name and Address Organization Details Last Updated DateTime 06/06/2024 157.48 cm 27.8 kg/m2 07911.04 g Mone Boland [place] - [facility] 06/06/2024 11:07:34 Date Recorded Body height Provider Name an d Address Organization Details Last Updated DateTime 08/27/2023 157.48 cm Eduardo Chuy [place] [facility] 08/27/2023 14:33:20 Date Recorded Body height Body mass index (BMI) Body weight Provider Name and Address Organization Details Last Updated DateTime 11/06/2023 157.48 cm 27.8 kg/m2 02508.04 g Artemio Blum [place] [facility] 11/06/2023 10:17:29 Social History None recorded. Functional Status None recorded. Mental Status None recorded. Family History Nothing Reported. Medical History No medical history recorded. Gynecological HistoryNo gynecological history recorded. Obstetrics History GPAL:G 0 P 0 0 0 0 Past Encounters Encounter ID Performer Location Encounter Start Date Encounter Closed Date Diagnosis/Indication Diagnosis SNOMED-CT Code Diagnosis ICD10 Code Diagnosis Note [id number] LOWELL SANTILLAN PA-C [facility] [address] [address] 08/27/2023 13:39:36 08/27/2023 14:44:09 Chronic sore throat 422363950 R07.0 Otalgia of right ear 583 1031725 H92.01 [id number] LOWELL SANTILLAN PA-C [facility] [address] [address] 11/06/2023 09:48:18 11/06/2023 10:32:19 Chronic sore throat 076912008 R07.0 Otalgia of right ear 131 2301966 H92.01 [id number] LOWELL SANTILLAN PA-C [facility] [address] [address] 06/06/2024 10:57:50 06/06/2024 12:10:45 Impacted cerumen of bilateral ears 7089750961 707789 H61.23 Health Concerns Section Related Observation LastModified by Organization Detai ls LastModified Time None Recorded Concern Status LastModified by Organization Details LastModified Time None Recorded Advance Directives Directive None Recorded Payers Insurance Date Sequence Insurance Name Policy Number Policy Young Covered Member ID Young Member ID Guarantor Name 06/06/2024 2 FOR LIFE () Uziel Kramer [id number] Lisa Lisa 06/06/2024 1 MEDICARE B-[place]: [facility] [employer] Татьяна Kramer [id number] Lisa Lisa Notes Date Note Type Note Provider Name [...] breast and renal cancer. JASE DALEY MD [address] [place] [address], [address], [facility] - [facility] 08/27/2023 16:00:26 11/06/2023 text/html 78-year-old princess edwards [...] breast and renal cancer. LELE CUEVAS MD [address] [place] [address],[address], [address], [facility] - [facility] 11/06/2023 10:38:11 06/06/2024 text/html 79-year-old princess edwards presents for cerumen removal. No concerns today. LELE CUEVAS MD [address] [place] [address],[address], [address], [facility] - [facility] 06/06/2024 17:09:07 OBGyn Episode No OBEpisode recorded.
== END 2024-10-06 10:37 | disposition home or self-care (01) ==
LOC: HO.HOS 10:11
PROVIDERS: PCP Internal Medicine; Visit Provider Orthopaedic Surgery
DX: M25.511 Pain in right shoulder (principal)
CPT/HCPCS: 99024

== ENCOUNTER → 2024-10-06 10:11 | Outpatient (BNVA) | payer MEDICARE, OTHER, SELFPAY | PROVIDERS: PCP Internal Medicine; Visit Provider Orthopaedic Surgery | DX: Z47.89 Encounter for other orthopedic aftercare (principal); M25.511 Pain in right shoulder; Z79.891 Long term (current) use of opiate analgesic; Z98.890 Other specified postprocedural states | CPT/HCPCS: 99212 ==

== ENCOUNTER 2024-10-18 09:24 | Outpatient (AMB) | payer MEDICARE, OTHER, SELFPAY ==
[2024-10-18 09:26] VITALS: BP 120/90; PULSE 66; O2SAT 94; BMI 30.6
--- NOTE | 2024-10-18 09:26 | MHC.PC.OV ---
Vital Signs 10/18/24 09:26 Height 4 ft 10.5 in Weight 149 lb BMI 30.6 BP 120/90 H Blood Pressure Location Lt brachial Position Sitting Pulse 66 Pulse Source Pulse Oximeter Pulse Oximetry (%) 94 Oxygen Delivery Method Room Air Intake Visit Reasons: Med. Review Toe Former Stitchdowns Required: No Accompanied by: Self / Same As Patient Allergies adhesive tape Allergy (Intermediate, Verified 10/18/24 10:09) BLISTERS albuterol (From PROAIR HFA) Allergy (Intermediate, Verified 10/18/24 10:09) TREMOR oxybutynin Allergy (Intermediate, Verified 10/18/24 10:09) shortness of breath Sulfa (Sulfonamide Antibiotics) (SULFA (SULFONAMIDE ANTIBIOTICS)) Allergy (Intermediate, Verified 10/18/24 10:09) itching, hives ropinirole Allergy (Mild, Verified 10/18/24 10:09) joint pain codeine (CODEINE) Adverse Reaction (Intermediate, Verified 10/18/24 10:09) GI UPSET sitagliptin Adverse Reaction (Intermediate, Verified 10/18/24 10:09) joint pains Medication List - Last Reconciled 10/18/24 by Calvin Maldonado MD azelastine 2 sprays intranasal BID 30 days cholecalciferol (vitamin D3) 50 mcg PO DAILY citalopram 10 mg PO QAM clobetasol 0.05% 0.25 - 0.5 mL topical DAILY esomeprazole magnesium 40 mg PO QAM glucosamine sulfate 750 mg PO DAILY hydrocortisone 1% (Cortisone (hydrocortisone)) 1 appl topical BID PRN hydromorphone (Dilaudid) 4 mg PO Q4H PRN levothyroxine 50 mcg PO DAILY 90 days losartan 50 mg PO DAILY multivitamin (Multiple Vitamins tablet) 1 tab PO DAILY olopatadine 0.2% 1 drp ophthalmic (eye) DAILY rosuvastatin 5 mg PO DAILY Tobacco use date assessed: 10/18/24 Fall risk assessment: No Falls in past year Last assessed Fall Risk: 10/18/24 Dental Screening Dental Screen Date: 10/18/24 Did you have a dental visit in the last 12 months?: Yes Did you have a dental problem in the last 6 months where you did not have access to dental care?: No Was dental information given to patient?: Patient has dentist HPI Med. Review HPI Details Patient comes in today to review/update her condition and her meds She underwent right shoulder release surgery with Dr. Valenzuela in August 2024 for adhesive capsulitis and is currently still going to physical therapy for her shoulder She is scheduled to go on a 12-days cruise in [place] at the end of the month and would like to ensure that her medications are all up-to-date and she will have enough medications to last her throughout her trip States that her right shoulder is feeling a lot better with her surgery and with therapy and that she feels okay She denies any headaches or dizziness Denies any chest pains, no SOB No nausea/vomiting, no abdominal pain No change in bowel habits noted [facility] Medical History Arthritis Duodenal ulcer Awareness under anesthesia Diabetes mellitus Overactive bladder Obesity (BMI 30-39.9) Post-menopausal Overweight (BMI 25.0-29.9) Obstructive sleep apnea Anxiety History of renal cell cancer History of breast cancer Constipation Vitamin D deficiency Allergic rhinitis Osteoarthritis of right knee GERD without esophagitis Impaired fasting glucose Acquired hypothyroidism Pure hypercholesterolemia Benign essential hypertension Invasive ductal carcinoma of left breast Hypothyroid HTN (hypertension) Esophagitis Mixed irritable bowel syndrome Surgical History Hx of lymph node excision Hx of excision of mass Hx of nasal septoplasty History of bilateral knee replacement History of removal of skin mole History of thumb surgery (~04/26/15) History of lumpectomy of left breast (~03/2014) History of left breast biopsy (~01/2014) History of removal of cyst History of bunionectomy History of kidney surgery History of cataract surgery History of colon resection (~2001) History of partial nephrectomy (~2002) History of colonoscopy History of esophagogastroduodenoscopy (EGD) (~09/16/12) History of eye surgery (~09/2012) Family History Father History of gastric cancer History of lung cancer Mother History of heart disease Brother Family history of prostate cancer History of colon cancer History of lung cancer Daughter History of breast cancer Paternal Aunt History of breast cancer Maternal Uncle History of leukemia Maternal Aunt History of breast cancer Social History Housing: Condominium Are you a primary doggy daycare activities director to a significant other at home: No Do you presently have visiting nurse or other home services: No Alcohol intake: current Alcohol intake frequency: holidays/special occasions only Alcohol type: wine Patient Tobacco Use Status: Never used Tobacco e-Cigarette/Vaping Use: Never Used Second Hand Smoke Exposure: Yes service: No Current occupational status: retired Current occupation: rt handed Cognitive needs: No Hearing needs: No Vision needs: Yes (glasses) Questionnaire PHQ-9 Over the last 2 weeks, how often have you been bothered by any of the following problems? 1. Little interest or pleasure in doing things: not at all 2. Feeling down, depressed, or hopeless: not at all 3. Trouble falling or staying asleep, or sleeping too much: not at all 4. Feeling tired or having little energy: more than half the days 5. Poor appetite or overeating: not at all 6. Feeling bad about yourself - or that you are a failure or have let yourself or your family down: not at all 7. Trouble concentrating on things, such as reading the newspaper or watching television: not at all 8. Moving or speaking so slowly that other people could have noticed. Or the opposite - being so fidgety or restless that you have been moving around a lot more than usual: not at all 9. Thoughts that you would be better off or of hurting yourself in some way: not at all Total score: 2 Depression Screening Interpretation: Negative Depression Screening Done: Yes 70512 - PHQ-9 Billing: Yes Source: Developed by Drs. Uziel Morillo, Celina Matute, Pete Patterson and colleagues, with an educational sandra from [employer]. Thrive Questionnaire Date Thrive assessed: 10/18/24 I am a: Patient What is your living situation today?: I have a steady place to live Within the past 12 months, did the food you bought not last and you didn't have the money to get more?: Never true Within the past 12 months, did you worry whether your food would run out before you got money to buy more?: Never true Do you have trouble paying for medicines?: No Do you have trouble getting transportation to medical appointments?: No Do you have trouble paying your heating and electricity bill?: No Do you have trouble taking care of your child, family member or friend?: No Do you have trouble with day-to-day activities such as bathing, preparing meals, shopping, managing finances, etc.?: No Are you currently unemployed and looking for a job?: No Are you interested in more education?: No Please select the resources that you would like help with: None Currently or been in a relationship where the following occur: No concerns reported THRIVE Score: 0 AUDIT C Alcohol Use Questionnaire (AUDIT-C) 1. How often do you have a drink containing alcohol?: Never 3. How often do you have six or more drinks on one occasion?: Never Total Score: 0 Score Reviewed/Action Taken: Yes DELIA-7 AMB Questionnaire DELIA-7 Date DELIA - 7 assessed: 10/18/24 Feeling nervous, anxious, or on edge: 0 = Not at all Not being able to stop or control worryin = Not at all Worrying too much about different things: 0 = Not at all Trouble relaxin = Not at all Being so restless that it is hard to sit still: 0 = Not at all Becoming easily annoyed or irritable: 0 = Not at all Feeling afraid as if something awful might happen: 0 = Not at all Total DELIA-7 score (0-4 normal; 5-9 mild; 10-14 moderate; 15-21 severe): 0 Source: Developed by Drs. Uziel Morillo, Celina Matute, Pete Patterson and colleagues, with an educational sandra from [employer]. Review of Systems Const Denies chills, Denies difficulty sleeping, Denies fatigue, Denies fever(s) and Denies headache(s) ENT Denies dysphagia, Denies dizziness, Denies otalgia, Denies headache(s), Denies neck pain, Denies odynophagia and Denies sore throat Card Denies chest pain, Denies palpitations and Denies dyspnea Resp Denies chest congestion, Denies cough and Denies dyspnea GI Denies abdominal pain, Denies constipation, Denies dysphagia, Denies heartburn, Denies diarrhea, Denies nausea, Denies odynophagia and Denies vomiting Denies difficulty voiding, Reports nocturia (at least 3 times a night), Denies dysuria, Denies urinary incontinence and Denies urinary urgency Musc Reports back pain (over the lower back - on and off), Reports arthralgias (right shoulder - improving) and Denies neck pain Skin/Breast Denies rash Neuro Denies dizziness, Denies headache(s) and Reports restless legs Psych Reports anxiety Endo Denies fatigue and Denies palpitations Physical exam (Primary Care) Vital Signs: Last Vital Signs Pulse 66 10/18/24 09:26 BP 120/90 H 10/18/24 09:26 Pulse Ox 94 10/18/24 09:26 Oxygen Delivery Method Room Air 10/18/24 09:26 BMI result Body Mass Index 30.6 Tobacco/Smoking Status: Tobacco use Status Tobacco use date assessed 10/18/24 10/18/24 09:33 Patient Tobacco Use Status Never used Tobacco 10/18/24 09:33 e-Cigarette/Vaping Use Never Used 10/18/24 09:33 PHQ-9: PHQ-9 Score PHQ-9: Total score 2 10/18/24 09:33 Depression Screening Interpretation: Negative Thrive Assessment: Date of Thrive Assessment Date Thrive assessed 10/18/24 10/18/24 09:33 Currently or been in a relationship where the following occur: No concerns reported Const General: no acute distress and alert Neck Neck: Yes supple and No lymphadenopathy Thyroid: Thyroid normal Resp Auscultation: clear to auscultation bilaterally, no rales and no wheezes Cardio Rate: regular rate Rhythm: regular rhythm Heart sounds: no murmurs GI Palpation (GI): Soft to palpation and nontender Auscultation: normal bowel sounds General: Yes no CVA tenderness Back/Spine/Pelvis Back: no CVA tenderness Thoracic/Lumbar Spine: No lumbar spinal tenderness Skin Rashes: no rashes Extrem General: Yes no clubbing, cyanosis or edema Right upper extremity: shoulder/upper arm Details: tenderness (improving) Location: of the A-C joint; no swelling Coding Level of Care Code Est Pt Level 3 (04799) Diagnoses Pure hypercholesterolemia E78.00 Benign essential hypertension I10 Type 2 diabetes mellitus without complication, without long-term current use of insulin E11.9 Diabetes mellitus type: type 2 Diabetes mellitus director non profit insulin use: without director non profit use Diabetes mellitus complication status: without complication Palpitations R00.2 Acquired hypothyroidism E03.9 Obstructive sleep apnea G47.33 Memory impairment R41.3 GERD without esophagitis K21.9 Primary osteoarthritis of right knee M17.11 Osteoarthritis type: primary Impingement of right shoulder M25.811 Restless legs syndrome (RLS) G25.81 Allergic rhinitis, unspecified seasonality, unspecified trigger J30.9 Allergic rhinitis trigger: unspecified Allergic rhinitis seasonality: unspecified Vitamin D deficiency E55.9 Constipation, unspecified constipation type K59.00 Constipation type: unspecified constipation type Overactive bladder N32.81 History of breast cancer Z85.3 History of renal cell cancer Z85.528 Anxiety F41.9 Obesity (BMI 30-39.9) E66.9 Additional Codes PHQ-9 - 11845 - PHQ-9 Billing: Yes ([id number]) Assessment & Plan Assessment & Plan (1) Pure hypercholesterolemia: Code(s): E78.00 - Pure hypercholesterolemia, unspecified Category: Medical Plan: Reinforced low cholesterol diet Continue Rosuvastatin 5 mg QD Will recheck her labs and fasting lipids for follow-up as scheduled next month (2) Benign essential hypertension: Code(s): I10 - Essential (primary) hypertension Category: Medical Plan: Reinforced low sodium diet - goal is systolic BP of at least 130 to 140 mm or less Continue Losartan 50 mg QD (3) Diabetes mellitus: Comment: pt. states pre-diabetes -no Rx Code(s): E11.9 - Type 2 diabetes mellitus without complications Category: Medical Qualifiers: Diabetes mellitus type: type 2 Diabetes mellitus director non profit insulin use: without director non profit use Diabetes mellitus complication status: without complication Qualified Code(s): E11.9 - Type 2 diabetes mellitus without complications Plan: Her HgbA1c to 6.6% when last checked a few months ago - goal is at least <7.0% but ideally <6.5% Reinforced diabetic diet / exercise as tolerated She could not tolerate Januvia (joint pains) and is currently still NOT on any Rx for diabetes Will recheck her FBS and HgbA1c as scheduled next month for follow up (4) Palpitations: Code(s): R00.2 - Palpitations Category: Medical Plan: States that these only occur very occasionally nowadays and mostly at night when she is sitting down watching television; episodes usually last only a few seconds at most, and that their duration is too short to even be associated with any pertinent symptoms Have offered to refer her for additional testing and work ups in the past but patient declined - states that they are not occurring often or lasting long enough to really bother her and she will call for referrals/orders if she changes her mind or if they start occurring more often (5) Acquired hypothyroidism: Code(s): E03.9 - Hypothyroidism, unspecified Category: Medical Plan: Continue Levothyroxine 50 mcg QD Will continue to monitor her TFTs regularly (6) Obstructive sleep apnea: Comment: no CPAP-used in past-has not used since ~ [id number] Sleep Med. appt was in 2022 Code(s): G47.33 - Obstructive sleep apnea (adult) (pediatric) Category: Medical Plan: She was using her CPAP device at 5 - 15 cm pressure when sleeping at night previously but states that she decided to stop using it a few months ago and states that she actually started feeling better without her device, with all of her previous symptoms of headaches, nasal congestion and sore throat completely clearing up once she stopped using her device States that she has been sleeping much better without her CPAP device and does not wish to go back on it Follow up with Sleep Medicine as scheduled or as needed (7) Memory impairment: Code(s): R41.3 - Other amnesia Category: Medical Plan: Patient was previously referred to neurology for further evaluation and management at one of her previous appointments but she has not heard back from neurology so far (8) GERD without esophagitis: Code(s): K21.9 - Gastro-esophageal reflux disease without esophagitis Category: Medical Plan: Dietary restrictions reinforced Continue Nexium 40 mg QD; she also takes Tums 500 mg 4 times a day when needed (9) Osteoarthritis of right knee: Comment: S/P arthroplasty of the right knee in November 2019 Code(s): M17.11 - Unilateral primary osteoarthritis, right knee Category: Medical Qualifiers: Osteoarthritis type: primary Qualified Code(s): M17.11 - Unilateral primary osteoarthritis, right knee Plan: Continue Gabapentin 100 mg 2 times a day in the morning and afternoon and 2 capsules at bedtime, Celebrex 200 mg once a day and Tylenol Arthritis 650 mg 3 times a day as needed She also takes CBD (OTC Cannabidiol) as needed for increased knee pain (10) Impingement of right shoulder: Code(s): M25.811 - Other specified joint disorders, right shoulder Category: Medical Plan: (+) OA, RTC tendinitis and impingement syndrome of the right shoulder She underwent arthroscopic surgery/release of the right shoulder with Dr. Valenzuela a couple of months ago with (+) significant improvement of her shoulder pain She is currently still going to physical therapy for her shoulder (11) Restless legs syndrome (RLS): Code(s): G25.81 - Restless legs syndrome Category: Medical Plan: She was started on Ropinirole 0.5 mg QHS in the past but patient had to stop taking this as she felt that the Rx made her headaches worse States that her leg symptoms have been better controlled lately and she does not require anything else at this time (12) Allergic rhinitis: Code(s): J30.9 - Allergic rhinitis, unspecified Category: Medical Qualifiers: Allergic rhinitis trigger: unspecified Allergic rhinitis seasonality: unspecified Qualified Code(s): J30.9 - Allergic rhinitis, unspecified Plan: Continue Cetirizine 10 mg QD PRN and Montelukast 10 mg QD Continue Azelastine nasal spray BID PRN Patient feels that her symptoms have improved a lot since she stopped using her CPAP device a few months ago (13) Vitamin D deficiency: Code(s): E55.9 - Vitamin D deficiency, unspecified Category: Medical Plan: Will recheck her Vitamin D level next month for follow up (14) Constipation: Code(s): K59.00 - Constipation, unspecified Category: Medical Qualifiers: Constipation type: unspecified constipation type Qualified Code(s): K59.00 - Constipation, unspecified Plan: She is again encouraged on increased oral fluids and dietary fiber Continue MiraLax 17 gm QD (15) Overactive bladder: Code(s): N32.81 - Overactive bladder Category: Medical Plan: This is most likely the reason for her nocturia and increased fatigue She was started on a trial of Myrbetriq 25 mg Q HS but she could not tolerate the Rx She was advised that she should probably see urology for further evaluation and management of her urinary symptoms - patient states that she will call for referral when she feels she is ready to see urology but would like to hold off on referral for now (16) History of breast cancer: Comment: S/P Tamoxifen x 5 years Code(s): Z85.3 - Personal history of malignant neoplasm of breast Category: Medical Plan: Follow up with Oncology as scheduled for continuing surveillance (17) History of renal cell cancer: Comment: S/P partial left nephrectomy-has not followed w/Nephrology since ~ 2021 Code(s): Z85.528 - Personal history of other malignant neoplasm of kidney Category: Medical Plan: Follow up with Oncology and Nephrology as scheduled for continuing surveillance (18) Anxiety: Code(s): F41.9 - Anxiety disorder, unspecified Category: Medical Plan: Continue Citalopram 10 mg QD (19) Obesity (BMI 30-39.9): Code(s): E66.9 - Obesity, unspecified Category: Medical Plan: Reinforced diet/exercise as tolerated/lose weight Plan Follow up in 4 months
--- OUTSIDE RECORDS SUMMARY | 2024-10-18 09:55 | XMS_ITS | Continuity of Care Document ---
Author Name [facility] Organization [facility] Care Team Providers Care Edge Roller Name Role Phone [facility] Unavailable Unavailable Medications Combined list of outpatient [...] APOTEX KAY, 30 ml SQUEEZ BTL Active [id number] 2023 90 Pharmac y Data Transac tion Service Facilit y CLOBETASOL PROPIONATE (clobetasol propionate) , 0.05 %, SOLUTION, TOPICAL, [employer] 50 ml BOTTLE Active [id number] 4 2023 150 Pharmac y Data Transac tion Service Facilit y CLOBETASOL PROPIONATE (clobetasol propionate) , 0.05 %, SOLUTION, TOPICAL, [employer],, 50 ml BOTTLE Cancele d [id number] : 2023 0 Pharmac y Data Transac tion Service Facilit y CLOBETASOL PROPIONATE (clobetasol propionate) , 0.05 %, SOLUTION, TOPICAL, [employer],, 50 ml BOTTLE Active [id number] 2023 50 Pharmac y Data Transac tion Service Facilit y Immunizations Combined list of available immunizations from the Department of Defense and Veterans Affairs facilities. Immunization Series Date Given Administered By Site Reaction Lot Number CVX Code Drug Data Security Administrator Status Comments Source influenza, high-dose, quadrivalent 2020 DICK, () Not Given influenza , high-dose , quadrival ent [facility] influenza, high-dose, quadrivalent 2019 BOGDARIFAZAL, () Not Given influenza , high-dose , quadrival ent [facility] influenza, trivalent, adjuvanted 2018 BOGDASARIAN, () Not Given influenza , trivalent , adjuvante d DoD zoster recombinant 2017 BOGDASARIAN, () Not Given zoster recombina nt DoD Influenza, high dose seasonal 2014 WOOD, () Not Given Influenza , high dose seasonal DoD influenza virus vaccine, split virus (incl. purified surface antigen)-reti red CODE 1 2004 Unknown, Provider [id number] Sanofi Pasteur ([facility]) complet ed influenza virus vaccine, split virus (incl. purified surface antigen)- retired CODE DoD Social History Combined list of available smoking, tobacco, and other social history from Department of Defense and Veterans Affairs facilities. Social History Type Response Date Comment Sourc e This section is an empty social history section. DoD
--- OUTSIDE RECORDS SUMMARY | 2024-10-18 09:56 | XMS_ITS | Clinical Summary ---
Author Organization [facility] Address [address] [place] [address] Care Team Providers Care Benefits Administrator Name Role Phone Calvin Maldonado MD Primary Care Provider +1- [phone] Allergies Active Allergy Reactions Criticality Noted Date [...] 2 sprays inside Nose daily. 0 Active [place]-3 Fatty Acids (FISH OIL PO) Take 1,400 [...] Respiratory Therapy Supplies (CareTouch 2 CPAP Hose Photogrammetric Tech) MISC by Does not apply route. 0 [...] 1-dose 75+ series) 2021 Influenza Vaccine (#1) 2024 11/19/2021 Hepatitis B Vaccines Aged Out No long er eligible based on patient's age to complete this topic RSV Ped < 20 months Aged Out No longe r eligible based on patient's age to complete this topic Care Teams Benefits Administrator Relationship Specialty Start Date End Date Calvin Maldonado MD [address] [place] [address] [place] [address] PCP - General Internal Medicine 12/01/16
--- OUTSIDE RECORDS SUMMARY | 2024-10-18 09:57 | XMS_ITS | Data Portability ---
Author Organization [place] [facility] Address [address] [address] Care Team Providers Care Shareholder Name Role Phone DUKE RODRIGUEZ Primary Care [...] tonsille ctomy 2023 024 pgustavson [facility], [address], [place], [address], 09/29/2023 10:29:32 Medication Orders None recorded . Patient TargetsNo targets recorded. Patient InstructionsNo instructions recorded. Reason for Referral None Reported. Results Created Date Observation Date Name Description Value Unit Range Abnormal Flag Note LastModifiedBy Organization Detail LastModifiedTime 08/27/19 24 08/28/2023 BUN BUN 17 mg/dL 8-27 Not Available [facility] ([facility]) [address] [facility], [place], [address], 08/28/2023 03:11:17 08/27/19 24 08/28/2023 CREAT ININE creatinine 0.78 mg/dL 0.57-1 .00 Not Available [facility] ([facility]) [address] [facility], [place], [address], 08/28/2023 03:11:18 08/27/19 24 08/28/2023 CREAT ININE eGFR 78 mL/mi n/1.7 3 >59 Not Available [facility] ([facility]) [address] [place], [address], 08/28/2023 03:11:18 10/20/19 24 10/20/2023 CT, neck, soft tissu e, w/ contr ast No observ ation record ed. [email or web address] [facility] [address], [place], [address], 10/21/2023 11:12:59 11/25/1906/09/2018 imagi ng/di agnos tic [...] Sensorine ural hearing loss of bilateral ears 204133405 Active 2018 Sensorine ural hearing loss, bilateral ; Note: Date Diagnosed : 06/09/2018 10:58 AM (H90.3) Not Available [facility] 4 02:14:21 Hypertrop hy of nasal turbinate s 56100202 Active 2013 Nasal turbinate hypertrop hy; Location: bilateral CMS Risk: low risk Not Available [facility] 4 02:14:55 Allergic rhinitis 81277010 Active 2021 Allergic rhinitis, unspecifi ed; Note: Date Diagnosed : 08/05/2021 1:48 PM (J30.9) Not Available [facility] 4 02:14:58 Postopera tive follow-up visit Active 2013 Post op; Note: Date Diagnosed : 4 10:45 AM (V67.00) Not Available [facility] 4 02:13:52 Impacted cerumen in right ear 18609442443 63982 Active 2021 Impacted cerumen, right ear; Note: Date Diagnosed : 08/05/2021 1:48 PM (H61.21) Not Available [facility] 4 02:12:53 Cough 52938305 Active 2021 Cough, unspecifi ed; Note: Changed from R05 to R05.9 (08/06/2021 1:29 PM) , Date Diagnosed : 08/05/2021 1:48 PM (R05) Not Available [facility] 4 02:15:09 Bilateral disorder of Eustachia n tubes 76749033499 28612 Active 2018 Other specified disorders of Eustachia n tube, bilateral ; Note: Date Diagnosed : 06/09/2018 12:44 PM (H69.83) Not Available [facility] 4 02:13:38 Gastroeso phageal reflux disease without esophagit is 319866177 Active 2021 Gastro-es ophageal reflux disease without esophagit is; Note: Date Diagnosed : 08/05/2021 1:48 PM (K21.9) Not Available [facility] 4 02:13:28 Deviated nasal septum 638078903 Active 2013 Nasal septal deviation ; CMS Risk: moderate risk Note : Date Diagnosed : 4 11:41 AM (470) Not Available [facility] 4 02:14:51 Chronic rhinitis 88995549 Active 2013 Rhinitis, chronic; CMS Risk: moderate risk Note : Date Diagnosed : 4 11:41 AM (472.0) Not Available [facility] 4 02:14:55 Chronic sore throat 618474259 Active 2023 LOWELL SANTILLAN PA-C [address] [facility],[place] [address], [place], [address] , [facility] - [facility] 4 15:10:01 Otalgia of right ear 9466091651 Active 2023 LOWELL SANTILLAN PA-C [address] [facility] [address], [place], [address] , [facility] - [facility] 4 15:10:59 Impacted cerumen of bilateral ears 16458189966 88331 Active 2023 Impacted cerumen, bilateral ; Note: Date Diagnosed : 06/22/2023 4:28 PM (H61.23) Not Available [facility] 4 02:13:05 Problem Notes None recorded. Procedures Surgical History Date Name Laterality Status Provider Name and Address Organization Details Recorded Time 5 Cerumen removal without microscope bilat completed LOWELL SANTILLAN PA-C [address] [place] [address], [address], [place] - [facility] 06/06/2024 11:30:34 Imaging Results None recorded. Procedure Notes None recorded. Medical Equipment None Reported. Allergies Allergen ID Allergen Name Allergen Category Reaction Reaction Severity Criticality Documentation Date Start Date Code Code System Note Provider Name and Address Organization Details Recorded Time 92915 adhesive tape environme nt,medica tion other Not available Not available 08/18/2023 31302 UNK React ion: unkno wn, unspe cifie d;; Not Available [facility] 4 00:49:11 31772 Substance with sulfonami de structure and antibacte rial mechanism of action (substanc e) medicatio n other Not available Not available 08/18/2023 34512 8003 SNOMED React ion: unkno wn, unspe cifie d;; Not Available [facility] 4 00:50:15 Medications Name Sig Start Date [...] by mouth 2013 active Medicatio n ID: [id number] Dur ation Value: 7 Prescrib ed By [...] topical cream 2019 active Medicatio n ID: [id number] Du ration Value: 7 Brand Name: alclometa [...] topical cream 2019 active Medicatio n ID: [id number] Du ration Value: 14 Brand Name: betametha sone dipropion ate Send Method: E-Prescri bed Subs Allowed: subs OK Specia l Instructi on: APPLY TO RASH ON THE NECK BID FOR 1 TO 2 WEEKS Med icationGe nericName : betametha sone dipropion ate Not Available Not Available Not Available omeprazole 20 mg capsule,de layed release 2018 active Medicatio n ID: [id number] Du ration Value: 90 Brand Name: omeprazol [...] mg tablet 2019 active Medicatio n ID: [id number] Br and Name: biotin Se nd Method: [...] mg capsule 2019 active Medicatio n ID: [id number] Br and Name: Azo Bladder Control S end Method: E-Prescri bed Subs Allowed: subs OK Medica tionGener icName: Azo Bladder Control Not Available Not Available Not Available Vitals Date Recorded Body height Body mass index (BMI) Body weight Provider Name and Address Organization Details Last Updated DateTime 06/06/2024 157.48 cm 27.8 kg/m2 16662.04 g Mone Boland [place] - [facility] 06/06/2024 11:07:34 Date Recorded Body height Provider Name an d Address Organization Details Last Updated DateTime 08/27/2023 157.48 cm Eduardo Chuy [place] - [facility] 08/27/2023 14:33:20 Date Recorded Body height Body mass index (BMI) Body weight Provider Name and Address Organization Details Last Updated DateTime 11/06/2023 157.48 cm 27.8 kg/m2 64505.04 g Artemio Blum [place] - [facility] 11/06/2023 10:17:29 Social History None recorded. [...] Note 1338 LOWELL SANTILLAN PA-C [facility] [address] [address] 08/27/2023 13:39:36 08/27/2023 14:44:09 Chronic sore throat 490757331 R07.0 Otalgia of right ear 045 0551249 H92.01 89404 LOWELL SANTILLAN PA-C [facility] [address] [address] 11/06/2023 09:48:18 11/06/2023 10:32:19 Chronic sore throat 488588338 R07.0 Otalgia of right ear 385 2899971 H92.01 05662 LOWELL SANTILLAN PA-C [facility] [address] [address] 06/06/2024 10:57:50 06/06/2024 12:10:45 Impacted cerumen of bilateral ears 4094998313 314142 H61.23 Health Concerns Section Related Observation LastModified by Organization Detai ls LastModified Time None Recorded Concern Status LastModified by Organization Details LastModified Time None Recorded Advance Directives Directive None Recorded Payers Insurance Date Sequence Insurance Name Policy Number Policy Young Covered Member ID Young Member ID Guarantor Name 06/06/2024 2 FOR LIFE () Uziel Kramer [id number] Lisa Lisa 06/06/2024 1 MEDICARE B-HI: [facility] [employer] SERVICES Татьяна Kramer [id number] Lisa Lisa Notes Date Note Type Note [...] breast and renal cancer. JASE DALEY MD [address] [place] [address], [address], [facility] - [facility] 08/27/2023 16:00:26 11/06/2023 text/html 78-year-old princess edwards [...] breast and renal cancer. LELE CUEVAS MD [address] [place] [address],[address], [address], [facility] - [facility] 11/06/2023 10:38:11 06/06/2024 text/html 79-year-old princess edwards presents for cerumen removal. No concerns today. LELE CUEVAS MD [address] [place] [address],[address], [address], [facility] - [facility] 06/06/2024 17:09:07 OBGyn Episode No OBEpisode recorded.
--- OUTSIDE RECORDS SUMMARY | 2024-10-18 09:57 | XMS_ITS | Patient Health Record ---
Author Organization [facility] Address [address] [place] [address] Care Team Providers Care Concert Promoter Name Role Phone Calvin Maldonado MD Primary Care Provider UnaMelia Simon Unavailable [phone] Allergies Allergen (clinical drug ingredient) Drug/Non Drug [...] Status Risk Notes Problem Colon cancer screening (031892271) Colon cancer screening (Z12.11) Active confirmed Problem Irritable bowel syndrome (88470184) Irritable bowel syndrome (K58.9) Active confirmed Problem History of adenomatous polyp of colon (186963956) History of adenomatous polyp of colon (Z86.010) Active confirmed Problem Gastroesophageal reflux disease (533125051) GERD (gastroesophageal reflux disease) (K21.9) Active confirmed Problem Diverticulosis o f colon (K57.30) Active confirmed Plan Of Treatment Pending Test Test Name Order Date Pathology 01/01/2022 Future Test Test Name Order Date COLONOSCOPY 11/19/2021 Insurance Providers Payer Name Payer Address Payer Phone Subscriber Number Group Number Insured Name Patient Relationship to Insured Coverage Start Date Coverage End Date MEDICARE OF [place] [address] [place] [address] [id number] ROSE MENARD Self - patient is the insured [employer] [address] [place] [address] [id number] ROSE MENARD Self - patient is the insured Medical (General) History Medical History History ICD Code HTN Breast cancer in 2014 with lumpectomy an d XRT Left Kidney cancer as below Denies [place],DM,CVA,Lung disease,renal dise ase GERD-EGD in 2012 with [...]
== END 2024-10-18 13:29 | disposition home or self-care (01) ==
LOC: HO.HMCH 09:25
PROVIDERS: PCP Internal Medicine; Visit Provider Internal Medicine
DX: E78.00 Pure hypercholesterolemia, unspecified (principal); E11.9 Type 2 diabetes mellitus without complications; E66.9 Obesity, unspecified; Z68.30 Body mass index [BMI] 30.0-30.9, adult; I10 Essential (primary) hypertension; R00.2 Palpitations; E03.9 Hypothyroidism, unspecified; G47.33 Obstructive sleep apnea (adult) (pediatric); R41.3 Other amnesia; K21.9 Gastro-esophageal reflux disease without esophagitis; M17.11 Unilateral primary osteoarthritis, right knee; M25.811 Other specified joint disorders, right shoulder

== ENCOUNTER → 2024-10-18 09:24 | Outpatient (BNVA) | payer MEDICARE, OTHER, SELFPAY | PROVIDERS: PCP Internal Medicine; Visit Provider Internal Medicine | DX: E78.00 Pure hypercholesterolemia, unspecified (principal); I10 Essential (primary) hypertension; E11.9 Type 2 diabetes mellitus without complications; R00.2 Palpitations; E03.9 Hypothyroidism, unspecified; G47.33 Obstructive sleep apnea (adult) (pediatric); R41.3 Other amnesia; K21.9 Gastro-esophageal reflux disease without esophagitis; M17.11 Unilateral primary osteoarthritis, right knee; M25.811 Other specified joint disorders, right shoulder; G25.81 Restless legs syndrome; J30.9 Allergic rhinitis, unspecified; E55.9 Vitamin D deficiency, unspecified; K59.00 Constipation, unspecified; N32.81 Overactive bladder; Z85.3 Personal history of malignant neoplasm of breast; Z85.528 Personal history of other malignant neoplasm of kidney; F41.9 Anxiety disorder, unspecified; E66.9 Obesity, unspecified; Z68.30 Body mass index [BMI] 30.0-30.9, adult; Z71.3 Dietary counseling and surveillance | CPT/HCPCS: 96127; 99212 ==

== ENCOUNTER 2024-10-24 10:00 | Outpatient (RCR) | payer MEDICARE, OTHER, SELFPAY ==
--- NOTE | 2024-10-11 09:31 | MHC.PT.EP ---
[facility] [place] Office [place] Office [place] Office [address] [place] [address] [phone] F: [phone] F: [phone] F: [phone] F: [phone] Physical Therapy Plan of Care Date of Evaluation: 10/11/24 Date of Surgery: 08/26/24 Diagnosis: This is a 79 yo female presenting to skilled PT with a script for impingement of R shoulder (notes reveal R shoulder 08/26/24) Assessment: This is a 79 yo female presenting to skilled PT with a script for impingement of R shoulder (notes reveal R shoulder 08/26/24). Татьяна is a 79 year old right hand dominant female who presents with complaints of progressively worsening right shoulder pain and weakness. The patient states that her symptoms have gotten worse over the last year in spite of continued non operative treatments. She has failed the last 3 months of conservative treatment which has included physical therapy exercises, a home exercise program, Tylenol, anti-inflammatory medicines and topical creams. She reports weakness when lifting her right hand above shoulder height. She was scheduled for surgery for right shoulder distal clavicle excision, acromioplasty, capsular release and manipulation under anesthesia with Dr. Valenzuela 08/26/24. Delayed start to PT was due to patient illness. She is here today reporting ongoing pain from the shoulder down to the hand, achy in nature. Pain increases reaching up and lowering arm. Denies issues with driving, housework and getting dressed. She is unsure if the surgery helped her pain. She reports that has not had PT for this prior surgery or after yet. Assessment reveals pain that ranges from up to a 5/10 at the worst. Patient demos decreased B (R>L) shoulder and cervical ROM, strength of B shoulder's (R>L), TTP at GHJ joint line, UT and impaired posture with forward head and rounded shoulders. Based on functional limitations, impaired QOL and pain tolerance patient is a good candidate for skilled PT 2x/wk for 4wks. Frequency and Duration: The patient will be seen 2x/wk for 4wks Short Term Goals: (In 2 weeks) Demo I with HEP Improve shoulder AROM by at least 10 degs Demo proper scapular recruitment with appropriate shoulder strengthening exercises Retirement Goals: (in 4 wks) Improve shoulder nonpainful AROM to almost near equal B Demo at least 1 grade improvement in MMT for shoulder Improve SPADI by at least 10 points Improve overall functional QOL by at least 50% Treatment Plan: Modalities to reduce pain, spasms and effusion. Manual therapy to restore motion and function. Therapeutic exercise to improve strength and flexibility. Neuromuscular re-education for posture and balance. Therapeutic activities to return to functional activities of daily living. Electronically signed by: Leandra Mcmahon PT Please sign and return to therapist. Thank you for your referral.
--- NOTE | 2024-11-10 09:35 | MHC.PT.DC ---
[facility] [place] Office [place] Office [place] Office [address] Jan Bragg [address] [phone] F: [phone] F: [phone] F: [phone] F: [phone] Physical Therapy Discharge Report Diagnosis: This is a 79 yo female presenting to skilled PT with a script for impingement of R shoulder (notes reveal R shoulder 08/26/24) Date of Surgery: 08/26/24 Date of Evaluation: 10/11/24 Date of Discharge: 11/10/24 Treatments to Date: 4 Cancellations to Date: 0 No Shows to Date: 0 Discharge Status: Improved Function Independent with HEP Patient Elected to Stop Discharge Summary: Patient came to 4 sessions of PT, per last treatment note 10/24: Pt moves very quickly through her program, educated to slow down for form but tends to continued to move a quick pace and resort back to poor form. Overall, she is doing well, did not have pain and improving function at home. She did call after this appointment and requested to be DC'd as she is leaving for a trip. DC to HEP. Electronically signed by: Leandra Mcmahon PT Please sign and return to therapist. Thank you for your referral.
== END 2024-11-10 09:36 | disposition home or self-care (01) ==
LOC: HO.PTCHIC 10:00
PROVIDERS: PCP Internal Medicine; Visit Provider Physician Assistant
DX: M25.811 Other specified joint disorders, right shoulder (principal)
CPT/HCPCS: 97110; 97162; 97530

== ENCOUNTER 2024-11-17 08:33 | Outpatient (REF) | payer MEDICARE, OTHER, SELFPAY ==
--- OUTSIDE RECORDS SUMMARY | 2024-11-17 08:47 | XMS_ITS | Continuity of Care Document ---
Author Name [facility] Organization [facility] Care Team Providers Care Assault Amphibious Vehicle Officer Name Role Phone [facility] Unavailable Unavailable Medications Combined list of outpatient medications from Department of Defense and Veterans Affairs facilities.Medications provided include 1) outpatient medications from the last 15 months, and 2) patient-reported medications. Medication Details Route Status Patient Instructions Prescription Expires Prescription Number Last Dispense Date Ordering Provider Order Date Order Qty Source CLOBETASOL PROPIONATE (clobetasol propionate) , 0.05 %, SOLUTION, TOPICAL, [employer] 50 ml BOTTLE Active [id number] 2023 150 Pharmac y Data Transac tion Service Facilit y Immunizations Combined list of available immunizations from the Department of Defense and Veterans Affairs facilities. Immunization Series Date Given Administered By Site Reaction Lot Number CVX Code Drug Rn Ostomy Status Comments Source influenza, high-dose, quadrivalent 2020 DICK, () Not Given influenza , high-dose , quadrival ent [facility] influenza, high-dose, quadrivalent 2019 BOGDASARIAN, () Not Given influenza , high-dose , quadrival ent [facility] influenza, trivalent, adjuvanted 2018 BOGDASARIAN, () Not Given influenza , trivalent , adjuvante d [facility] zoster recombinant 2017 BOGDASARIAN, () Not Given zoster recombina nt [facility] Influenza, high dose seasonal 2014 WOOD, () Not Given Influenza , high dose seasonal [facility] influenza virus vaccine, split virus (incl. purified surface antigen)-reti red CODE 1 2004 Unknown, Provider [id number] 15 Sanofi Pasteur (PMC) complet ed influenza virus vaccine, split virus (incl. purified surface antigen)- retired CODE [facility] Social History Combined list of available smoking, tobacco, and other social history from Department of Defense and Veterans Affairs facilities. Social History Type Response Date Comment Sourc e This section is an empty social history section. [facility]
--- OUTSIDE RECORDS SUMMARY | 2024-11-17 08:49 | XMS_ITS | Clinical Summary ---
Author Organization [facility] Address [address] [place] [address] Phone Care Team Providers Care Photography Manager Name Role Phone Calvin Maldonado MD Primary Care Provider Surgical History Surgery Date Site/Laterality Comments BREAST LUMPECTOMY PROCEDURE:BREAST LUMPECTOMY Medical History Medical History Date Comments Breast cancer ([facility] V24, [facility] V28) DX:Breast cancer (HCC) IBS [...] Office Visit [facility] Hematology Oncology [address] [place] [address] Rema Carlos, DO [address] [place] [address] Health Maintenance Due Date Last Done Comments COVID-19 Vaccine (#1) 1951 DTaP,Tdap,and Td Vaccines (1 - Tdap) 1965 Pneumococcal Vaccine: 50+ Years (1 of 2 - PCV) 1965 Zoster Vaccines (1 of 2) 1965 RSV Immunization Adult Patients (1 - 1-dose 75+ series) 2021 Cholesterol Screening (Lipid Panel) 03/13/2022 Falls Risk Assessment 03/13/2022 Hepatitis C Screening 03/13/2022 Medicare Annual Wellness Visit 03/13/2022 Osteoporosis Screening (Bone Density Screening) 03/13/2022 Social Influencers of Health Screening 03/13/2022 Depression Screening 04/06/2024 Influenza Vaccine (#1) 2024 8, 12/19/2016, 04/15/2004 HIB Vaccines Aged Out No [...] to complete this topic Insurance MEDICARE [facility] Care Teams Photography Manager Relationship Specialty Start Date End Date Calvin Maldonado MD [address] [place] [address] Dr [address] CHINYERE Ramsay PCP - General Internal Medicine 12/22/19
--- OUTSIDE RECORDS SUMMARY | 2024-11-17 08:49 | XMS_ITS | Clinical Summary ---
Author Organization [facility] Address [address] [place] [address] Care Team Providers Care Log Hauler Name Role Phone Calvin Maldonado MD Primary Care Provider +1- [phone] Allergies Active Allergy Reactions Criticality Noted Date [...] 2 sprays inside Nose daily. 0 Active [place]-3 Fatty Acids (FISH OIL PO) Take 1,400 [...] Respiratory Therapy Supplies (CareTouch 2 CPAP Hose Senior Computer Specialist) MISC by Does not apply route. 0 [...] age to complete this topic Care Teams Log Hauler Relationship Specialty Start Date End Date Calvin Maldonado MD [address] [place] [address] [place] [address] PCP - General Internal Medicine 12/01/16
--- OUTSIDE RECORDS SUMMARY | 2024-11-17 08:49 | XMS_ITS | Patient Health Record ---
Author Organization [facility] Address [address] [place] [address] Care Team Providers Care Instructional Services Librarian Name Role Phone Calvin Maldonado MD Primary Care Provider UnaMelia Simon Unavailable [phone] Allergies Allergen (clinical drug ingredient) Drug/Non Drug [...] Status Risk Notes Problem Colon cancer screening (865038212) Colon cancer screening (Z12.11) Active confirmed Problem Irritable bowel syndrome (00315170) Irritable bowel syndrome (K58.9) Active confirmed Problem History of adenomatous polyp of colon (462133129) History of adenomatous polyp of colon (Z86.010) Active confirmed Problem Gastroesophageal reflux disease (941851426) GERD (gastroesophageal reflux disease) (K21.9) Active confirmed Problem Diverticulosis of colon (272582695) Diverticulosis of colon (K57.30) Active confirmed Plan Of Treatment Pending Test Test Name Order Date Pathology 01/01/2022 Future Test Test Name Order Date COLONOSCOPY 11/19/2021 Insurance Providers Payer Name Payer Address Payer Phone Subscriber Number Group Number Insured Name Patient Relationship to Insured Coverage Start Date Coverage End Date MEDICARE OF [place] [address] [place] [address] [id number] ROSE MENARD Self - patient is the insured [employer] [address] [place] [address] [id number] ROSE MENARD Self - patient is the insured Medical (General) History Medical History History ICD Code HTN Breast cancer in 2014 with lumpectomy an d XRT Left Kidney cancer as below Denies [place],DM,CVA,Lung disease,renal dise ase GERD-EGD in 2012 with [...]
[2024-11-17 10:05] LABS: MANUAL DIFF FLAG NO
[2024-11-17 10:09] LABS: Hematocrit 40.9 % (37.0-47.0); Hemoglobin 14.3 g/dl (12.0-16.0); Imm Gran Abs Auto 0.04 X10*3/uL (0.00-0.03); Imm Gran Pct Auto 0.5 % (0.0-0.4); Lymphocytes Absolute Auto 3.2 X10*3/uL (1.2-4.9); Mean Corpuscular HGB Conc 35.0 g/dl (31.0-35.0); Mean Corpuscular Hemoglobin 33.3 pg (27.0-33.0); Mean Corpuscular Volume 95.3 fL (80.0-98.0); NRBC Abs Auto 0.000 X10*3/uL (0.0-0.012); NRBC Pct Auto 0.0 /100WBC (0.0-0.2); Platelet Count 306 X10*3/uL (160-400); Red Blood Count 4.29 X10*6/uL (4.20-5.50); White Blood Count 8.0 X10*3/uL (4.8-10.8)
[2024-11-17 10:20] LABS: Appearance Urine Clear; Glucose Urine UA Negative (Negative); PH 6.0 (5.0-9.0); Specific Gravity - Urine 1.010 (1.005-1.025)
[2024-11-17 10:31] LABS: Hemoglobin A1C 232.0116 umol/L; Total Hemoglobin (HGBA1C) 3758.6942 umol/L
[2024-11-17 10:34] LABS: Alanine Aminotransferase 29 U/L (0-31); Albumin Level 4.3 g/dL (3.5-5.0); Alkaline Phosphatase 104 U/L (39-117); Anion Gap 12 (12-20); Aspartate Amino Transferase 22 U/L (5-31); Blood Urea Nitrogen 11 mg/dL (9-16); Calcium 9.2 mg/dL (8.4-10.2); Carbon Dioxide 27 mmol/L (22-29); Chloride 105 mmol/L (96-108); Cholesterol 226 mg/dL (<200); Estimated Glomerular Filt Rate > 60; HDL Cholesterol 45 mg/dL (>40); Potassium 4.2 mmol/L (3.3-5.1); Sodium 140 mmol/L (135-145); Total Protein 6.8 g/dL (6.5-8.0); Triglycerides 137 mg/dL (<150)
[2024-11-17 10:50] LABS: Free T4 (Free Thyroxine) 0.96 ng/dL (0.71-1.85); Thyroid Stimulating Hormone 3.01 uIU/mL (0.32-4.0)
== END 2024-11-17 08:34 | disposition home or self-care (01) ==
LOC: HO.HMGCLDS 08:33
PROVIDERS: PCP Internal Medicine; Visit Provider Internal Medicine
DX: E11.9 Type 2 diabetes mellitus without complications (principal); D64.9 Anemia, unspecified; E78.00 Pure hypercholesterolemia, unspecified; E03.9 Hypothyroidism, unspecified; E55.9 Vitamin D deficiency, unspecified; R30.0 Dysuria
CPT/HCPCS: 36415; 80053; 80061; 81003; 82043; 82306; 82570; 83036; 84439; 84443; 85025

== ENCOUNTER 2024-11-22 09:40 | Outpatient (AMB) | payer MEDICARE, OTHER, SELFPAY ==
[2024-11-22 10:00] VITALS: BP 122/78; PULSE 67; O2SAT 97; BMI 31.1
--- NOTE | 2024-11-22 10:00 | MHC.PC.OV ---
Vital Signs 11/22/24 10:00 Height 4 ft 10.5 in Weight 151 lb 8 oz BMI 31.1 BP 122/78 Pulse 67 Pulse Source Pulse Oximeter Pulse Oximetry (%) 97 Oxygen Delivery Method Room Air Intake Visit Reasons: 4 month f/u - see comments Campaign Associate Required: No Accompanied by: Self / Same As Patient Allergies adhesive tape Allergy (Intermediate, Verified 11/22/24 10:30) BLISTERS albuterol (From PROAIR HFA) Allergy (Intermediate, Verified 11/22/24 10:30) TREMOR oxybutynin Allergy (Intermediate, Verified 11/22/24 10:30) shortness of breath Sulfa (Sulfonamide Antibiotics) (SULFA (SULFONAMIDE ANTIBIOTICS)) Allergy (Intermediate, Verified 11/22/24 10:30) itching, hives ropinirole Allergy (Mild, Verified 11/22/24 10:30) joint pain codeine (CODEINE) Adverse Reaction (Intermediate, Verified 11/22/24 10:30) GI UPSET sitagliptin Adverse Reaction (Intermediate, Verified 11/22/24 10:30) joint pains Medication List - Last Reconciled 11/22/24 by Calvin Maldonado MD azelastine 2 sprays intranasal BID 30 days cholecalciferol (vitamin D3) 50 mcg PO DAILY ciprofloxacin HCl (Cipro) 500 mg PO BID 7 days citalopram 10 mg PO QAM clobetasol 0.05% 0.25 - 0.5 mL topical DAILY esomeprazole magnesium 40 mg PO QAM glucosamine sulfate 750 mg PO DAILY hydrocortisone 1% (Cortisone (hydrocortisone)) 1 appl topical BID PRN hydromorphone (Dilaudid) 4 mg PO Q4H PRN levothyroxine 50 mcg PO DAILY 90 days losartan 50 mg PO DAILY multivitamin (Multiple Vitamins tablet) 1 tab PO DAILY olopatadine 0.2% 1 drp ophthalmic (eye) DAILY rosuvastatin 5 mg PO DAILY Tobacco use date assessed: 11/22/24 Fall risk assessment: No Falls in past year Last assessed Fall Risk: 11/22/24 Dental Screening Dental Screen Date: 11/22/24 Did you have a dental visit in the last 12 months?: No Did you have a dental problem in the last 6 months where you did not have access to dental care?: No Was dental information given to patient?: No HPI 4 month f/u - see comments HPI Details Patient comes in today for her follow up visit States that she feels okay Is aware that she has gained some weight as they just came back from an [employer] cruise earlier this month Admits that she was not compliant with her diet while she was on the cruise She denies any headaches or dizziness Denies any chest pains, no increased shortness of breath No nausea/vomiting, no abdominal pain No change in bowel habits noted - (+) history of chronic constipation and she takes OTC stool softeners when needed Patient states that she has not used her CPAP device in a long time now and that she feels better without it, and she no longer has to struggle with recurrent sore throat, nasal congestion and other symptoms that she is attributing to the use of her CPAP device She had her follow-up labs done a few days ago - to discuss the results [facility] Medical History (Updated 11/22/24 @ 10:47 by Calvin Maldonado MD) Arthritis Duodenal ulcer Awareness under anesthesia Diabetes mellitus Overactive bladder Obesity (BMI 30-39.9) Post-menopausal Obstructive sleep apnea Anxiety History of renal cell cancer History of breast cancer Constipation Vitamin D deficiency Allergic rhinitis Osteoarthritis of right knee GERD without esophagitis Impaired fasting glucose Acquired hypothyroidism Pure hypercholesterolemia Benign essential hypertension Invasive ductal carcinoma of left breast Hypothyroid HTN (hypertension) Esophagitis Mixed irritable bowel syndrome Surgical History Hx of lymph node excision Hx of excision of mass Hx of nasal septoplasty History of bilateral knee replacement History of removal of skin mole History of thumb surgery (~04/26/15) History of lumpectomy of left breast (~03/2014) History of left breast biopsy (~01/2014) History of removal of cyst History of bunionectomy History of kidney surgery History of cataract surgery History of colon resection (~2001) History of partial nephrectomy (~2002) History of colonoscopy History of esophagogastroduodenoscopy (EGD) (~09/16/12) History of eye surgery (~09/2012) Family History Father History of gastric cancer History of lung cancer Mother History of heart disease Brother Family history of prostate cancer History of colon cancer History of lung cancer Daughter History of breast cancer Paternal Aunt History of breast cancer Maternal Uncle History of leukemia Maternal Aunt History of breast cancer Social History Housing: Condominium Are you a primary healthcare administration internship to a significant other at home: No Do you presently have visiting nurse or other home services: No Alcohol intake: current Alcohol intake frequency: holidays/special occasions only Alcohol type: wine Patient Tobacco Use Status: Never used Tobacco e-Cigarette/Vaping Use: Never Used Second Hand Smoke Exposure: Yes service: No Current occupational status: retired Current occupation: rt handed Cognitive needs: No Hearing needs: No Vision needs: Yes (glasses) Questionnaire PHQ-9 Over the last 2 weeks, how often have you been bothered by any of the following problems? 1. Little interest or pleasure in doing things: not at all 2. Feeling down, depressed, or hopeless: not at all 3. Trouble falling or staying asleep, or sleeping too much: not at all 4. Feeling tired or having little energy: more than half the days 5. Poor appetite or overeating: not at all 6. Feeling bad about yourself - or that you are a failure or have let yourself or your family down: not at all 7. Trouble concentrating on things, such as reading the newspaper or watching television: not at all 8. Moving or speaking so slowly that other people could have noticed. Or the opposite - being so fidgety or restless that you have been moving around a lot more than usual: not at all 9. Thoughts that you would be better off or of hurting yourself in some way: not at all Total score: 2 Depression Screening Interpretation: Negative Depression Screening Done: Yes 65603 - PHQ-9 Billing: Yes Source: Developed by Drs. Uziel Morillo, Celina Matute, Pete Patterson and colleagues, with an educational sandra from [employer]. Thrive Questionnaire Date Thrive assessed: 11/22/24 I am a: Patient What is your living situation today?: I have a steady place to live Within the past 12 months, did the food you bought not last and you didn't have the money to get more?: Never true Within the past 12 months, did you worry whether your food would run out before you got money to buy more?: Never true Do you have trouble paying for medicines?: No Do you have trouble getting transportation to medical appointments?: No Do you have trouble paying your heating and electricity bill?: No Do you have trouble taking care of your child, family member or friend?: No Do you have trouble with day-to-day activities such as bathing, preparing meals, shopping, managing finances, etc.?: No Are you currently unemployed and looking for a job?: No Are you interested in more education?: No Please select the resources that you would like help with: None Currently or been in a relationship where the following occur: No concerns reported THRIVE Score: 0 AUDIT C Alcohol Use Questionnaire (AUDIT-C) 1. How often do you have a drink containing alcohol?: Never 3. How often do you have six or more drinks on one occasion?: Never Total Score: 0 Score Reviewed/Action Taken: Yes DELIA-7 AMB Questionnaire DELIA-7 Date DELIA - 7 assessed: 11/22/24 Feeling nervous, anxious, or on edge: 0 = Not at all Not being able to stop or control worryin = Not at all Worrying too much about different things: 0 = Not at all Trouble relaxin = Not at all Being so restless that it is hard to sit still: 0 = Not at all Becoming easily annoyed or irritable: 0 = Not at all Feeling afraid as if something awful might happen: 0 = Not at all Total DELIA-7 score (0-4 normal; 5-9 mild; 10-14 moderate; 15-21 severe): 0 Source: Developed by Drs. Uziel Morillo, Celina Matute, Peet Patterson and colleagues, with an educational sandra from [employer]. Review of Systems Const Denies chills, Denies difficulty sleeping, Reports fatigue, Denies fever(s) and Denies headache(s) ENT Denies dysphagia, Denies dizziness, Denies otalgia, Denies headache(s), Denies neck pain, Denies odynophagia and Denies sore throat Card Denies chest pain, Denies palpitations and Denies dyspnea Resp Denies chest congestion, Denies cough and Denies dyspnea GI Denies abdominal pain, Denies constipation, Denies dysphagia, Denies heartburn, Denies diarrhea, Denies nausea, Denies odynophagia and Denies vomiting Denies difficulty voiding, Reports nocturia (at least 3 times a night), Denies dysuria, Denies urinary incontinence and Denies urinary urgency Musc Reports back pain (over the lower back - on and off), Reports arthralgias (increased in the right shoulder) and Denies neck pain Skin/Breast Denies rash Neuro Denies dizziness, Denies headache(s), Reports memory loss (feels that this is slowly getting worse) and Reports restless legs Psych Reports anxiety and Reports memory loss (feels that this is slowly getting worse) Endo Reports fatigue and Denies palpitations Physical exam (Primary Care) Vital Signs: Last Vital Signs Pulse 67 11/22/24 10:00 BP 122/78 11/22/24 10:00 Pulse Ox 97 11/22/24 10:00 Oxygen Delivery Method Room Air 11/22/24 10:00 BMI result Body Mass Index 31.1 Tobacco/Smoking Status: Tobacco use Status Tobacco use date assessed 11/22/24 11/22/24 10:03 Patient Tobacco Use Status Never used Tobacco 11/22/24 10:03 e-Cigarette/Vaping Use Never Used 11/22/24 10:03 PHQ-9: PHQ-9 Score PHQ-9: Total score 2 11/22/24 10:03 Depression Screening Interpretation: Negative Thrive Assessment: Date of Thrive Assessment Date Thrive assessed 11/22/24 11/22/24 10:03 Currently or been in a relationship where the following occur: No concerns reported Const General: no acute distress and alert Neck Neck: Yes supple and No lymphadenopathy Thyroid: Thyroid normal Resp Auscultation: clear to auscultation bilaterally, no rales and no wheezes Cardio Rate: regular rate Rhythm: regular rhythm Heart sounds: no murmurs GI Palpation (GI): Soft to palpation and nontender Auscultation: normal bowel sounds General: Yes no CVA tenderness Back/Spine/Pelvis Back: no CVA tenderness Thoracic/Lumbar Spine: No lumbar spinal tenderness Skin Rashes: no rashes Extrem General: Yes no clubbing, cyanosis or edema Results Reviewed Results Reviewed: Laboratory Tests 11/17/24 11/17/24 08:36 08:45 WBC 8.0 Hgb 14.3 Hct 40.9 Plt Count 306 Sodium 140 Potassium 4.2 Creatinine 0.67 Estimated GFR > 60 Fasting Glucose 180 H Hemoglobin A1c % 7.8 H Calcium 9.2 AST 22 ALT 29 Triglycerides 137 Cholesterol 226 H LDL Cholesterol, Calc 154 H HDL Cholesterol 45 25-OH Vitamin D Total 91.2 TSH 3.01 Free T4 0.96 Ur Specific [place] 1.010 Urine Protein Negative Urine Glucose (UA) Negative Urine Blood Negative Urine Nitrite Negative Ur Leukocyte Esterase Negative Coding Level of Care Code Est Pt Level 4 (21996) Diagnoses Pure hypercholesterolemia E78.00 Benign essential hypertension I10 Type 2 diabetes mellitus without complication, without long-term current use of insulin E11.9 Diabetes mellitus type: type 2 Diabetes mellitus intermodal customer service insulin use: without skilled nursing use Diabetes mellitus complication status: without complication Palpitations R00.2 Acquired hypothyroidism E03.9 Obstructive sleep apnea G47.33 Memory impairment R41.3 GERD without esophagitis K21.9 Primary osteoarthritis of right knee M17.11 Osteoarthritis type: primary Impingement of right shoulder M25.811 Restless legs syndrome (RLS) G25.81 Allergic rhinitis, unspecified seasonality, unspecified trigger J30.9 Allergic rhinitis trigger: unspecified Allergic rhinitis seasonality: unspecified Vitamin D deficiency E55.9 Constipation, unspecified constipation type K59.00 Constipation type: unspecified constipation type Overactive bladder N32.81 History of breast cancer Z85.3 History of renal cell cancer Z85.528 Anxiety F41.9 Obesity (BMI 30-39.9) E66.9 Additional Codes PHQ-9 - 12563 - PHQ-9 Billing: Yes ([id number]) Assessment & Plan Assessment & Plan (1) Pure hypercholesterolemia: Code(s): E78.00 - Pure hypercholesterolemia, unspecified Category: Medical Plan: Results of her labs done a few days ago reviewed and discussed with patient - have cautioned her that her cholesterol levels have increased from previous Reinforced low cholesterol diet - she admits to poor compliance with her diet while they were on their cruise earlier this month Continue Rosuvastatin 5 mg QD Will recheck her labs and fasting lipids in 4 months for follow-up (2) Benign essential hypertension: Code(s): I10 - Essential (primary) hypertension Category: Medical Plan: Reinforced low sodium diet - goal is systolic BP of at least 130 to 140 mm or less Continue Losartan 50 mg QD (3) Diabetes mellitus: Comment: pt. states pre-diabetes -no Rx Code(s): E11.9 - Type 2 diabetes mellitus without complications Category: Medical Qualifiers: Diabetes mellitus type: type 2 Diabetes mellitus intermodal customer service insulin use: without skilled nursing use Diabetes mellitus complication status: without complication Qualified Code(s): E11.9 - Type 2 diabetes mellitus without complications Plan: Have cautioned patient that her HgbA1c has gone up to 7.8% on her recent labs (she was at 6.6% a few months ago) - goal is at least <7.0% but ideally <6.5% Reinforced diabetic diet / exercise as tolerated She could not tolerate Januvia (joint pains) and is currently still NOT on any Rx for diabetes but have advised that if she cannot get her HgbA1c to goal over the next few months, then we will need to strongly consider starting her on Rx for her diabetes Will recheck her FBS and HgbA1c in 4 months for follow up (4) Palpitations: Code(s): R00.2 - Palpitations Category: Medical Plan: States that these only occur very occasionally nowadays and mostly at night when she is sitting down watching television; episodes usually last only a few seconds at most, and that their duration is too short to even be associated with any pertinent symptoms Have offered to refer her for additional testing and work ups in the past but patient declined - states that they are not occurring often or lasting long enough to really bother her and she will call for referrals/orders if she changes her mind or if they start occurring more often (5) Acquired hypothyroidism: Code(s): E03.9 - Hypothyroidism, unspecified Category: Medical Plan: Her TFTs remained normal on her recent labs Continue Levothyroxine 50 mcg QD Will continue to monitor her TFTs regularly (6) Obstructive sleep apnea: Comment: no CPAP-used in past-has not used since ~ [id number]. appt was in 2022 Code(s): G47.33 - Obstructive sleep apnea (adult) (pediatric) Category: Medical Plan: She was using her CPAP device at 5 - 15 cm pressure when sleeping at night previously but states that she decided to stop using it a few months ago and states that she actually started feeling better without her device, with all of her previous symptoms of headaches, nasal congestion and sore throat completely clearing up once she stopped using her device States that she has been sleeping much better without her CPAP device and does not wish to go back on it Follow up with Sleep Medicine as scheduled or as needed (7) Memory impairment: Code(s): R41.3 - Other amnesia Category: Medical Plan: Patient was previously referred to neurology for further evaluation and management but she still has not heard back from neurology so far Will redo neurology referral again for further evaluation of her declining memory, which her is getting concerned about (8) GERD without esophagitis: Code(s): K21.9 - Gastro-esophageal reflux disease without esophagitis Category: Medical Plan: Dietary restrictions reinforced Continue Nexium 40 mg QD; she also takes Tums 500 mg 4 times a day when needed (9) Osteoarthritis of right knee: Comment: S/P arthroplasty of the right knee in November 2019 Code(s): M17.11 - Unilateral primary osteoarthritis, right knee Category: Medical Qualifiers: Osteoarthritis type: primary Qualified Code(s): M17.11 - Unilateral primary osteoarthritis, right knee Plan: Continue Gabapentin 100 mg 2 times a day in the morning and afternoon and 2 capsules at bedtime, Celebrex 200 mg once a day and Tylenol Arthritis 650 mg 3 times a day as needed She also takes CBD (OTC Cannabidiol) as needed for increased knee pain (10) Impingement of right shoulder: Code(s): M25.811 - Other specified joint disorders, right shoulder Category: Medical Plan: (+) OA, RTC tendinitis and impingement syndrome of the right shoulder She underwent arthroscopic surgery/release of the right shoulder with Dr. Valenzuela a couple of months ago with (+) significant improvement of her shoulder pain She also completed physical therapy for her shoulder and states that her right shoulder is now mostly pain-free (11) Restless legs syndrome (RLS): Code(s): G25.81 - Restless legs syndrome Category: Medical Plan: She was started on Ropinirole 0.5 mg QHS in the past but patient had to stop taking this as she felt that the Rx made her headaches worse States that her leg symptoms have been better controlled lately and she does not require anything else at this time (12) Allergic rhinitis: Code(s): J30.9 - Allergic rhinitis, unspecified Category: Medical Qualifiers: Allergic rhinitis trigger: unspecified Allergic rhinitis seasonality: unspecified Qualified Code(s): J30.9 - Allergic rhinitis, unspecified Plan: Continue Cetirizine 10 mg QD PRN and Montelukast 10 mg QD Continue Azelastine nasal spray BID PRN Patient feels that her symptoms have improved a lot since she stopped using her CPAP device a few months ago (13) Vitamin D deficiency: Code(s): E55.9 - Vitamin D deficiency, unspecified Category: Medical Plan: Corrected - her Vitamin D level is normal on her recent labs (14) Constipation: Code(s): K59.00 - Constipation, unspecified Category: Medical Qualifiers: Constipation type: unspecified constipation type Qualified Code(s): K59.00 - Constipation, unspecified Plan: She is again encouraged on increased oral fluids and dietary fiber intake Continue MiraLax 17 gm QD (15) Overactive bladder: Code(s): N32.81 - Overactive bladder Category: Medical Plan: This is most likely the reason for her nocturia and increased fatigue She was started on a trial of Myrbetriq 25 mg Q HS but she could not tolerate the Rx She was advised that she should probably see urology for further evaluation and management of her urinary symptoms - patient states that she will call for referral when she feels she is ready to see urology but would like to hold off on referral for now (16) History of breast cancer: Comment: S/P Tamoxifen x 5 years Code(s): Z85.3 - Personal history of malignant neoplasm of breast Category: Medical Plan: Follow up with Oncology as scheduled for continuing surveillance (17) History of renal cell cancer: Comment: S/P partial left nephrectomy-has not followed w/Nephrology since ~ 2021 Code(s): Z85.528 - Personal history of other malignant neoplasm of kidney Category: Medical Plan: Follow up with Oncology and Nephrology as scheduled for continuing surveillance (18) Anxiety: Code(s): F41.9 - Anxiety disorder, unspecified Category: Medical Plan: Continue Citalopram 10 mg QD (19) Obesity (BMI 30-39.9): Code(s): E66.9 - Obesity, unspecified Category: Medical Plan: Reinforced diet/exercise as tolerated/lose weight Plan Follow up in 4 months Orders: Orders Complete Blood Count Auto Diff 4 Months D64.9 - Anemia, unspecified Comprehensive Virgie. Panel Fast 4 Months E78.00 - Pure hypercholesterolemia, unspecified Microalbumin, Random (w Creat) 4 Months E11.9 - Type 2 diabetes mellitus without complications UA CC w/rflx Micro + Cult 4 Months R30.0 - Dysuria Free T4 (Free Thyroxine) 4 Months E03.9 - Hypothyroidism, unspecified Lipid Panel 4 Months E78.00 - Pure hypercholesterolemia, unspecified Hemoglobin A1c 4 Months E11.9 - Type 2 diabetes mellitus without complications Thyroid Stimulating Hormone 4 Months E03.9 - Hypothyroidism, unspecified Vitamin B12 and Folate 4 Months E53.8 - Deficiency of other specified B group vitamins Referrals Neurology Referral R41.3 - Other amnesia
--- OUTSIDE RECORDS SUMMARY | 2024-11-22 10:45 | XMS_ITS | Continuity of Care Document ---
Author Name [facility] Organization [facility] Care Team Providers Care Alarm Installer Name Role Phone [facility] Unavailable Unavailable Medications Combined list of outpatient medications from Department of Defense and Veterans Affairs facilities.Medications provided include 1) outpatient medications from the last 15 months, and 2) patient-reported medications. Medication Details Route Status Patient Instructions Prescription Expires Prescription Number Last Dispense Date Ordering Provider Order Date Order Qty Source CLOBETASOL PROPIONATE (clobetasol propionate) , 0.05 %, SOLUTION, TOPICAL, [employer] 50 ml BOTTLE Active [id number] 2023 150 Pharmac y Data Transac tion Service Facilit y Immunizations Combined list of available immunizations from the Department of Defense and Veterans Affairs facilities. Immunization Series Date Given Administered By Site Reaction Lot Number CVX Code Drug Chemist Water Purification Status Comments Source influenza, high-dose, quadrivalent 2020 DICK, () Not Given influenza , high-dose , quadrival ent [facility] influenza, high-dose, quadrivalent 2019 BOGDASARIAN, () Not Given influenza , high-dose , quadrival ent [facility] influenza, trivalent, adjuvanted 2018 BOGDASARIAN, () Not Given influenza , trivalent , adjuvante d [facility] zoster recombinant 2017 BOGDASARIAN, () Not Given zoster recombina nt [facility] Influenza, high dose seasonal 2014 WOOD, () Not Given Influenza , high dose seasonal [facility] influenza virus vaccine, split virus (incl. purified surface antigen)-reti red CODE 1 2004 Unknown, Provider [id number] 15 Sanofi Pasteur ([facility]) complet ed influenza virus vaccine, split virus (incl. purified surface antigen)- retired CODE [facility] Social History Combined list of available smoking, tobacco, and other social history from Department of Defense and Veterans Affairs facilities. Social History Type Response Date Comment Sourc e This section is an empty social history section. DoD
--- OUTSIDE RECORDS SUMMARY | 2024-11-22 10:46 | XMS_ITS | Clinical Summary ---
Author Organization [facility] Address [address] [place] [address] Care Team Providers Care Insulation Inspector Name Role Phone Calvin Maldonado MD Primary Care Provider [phone] Allergies Active Allergy Reactions Criticality Noted Date [...] 2 sprays inside Nose daily. 0 Active [place]-3 Fatty Acids (FISH OIL PO) Take 1,400 [...] Respiratory Therapy Supplies (CareTouch 2 CPAP Hose [employer]) MISC by Does not apply route. 0 [...] age to complete this topic Care Teams Insulation Inspector Relationship Specialty Start Date End Date Calvin Maldonado MD [address] [place] [address] [place] [id number] PCP - General Internal Medicine 12/01/16
--- OUTSIDE RECORDS SUMMARY | 2024-11-22 10:46 | XMS_ITS | Patient Health Record ---
Author Organization [facility] Address [address] [place] [address] Care Team Providers Care Yarn Skeins Examiner Name Role Phone Calvin Maldonado MD Primary Care Provider UnaMelia Simon Unavailable [phone] Allergies Allergen (clinical drug ingredient) Drug/Non Drug [...] Status Risk Notes Problem Colon cancer screening (676847656) Colon cancer screening (Z12.11) Active confirmed Problem Irritable bowel syndrome (22354211) Irritable bowel syndrome (K58.9) Active confirmed Problem History of adenomatous polyp of colon (152412464) History of adenomatous polyp of colon (Z86.010) Active confirmed Problem Gastroesophageal reflux disease (951647115) GERD (gastroesophageal reflux disease) (K21.9) Active confirmed Problem Diverticulosis of colon (345829060) Diverticulosis of colon (K57.30) Active confirmed Plan Of Treatment Pending Test Test Name Order Date Pathology 01/01/2022 Future Test Test Name Order Date COLONOSCOPY 11/19/2021 Insurance Providers Payer Name Payer Address Payer Phone Subscriber Number Group Number Insured Name Patient Relationship to Insured Coverage Start Date Coverage End Date MEDICARE OF [place] [address] [place] [address] [id number] ROSE MENARD Self - patient is the insured [employer] [address] [place] [address] [id number] ROSE MENARD Self - patient is the insured Medical (General) History Medical History History ICD Code HTN Breast cancer in 2014 with lumpectomy an d XRT Left Kidney cancer as below Denies [place],DM,CVA,Lung disease,renal dise ase GERD-EGD in 2012 with [...]
--- OUTSIDE RECORDS SUMMARY | 2024-11-22 10:46 | XMS_ITS | Clinical Summary ---
Author Organization [facility] Address [address] [place] [address] Phone Care Team Providers Care Route Sales Manager Name Role Phone Calvin Maldonado MD Primary Care Provider Surgical History Surgery Date Site/Laterality Comments BREAST LUMPECTOMY PROCEDURE:BREAST LUMPECTOMY Medical History Medical History Date Comments Breast cancer ([facility] V24, [facility] V28) DX:Breast cancer (HCC) IBS [...] 01/31/2025 11:30 AM EDT Office Visit [facility] Hematology Oncology [address] [place] [phone] Rema Carlos, DO [address] [place] [address] Health Maintenance Due Date Last Done Comments [...] topic Insurance MEDICARE [facility] Care Teams Route Sales Manager Relationship Specialty Start Date End Date Calvin Maldonado MD [address] [place] [address] [address] CHINYERE Ramsay PCP - General Internal Medicine 12/22/19
== END 2024-11-22 11:03 | disposition home or self-care (01) ==
LOC: HO.HMCH 09:41
PROVIDERS: PCP Internal Medicine; Visit Provider Internal Medicine
DX: E78.00 Pure hypercholesterolemia, unspecified (principal); E11.9 Type 2 diabetes mellitus without complications; Z68.31 Body mass index [BMI] 31.0-31.9, adult; E66.9 Obesity, unspecified; I10 Essential (primary) hypertension; R00.2 Palpitations; E03.9 Hypothyroidism, unspecified; G47.33 Obstructive sleep apnea (adult) (pediatric); R41.3 Other amnesia; K21.9 Gastro-esophageal reflux disease without esophagitis; M17.11 Unilateral primary osteoarthritis, right knee; M25.811 Other specified joint disorders, right shoulder

== ENCOUNTER → 2024-11-22 09:40 | Outpatient (BNVA) | payer MEDICARE, OTHER, SELFPAY | PROVIDERS: PCP Internal Medicine; Visit Provider Internal Medicine | DX: E78.00 Pure hypercholesterolemia, unspecified (principal); I10 Essential (primary) hypertension; E11.9 Type 2 diabetes mellitus without complications; R00.2 Palpitations; E03.9 Hypothyroidism, unspecified; K21.9 Gastro-esophageal reflux disease without esophagitis; M17.11 Unilateral primary osteoarthritis, right knee; G25.81 Restless legs syndrome; J30.9 Allergic rhinitis, unspecified; E55.9 Vitamin D deficiency, unspecified; K59.00 Constipation, unspecified; N32.81 Overactive bladder; F41.9 Anxiety disorder, unspecified; E66.9 Obesity, unspecified; Z68.31 Body mass index [BMI] 31.0-31.9, adult; Z85.3 Personal history of malignant neoplasm of breast; Z85.528 Personal history of other malignant neoplasm of kidney; Z71.3 Dietary counseling and surveillance | CPT/HCPCS: 96127; 99212 ==

== ENCOUNTER 2024-11-29 11:44 | Outpatient (AMB) | payer MEDICARE, OTHER, SELFPAY ==
--- OUTSIDE RECORDS SUMMARY | 2024-01-06 10:44 | XMS_ITS | Encounter Summary ---
Author Organization [facility] Address [address] [place] [address] Care Team Providers Care Time Clock Inspector Name Role Phone Calvin Maldonado MD Primary Care Provider [phone] Encounter Details Date Type Department Care Team (Late st Contact Info) Description 01/06/2024 10:44 AM EDT Hospital Encounter TH HISTORIC ENCOUNTERS EASTERN CONVERSION ONLY Rema Carlos, DO [address] [place] [address] Social History Tobacco Use Types Packs/Day Years Used Date Smoking Tobacco: Never Smokeless Tobacco: Never Alcohol Use Standard Drinks/Week Comments No 0 (1 standard drink = 0.6 oz pur e alcohol) Comments Unknown Sex and Gender Information Value Date Recorded [...] 12:02 PM Encounter Date: 01/06/2024 Status: Signed Radar Engineer: Rema Carlos DO (Physician) Hematology/Oncology Progress [...] HCl (Pataday) 0.2 % ophthalmic solution ? [place]-3 Fatty Acids (FISH OIL PO) ? omeprazole (PRILOSEC) 40 MG capsule ? Probiotic Product (PROBIOTIC DAILY PO) ? Respiratory Therapy Supplies (CareTouch 2 CPAP Hose [place]) MISC ? rosuvastatin (CRESTOR) tablet 40 mg [...] Social history She is , lives in [place]. She is a never smoker Labs: Relevant data reviewed. 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 She also completed 5 years of tamoxifen. She is doing well and remains NICKO Left breast carcinoma, pT1b, ER + [place] + HER 2 negative Continue to monitor [...] DO - Hematology/Oncology [facility] documented in this encounter Plan of Treatment Upcoming Encounters Date Type Department Care Team (Late st Contact Info) Description 01/31/2025 11:30 AM EDT Office Visit [facility] Hematology Oncology [address] [place] [address] Rema Carlos DO [address] [place] [address] documented as of this encounter Procedures Procedure Name Priority Date/Time Associated Diagnosis Comments HISTORICAL IMAGING SCAN RESULT 01/06/2024 documented in this encounter Results * HISTORICAL IMAGING SCAN RESULT (01/06/2024) Anatomical Region Laterality Modality Ultrasound us Provider Onbase IMG US PROCEDURES Final Resul t documented in this encounter Visit Diagnoses Not on filedocumented in this encounter Care Teams Time Clock Inspector Relationship Specialty Start Date End Date Calvin Maldonado MD [address] [place] [address] [address] [place] PCP - General Internal Medicine 12/22/19 documented as of this encounter
--- NOTE | 2024-11-29 11:48 | MHC.OFFVIS ---
Vital Signs 11/29/24 11:52 Height 4 ft 10 in Weight 150 lb BMI 31.3 Intake Visit Reasons: OV-RT shoulder 08/26/24 f/u, Right sacroiliac pain Intake Note: Татьяна is a 79 year old female who presents with complaints of progressively worsening pain along her right sacroiliac joint. She describes her pain as sharp in nature. She thinks that she may have aggravated her low back while doing a lot of walking on her vacation in [place]. She denies any weakness. She has tried Tylenol and anti-inflammatory medicines which gave her minimal relief. The patient did undergo right shoulder arthroscopic surgery on 08/26/2024. She has completed formal physical therapy. She reports minimal discomfort in her right shoulder. Allergies adhesive tape Allergy (Intermediate, Verified 11/29/24 11:51) BLISTERS albuterol (From PROAIR HFA) Allergy (Intermediate, Verified 11/29/24 11:51) TREMOR oxybutynin Allergy (Intermediate, Verified 11/29/24 11:51) shortness of breath Sulfa (Sulfonamide Antibiotics) (SULFA (SULFONAMIDE ANTIBIOTICS)) Allergy (Intermediate, Verified 11/29/24 11:51) itching, hives ropinirole Allergy (Mild, Verified 11/29/24 11:51) joint pain codeine (CODEINE) Adverse Reaction (Intermediate, Verified 11/29/24 11:51) GI UPSET sitagliptin Adverse Reaction (Intermediate, Verified 11/29/24 11:51) joint pains Medication List - Last Reconciled 11/29/24 by Chris Valenzuela MD azelastine 2 sprays intranasal BID 30 days cholecalciferol (vitamin D3) 50 mcg PO DAILY ciprofloxacin HCl (Cipro) 500 mg PO BID 7 days citalopram 10 mg PO QAM clobetasol 0.05% 0.25 - 0.5 mL topical DAILY esomeprazole magnesium 40 mg PO QAM glucosamine sulfate 750 mg PO DAILY hydrocortisone 1% (Cortisone (hydrocortisone)) 1 appl topical BID PRN hydromorphone (Dilaudid) 4 mg PO Q4H PRN levothyroxine 50 mcg PO DAILY 90 days losartan 50 mg PO DAILY multivitamin (Multiple Vitamins tablet) 1 tab PO DAILY olopatadine 0.2% 1 drp ophthalmic (eye) DAILY rosuvastatin 5 mg PO DAILY [facility] Medical History (Updated 11/29/24 @ 12:03 by Chris Valenzuela MD) Arthritis Duodenal ulcer Awareness under anesthesia Diabetes mellitus Overactive bladder Obesity (BMI 30-39.9) Post-menopausal Obstructive sleep apnea Anxiety History of renal cell cancer History of breast cancer Constipation Vitamin D deficiency Allergic rhinitis Osteoarthritis of right knee GERD without esophagitis Impaired fasting glucose Acquired hypothyroidism Pure hypercholesterolemia Benign essential hypertension Invasive ductal carcinoma of left breast Hypothyroid HTN (hypertension) Esophagitis Mixed irritable bowel syndrome Surgical History Hx of lymph node excision Hx of excision of mass Hx of nasal septoplasty History of bilateral knee replacement History of removal of skin mole History of thumb surgery (~04/26/15) History of lumpectomy of left breast (~03/2014) History of left breast biopsy (~01/2014) History of removal of cyst History of bunionectomy History of kidney surgery History of cataract surgery History of colon resection (~2001) History of partial nephrectomy (~2002) History of colonoscopy History of esophagogastroduodenoscopy (EGD) (~09/16/12) History of eye surgery (~09/2012) Family History Father History of gastric cancer History of lung cancer Mother History of heart disease Brother Family history of prostate cancer History of colon cancer History of lung cancer Daughter History of breast cancer Paternal Aunt History of breast cancer Maternal Uncle History of leukemia Maternal Aunt History of breast cancer Social History Housing: Condominium Are you a primary respiratory care specialist to a significant other at home: No Do you presently have visiting nurse or other home services: No Alcohol intake: current Alcohol intake frequency: holidays/special occasions only Alcohol type: wine Patient Tobacco Use Status: Never used Tobacco e-Cigarette/Vaping Use: Never Used Second Hand Smoke Exposure: Yes service: No Current occupational status: retired Current occupation: rt handed Cognitive needs: No Hearing needs: No Vision needs: Yes (glasses) Physical Exam Vital Signs: BMI result Body Mass Index 31.3 Const Other: Well-nourished well-developed very friendly female awake alert and oriented x3 in no acute distress Back/Spine/Pelvis Other: Low back examination tenderness over her right sacroiliac joint, no overlying skin lesions Extrem Other: Right shoulder examination shows full range of motion when compared to her left shoulder, 5/5 strength with supraspinatus testing, no instability Assessment & Plan Assessment & Plan (1) Right shoulder pain: Code(s): M25.511 - Pain in right shoulder Category: Medical (2) Chronic right SI joint pain: Code(s): M53.3 - Sacrococcygeal disorders, not elsewhere classified; G89.29 - Other chronic pain Category: Medical Plan Ms. Kramer progressively worsening pain along the right side of her low back most likely due to sacroiliitis. Thus, I will refer her to Dr. Chambers from our pain management department for possible cortisone injection therapy. She will follow up with me on an as-needed basis should her shoulder symptoms worsen in any way. Feel free to call me at any time should questions regarding her orthopedic management arise. I spent 20 minutes in reviewing the patient's records and imaging studies, seeing the patient and documenting in the medical record. Orders: Referrals Pain Management Referral G89.29 - Other chronic pain, M53.3 - Sacrococcygeal disorders, not elsewhere classified Coding Level of Care Code Est Pt Level 3 (89154) Complex EM visit Add On G2211 Diagnoses Right shoulder pain M25.511 Chronic right SI joint pain M53.3; G89.29
[2024-11-29 11:52] VITALS: BMI 31.3
--- OUTSIDE RECORDS SUMMARY | 2024-11-29 12:39 | XMS_ITS | Continuity of Care Document ---
Author Name [facility] Organization [facility] Care Team Providers Care Carton Making Machine Operator Name Role Phone [facility] Unavailable Unavailable Medications Combined list of outpatient medications from Department of Defense and Veterans Affairs facilities.Medications provided include 1) outpatient medications from the last 15 months, and 2) patient-reported medications. Medication Details Route Status Patient Instructions Prescription Expires Prescription Number Last Dispense Date Ordering Provider Order Date Order Qty Source CLOBETASOL PROPIONATE (clobetasol propionate) , 0.05 %, SOLUTION, TOPICAL, [employer] 50 ml BOTTLE Active [id number] 2023 150 Pharmac y Data Transac tion Service Facilit y Social History Combined list of available smoking, tobacco, and other social history from Department of Defense and Veterans Affairs facilities. Social History Type Response Date Comment Sourc e This section is an empty social history section. [facility]
--- OUTSIDE RECORDS SUMMARY | 2024-11-29 12:40 | XMS_ITS | Clinical Summary ---
Author Organization [facility] Address [address] [place] [address] Phone Care Team Providers Care Dictating Machine Mechanic Name Role Phone Calvin Maldonado MD Primary Care Provider Surgical History Surgery Date Site/Laterality Comments BREAST LUMPECTOMY PROCEDURE:BREAST LUMPECTOMY Medical History Medical History Date Comments Breast cancer ([facility] V24, [facility] V28) DX:Breast cancer (HCC) [...] [facility] Hematology Oncology [address] [place] [id number] Rema Carlos, DO [address] [place] [address] Health Maintenance Due Date Last Done Comments [...] age to complete this topic Insurance MEDICARE [facility] Care Teams Dictating Machine Mechanic Relationship Specialty Start Date End Date Calvin Maldonado MD [address] [place] [address] [address] CHINYERE Ramsay PCP - General Internal Medicine 12/22/19
--- OUTSIDE RECORDS SUMMARY | 2024-11-29 12:40 | XMS_ITS | Clinical Summary ---
Author Organization [facility] Address [address] [place] [address] Care Team Providers Care Associate Drafter Name Role Phone Calvin Maldonado MD Primary Care Provider [phone]- [phone] Allergies Active Allergy Reactions Criticality Noted Date [...] 2 sprays inside Nose daily. 0 Active [place]-3 Fatty Acids (FISH OIL PO) Take 1,400 [...] Respiratory Therapy Supplies (CareTouch 2 CPAP Hose Press Operator [employer]) MISC by Does not apply route. 0 [...] age to complete this topic Care Teams Associate Drafter Relationship Specialty Start Date End Date Calvin Maldonado MD [address] [place] [address] [place] [address] PCP - General Internal Medicine 12/01/16
--- OUTSIDE RECORDS SUMMARY | 2024-11-29 12:40 | XMS_ITS | Patient Health Record ---
Author Organization [facility] Address [address] [place] [address] Care Team Providers Care Hand Suture Winder Name Role Phone Calvin Maldonado MD Primary Care Provider UnaMelia Simon Unavailable [phone] Allergies Allergen (clinical drug ingredient) Drug/Non Drug [...] Status Risk Notes Problem Colon cancer screening (370417903) Colon cancer screening (Z12.11) Active confirmed Problem Irritable bowel syndrome (95670737) Irritable bowel syndrome (K58.9) Active confirmed Problem History of adenomatous polyp of colon (904105561) History of adenomatous polyp of colon (Z86.010) Active confirmed Problem Gastroesophageal reflux disease (549021597) GERD (gastroesophageal reflux disease) (K21.9) Active confirmed Problem Diverticulosis of colon (567839891) Diverticulosis of colon (K57.30) Active confirmed Plan Of Treatment Pending Test Test Name Order Date Pathology 01/01/2022 Future Test Test Name Order Date COLONOSCOPY 11/19/2021 Insurance Providers Payer Name Payer Address Payer Phone Subscriber Number Group Number Insured Name Patient Relationship to Insured Coverage Start Date Coverage End Date MEDICARE OF [place] [address] [place] [address] [id number] ROSE MENARD Self - patient is the insured [employer] [address] [place] [address] [id number] ROSE MENARD Self - patient is the insured Medical (General) History Medical History History ICD Code HTN Breast cancer in 2014 with lumpectomy an d XRT Left Kidney cancer as below Denies [place],DM,CVA,Lung disease,renal dise ase GERD-EGD in 2012 with [...]
== END 2024-11-29 12:01 | disposition home or self-care (01) ==
LOC: HO.HOS 11:45
PROVIDERS: PCP Internal Medicine; Visit Provider Orthopaedic Surgery
DX: M25.511 Pain in right shoulder (principal); M53.3 Sacrococcygeal disorders, not elsewhere classified; G89.29 Other chronic pain
CPT/HCPCS: 99213; G2211

== ENCOUNTER → 2024-11-29 11:44 | Outpatient (BNVA) | payer MEDICARE, OTHER, SELFPAY | PROVIDERS: PCP Internal Medicine; Visit Provider Orthopaedic Surgery | DX: M25.511 Pain in right shoulder (principal); M53.3 Sacrococcygeal disorders, not elsewhere classified; G89.29 Other chronic pain | CPT/HCPCS: 99212 ==

== ENCOUNTER 2024-12-15 15:04 | Outpatient (AMB) | payer MEDICARE, OTHER, SELFPAY ==
--- NOTE | 2024-12-15 15:22 | A.OFFVIS_ITS ---
Intake Visit Reasons: Sacrococcygeal disorders Disk Sharpener Required: No Allergies adhesive tape Allergy (Intermediate, Verified 11/29/24 11:51) BLISTERS albuterol (From PROAIR HFA) Allergy (Intermediate, Verified 11/29/24 11:51) TREMOR oxybutynin Allergy (Intermediate, Verified 11/29/24 11:51) shortness of breath Sulfa (Sulfonamide Antibiotics) (SULFA (SULFONAMIDE ANTIBIOTICS)) Allergy (Intermediate, Verified 11/29/24 11:51) itching, hives ropinirole Allergy (Mild, Verified 11/29/24 11:51) joint pain codeine (CODEINE) Adverse Reaction (Intermediate, Verified 11/29/24 11:51) GI UPSET sitagliptin Adverse Reaction (Intermediate, Verified 11/29/24 11:51) joint pains HPI Comments Details: Татьяна is very pleasant 79 years old female who presents in my office with very limited pain generators. Reports pain in 1 spot on the lateral surface of the right hip with intermittent radiation of the pain into the right groin. She reports that because of her pain she can not sleep normally but she can not do activities of daily living she is able to take care of herself and she is able to function normally. She is retired individual. Weather changes in movements aggravate her pain. Cold topical medications and Tylenol alleviate her pain the pain is most severe during the daytime and less severe at night. In terms of tissue damage he describes her pain as dull, sore, hurting, aching, heavy sensation. She was under care of Dr. Valenzuela and he referred her here with hip pain. He had physical therapy for shoulder pain in the past but not for her hip. He had an MRI of the right shoulder but no images of her hip. She never had any hip injections. Her past medical history significant for dizziness headaches and hypertension as well as digestive problems and arthritis. She had colon resection in the past because after colonoscopy she was discovered to have intra-abdominal leaks. She is cancer survivor patient she had lumpectomy on the right breast I in and left breast in 2014. In 2002 she had partial neph rectomy she had total knee replacements bilateral 2016 and 2018. She had bunionectomy in 1999. She had cataract surgeries and she had colonoscopy. She denies smoking cigarettes denies drinking alcohol denies recreational drugs. She drinks 2 cups of coffee a day. [facility] Medical History (Updated 12/15/24 @ 15:23 by Jan Chambers MD) Arthritis Duodenal ulcer Awareness under anesthesia Diabetes mellitus Overactive bladder Obesity (BMI 30-39.9) Post-menopausal Obstructive sleep apnea Anxiety History of renal cell cancer History of breast cancer Constipation Vitamin D deficiency Allergic rhinitis Osteoarthritis of right knee GERD without esophagitis Impaired fasting glucose Acquired hypothyroidism Pure hypercholesterolemia Benign essential hypertension Invasive ductal carcinoma of left breast Hypothyroid HTN (hypertension) Esophagitis Mixed irritable bowel syndrome Surgical History Hx of lymph node excision Hx of excision of mass Hx of nasal septoplasty History of bilateral knee replacement History of removal of skin mole History of thumb surgery (~04/26/15) History of lumpectomy of left breast (~03/2014) History of left breast biopsy (~01/2014) History of removal of cyst History of bunionectomy History of kidney surgery History of cataract surgery History of colon resection (~2001) History of partial nephrectomy (~2002) History of colonoscopy History of esophagogastroduodenoscopy (EGD) (~09/16/12) History of eye surgery (~09/2012) Family History Father History of gastric cancer History of lung cancer Mother History of heart disease Brother Family history of prostate cancer History of colon cancer History of lung cancer Daughter History of breast cancer Paternal Aunt History of breast cancer Maternal Uncle History of leukemia Maternal Aunt History of breast cancer Social History [facility] Are you a primary long term care administrator to a significant other at home: No Do you presently have visiting nurse or other home services: No Alcohol intake: current Alcohol intake frequency: holidays/special occasions only Alcohol type: wine Patient Tobacco Use Status: Never used Tobacco e-Cigarette/Vaping Use: Never Used Second Hand Smoke Exposure: Yes service: No Current occupational status: retired Current occupation: rt handed Cognitive needs: No Hearing needs: No Vision needs: Yes (glasses) Review of Systems Const All systems reviewed & are unremarkable except as noted in HPI and below ENT Reports Normal hearing present Neuro Reports Normal hearing present, Denies Abnormal speech present, Denies confusion and Denies Sensory deficit (Neuro) Psych Denies confusion Physical Exam Const General: no acute distress; No confusion Nutritional Appearance: obese morbidly obese Orientation/consciousness: patient oriented x3 and No confusion Eyes General: appearance normal, both eyes and all related structures Pupils: Equal, round and reactive pupils present EOM: EOMs intact bilaterally Neck Neck: Yes full ROM Chest Chest palpation & inspection: normal inspection of the chest Resp Effort & Inspection: normal respiratory effort, able to speak in complete s entences, normal respiratory pattern, no audible wheezes and no cough Cardio Jugular venous distension: no JVD GI Inspection: Yes normal to inspection Neuro General: patient oriented x3, gait normal and No confusion Cranial nerves: Yes CN's II-XII intact bilaterally, Yes Equal, round and reactive pupils present, Yes Normal hearing present and Yes Ability to bilaterally elevate shoulders present Speech: No Abnormal speech present Gait exam (Neuro): Normal gait present Motor exam (neuro): 5/5 motor strength present throughout Sensory Exam: No Sensory deficit (Neuro) Extrem Other: Lateral and medial rotation of the right hip does not aggravate pain in the groin. She has minor discomfort in the projection of the trochanter on the right. However when she is walking she is experiencing groin discomfort. General: No pedal edema Psych Speech and movement: Normal speech and movement present Affect: normal affect Attitude: cooperative Thought process: Normal thought process present Thought content: Normal thought content present Insight: Good insight present (Psych) Judgement: Good judgement present (Psych) Assessment & Plan Assessment & Plan (1) Osteoarthritis of right hip: Code(s): M16.11 - Unilateral primary osteoarthritis, right hip Category: Medical (2) Right hip pain: Code(s): M25.551 - Pain in right hip Category: Medical Plan I will send this patient for physical therapy for right hip pain. I also will send her for the x-ray of the right hip. If there are any changes in the right hip I could offer her intra-articular right hip injection. I will see her here after she will complete physical therapy in 1 month. Orders: Orders PT Evaluation and Treatment Today M16.11 - Unilateral primary osteoarthritis, right hip, M25.551 - Pain in right hip XR hip RT min 2V Today M16.11 - Unilateral primary osteoarthritis, right hip, M25.551 - Pain in right hip Coding Level of Care Code New Pt Level 3 (18182) Diagnoses Osteoarthritis of right hip M16.11 Right hip pain M25.551
--- OUTSIDE RECORDS SUMMARY | 2024-12-15 18:29 | XMS_ITS | Patient Health Record ---
Author Organization [facility] Address [address] [place] [address] Care Team Providers Care Ice Plant Operator Name Role Phone Calvin Maldonado MD Primary Care Provider UnaMelia Simon Unavailable [phone] Allergies Allergen (clinical drug ingredient) Drug/Non Drug [...] Status Risk Notes Problem Colon cancer screening (318901903) Colon cancer screening (Z12.11) Active confirmed Problem Irritable bowel syndrome (92862804) Irritable bowel syndrome (K58.9) Active confirmed Problem History of adenomatous polyp of colon (917906454) History of adenomatous polyp of colon (Z86.010) Active confirmed Problem Gastroesophageal reflux disease (325088736) GERD (gastroesophageal reflux disease) (K21.9) Active confirmed Problem Diverticulosis of colon (560640190) Diverticulosis of colon (K57.30) Active confirmed Plan Of Treatment Pending Test Test Name Order Date Pathology 01/01/2022 Future Test Test Name Order Date COLONOSCOPY 11/19/2021 Insurance Providers Payer Name Payer Address Payer Phone Subscriber Number Group Number Insured Name Patient Relationship to Insured Coverage Start Date Coverage End Date MEDICARE OF [place] [address] [place] [address] [id number] ROSE MENARD Self - patient is the insured [employer] [address] [place] [address] [id number] ROSE MENARD Self - patient is the insured Medical (General) History Medical History History ICD Code HTN Breast cancer in 2014 with lumpectomy an d XRT Left Kidney cancer as below Denies [place],DM,CVA,Lung disease,renal dise ase GERD-EGD in 2012 with [...]
--- OUTSIDE RECORDS SUMMARY | 2024-12-15 18:29 | XMS_ITS | Clinical Summary ---
Author Organization [facility] Address [address] [place] [address] Care Team Providers Care Director Medical Science Name Role Phone Calvin Maldonado MD Primary Care Provider +1- [phone] Allergies Active Allergy Reactions Criticality Noted Date [...] 2 sprays inside Nose daily. 0 Active [place]-3 Fatty Acids (FISH OIL PO) Take 1,400 [...] Respiratory Therapy Supplies (CareTouch 2 CPAP Hose Mechanical Engineering Draftsperson) MISC by Does not apply route. 0 [...] age to complete this topic Care Teams Director Medical Science Relationship Specialty Start Date End Date Calvin Maldonado MD [address] [place] [address] [place] [address] PCP - General Internal Medicine 12/01/16
== END 2024-12-15 15:36 | disposition home or self-care (01) ==
LOC: HO.PMC 15:05
PROVIDERS: PCP Internal Medicine; Visit Provider Anesthesiology
DX: M16.11 Unilateral primary osteoarthritis, right hip (principal); M25.551 Pain in right hip
CPT/HCPCS: 99203

== ENCOUNTER → 2024-12-15 15:04 | Outpatient (BNVA) | payer MEDICARE, OTHER, SELFPAY | PROVIDERS: PCP Internal Medicine; Visit Provider Anesthesiology | DX: M25.551 Pain in right hip (principal); M16.11 Unilateral primary osteoarthritis, right hip | CPT/HCPCS: 99202 ==

== ENCOUNTER 2024-12-16 13:54 | Outpatient (REF) | payer MEDICARE, OTHER, SELFPAY ==
--- OUTSIDE RECORDS SUMMARY | 2024-01-06 10:44 | XMS_ITS | Encounter Summary ---
Author Organization [facility] [place] [address] Care Team Providers Care Motor Vehicle License Clerk Name Role Phone Calvin Maldonado MD Primary Care Provider Encounter Details Date Type Department Care Team (Late st Contact Info) Description 01/06/2024 10:44 AM EDT Hospital Encounter TH HISTORIC ENCOUNTERS EASTERN CONVERSION ONLY Rema Carlos, DO [address] [place] [address] Social History Tobacco Use Types Packs/Day Years [...] 12:02 PM Encounter Date: 01/06/2024 Status: Signed Brass Pickler: Rema Carlos DO (Physician) Hematology/Oncology Progress Note [...] HCl (Pataday) 0.2 % ophthalmic solution ? [place]-3 Fatty Acids (FISH OIL PO) ? omeprazole (PRILOSEC) 40 MG capsule ? Probiotic Product (PROBIOTIC DAILY PO) ? Respiratory Therapy Supplies (CareTouch 2 CPAP Hose Wiring Inspector) MISC ? rosuvastatin (CRESTOR) tablet 40 mg [...] Social history She is , lives in [employer]. She is a never smoker Labs: Relevant [...] DO - Hematology/Oncology [facility] documented in this encounter Plan of Treatment Upcoming Encounters Date Type Department Care Team (Late st Contact Info) Description 01/30/2025 10:30 AM EDT Appointment [facility] [address] [phone] 01/31/2025 11:30 AM EDT Office Visit [facility] Hematology Oncology [address] [place] [phone] Rema Carlos DO [address] [place] [id number] documented as of this encounter Procedures Procedure Name Priority Date/Time Associated Diagnosis Comments HISTORICAL IMAGING SCAN RESULT 01/06/2024 documented in this encounter Results * HISTORICAL IMAGING SCAN RESULT (01/06/2024) Anatomical Region Laterality Modality Ultrasound us Provider Onbase [place] US PROCEDURES Final Resul t documented in this encounter Visit Diagnoses Not on filedocumented in this encounter Care Teams Motor Vehicle License Clerk Relationship Specialty Start Date End Date Calvin Maldonado MD [address] [place] [address] Dr [address] [place], [place] PCP - General Internal Medicine 12/22/19 documented as of this encounter
--- NOTE | ~2024-12-16 | XR_ITS ---
EXAMINATION: XR HIP 2 OR MORE VIEWS RIGHT HISTORY: M16.11 - Unilateral primary osteoarthritis, right hip COMPARISON: Comparison is made with the prior examination dated 09/05/2021. FINDINGS: Two views of the right hip are submitted. Osseous mineralization is normal. There is no fracture or dislocation. The joint space is maintained. The soft tissues are unremarkable. XR/XR hip RT min 2V IMPRESSION: Unremarkable examination of the right hip. Electronically signed by: Uziel Jacobson MD 12/16/2024 02:17 PM EDT
--- OUTSIDE RECORDS SUMMARY | 2024-12-16 16:52 | XMS_ITS | Clinical Summary ---
Author Organization [facility] Address [address] [place] [address] Care Team Providers Care Slot Machine Mechanic Name Role Phone Calvin Maldonado MD Primary Care Provider +1- [phone] Allergies Active Allergy Reactions Criticality Noted Date [...] 2 sprays inside Nose daily. 0 Active [place]-3 Fatty Acids (FISH OIL PO) Take 1,400 [...] Respiratory Therapy Supplies (CareTouch 2 CPAP Hose Eyelet Machine Operator) MISC by Does not apply route. 0 [...] age to complete this topic Care Teams Slot Machine Mechanic Relationship Specialty Start Date End Date Calvin Maldonado MD [address] [place] [address] [place] [address] PCP - General Internal Medicine 12/01/16
--- OUTSIDE RECORDS SUMMARY | 2024-12-16 16:52 | XMS_ITS | Patient Health Record ---
Author Organization [facility] Address [address] [place] [address] Care Team Providers Care Commissioning Agent Name Role Phone Calvin Maldonado MD Primary Care Provider UnaMelia Simon Unavailable [phone] Allergies Allergen (clinical drug ingredient) Drug/Non Drug [...] Status Risk Notes Problem Colon cancer screening (212342194) Colon cancer screening (Z12.11) Active confirmed Problem Irritable bowel syndrome (46338614) Irritable bowel syndrome (K58.9) Active confirmed Problem History of adenomatous polyp of colon (120979333) History of adenomatous polyp of colon (Z86.010) Active confirmed Problem Gastroesophageal reflux disease (141232419) GERD (gastroesophageal reflux disease) (K21.9) Active confirmed Problem Diverticulosis of colon (831168973) Diverticulosis of colon (K57.30) Active confirmed Plan Of Treatment Pending Test Test Name Order Date Pathology 01/01/2022 Future Test Test Name Order Date COLONOSCOPY 11/19/2021 Insurance Providers Payer Name Payer Address Payer Phone Subscriber Number Group Number Insured Name Patient Relationship to Insured Coverage Start Date Coverage End Date MEDICARE OF [place] [address] [place] [address] [id number] ROSE MENARD Self - patient is the insured [employer] [address] [place] [address] [id number] ROSE MENARD Self - patient is the [...]
--- OUTSIDE RECORDS SUMMARY | 2024-12-16 16:52 | XMS_ITS | Clinical Summary ---
Author Organization [facility] Address [address] [place] [address] Phone Care Team Providers Care Supervisor Sulfuric Acid Plant Name Role Phone Calvin Maldonado MD Primary Care Provider Surgical History Surgery Date Site/Laterality Comments BREAST LUMPECTOMY PROCEDURE:BREAST LUMPECTOMY Medical History Medical History Date Comments Breast cancer ([facility]/HCC V24, [facility]/HCC V28) DX:Breast cancer (HCC) IBS (irritable bowel [...] AM EDT [facility]ment [facility] [address] [address] 01/31/2025 11:30 AM EDT Office Visit [facility] Hematology Oncology [address] [place] [phone] Rema Carlos, DO [address] [place] [address] Health Maintenance Due Date Last Done Comments [...] age to complete this topic Insurance MEDICARE [facility] Care Teams Supervisor Sulfuric Acid Plant Relationship Specialty Start Date End Date Calvin Maldonado MD [address] [place] [address] [address] CHINYERE Ramsay PCP - General Internal Medicine 12/22/19
== END 2024-12-16 13:55 | disposition home or self-care (01) ==
LOC: HO.HMGCX 13:54
PROVIDERS: PCP Internal Medicine; Visit Provider Anesthesiology
DX: M16.11 Unilateral primary osteoarthritis, right hip (principal); M25.551 Pain in right hip
CPT/HCPCS: 73502

== ENCOUNTER → 2024-12-16 13:59 | Outpatient (BNV) | payer MEDICARE, OTHER, SELFPAY | PROVIDERS: PCP Internal Medicine; Visit Provider Radiology Diagnostic Radiology | DX: M16.11 Unilateral primary osteoarthritis, right hip (principal) | CPT/HCPCS: 73502 ==

== ENCOUNTER 2025-01-12 09:51 | Outpatient (AMB) | payer MEDICARE, OTHER, SELFPAY ==
[2025-01-12 09:53] VITALS: BP 161/73; PULSE 79; RESP 16; O2SAT 95; BMI 32.2
--- NOTE | 2025-01-12 09:53 | A.OFFVIS_ITS ---
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 Required: No Accompanied by: Life Partner Allergies adhesive tape Allergy (Intermediate, Verified 01/12/25 09:58) BLISTERS albuterol (From PROAIR HFA) Allergy (Intermediate, Verified 01/12/25 09:58) TREMOR oxybutynin Allergy (Intermediate, Verified 01/12/25 09:58) shortness of breath Sulfa (Sulfonamide Antibiotics) (SULFA (SULFONAMIDE ANTIBIOTICS)) Allergy (Intermediate, Verified 01/12/25 09:58) itching, hives ropinirole Allergy (Mild, Verified 01/12/25 09:58) joint pain codeine (CODEINE) Adverse Reaction (Intermediate, Verified 01/12/25 09:58) GI UPSET sitagliptin Adverse Reaction (Intermediate, Verified 01/12/25 09:58) joint pains HPI Comments Details: Татьяна is back in my office after course of physical therapy and topical medications applications. Last time I sent her for the right hip x-ray: It does not demonstrate any signs of arthritis. Therefore most of the pain of this patient is secondary to bursitis of the trochanteric bursa. I recommended patient topical medications, continue home exercise program. Next appointment as needed. Prior: Reports pain in 1 spot on the lateral surface of the right hip with intermittent radiation of the pain into the right groin. She was under care of Dr. Valenzuela and he referred her here with hip pain. He had physical therapy for shoulder pain in the past but not for her hip. He had an MRI of the right shoulder but no images of her hip. She never had any hip injections. [facility] Medical History (Updated 01/12/25 @ 10:08 by Jan Chambers MD) Arthritis Duodenal ulcer Awareness under anesthesia Diabetes mellitus Overactive bladder Obesity (BMI 30-39.9) Post-menopausal Obstructive sleep apnea Anxiety History of renal cell cancer History of breast cancer Constipation Vitamin D deficiency Allergic rhinitis Osteoarthritis of right knee GERD without esophagitis Impaired fasting glucose Acquired hypothyroidism Pure hypercholesterolemia Benign essential hypertension Invasive ductal carcinoma of left breast Hypothyroid HTN (hypertension) Esophagitis Mixed irritable bowel syndrome Surgical History Hx of lymph node excision Hx of excision of mass Hx of nasal septoplasty History of bilateral knee replacement History of removal of skin mole History of thumb surgery (~04/26/15) History of lumpectomy of left breast (~03/2014) History of left breast biopsy (~01/2014) History of removal of cyst History of bunionectomy History of kidney surgery History of cataract surgery History of colon resection (~2001) History of partial nephrectomy (~2002) History of colonoscopy History of esophagogastroduodenoscopy (EGD) (~09/16/12) History of eye surgery (~09/2012) Family History Father History of gastric cancer History of lung cancer Mother History of heart disease Brother Family history of prostate cancer History of colon cancer History of lung cancer Daughter History of breast cancer Paternal Aunt History of breast cancer Maternal Uncle History of leukemia Maternal Aunt History of breast cancer Social History [facility]: [facility] Are you a primary direct care supervisor to a significant other at home: No Do you presently have visiting nurse or other home services: No Alcohol intake: current Alcohol intake frequency: holidays/special occasions only Alcohol type: wine Patient Tobacco Use Status: Never used Tobacco e-Cigarette/Vaping Use: Never Used Second Hand Smoke Exposure: Yes service: No Current occupational status: retired Current occupation: rt handed Cognitive needs: No Hearing needs: No Vision needs: Yes (glasses) Review of Systems Const All systems reviewed & are unremarkable except as noted in HPI and below ENT Reports Normal hearing present Neuro Reports Normal hearing present, Denies Abnormal speech present, Denies confusion and Denies Sensory deficit (Neuro) Psych Denies confusion Physical Exam Const General: no acute distress; No confusion Nutritional Appearance: obese morbidly obese Orientation/consciousness: patient oriented x3 and No confusion Eyes General: appearance normal, both eyes and all related structures Pupils: Equal, round and reactive pupils present EOM: EOMs intact bilaterally Neck Neck: Yes full ROM Chest Chest palpation & inspection: normal inspection of the chest Resp Effort & Inspection: normal respiratory effort, able to speak in complete sentences, normal respiratory pattern, no audible wheezes and no cough Cardio Jugular venous distension: no JVD GI Inspection: Yes normal to inspection Neuro General: patient oriented x3, gait normal and No confusion Cranial nerves: Yes CN's II-XII intact bilaterally, Yes Equal, round and reactive pupils present, Yes Normal hearing present and Yes Ability to bilaterally elevate shoulders present Speech: No Abnormal speech present Gait exam (Neuro): Normal gait present Motor exam (neuro): 5/5 motor strength present throughout Sensory Exam: No Sensory deficit (Neuro) Extrem Other: Lateral and medial rotation of the right hip does not aggravate pain in the groin. She has minor discomfort in the projection of the trochanter on the right. However when she is walking she is experiencing groin discomfort. General: No pedal edema Psych Speech and movement: Normal speech and movement present Affect: normal affect Attitude: cooperative Thought process: Normal thought process present Thought content: Normal thought content present Insight: Good insight present (Psych) Judgement: Good judgement present (Psych) Results Reviewed Results Reviewed: EXAMINATION: XR HIP 2 OR MORE VIEWS RIGHT COMPARISON: Comparison is made with the prior examination dated 09/05/2021. FINDINGS: Two views of the right hip are submitted. Osseous mineralization is normal. There is no fracture or dislocation. The joint space is maintained. The soft tissues are unremarkable. IMPRESSION: Unremarkable examination of the right hip. Assessment & Plan Assessment & Plan (1) Right hip pain: Code(s): M25.551 - Pain in right hip Category: Medical (2) Trochanteric bursitis of right hip: Code(s): M70.61 - Trochanteric bursitis, right hip Category: Medical Plan Right hip x-ray did not demonstrate any hip changes. Most likely the pain of this patient is secondary to osteoarthritis of the right hip. Continue home exercise program. Continue topical lidocaine. Next appointment is as needed. Coding Level of Care Code Est Pt Level 3 (54481) Diagnoses Right hip pain M25.551 Trochanteric bursitis of right hip M70.61
== END 2025-01-12 10:31 | disposition home or self-care (01) ==
LOC: HO.PMC 09:52
PROVIDERS: PCP Internal Medicine; Visit Provider Anesthesiology
DX: M25.551 Pain in right hip (principal); M70.61 Trochanteric bursitis, right hip
CPT/HCPCS: 99213

== ENCOUNTER → 2025-01-12 09:51 | Outpatient (BNVA) | payer MEDICARE, OTHER, SELFPAY | PROVIDERS: PCP Internal Medicine; Visit Provider Anesthesiology | DX: M25.551 Pain in right hip (principal); M70.61 Trochanteric bursitis, right hip | CPT/HCPCS: 99212 ==

== ENCOUNTER 2025-01-25 09:00 | Outpatient (RCR) | payer MEDICARE, OTHER, SELFPAY ==
--- NOTE | 2025-01-05 08:40 | MHC.PT.EP ---
[facility] [place] Office [place] [facility] [place] [facility] [address] Jan Bragg [address] [phone] F: [phone] F: [phone] F: [phone] F: [phone] Physical Therapy Plan of Care Date of Evaluation: 01/05/25 Date of Surgery: n/a Diagnosis: R hip pain Assessment: Patient is a 79 year old female presenting to PT with complaints of pain in her R hip. Pt reports onset of pain began a couple months ago due to insidious onset. She presents today with impairments in pain, hip ROM, hip strength, core strength. Pt's current occupation is retired, with baseline physical activities including transfers, stair negotiation, ADLs, sitting. Pt expresses halfway goal of reducing pain, and is motivated to work towards this in PT. Clinical presentation today is most consistent with signs and sx associated with R hip pain and pt will benefit from skilled PT 2 week x 4 weeks to address the following problems and impairments noted upon evaluation: transfers, stair negotiation, ADLs, sitting. These problems limit the patient with the following functional activities: transfers, stair negotiation, ADLs, sitting. The prescribed treatment plan of care is medically necessary. Co-morbidities of DM, anxiety, hx breast and renal cell cancer were identified and taken into considerations of plan of care. Pt was educated on HEP, role of PT, prognosis, POC. Frequency and Duration: The patient will be seen 2 x week x 4 weeks Short Term Goals: Pt will demonstrate improved hip MMT strength by 1/3 grade in 2 weeks. Pt will demonstrate ability to perform PPT with good core recruitment in 2 weeks. Burring Wheel Operator Goals: Pt will demonstrate improved LEFI score by 9 points in 4 weeks for improved functional mobility. Pt will demonstrate ability to transfer with min to no pain in 4 weeks for return to PLOF. Pt will demonstrate improved ability to negotiate stairs with min to no pain in 4 weeks for improved access to her home. Treatment Plan: Modalities to reduce pain, spasms and effusion. Manual therapy to restore motion and function. Therapeutic exercise to improve strength and flexibility. Neuromuscular re-education for posture and balance. Therapeutic activities to return to functional activities of daily living. Electronically signed by: Prerna Hughes, PT, DPT, ATC Please sign and return to therapist. Thank you for your referral.
--- NOTE | 2025-03-08 08:16 | MHC.PT.DC ---
[facility] [place] Office [place] Office [place] Office [address] Norma Bragg [address] [phone] F: [phone] F: [phone] F: [phone] F: [phone] Physical Therapy Discharge Report Diagnosis: R hip pain Date of Surgery: n/a Date of Evaluation: 01/05/25 Date of Discharge: 03/08/25 Treatments to Date: 3 Cancellations to Date: 2 No Shows to Date: 0 Discharge Status: Patient Elected to Stop Discharge Summary: Pt cancelled her last scheduled appointment and has not returned in> 30 days. Therefore to be d/c per policy. Electronically signed by: Prerna Hughes, PT, DPT, ATC Please sign and return to therapist. Thank you for your referral.
== END 2025-03-08 08:16 | disposition home or self-care (01) ==
LOC: HO.PTCHIC 09:00
PROVIDERS: PCP Internal Medicine; Visit Provider Anesthesiology
DX: M16.11 Unilateral primary osteoarthritis, right hip (principal); M25.551 Pain in right hip
CPT/HCPCS: 97110; 97161

== ENCOUNTER 2025-02-01 09:06 | Outpatient (REF) | payer MEDICARE, OTHER, SELFPAY ==
--- NOTE | ~2025-02-01 | XR_ITS ---
EXAMINATION: XR HAND 3 OR MORE VIEWS RIGHT HISTORY: M79.641 - Pain in right hand COMPARISON: Comparison is made with the prior examination dated 06/27/2020. FINDINGS: Three views of the right hand are submitted. Osseous mineralization is normal. There is no fracture or dislocation. The patient is again noted to be status post fusion of the interphalangeal joint of the thumb screw. There is moderate osteoarthritis of the DIP and PIP joints as well as the MCP joints of the thumb and middle finger, with joint space narrowing and osteophyte formation. There is ulnar deviation of the 2nd and 3rd MCP joints. There is moderate osteoarthritis of the 1st carpometacarpal joint. The soft tissues are unremarkable. XR/XR hand RT min 3V IMPRESSION: Degenerative changes of the right hand as described. Electronically signed by: Uziel Jacobson MD 02/01/2025 10:16 AM EDT
--- OUTSIDE RECORDS SUMMARY | 2025-02-01 12:04 | XMS_ITS | Data Portability ---
Author Organization [place] - [facility], Allergy Address [address] [address] Care Team Providers Care Technical Spec Name Role Phone DUKE RODRIGUEZ Primary Care Provider [phone] Assessment Encounter Date Assessment Date Assessment LastModified [...] for routine debridement, or sooner with concerns. [email or web address] Not available 11/23/2024 09:07:21 Plan of Treatment Reminders Order Date Submit Date Provider Last Modified By Organization Details Last Modified Time Details Appointments [facility] 2025 11:15A PALLAVI ARIAS Not available Not available Not available Lab None recorded . Referral None recorded . Procedures None recorded . Surgeries None recorded . Imaging CT, neck, soft tissue, w/ contrast - ct neck w contrast , red lesion in throat. hx of tonsille ctomy 2023 024 [email or web address] [facility] [place], [facility], [facility] [address], [place], [address], 09/29/2023 10:29:32 Medication Orders None recorded . Patient TargetsNo targets recorded. Patient InstructionsNo instructions recorded. Reason for Referral None Reported. Results Created Date Observation Date Name Description Value Unit Range Abnormal Flag Note LastModifiedBy Organization Detail LastModifiedTime 08/27/19 24 08/28/2023 BUN BUN 17 mg/dL 8-27 Not Available [facility] ([facility]) [address] [facility], [place], [address], 08/28/2023 03:11:17 08/27/19 24 08/28/2023 CREAT ININE creatinine 0.78 mg/dL 0.57-1 .00 Not Available [facility] ([facility]) [address] [place], [address], 08/28/2023 03:11:18 08/27/19 24 08/28/2023 CREAT ININE eGFR 78 mL/mi n/1.7 3 >59 Not Available [facility] ([facility]) [address] [place], [address], 08/28/2023 03:11:18 10/20/19 24 10/20/2023 CT, neck, soft tissu e, w/ contr ast No observ ation record ed. [email or web address] [facility] [place] [address] [facility] [address], [place], [address], 10/21/2023 11:12:59 11/25/19 24 06/09/2018 imagi ng/di [...] Organization Details Recorded Time Deviated nasal septum 553710566 Active 2013 Nasal septal deviation ; CMS Risk: moderate risk Note : Date Diagnosed : 4 11:41 AM (470) Not Available [facility] 4 02:14:51 Chronic rhinitis 24804818 Active 2013 Rhinitis, chronic; CMS Risk: moderate risk Note : Date Diagnosed : 4 11:41 AM (472.0) Not Available [facility] 4 02:14:55 Hypertrop hy of nasal turbinate s 78211627 Active 2013 Nasal turbinate hypertrop hy; Location: bilateral CMS Risk: low risk Not Available [facility] 4 02:14:55 Postopera tive follow-up visit Active 2013 Post op; Note: Date Diagnosed : 4 10:45 AM (V67.00) Not Available [facility] 4 02:13:52 Sensorine ural hearing loss of bilateral ears 611202772 Active 2018 Sensorine ural hearing loss, bilateral ; Note: Date Diagnosed : 06/09/2018 10:58 AM (H90.3) Not Available [facility] 4 02:14:21 Bilateral disorder of Eustachia n tubes 73557239892 60809 Active 2018 Other specified disorders of Eustachia n tube, bilateral ; Note: Date Diagnosed : 06/09/2018 12:44 PM (H69.83) Not Available [facility] 4 02:13:38 Allergic rhinitis 60882303 Active 2021 Allergic rhinitis, unspecifi ed; Note: Date Diagnosed : 08/05/2021 1:48 PM (J30.9) Not Available [facility] 4 02:14:58 Impacted cerumen in right ear 69380856939 51811 Active 2021 Impacted cerumen, right ear; Note: Date Diagnosed : 08/05/2021 1:48 PM (H61.21) Not Available [facility] 4 02:12:53 Cough 52743122 Active 2021 Cough, unspecifi ed; Note: Changed from R05 to R05.9 (08/06/2021 1:29 PM) , Date Diagnosed : 08/05/2021 1:48 PM (R05) Not Available [facility] 4 02:15:09 Gastroeso phageal reflux disease without esophagit is 960627753 Active 2021 Gastro-es ophageal reflux disease without esophagit is; Note: Date Diagnosed : 08/05/2021 1:48 PM (K21.9) Not Available [facility] 4 02:13:28 Impacted cerumen of bilateral ears 45616895182 26294 Active 2023 Impacted cerumen, bilateral ; Note: Date Diagnosed : 06/22/2023 4:28 PM (H61.23) Not Available [facility] 4 02:13:05 Chronic sore throat 594281765 Active 2023 LOWELL SANTILLAN PA-C [address] [place] [address],[facility] [address], [facility] [place], [address] , [facility] - [facility] 4 15:10:01 Otalgia of right ear 8632365551 Active 2023 LOWELL SANTILLAN PA-C [address] [facility],[place] [address], [place], [address] , [facility] 4 15:10:59 Problem Notes None recorded. Procedures Surgical History Date Name Laterality Status Provider Name and Address Organization Details Recorded Time 5 Cerumen removal without microscope bilat completed LOWELL SANTILLAN PA-C [address] [facility],[place] [address], [place], [address], [facility] - [facility] 11/23/2024 09:07:17 5 Cerumen removal without microscope bilat completed LOWELL SANTILLAN PA-C [address] [facility],[place] [address], [place], [address], [facility] 06/06/2024 11:30:34 Imaging Results None recorded. Procedure Notes None recorded. Medical Equipment None Reported. Allergies Allergen ID Allergen Name Allergen Category Reaction Reaction Severity Criticality Documentation Date Start Date Code Code System Note Provider Name and Address Organization Details Recorded Time 58095 adhesive tape environme nt,medica tion other Not available Not available 08/18/2023 React ion: unkno wn, unspe cifie d;; Not Available [facility] 4 00:49:11 79663 Substance with sulfonami de structure and antibacte rial mechanism of action (substanc e) medicatio n other Not available Not available 08/18/2023 60391 8003 SNOMED React ion: unkno wn, unspe cifie d;; Not Available [facility] 4 00:50:15 Medications Name Sig [...] by mouth 2013 active Medicati on ID: [id number] Du ration Value: 7 Prescri bed By [...] topical cream 11/23 completed Medicati on ID: [id number] D uration Value: 7 Brand Name: alclomet [...] topical cream 2019 active Medicati on ID: [id number] D uration Value: 14 Brand Name: betameth asone dipropio jason Sen d Method: E-Prescr ibed Sub s Allowed: subs OK Speci al Instruct ion: APPLY TO RASH ON THE NECK BID FOR 1 TO 2 WEEKS Me dication GenericN trevor: betameth asone dipropio jason Not Available Not Available Not Available omeprazol e 20 mg capsule,d elayed release 2018 active Medicati on ID: [id number] D uration Value: 90 Brand Name: omeprazo [...] mg tablet 11/23 completed Medicati on ID: [id number] B rand Name: biotin S end Method: [...] mg capsule 11/23 completed Medicati on ID: [id number] B rand Name: Azo Bladder Control Send Method: E-Prescr ibed Sub s Allowed: subs OK Medic ationGen ericName : Azo Bladder Control Not Available Not Available Not Available Vitals Date Recorded Body height Body mass index (BMI) Body weight Provider Name and Address Organization Details Last Updated DateTime 06/06/2024 157.48 cm 27.8 kg/m2 31016.04 g Mone Boland [place] - [facility] 06/06/2024 11:07:34 Date Recorded Body height Provider Name an d Address Organization Details Last Updated DateTime 08/27/2023 157.48 cm Eduardo Vera [place] - [facility] 08/27/2023 14:33:20 Date Recorded Body height Body mass index (BMI) Body weight Provider Name and Address Organization Details Last Updated DateTime 11/06/2023 157.48 cm 27.8 kg/m2 32751.04 g Artemio Blum [place] - [facility] 11/06/2023 10:17:29 Date Recorded Body height Body mass index (BMI) Body weight Provider Name and Address Organization Details Last Updated DateTime 11/23/2024 148.59 cm 31.2 kg/m2 11497.04 g Jesenia Mclean [place] - [facility] 11/23/2024 08:47:54 Social History None recorded. Functional [...] Note 1338 LOWELL SANTILLAN PA-C [facility] [address] [place] [address] 08/27/2023 13:39:36 08/27/2023 14:44:09 Chronic sore throat 722483073 R07.0 Otalgia of right ear 677 5687569 H92.01 [id number] LOWELL SANTILLAN PA-C [facility] [address] [place] [address] 11/06/2023 09:48:18 11/06/2023 10:32:19 Chronic sore throat 358736202 R07.0 Otalgia of right ear 162 8957401 H92.01 [id number] LOWELL SANTILLAN PA-C [facility] [address] [place] [address] 06/06/2024 10:57:50 06/06/2024 12:10:45 Impacted cerumen of bilateral ears 7681692039 793905 H61.23 [id number] LOWELL SANTILLAN PA-C [facility] [address] [place] [address] 11/23/2024 08:38:35 11/23/2024 09:28:37 Impacted cerumen of bilateral ears 4640305765 898961 H61.23 Health Concerns Section Related Observation LastModified by Organization Detai ls LastModified Time None Recorded Concern Status LastModified by Organization Details LastModified Time None Recorded Advance Directives Directive None Recorded Payers Insurance Date Sequence Insurance Name Policy Number Policy Young Covered Member ID Young Member ID Guarantor Name 11/20/2024 2 FOR LIFE () Uziel Kramer [id number] Lisa Gonzalez 11/20/2024 1 MEDICARE [place]: J [employer] Татьяна Kramer [id number] Lisa Gonzalez Notes Date Note Type Note Provider Name and Address Organization Details Recorded Time 08/27/2023 text/html ROS as noted in the [facility] 78-year-old female presents for evaluation of red [...] and renal cancer. JASE DALEY MD [address] [facility],[address], [address], [place] - [facility] 08/27/2023 16:00:26 11/06/2023 text/html ROS as noted in the [facility] 78-year-old female presents for review of CT [...] and renal cancer. LELE CUEVAS MD [address] [facility],[address], [address], [facility] - [facility] 11/06/2023 10:38:11 06/06/2024 text/html ROS as noted in the [facility] 79-year-old female presents for cerumen removal. No concerns today. LELE CUEVAS MD [address] [facility],[address], [address], [facility] - [facility] 06/06/2024 17:09:07 11/23/2024 text/html ROS as noted in the [facility] 79-year-old female presents for cerumen removal. No concerns today. FELIPE IRAHETA MD [address] [facility] [place],[address], [address], [facility] - [facility] 11/23/2024 12:58:03 OBGyn Episode No OBEpisode recorded.
== END 2025-02-01 09:07 | disposition home or self-care (01) ==
LOC: HO.HMGCX 09:06
PROVIDERS: PCP Internal Medicine; Visit Provider Physician Assistant Medical
DX: M79.641 Pain in right hand (principal)
CPT/HCPCS: 73130; 99212

== ENCOUNTER 2025-02-01 09:06 | Outpatient (AMB) | payer MEDICARE, OTHER, SELFPAY ==
--- OUTSIDE RECORDS SUMMARY | 2024-01-06 10:44 | XMS_ITS | Encounter Summary ---
Author Organization [facility] [place] [address] Care Team Providers Care Director Of Product Marketing Name Role Phone Calvin Maldonado MD Primary Care Provider Encounter Details Date Type Department Care Team (Late st Contact Info) Description 01/06/2024 10:44 AM EDT Hospital Encounter TH HISTORIC ENCOUNTERS EASTERN CONVERSION ONLY Rema Carlos, DO [address] [place] [address] Social History Tobacco Use Types Packs/Day Years [...] 12:02 PM Encounter Date: 01/06/2024 Status: Signed Professor Of Archaeology: Rema Carlos DO (Physician) Hematology/Oncology Progress Note [...] HCl (Pataday) 0.2 % ophthalmic solution ? [place]-3 Fatty Acids (FISH OIL PO) ? omeprazole (PRILOSEC) 40 MG capsule ? Probiotic Product (PROBIOTIC DAILY PO) ? Respiratory Therapy Supplies (CareTouch 2 CPAP Hose Figure Model) MISC ? rosuvastatin (CRESTOR) tablet 40 mg [...] Social history She is , lives in [place]. She is a never smoker Labs: Relevant data reviewed. 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 She also completed 5 years of tamoxifen. She is doing well and remains NICKO Left breast carcinoma, pT1b, ER + [place] + HER 2 negative Continue to monitor [...] - Hematology/Oncology [facility] documented in this encounter Plan of Treatment Upcoming Encounters Date Type Department Care Team (Late st Contact Info) Description 01/31/2026 11:00 AM EDT Office Visit [facility] Hematology Oncology [address] [place] [address] Savannah Rome PA [address] [place] [address] documented as of this encounter Procedures Procedure Name Priority Date/Time Associated Diagnosis Comments HISTORICAL IMAGING SCAN RESULT 01/06/2024 documented in this encounter Results * HISTORICAL IMAGING SCAN RESULT (01/06/2024) Anatomical Region Laterality Modality Ultrasound us Provider Onbase [place] US PROCEDURES Final Resul t documented in this encounter Visit Diagnoses Not on filedocumented in this encounter Care Teams Director Of Product Marketing Relationship Specialty Start Date End Date Calvin Maldonado MD [address] [place] [address] [address] [place], [place] PCP - General Internal Medicine 12/22/19 documented as of this encounter
--- OUTSIDE RECORDS SUMMARY | 2025-01-30 10:15 | XMS_ITS | Encounter Summary ---
Author Organization [facility] Address [address] [place] [address] Care Team Providers Care Wireless Watcher Name Role Phone Calvin Maldonado MD Primary Care Provider Reason for Visit * Imaging (Routine) - Authorized Specialty Diagnoses / Procedures Referred By Arnel osuna Referred To Contact Radiology Diagnoses Malignant neoplasm of central portion of left breast in female, estrogen receptor positive (CMS/HCC V24, [facility]/HCC V28) Encounter for screening mammogram for malignant neoplasm of breast Procedures [facility] Mammo Digital Screening w Juanito bilat [facility] Mammo Digital Screening bilat Rema Carlos, [address] [place] [address] Phone: tel: fax: [facility] Referral ID Status Reason Start Date Expiration Date V isits Requested Visits Authorized [id number] Authorized 07/07/2024 07/07/2025 1 1 Encounter Details Date Type Department Care Team (Latest Contact Info) Description 01/30/2025 10:15 AM EDT - 01/30/2025 11:59 PM EDT Hospital [facility] [address] [phone] Malignant neoplasm of central portion of left breast in female, estrogen receptor positive ([facility] V24, [facility] V28); Encounter for screening mammogram for malignant neoplasm of breast Discharge Disposition: Home or Self Care Social History Tobacco Use Types Packs/Day Years [...] Sign Reading Time Taken Comments Blood Pressure - - Pulse - - Temperature - - Respiratory Rate - - Oxygen Saturation - - Inhaled Oxygen Concentration - - Weight 68.9 kg (152 lb) 01/30/2025 10:30 AM EDT Height - - Body Mass Index 31.77 01/06/2024 11:33 AM EDT documented in this encounter Medications at Time of Discharge biotin 1 mg tablet 10/20/2019 cetirizine (ZyrTEC) 10 mg capsule 01/23/2014 citalopram (CeleXA) 10 mg tablet Take 1 tablet (10 mg total) by mouth 1 (one) time each day. 01/23/2014 documented as of this encounter Discharge Disposition Disposition Code Departure Means Destination Home or Self Care documented in this encounter Plan of Treatment Upcoming Encounters Date Type Department Care Team (Late st Contact Info) Description 01/31/2026 11:00 AM EDT Office Visit [facility] Hematology Oncology [address] [place] [address] Savannah Rome PA [address] [place] [address] documented as of this encounter Procedures Procedure Name Priority Date/Time Associated Diagnosis Comments MG MAMMO DIGITAL SCREENING W JUANITO BILAT Routine 01/30/2025 10:46 AM EDT Malignant neoplasm of central portion of left breast in female, estrogen receptor positive ([facility] V24, [facility] V28) Encounter for screening mammogram for malignant neoplasm of breast documented in this encounter Results * [facility] Mammo Digital Screening w Juanito bilat (01/30/2025 10:46 AM EDT) Anatomical Region Laterality Modality Breast Bilateral Mammography 01/30/2025 10:5 8 AM EDT Impressions 01/30/2025 11:17 AM EDT Benign. BI-RADS CATEGORY: 2 - BENIGN RECOMMENDATION: Screening bilateral mammogram is recommended in 1 year. Mammo Location: [facility], [address] [place] [address], [address], . -------- FINAL REPORT -------- Dictated By: Perez Serna Dictated Date: 01/30/2025 10:58 ET Assigned Physician: Perez Serna Reviewed and Electronically Signed By: Perez Serna Signed Date: 01/30/2025 11:17 ET Workstation ID: [id number] Transcribed By: Self Edit Transcribed Date: 01/30/2025 10:58 ET Narrative 01/30/2025 11:17 AM EDT CLINICAL: 79 years old, Female, routine annual exam. COMPARISON: 01/21/2024 and 01/19/2023. TECHNIQUE: Bilateral MLO and CC views were obtained digitally with 3-D mammogram (digital breast tomosynthesis). Computer-aided detection was utilized in evaluation of this exam (CAD). FINDINGS: Bilateral atherosclerotic and other scattered benign calcifications. Stable postlumpectomy changes on the left. No suspicious mass or architectural distortion. No suspicious calcification. There has been no significant change from prior exam(s). BREAST DENSITY: C - The breasts are heterogeneously dense which may obscure small masses. Procedure Note Perez Serna MD - 01/30/2025 CLINICAL: 79 years old, Female, routine annual exam. COMPARISON: 01/21/2024 and 01/19/2023. TECHNIQUE: Bilateral MLO and CC views were obtained digitally with 3-Dmammogram (digital breast tomosynthesis). Computer-aided detection wasutilized in evaluation of this exam (CAD). FINDINGS: Bilateral atherosclerotic and other scattered benigncalcifications. Stable postlumpectomy changes on the left. No suspicious mass or architectural distortion. No suspiciouscalcification. There has been no significant change from prior exam(s). BREAST DENSITY: C - The breasts are heterogeneously dense which mayobscure small masses. IMPRESSION: Benign. BI-RADS CATEGORY: 2 - BENIGN RECOMMENDATION: Screening bilateral mammogram is recommended in 1 year. Mammo Location: [facility], [address] [place] [address], [address], . -------- FINAL REPORT -------- Dictated By: Perez Serna Dictated Date: 01/30/2025 10:58 ET Assigned Physician: Perez Serna Reviewed and Electronically Signed By: Perez Serna Signed Date: 01/30/2025 11:17 ET Workstation ID: [id number] Transcribed By: Self Edit Transcribed Date: 01/30/2025 10:58 ET Rema Carlos DO IMG BI PROCEDURES Fin al Result documented in this encounter Visit Diagnoses Diagnosis Malignant neoplasm of central portion of left breast in female, estrogen receptor positive ([facility] V24, [facility] V28) Encounter for screening mammogram for malignant neoplasm of breast documented in this encounter Care Teams Wireless Watcher Relationship Specialty Start Date End Date Calvin Maldonado MD [address] [place] [address] Dr [address] [place] PCP - General Internal Medicine 12/22/19 documented as of this encounter
--- OUTSIDE RECORDS SUMMARY | 2025-01-31 11:30 | XMS_ITS | Encounter Summary ---
Author Organization [facility] Address [address] [place] [address] Care Team Providers Care Family Life Counselor Name Role Phone Calvin Maldonado MD Primary Care Provider Encounter Details Date Type Department Care Team (Late st Contact Info) Description 01/31/2025 11:30 AM EDT Office Visit [facility] Hematology Oncology [address] [place] [phone] Rema Carlos, DO [address] [place] [address] History of cancer of left breast (Primary Dx) Social History Tobacco Use Types Packs/Day Years Used Date Smoking Tobacco: Never Smokeless Tobacco: Never Tobacco Cessation:Counseling Given: Not Answered Alcohol Use Standard Drinks/Week Comments No 0 [...] Sign Reading Time Taken Comments Blood Pressure 140/72 01/31/2025 11:20 AM EDT Pulse 70 01/31/2025 11:20 AM EDT Temperature 36.6 C (97.9 F) 01/31/2025 11:20 AM EDT Respiratory Rate - - Oxygen Saturation 96% 01/31/2025 11:20 AM EDT Inhaled Oxygen Concentration - - Weight 71.2 kg (157 lb) 01/31/2025 11:20 AM EDT Height 147.3 cm (4' 10 ) 01/31/2025 11:20 AM EDT Body Mass Index 32.81 01/31/2025 11:20 AM EDT documented in this encounter Progress Notes * Rema Andradeuliffe, DO - 01/31/2025 11:30 AM EDT Hematology/Oncology Progress Note 01/31/25 Subjective Patient identifier: 79 year-old woman with a history of T1BN0 carcinoma of the left breast status postlumpectomy and radiation in 2014. Followed by 5 years of tamoxifen. Interim history: Patient here for routine follow-up Denies any pain in breast or lumps. She had her mammogram yesterday. She had shoulder surgery in August for a bone spur. Last week had a fall and hurt her hand. Says the heel issue has resolved. On occasion has alternating constipation with diarrhea, which is chronic. Her appetite is fine. No respiraotry issues. No recent infections or fevers. Constitutional: See above. Resp/CV: No cough, shortness [...] of breast cancer. Objective Last Vitals Vitals: 01/31/25 1120 BP: (!) 140/72 Pulse: 70 Temp: 36.6 ??C (97.9 ??F) SpO2: 96% General: well appearing elderly woman HENT: No scleral icterus. Lymph: No palpable cervical, supraclavicular or axillary adenopathy. Breast: she declined an exam today. Resp: clear to auscultation bilaterally, Cardio: regular rate and rhythm, Abdomen: soft non tender, non distended, normoactive bowel sounds Neuro: alert and oriented, normal speech PAst medical history, past surgical history, and family history reviewed. Current Medications[1] Current Allergies[2] Medical History[3] Surgical history Lumpectomy Family history Father- gastric cancer Brother- prostate , colon cancer Maternal aunt- leukemia Paternal aunt- breast cancer Social history She is , lives in [place]. She is a never smoker Labs: Relevant data reviewed. Imaging MAMMOGRAM - CLINICAL: 79 years old, Female, routine annual [...] heterogeneously dense which may obscure small masses. IMPRESSION: Benign. BI-RADS CATEGORY: 2 - BENIGN RECOMMENDATION: Screening bilateral mammogram is recommended in 1 year. Mammo Location: [facility], [address] [place] [address], [address], . -------- FINAL REPORT -------- Dictated By: Perez Serna Dictated Date: 01/30/2025 10:58 ET Assessment & Plan 79-year-old female with a history of hormone receptor positive HER2 negative left breast carcinoma,status post lumpectomy and radiation. She also completed 5 years of tamoxifen. Currently ten years out from her initial diagnosis and remains with no evidence of recurrent cancer. Left breast carcinoma, pT1b, ER + DC + HER 2 negative Continue to monitor on active surveillance Mammogram ordered to be done in a year She prefers to hold off on the MRI for now unless something acute shows up. Can consider breast US to be done with mammograms given breast density. Follow up in a year with the PA here . After that consider future imaging to her PCP. Larry Carlos, DO - Hematology/Oncology [facility] [place] [facility] [1] Current Outpatient Medications: biotin 1 mg tablet, , Disp: , Rfl: cetirizine (ZyrTEC) 10 mg capsule, , Disp: , Rfl: citalopram (CeleXA) 10 mg tablet, Take 1 tablet (10 mg total) by mouth 1 (one) time each day., Disp: , Rfl: cholecalciferol, vitamin D3, (VITAMIN D3 ORAL), Take 5,000 Units by mouth., Disp: , Rfl: gabapentin (NEURONTIN) 100 mg capsule, Take 1 capsule (100 mg total) by mouth. at bedtime, Disp: , Rfl: levothyroxine (SYNTHROID, LEVOTHROID) 50 mcg tablet, Take 1 tablet (50 mcg total) by mouth 1 (one) time each day before breakfast., Disp: , Rfl: losartan (COZAAR) 50 mg tablet, 1 tablet (50 mg total) 1 (one) time each day., Disp: , Rfl: mometasone (NASONEX) 50 mcg/actuation nasal spray, Administer 2 sprays into each nostril 1 (one) time each day., Disp: , Rfl: multivit with minerals/lutein (MULTIVITAMIN 50 PLUS ORAL), Multivitamin, Disp: , Rfl: olopatadine (PATADAY) 0.2 % ophthalmic solution, 1 drop., Disp: , Rfl: omeprazole (PriLOSEC) [address] capsule, Take 1 capsule (40 mg total) by mouth 1 (one) time each day., Disp: , Rfl: rosuvastatin (CRESTOR) 5 mg tablet, 1 tablet (5 mg total)., Disp: , Rfl: [2] Allergies Allergen Reactions Albuterol Codeine Unknown Sulfa (Sulfonamide Antibiotics) [3] Past Medical History: Diagnosis Date Acid reflux DX:Acid reflux Anxiety DX:Anxiety BRCA1 gene mutation negative Breast cancer (CMS/HCC V24, CMS/HCC V28) DX:Breast cancer (HCC) Chronic kidney disease DX:Chronic kidney disease;COMMENT:nephrectomy Disease of thyroid gland DX:Disease of thyroid gland;COMMENT:hypothyroidism Esophagitis DX:Esophagitis Hypertension DX:Hypertension IBS (irritable bowel syndrome) DX:IBS (irritable bowel syndrome) documented in this encounter Plan of Treatment Upcoming Encounters Date Type Department Care Team (Late st Contact Info) Description 01/31/2026 11:00 AM EDT Office Visit [facility] Hematology Oncology [address] [place] [phone] Savannah Rome PA [address] [place] [address] documented as of this encounter Visit Diagnoses Diagnosis History of cancer of left breast- Primary documented in this encounter Historical Medications * This list may reflect changes made after this encounter. mometasone (NASONEX) 50 mcg/actuation nasal spray Administer 2 sprays into each nostril 1 (one) time each day. levothyroxine (SYNTHROID, LEVOTHROID) 50 mcg tablet Take 1 tablet (50 mcg total) by mouth 1 (one) time each day before breakfast. multivit with minerals/lutein (MULTIVITAMIN 50 PLUS ORAL) Multivitamin cholecalciferol, vitamin D3, (VITAMIN D3 ORAL) Take 5,000 Units by mouth. cetirizine (ZyrTEC) 10 mg capsule 01/23/2014 biotin 1 mg tablet 10/20/2019 gabapentin (NEURONTIN) 100 mg capsule Take 1 capsule (100 mg total) by mouth. at bedtime losartan (COZAAR) 50 mg tablet 1 tablet (50 mg total) 1 (one) time each day. olopatadine (PATADAY) 0.2 % ophthalmic solution 1 drop. omeprazole (PriLOSEC) [address] capsule Take 1 capsule (40 mg total) by mouth 1 (one) time each day. rosuvastatin (CRESTOR) 5 mg tablet 1 tablet (5 mg total). citalopram (CeleXA) 10 mg tablet Take 1 tablet (10 mg total) by mouth 1 (one) time each day. 01/23/2014 added in this encounter Care Teams Family Life Counselor Relationship Specialty Start Date End Date Calvin Maldonado MD [address] [place] [address] [address] PCP - General Internal Medicine 12/22/19 documented as of this encounter
[2025-02-01 09:09] VITALS: BP 130/80; PULSE 71; TEMP 36.8; O2SAT 94; BMI 30.1
--- NOTE | 2025-02-01 09:09 | AM.OFFWIN_ITS ---
Intake Vital Signs 02/01/25 09:09 Height 4 ft 10 in Weight 144 lb BMI 30.1 BP 130/80 Blood Pressure Location Rt brachial Position Sitting Pulse 71 Pulse Source Pulse Oximeter Temp 98.3 F Temp Source Oral Pulse Oximetry (%) 94 Oxygen Delivery Method Room Air Intake Visit Reasons: EP Fall, lump on rt hand/wrist Intake Note: EP fell down when the chair slipped out while she tried to reach her cup of coffee in a car [employer] last Thursday. There is a swilling around her right wrist while the patient complains of pain all over her right hand from the wrist to shoulder. Patient Tobacco Use Status: Never used Tobacco Allergies adhesive tape Allergy (Intermediate, Verified 02/01/25 09:20) BLISTERS albuterol (From PROAIR HFA) Allergy (Intermediate, Verified 02/01/25 09:20) TREMOR oxybutynin Allergy (Intermediate, Verified 02/01/25 09:20) shortness of breath Sulfa (Sulfonamide Antibiotics) (SULFA (SULFONAMIDE ANTIBIOTICS)) Allergy (Intermediate, Verified 02/01/25 09:20) itching, hives ropinirole Allergy (Mild, Verified 02/01/25 09:20) joint pain codeine (CODEINE) Adverse Reaction (Intermediate, Verified 02/01/25 09:20) GI UPSET sitagliptin Adverse Reaction (Intermediate, Verified 02/01/25 09:20) joint pains Do you need a note to return to daycare/school/sports/work: No HPI HPI Comments History of Present Illness Details History of Present Illness - The patient is a 79-year-old female pr esenting with a fall-related injury to the right hand. - The fall occurred about a week ago whe n the patient reached over for coffee and the chair tipped over, causing her to fall backward. - The patient reports soreness in the ri ght hand, with pain radiating up the arm, but denies any numbness or tingling in the fingers. - The patient is right-handed, which com plicates daily activities due to the injury. - She was concerned because her hand was swollen. - She denies wrist pain, arm pain, shoul mitra pain, head injury, neck pain, CP, or SOB. Physical Exam General: Cooperative, healthy appearing, comfortable, no acute distress and well developed Orientation: Patient oriented x3 Limitations: No limitations Respiratory: Normal respiratory effort and able to speak in complete sentences. Cardiac: RRR. No m/r/g noted. Skin: No rashes or lesions noted. No bruising or abrasions noted. Neuro: Sensation is intact. Extremities: Swelling noted on the right lateral aspect of the hand over the 4th and 5th digits. Bony abnormalities noted on the MCP joints. FROM of the right wrist and digits on the hand. No TTP of the medial or lateral wrist, carpal bones, MCP joints. TTP of the 4th and 5th metacarpals. Hand bell tier is intact. Patient was informed and verbally consented to the use of an ambient scribe for clinic note documentation during this visit. [facility] Medical History (Updated 01/12/25 @ 10:08 by Jan Chambers MD) Arthritis Duodenal ulcer Awareness under anesthesia Diabetes mellitus Overactive bladder Obesity (BMI 30-39.9) Post-menopausal Obstructive sleep apnea Anxiety History of renal cell cancer History of breast cancer Constipation Vitamin D deficiency Allergic rhinitis Osteoarthritis of right knee GERD without esophagitis Impaired fasting glucose Acquired hypothyroidism Pure hypercholesterolemia Benign essential hypertension Invasive ductal carcinoma of left breast Hypothyroid HTN (hypertension) Esophagitis Mixed irritable bowel syndrome Surgical History Hx of lymph node excision Hx of excision of mass Hx of nasal septoplasty History of bilateral knee replacement History of removal of skin mole History of thumb surgery (~04/26/15) History of lumpectomy of left breast (~03/2014) History of left breast biopsy (~01/2014) History of removal of cyst History of bunionectomy History of kidney surgery History of cataract surgery History of colon resection (~2001) History of partial nephrectomy (~2002) History of colonoscopy History of esophagogastroduodenoscopy (EGD) (~09/16/12) History of eye surgery (~09/2012) Family History Father History of gastric cancer History of lung cancer Mother History of heart disease Brother Family history of prostate cancer History of colon cancer History of lung cancer Daughter History of breast cancer Paternal Aunt History of breast cancer Maternal Uncle History of leukemia Maternal Aunt History of breast cancer Social History (Reviewed 08/19/25 @ 10:01 by JOHN Cohn Housing: [facility] Are you a primary ocular care aide to a significant other at home: No Do you presently have visiting nurse or other home services: No Alcohol intake: current Alcohol intake frequency: holidays/special occasions only Alcohol type: wine Patient Tobacco Use Status: Never used Tobacco e-Cigarette/Vaping Use: Never Used Second Hand Smoke Exposure: Yes service: No Current occupational status: retired Current occupation: rt handed Cognitive needs: No Hearing needs: No Vision needs: Yes (glasses) Review of Systems Const All systems reviewed & are unremarkable except as noted in HPI and below Physical Exam Vital Signs: Last Vital Signs Temp 98.3 F 02/01/25 09:09 Pulse 71 02/01/25 09:09 BP 130/80 02/01/25 09:09 Pulse Ox 94 02/01/25 09:09 Oxygen Delivery Method Room Air 02/01/25 09:09 BMI result Body Mass Index 30.1 Results Reviewed Results Reviewed: will review the x-ray in the office Assessment & Plan Assessment & Plan (1) Right hand pain: Code(s): M79.641 - Pain in right hand Plan Most likely fracture vs contusion vs strain vs sprain Plan - An x-ray of the right hand is ordered to assess for any fractures or other injuries. - A splint will be provided for the right hand after the x-ray is completed. - rest, ice to the hand - tylenol or motrin as needed for pain - follow up with PCP Orders: Orders XR hand RT min 3V Today M79.641 - Pain in right hand Coding Level of Care Code Est Pt Level 4 (20937) Diagnoses Right hand pain M79.641
--- OUTSIDE RECORDS SUMMARY | 2025-02-01 10:12 | XMS_ITS | Clinical Summary ---
Author Organization [facility] Address [address] [place] [address] Care Team Providers Care Heel Builder Machine Name Role Phone Calvin Maldonado MD Primary Care Provider [phone] Allergies Active Allergy Reactions Criticality Noted Date [...] 2 sprays inside Nose daily. 0 Active Madison-3 Fatty Acids (FISH OIL PO) Take 1,400 [...] Respiratory Therapy Supplies (CareTouch 2 CPAP Hose Ammunition Assembly Ii Laborer) MISC by Does not apply route. 0 [...] age to complete this topic Care Teams Heel Builder Machine Relationship Specialty Start Date End Date Calvin Maldonado MD [address] [place] [address] [place] [address] PCP - General Internal Medicine 12/01/16
--- OUTSIDE RECORDS SUMMARY | 2025-02-01 10:12 | XMS_ITS | Patient Health Record ---
Author Organization [facility] Address [address] [place] [address] Care Team Providers Care Data Mining Analyst Name Role Phone Calvin Maldonado MD Primary Care Provider UnaMelia Simon Unavailable [phone] Allergies Allergen (clinical drug ingredient) Drug/Non Drug [...] Status Risk Notes Problem Colon cancer screening (289953598) Colon cancer screening (Z12.11) Active confirmed Problem Irritable bowel syndrome (69769300) Irritable bowel syndrome (K58.9) Active confirmed Problem History of adenomatous polyp of colon (405480237) History of adenomatous polyp of colon (Z86.010) Active confirmed Problem Gastroesophageal reflux disease (830654724) GERD (gastroesophageal reflux disease) (K21.9) Active confirmed Problem Diverticulosis of colon (526230263) Diverticulosis of colon (K57.30) Active confirmed Plan Of Treatment Pending Test Test Name Order Date Pathology 01/01/2022 Future Test Test Name Order Date COLONOSCOPY 11/19/2021 Insurance Providers Payer Name Payer Address Payer Phone Subscriber Number Group Number Insured Name Patient Relationship to Insured Coverage Start Date Coverage End Date MEDICARE OF [place] [address] [place] [address] [id number] ROSE MENARD Self - patient is the insured [employer] [address] [place] [address] [id number] ROSE MENARD Self - patient is the insured Medical (General) History Medical History History ICD Code HTN Breast cancer in 2014 with lumpectomy an d XRT Left Kidney cancer as below Denies AK,DM,CVA,Lung disease,renal dise ase GERD-EGD in 2012 with [...]
--- OUTSIDE RECORDS SUMMARY | 2025-02-01 10:12 | XMS_ITS | Clinical Summary ---
Author Organization [facility] Address [address] [place] [address] Phone Care Team Providers Care Small Engine Technician Name Role Phone Calvin Maldonado MD Primary Care Provider Allergies Active Allergy Reactions Criticality Noted Date Comments Albuterol 12/04/2016 Codeine Unknown 12/04/2016 Sulfa (Sulfonamide Antibiotics) 11/06 Medications citalopram (CeleXA) 10 mg tablet Take 1 tablet (10 mg total) by mouth 1 (one) time each day. 4 Active rosuvastatin (CRESTOR) 5 mg tablet 1 tablet (5 mg total). Active omeprazole (PriLOSEC) [address] capsule Take 1 capsule (40 mg total) by mouth 1 (one) time each day. Active olopatadine (PATADAY) 0.2 % ophthalmic solution 1 drop. Active losartan (COZAAR) 50 mg tablet 1 tablet (50 mg total) 1 (one) time each day. Active gabapentin (NEURONTIN) 100 mg capsule Take 1 capsule (100 mg total) by mouth. at bedtime Active biotin 1 mg tablet 0 Active cetirizine (ZyrTEC) 10 mg capsule 4 Active cholecalciferol , vitamin D3, (VITAMIN D3 ORAL) Take 5,000 Units by mouth. Active multivit with minerals/lutein (MULTIVITAMIN 50 PLUS ORAL) Multivitamin Act rosemary levothyroxine (SYNTHROID, LEVOTHROID) 50 mcg tablet Take 1 tablet (50 mcg total) by mouth 1 (one) time each day before breakfast. Active mometasone (NASONEX) 50 mcg/actuation nasal spray Administer 2 sprays into each nostril 1 (one) time each day. Active Encounters Date Type Department Care Team Description 01/31/2025 11:30 AM EDT Office Visit [facility] Hematology Oncology [address] [place] [phone] Rema Carlos, History of cancer of left breast (Primary Dx) 01/30/2025 10:15 AM EDT - 01/30/2025 11:59 PM EDT [facility] [address] [phone] Malignant neoplasm of central portion of left breast in female, estrogen receptor positive (CMS/[facility] V24, CMS/[facility] V28); Encounter for screening mammogram for malignant neoplasm of breast Discharge Disposition: Home or Self Care from Last 3 Months Surgical History Surgery Date Site/Laterality Comments BREAST LUMPECTOMY 04/06/2013 - 04/05/2014 Left PROCEDURE:BREAST LUMPECTOMY STEREOTACTIC CORE BIOPSY 04/06/2013 - 04/05/2014 Left BREAST MASS EXCISION Right SHOULDER SURGERY Right Medical History Medical History Date Comments Breast cancer (CMS/[facility] V24, [facility] V28) DX:Breast cancer (HCC) IBS (irritable bowel syndrome) D X:IBS (irritable bowel syndrome) Esophagitis DX:Esophagitis Acid reflux DX:Acid reflux Hypertension DX:Hypertension Disease of thyroid gland DX:Dise ase of thyroid gland;COMMENT:hypothyroidism Anxiety DX:Anxiety Chronic kidney disease DX:Chroni c kidney disease;COMMENT:nephrectomy BRCA1 gene mutation negative Family History Medical History Relation Name Comments Cancer Brother prostate,colon ,and lung ca Breast cancer Daughter Cancer Father gastric,lung ca ncer Breast cancer Father's Sister breast ca Cancer Mother's Sister 1 leukemia Breast cancer Mother's Sister 2 Relation Name Status Comments Brother Daughter Father Father's Sister Mother's Sister 1 Mother's Sister 2 Social History Tobacco Use Types Packs/Day Years [...] Mass Index 32.81 01/31/2025 11:20 AM EDT Plan of Treatment Upcoming Encounters Date Type Department Care Team (Late st Contact Info) Description 01/31/2026 11:00 AM EDT Office Visit [facility] Hematology Oncology [address] [place] [phone] Savannah Rome PA [address] [place] [address] Health Maintenance Due Date Last Done Comments COVID-19 Vaccine (3 - Pfizer risk series) 07/30/2020 07/02/2020, 06/11/2020 RSV Immunization Adult Patients (1 - 1-dose 75+ series) 2021 Cholesterol Screening (Lipid Panel) 03/13/2022 Falls Risk Assessment 03/13/2022 Hepatitis C Screening 03/13/2022 Medicare Annual Wellness Visit 03/13/2022 Osteoporosis Screening (Bone Density Screening) 03/13/2022 Social Influencers of Health Screening 03/13/2022 Depression Screening 04/06/2024 DTaP,Tdap,and Td Vaccines (2 - Td or Tdap) 08/10/2024 08/10/2014 Pneumococcal Vaccine: 50+ Years Completed 12/19/2017, 01/15/2016, 12/25/2014 Zoster Vaccines Completed 12/31/2017, 12/05, 10/28/2017, Additional history exists Influenza Vaccine Completed 01/17/2025, , 11/19/2021, Additional history exists HIB Vaccines Aged Out No longer eligi [...] 20 months Aged Out No longer eligible based on patient's age to complete this topic Varicella Vaccines Aged Out No longer eligible based on patient's age to complete this topic Procedures Procedure Name Priority Date/Time Associated Diagnosis Comments MG MAMMO DIGITAL SCREENING W JUANITO BILAT Routine 01/30/2025 10:46 AM EDT Malignant neoplasm of central portion of left breast in female, estrogen receptor positive ([facility] V24, [facility] V28) Encounter for screening mammogram for malignant neoplasm of breast from Last 3 Months Results * MG Mammo Digital Screening w Juanito bilat (01/30/2025 10:46 AM EDT) Anatomical Region Laterality Modality Breast Bilateral Mammography 01/30/2025 10:5 8 AM EDT Impressions 01/30/2025 11:17 AM EDT Benign. BI-RADS CATEGORY: 2 - BENIGN RECOMMENDATION: Screening bilateral mammogram is recommended in 1 year. Mammo Location: [facility], [address] [place] [address], [address], . -------- FINAL REPORT -------- Dictated By: Perez Serna Dictated Date: 01/30/2025 10:58 ET Assigned Physician: Perez Serna Reviewed and Electronically Signed By: Perez Serna Signed Date: 01/30/2025 11:17 ET Workstation ID: [id number] Transcribed By: Self Edit Transcribed Date: 01/30/2025 [...] year. Mammo Location: [facility], [address] [place] [address], [address], . -------- FINAL REPORT -------- Dictated By: Perez Serna Dictated Date: 01/30/2025 10:58 ET Assigned Physician: Perez Serna Reviewed and Electronically Signed By: Perez Serna Signed Date: 01/30/2025 11:17 ET Workstation ID: [id number] Transcribed By: Self Edit Transcribed Date: 01/30/2025 10:58 ET Rema Nazia Terrance DO IMG BI PROCEDURES Fin al Result from Last 3 Months Insurance MEDICARE [facility] Care Teams Small Engine Technician Relationship Specialty Start Date End Date Calvin Maldonado MD [address] [place] [address] [address] Ramsay PCP - General Internal Medicine 12/22/19
--- OUTSIDE RECORDS SUMMARY | 2025-02-01 10:13 | XMS_ITS | Data Portability ---
Author Organization [place] - [facility], Allergy Address [address] [address] Care Team Providers Care Auditing Coder Name Role Phone DUKE RODRIGUEZ Primary Care Provider [phone] Assessment Encounter Date Assessment Date Assessment LastModified [...] concerns. miguel a Not available 06/06/2024 11:32:06 11/23/2024 11/23/2024 79-year-old female presents for cerumen removal. Cerumen impaction removed bilaterally. Bilateral TMs are intact with well aerated middle ear spaces. Follow up in 6 months for routine debridement, or sooner with concerns. [email or web address] Not available 11/23/2024 09:07:21 Plan of Treatment Reminders Order Date Submit Date Provider Last Modified By Organization Details Last Modified Time Details Appointments [facility] 11:15A PALLAVI ARIAS Not available Not available Not available Lab None recorded . Referral None recorded . Procedures None recorded . Surgeries None recorded . Imaging CT, neck, soft tissue, w/ contrast - ct neck w contrast , red lesion in throat. hx of tonsille ctomy 2023 024 [email or web address] [facility], [facility], [facility] [address], [place], [address], 09/29/2023 10:29:32 Medication Orders None recorded . Patient TargetsNo targets recorded. Patient InstructionsNo instructions recorded. Reason for Referral None Reported. Results Created Date Observation Date Name Description Value Unit Range Abnormal Flag Note LastModifiedBy Organization Detail LastModifiedTime 08/27/19 24 08/28/2023 BUN BUN 17 mg/dL 8-27 Not Available [facility] ([facility]) [address] [facility], [place], [address], 08/28/2023 03:11:17 08/27/19 24 08/28/2023 CREAT ININE creatinine 0.78 mg/dL 0.57-1 .00 Not Available [facility] ([facility]) [address] [place], [address], 08/28/2023 03:11:18 08/27/19 24 08/28/2023 CREAT ININE eGFR 78 mL/mi n/1.7 3 >59 Not Available [facility] ([facility]) [address] [place], [address], 08/28/2023 03:11:18 10/20/19 24 10/20/2023 CT, neck, soft tissu e, w/ contr ast No observ ation record ed. [email or web address] [facility] [address] [facility] [address], [place], [address], 10/21/2023 11:12:59 11/25/19 24 06/09/2018 imagi ng/di [...] Name and Address Organization Details Recorded Time Deviated nasal septum 237917624 Active 2013 Nasal septal deviation ; CMS Risk: moderate risk Note : Date Diagnosed : 4 11:41 AM (470) Not Available Replaced by [facility] 4 02:14:51 Chronic rhinitis 37191858 Active 2013 Rhinitis, chronic; CMS Risk: moderate risk Note : Date Diagnosed : 4 11:41 AM (472.0) Not Available Replaced by [facility] 4 02:14:55 Hypertrop hy of nasal turbinate s 59741745 Active 2013 Nasal turbinate hypertrop hy; Location: bilateral CMS Risk: low risk Not Available [facility] 4 02:14:55 Postopera tive follow-up visit Active 2013 Post op; Note: Date Diagnosed : 4 10:45 AM (V67.00) Not Available Replaced by [facility] 4 02:13:52 Sensorine ural hearing loss of bilateral ears 831556212 Active 2018 Sensorine ural hearing loss, bilateral ; Note: Date Diagnosed : 06/09/2018 10:58 AM (H90.3) Not Available [facility] 4 02:14:21 Bilateral disorder of Eustachia n tubes 46638119872 02850 Active 2018 Other specified disorders of Eustachia n tube, bilateral ; Note: Date Diagnosed : 06/09/2018 12:44 PM (H69.83) Not Available Replaced by [facility] 4 02:13:38 Allergic rhinitis 49417373 Active 2021 Allergic rhinitis, unspecifi ed; Note: Date Diagnosed : 08/05/2021 1:48 PM (J30.9) Not Available Replaced by [facility] 4 02:14:58 Impacted cerumen in right ear 21699149283 82821 Active 2021 Impacted cerumen, right ear; Note: Date Diagnosed : 08/05/2021 1:48 PM (H61.21) Not Available Replaced by [facility] 4 02:12:53 Cough 66118597 Active 2021 Cough, unspecifi ed; Note: Changed from R05 to R05.9 (08/06/2021 1:29 PM) , Date Diagnosed : 08/05/2021 1:48 PM (R05) Not Available Replaced by [facility] 4 02:15:09 Gastroeso phageal reflux disease without esophagit is 840655515 Active 2021 Gastro-es ophageal reflux disease without esophagit is; Note: Date Diagnosed : 08/05/2021 1:48 PM (K21.9) Not Available Replaced by [facility] 4 02:13:28 Impacted cerumen of bilateral ears 62834221250 85140 Active 2023 Impacted cerumen, bilateral ; Note: Date Diagnosed : 06/22/2023 4:28 PM (H61.23) Not Available Replaced by [facility] 4 02:13:05 Chronic sore throat 433546016 Active 2023 LOWELL SANTILLAN PA-C [address] [place] [address],[facility] [address], [facility] [place], [address] , [facility] 4 15:10:01 Otalgia of right ear 4601794063 Active 2023 LOWELL SANTILLAN PA-C [address] [facility],[place] [address], [place], [address] , [facility] 4 15:10:59 Problem Notes None recorded. Procedures Surgical History Date Name Laterality Status Provider Name and Address Organization Details Recorded Time 5 Cerumen removal without microscope bilat completed LOWELL SANTILLAN PA-C [address] [facility],[place] [address], [place], [address], [facility] - [facility] 11/23/2024 09:07:17 5 Cerumen removal without microscope bilat completed LOWELL SANTILLAN PA-C [address] [facility],[place] [address], [place], [address], [facility] 06/06/2024 11:30:34 Imaging Results None recorded. Procedure Notes None recorded. Medical Equipment None Reported. Allergies Allergen ID Allergen Name Allergen Category Reaction Reaction Severity Criticality Documentation Date Start Date Code Code System Note Provider Name and Address Organization Details Recorded Time 79230 adhesive tape environme nt,medica tion other Not available Not available 08/18/2023 React ion: unkno wn, unspe cifie d;; Not Available Replaced by [facility] 4 00:49:11 79324 Substance with sulfonami de structure and antibacte rial mechanism of action (substanc e) medicatio n other Not available Not available 08/18/2023 47230 8003 SNOMED React ion: unkno wn, unspe cifie d;; Not Available Replaced by [facility] 4 00:50:15 Medications Name Sig Start Date Stop Date Status Note LastModified by Organization Details LastModified Time losartan 50 mg tablet active Not Available Not Available Not Available amoxicill in 500 mg capsule TAKE 1 CAPSULE BY MOUTH TWICE DAILY FOR 10 DAYS 11/23 completed Not Available Not Available Not Available prednison e 10 mg tablet TAKE 5 TABLETS BY MOUTH DAILY FOR 5 DAYS 11/23 completed Not Available Not Available Not Available citalopra m 10 mg tablet 2013 active Medicati on ID: [id number] Bra nd Name: citalopr am Send Method: E-Prescr ibed Sub s Allowed: subs OK Medic ationGen ericName : citalopr am Not Available Not Available Not Available hydrocodo ne 5 mg-acetam inophen 325 mg tablet 1-2 tablet by mouth 2013 [place] Medicati on ID: [id number] Du ration Value: 7 Prescri bed By Name: Drew Nazario nd Name: hydrocod one-acet aminophe n Send Method: E-Prescr ibed Sub s Allowed: subs OK Medic ationGen ericName : hydrocod one-acet aminophe n Not Available Not Available Not Available tretinoin 0.025 % topical cream APPLY TO FACE AFTER WASHING AND MOISTURI ZING AT BEDTIME 11/23 completed Not Available Not Available Not Available alclometa sone 0.05 % topical cream 11/23 completed Medicati on ID: [id number] D uration Value: 7 Brand Name: alclomet asone Se nd Method: E-Prescr ibed Sub s Allowed: subs OK Speci al Instruct ion: APPLY TO EARS BID PRN Medi cationGe nericNam e: alclomet asone Not Available Not Available Not Available ciproflox acin 500 mg tablet TAKE 1 TABLET BY MOUTH TWICE DAILY FOR 7 DAYS 11/23 completed Not Available Not Available Not Available levothyro xine 25 mcg tablet 11/23 completed Medicati on ID: [id number] Bra nd Name: levothyr oxine Se nd Method: E-Prescr ibed Sub s Allowed: subs OK Medic ationGen ericName : levothyr oxine Not Available Not Available Not Available benzonata te 100 mg capsule TAKE 1 CAPSULE BY MOUTH THREE TIMES DAILY 11/23 completed Not Available Not Available Not Available hydrocort isone 1 % topical cream APPLY TOPICALL Y TWICE DAILY NEEDED FOR SKIN IRRITATI ON RASH active Not Available Not Available No t Available levothyro xine 50 mcg tablet active Not Available Not Available Not Available esomepraz ole magnesium 40 mg capsule,d elayed release active Not Available Not Available Not Available betametha sone dipropion ate 0.05 % topical cream 2019 active Medicati on ID: [id number] D uration Value: 14 Brand Name: betameth asone dipropio jason Sen d Method: E-Prescr ibed Sub s Allowed: subs OK Speci al Instruct ion: APPLY TO RASH ON THE NECK BID FOR 1 TO 2 WEEKS Me dication GenericN trevor: betameth asone dipropio jason Not Available Not Available Not Available omeprazol e 20 mg capsule,d elayed release 2018 active Medicati on ID: [id number] D uration Value: 90 Brand Name: omeprazo le Send Method: E-Prescr ibed Sub s Allowed: subs OK Medic ationGen ericName : omeprazo le Not Available Not Available Not Available gabapenti n 100 mg capsule TAKE 1 CAPSULE BY MOUTH AT BEDTIME active Not Available Not Available No t Available azelastin e 137 mcg (0.1 %) nasal spray USE 2 SPRAYS IN EACH NOSTRIL TWICE DAILY active Not Available Not Available No t Available methylpre dnisolone 4 mg tablets in a dose pack FOLLOW PACKAGE DIRECTIO NS 11/23 completed Not Available Not Available Not Available clobetaso l 0.05 % scalp solution APPLY 5 TO 10 DROPS ONCE TO TWICE DAILY TO SCALP AND MASSAGE IN active Not Available Not Available No t Available neomycin 3.5 mg/g-poly myxin B 10,000 unit/g-de xameth 0.1 % eye oint APPLY SMALL RIBBON TO BOTH EYELIDS THREE TIMES DAILY active Not Available Not Available No t Available rosuvasta tin 5 mg tablet active Not Available Not Available Not Available biotin 1 mg tablet 11/23 completed Medicati on ID: [id number] B rand Name: biotin S end Method: E-Prescr ibed Sub s Allowed: subs OK Medic ationGen ericName : biotin Not Available Not Available Not Available Fish Oil 300 mg-1,000 mg capsule 11/23 completed Medicati on ID: 6991 Bra nd Name: Fish Oil Send Method: E-Prescr ibed Sub s Allowed: subs OK Medic ationGen ericName : Fish Oil Not Available Not Available Not Available Januvia 50 mg tablet active Not Available Not Available Not Available Zyrtec 10 mg capsule 2013 active Medicati on ID: [id number] Bra nd Name: Zyrtec S end Method: E-Prescr ibed Sub s Allowed: subs OK Speci al Instruct ion: take 1 tablet by mouth everyday Medicat ionGener icName: Zyrtec Not Available Not Available Not Available Vitamin D3 50 mcg (2,000 unit) capsule 2013 active Medicati on ID: [id number] Bra nd Name: Vitamin D3 Send Method: E-Prescr ibed Sub s Allowed: subs OK Medic ationGen ericName : Vitamin D3 Not Available Not Available Not Available Myrbetriq 25 mg tablet,ex tended release 11/23 completed Not Available Not Available Not Available Azo Bladder Control 300 mg capsule 11/23 completed Medicati on ID: [id number] B rand Name: Azo Bladder Control Send Method: E-Prescr ibed Sub s Allowed: subs OK Medic ationGen ericName : Azo Bladder Control Not Available Not Available Not Available Vitals Date Recorded Body height Body mass index (BMI) Body weight Provider Name and Address Organization Details Last Updated DateTime 06/06/2024 157.48 cm 27.8 kg/m2 68752.04 g Mone Boland [place] - [facility] 06/06/2024 11:07:34 Date Recorded Body height Provider Name an d Address Organization Details Last Updated DateTime 08/27/2023 157.48 cm Eduardo Vera [place] - [facility] 08/27/2023 14:33:20 Date Recorded Body height Body mass index (BMI) Body weight Provider Name and Address Organization Details Last Updated DateTime 11/06/2023 157.48 cm 27.8 kg/m2 60809.04 g Artemio Blum [place] - [facility] 11/06/2023 10:17:29 Date Recorded Body height Body mass index (BMI) Body weight Provider Name and Address Organization Details Last Updated DateTime 11/23/2024 148.59 cm 31.2 kg/m2 92648.04 g Jesenia Mclean [place] - [facility] 11/23/2024 08:47:54 Social History None recorded. Functional Status None recorded. Mental Status None recorded. Family History Nothing Reported. Medical History No medical history recorded. Gynecological HistoryNo gynecological history recorded. Obstetrics History GPAL:G 0 P 0 0 0 0 Past Encounters Encounter ID Performer Location Encounter Start Date Encounter Closed Date Diagnosis/Indication Diagnosis SNOMED-CT Code Diagnosis ICD10 Code Diagnosis IMO Codes Diagnosis Note [id number] LOWELL SANTILLAN PA-C [facility] [address] [place] [address] 08/27/2023 13:39:36 08/27/2023 14:44:09 Chronic sore throat 602491818 R07.0 Otalgia of right ear 719 9209197 H92.01 [id number] LOWELL SANTILLAN PA-C [facility] [address] [place] [address] 11/06/2023 09:48:18 11/06/2023 10:32:19 Chronic sore throat 733483748 R07.0 Otalgia of right ear 032 8691183 H92.01 [id number] LOWELL SANTILLAN PA-C [facility] [address] [place] [address] 06/06/2024 10:57:50 06/06/2024 12:10:45 Impacted cerumen of bilateral ears 1702369825 365760 H61.23 [id number] LOWELL SANTILLAN PA-C [facility] [address] [place] [address] 11/23/2024 08:38:35 11/23/2024 09:28:37 Impacted cerumen of bilateral ears 1473675663 717543 H61.23 Health Concerns Section Related Observation LastModified by Organization Detai ls LastModified Time None Recorded Concern Status LastModified by Organization Details LastModified Time None Recorded Advance Directives Directive None Recorded Payers Insurance Date Sequence Insurance Name Policy Number Policy Young Covered Member ID Young Member ID Guarantor Name 11/20/2024 2 FOR LIFE () Uziel Kramer [id number] Lisa Gonzalez 11/20/2024 1 MEDICARE [place]: [employer] Татьяна Kramer [id number] Lisa Gonzalez Notes Date Note Type Note Provider Name and Address Organization Details Recorded Time 08/27/2023 text/html ROS as noted in the [facility] 78-year-old female presents for evaluation of red [...] and renal cancer. JASE DALEY MD [address] [facility],[address], [address], [place] - [facility] 08/27/2023 16:00:26 11/06/2023 text/html ROS as noted in the [facility] 78-year-old female presents for review of CT neck. Patient [...] and renal cancer. LELE CUEVAS MD [address] [facility],[address], [address], [facility] - [facility] [place] 11/06/2023 10:38:11 06/06/2024 text/html ROS as noted in the [facility] 79-year-old female presents for cerumen removal. No concerns today. LELE CUEVAS MD [address] [facility],[address], [address], [facility] - [facility] 06/06/2024 17:09:07 11/23/2024 text/html ROS as noted in the [facility] 79-year-old female presents for cerumen removal. No concerns today. FELIPE IRAHETA MD [address] [facility], [address], [facility] - [facility] 11/23/2024 12:58:03 OBGyn Episode No OBEpisode recorded.
== END 2025-02-01 10:38 | disposition home or self-care (01) ==
PROVIDERS: PCP Internal Medicine; Visit Provider Physician Assistant Medical
DX: M79.641 Pain in right hand (principal)

== ENCOUNTER → 2025-02-01 10:01 | Outpatient (BNV) | payer MEDICARE, OTHER, SELFPAY | PROVIDERS: PCP Internal Medicine; Visit Provider Radiology Diagnostic Radiology | DX: M19.041 Primary osteoarthritis, right hand (principal) | CPT/HCPCS: 73130 ==

== ENCOUNTER 2025-03-09 10:07 | Outpatient (AMB) | payer MEDICARE, OTHER, SELFPAY ==
[2025-03-09 10:17] VITALS: BP 140/80; PULSE 78; O2SAT 96; BMI 33.1
--- NOTE | 2025-03-09 10:17 | MHC.OFFVIS ---
Vital Signs 03/09/25 10:17 Height 4 ft 10 in Weight 158 lb 4 oz BMI 33.1 BP 140/80 H Blood Pressure Location Rt brachial Position Sitting Pulse 78 Pulse Source Pulse Oximeter Pulse Oximetry (%) 96 Oxygen Delivery Method Room Air Intake Visit Reasons: INP - Other amnesia Intake Note: Memory impairment / loss Activity Specialist Required: No Accompanied by: Spouse Allergies adhesive tape Allergy (Intermediate, Verified 03/09/25 10:17) BLISTERS albuterol (From PROAIR HFA) Allergy (Intermediate, Verified 03/09/25 10:17) TREMOR oxybutynin Allergy (Intermediate, Verified 03/09/25 10:17) shortness of breath Sulfa (Sulfonamide Antibiotics) (SULFA (SULFONAMIDE ANTIBIOTICS)) Allergy (Intermediate, Verified 03/09/25 10:17) itching, hives ropinirole Allergy (Mild, Verified 03/09/25 10:17) joint pain codeine (CODEINE) Adverse Reaction (Intermediate, Verified 03/09/25 10:17) GI UPSET sitagliptin Adverse Reaction (Intermediate, Verified 03/09/25 10:17) joint pains Medication List - Last Reconciled 03/09/25 by Mariam Jones MD azelastine 2 sprays intranasal BID 30 days cholecalciferol (vitamin D3) 50 mcg PO DAILY ciprofloxacin HCl (Cipro) 500 mg PO BID 7 days citalopram 10 mg PO QAM clobetasol 0.05% 0.25 - 0.5 mL topical DAILY esomeprazole magnesium 40 mg PO QAM glucosamine sulfate 750 mg PO DAILY hydrocortisone 1% (Cortisone (hydrocortisone)) 1 appl topical BID PRN levothyroxine 50 mcg PO DAILY 90 days losartan 50 mg PO DAILY multivitamin (Multiple Vitamins tablet) 1 tab PO DAILY olopatadine 0.2% 1 drp ophthalmic (eye) DAILY rosuvastatin 5 mg PO DAILY HPI Comments Details: 79y/o female with GRACIELA - comes for evaluation of cognitive issues. Her noticed short term recall issues about 1-2 years ago . she frequently repeats , confused with dates ,she has short term memory issues. she does not drive much . she denies any mood issues. she is independent in her ADLs. PSG in 2020 AHI 8 REM AHI 57 O2 [place] 79% she was compliant with CPAP until Mar 2023 . she stopped using after that uses a mouth tape . she is sleeping ok . [facility] Medical History Arthritis Duodenal ulcer Awareness under anesthesia Diabetes mellitus Overactive bladder Obesity (BMI 30-39.9) Post-menopausal Obstructive sleep apnea Anxiety History of renal cell cancer History of breast cancer Constipation Vitamin D deficiency Allergic rhinitis Osteoarthritis of right knee GERD without esophagitis Impaired fasting glucose Acquired hypothyroidism Pure hypercholesterolemia Benign essential hypertension Invasive ductal carcinoma of left breast Hypothyroid HTN (hypertension) Esophagitis Mixed irritable bowel syndrome Surgical History Hx of lymph node excision Hx of excision of mass Hx of nasal septoplasty History of bilateral knee replacement History of removal of skin mole History of thumb surgery (~04/26/15) History of lumpectomy of left breast (~03/2014) History of left breast biopsy (~01/2014) History of removal of cyst History of bunionectomy History of kidney surgery History of cataract surgery History of colon resection (~2001) History of partial nephrectomy (~2002) History of colonoscopy History of esophagogastroduodenoscopy (EGD) (~09/16/12) History of eye surgery (~09/2012) Family History Father History of gastric cancer History of lung cancer Mother History of heart disease Brother Family history of prostate cancer History of colon cancer History of lung cancer Daughter History of breast cancer Paternal Aunt History of breast cancer Maternal Uncle History of leukemia Maternal Aunt History of breast cancer Social History [facility] Are you a primary rn primary care to a significant other at home: No Do you presently have visiting nurse or other home services: No Alcohol intake: current Alcohol intake frequency: holidays/special occasions only Alcohol type: wine Patient Tobacco Use Status: Never used Tobacco e-Cigarette/Vaping Use: Never Used Second Hand Smoke Exposure: Yes service: No Current occupational status: retired Current occupation: rt handed Cognitive needs: No Hearing needs: No Vision needs: Yes (glasses) Physical Exam Vital Signs: Last Vital Signs Pulse 78 03/09/25 10:17 BP 140/80 H 03/09/25 10:17 Pulse Ox 96 03/09/25 10:17 Oxygen Delivery Method Room Air 03/09/25 10:17 BMI result Body Mass Index 33.1 Const General: cooperative, healthy appearing, comfortable and no acute distress Nutritional Appearance: average body habitus Orientation/consciousness: patient oriented x3 Eyes Pupils: Equal, round and reactive pupils present Neuro General: patient oriented x3, gait normal, tone normal, moves all extremities and no focal motor deficits Cranial nerves: Yes Facial sensation intact/muscles of mastication intact, Yes Equal, round and reactive pupils present, Yes Bilaterally intact EOM present, Yes Nystagmus not present, Yes Normal facial strength present, Yes Midline tongue present, Yes Symmetric palate elevation present and Yes Ability to bilaterally elevate shoulders present Cognition (Neuro): normal cognition Gait exam (Neuro): Normal gait present Motor exam (neuro): 5/5 motor strength present throughout Deep tendon reflexes (DTR's): Right triceps reflex intensity grade: 1+, Left triceps reflex intensity grade: 1+, Rt Biceps (C5, C6): 1+, Left biceps reflex intensity grade: 1+, Right brachioradialis reflex intensity grade: 1+, Left brachioradialis reflex intensity grade: 1+, Right patellar reflex intensity grade: 1+ and Left patellar reflex intensity grade: 1+ Coordination: [id number] test normal Orientation What is the (year) (season) (date) (day) (month)?: year, season, date, day and month Where are we (state) (county) (town or city) (hospital) (floor)?: state, county, town or city, hospital/clinic and floor Registration Name of 3 unrelated objects clearly and slowly, then ask patient to repeat all 3 of them. (1st repeat determines score. Make sure they can repeat all three): object 1, object 2 and object 3 Attention & Calculation (CHOOSE ONE) Spell WORLD backwards (DLROW): 5 letters Recall Ask patient to repeat the 3 items from question #3.: object 1 and object 2 Language Show patient a wristwatch & ask what it is. Repeat for pencil.: watch and pencil Ask the patient to repeat the phrase 'No ifs, ands, or buts' after you.: correct Ask the patient to 'take a piece of paper with their right hand' 'fold paper in half' 'place paper on floor': take paper in right hand, fold paper in half and place paper on floor Print the sentence 'CLOSE YOUR EYES' on a piece. If patient actually closes eyes then score.: followed written direction Give patient a blank piece of paper & ask to write a sentence. Score if it contains a noun & verb.: sentence contains subject and verb Score Score: 28 Assessment & Plan Assessment & Plan (1) Memory impairment: Comment: ? untreated graciela ? vascular she did well on MMSE Code(s): R41.3 - Other amnesia Category: Medical Plan I will evaluate her with Home sleep test CT barin Vit B 12 and thyroid levels suggested cognitive exercises Orders: Orders RT home sleep study Today G47.19 - Other hypersomnia, G47.33 - Obstructive sleep apnea (adult) (pediatric), R06.83 - Snoring CT head/brain wo IV con Today R41.3 - Other amnesia Coding Level of Care Code New Pt Level 4 (36581) Diagnoses Memory impairment R41.3
--- OUTSIDE RECORDS SUMMARY | 2025-03-09 12:09 | XMS_ITS | Clinical Summary ---
Author Organization [facility] Prior to 09/03/[address] [place] [address] Care Team Providers Care Ball Points Inspector Name Role Phone Calvin Maldonado MD Primary Care Provider [phone] Allergies Active Allergy Reactions Criticality Noted Date [...] 2 sprays inside Nose daily. 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 0 [...] age to complete this topic Care Teams Ball Points Inspector Relationship Specialty Start Date End Date Calvin Maldonado MD [address] [place] [address] [place] [address] PCP - General Internal Medicine 12/01/16
--- OUTSIDE RECORDS SUMMARY | 2025-03-09 12:09 | XMS_ITS | Patient Health Record ---
Author Organization [facility] Address [address] [place] [address] Care Team Providers Care Spoke Maker Name Role Phone Calvin Maldonado MD Primary Care Provider UnaMelia Simon Unavailable [phone] Allergies Allergen (clinical drug ingredient) Drug/Non Drug Allergy documented on EMR Reaction Allergy Type Onset Date Status codeine Codeine Unknown Drug Allergy Active Substance with sulfonamide structure and antibacterial mechanism of action (substance) Sulfa Antibiotics Unknown Drug Allergy Active Surgical Glue Unknown Allergy Active Reason For Referral No Information Medications Medication SIG (Take, Route, Frequency, Duration) Notes Start Date End Date Status Multivitamin Active Levothyroxine Sodium Active Biotin Active Rosuvastatin Calcium Active Melatonin Active Citalopram Hydrobromide Active Losartan Potassium A ctive Pataday Active Magnesium Active Esomeprazole Magnesium Active Fish Oil Active Triamcinolone Acetonide Active Azelastine HCl Activ e rOPINIRole HCl Activ e ZyrTEC 10 MG Tablet Chewable 1 tablet Orally Once a day Active Vitamin D 50 MCG (1999) Capsule 1 tablet Orally bid Active Nasonex Not-Taking /PRN Crestor Active Hydrocortisone-Iodoquino l Active Immunizations Vaccine Route Administration Date Status Comme nts Influenza Unknown 11/19/2021 Administered Social History Tobacco Use: Social History Observation Description Date Details (start date - stop date) Never Smoker NA - NA Social History Drugs/Alcohol: Social Info Question Answer Notes Alcohol Screen Did you have a drink containing alcohol in the past year? Yes How often did you have a drink containing alcohol in the past year? Monthly or less (1 point) How many drinks did you have on a typical day when you were drinking in the past year? 1 or 2 drinks (0 point) How often did you have 6 or more drinks on one occasion in the past year? Never (0 point) Points 1 Interpretation Negative Tobacco Use: Social Info Question Answer Notes Tobacco Use/Smoking Patient is a nonsmoker Additional Details Category Social Info Options Details Miscellaneous: Marital status: Occupation: retired [employer]. Section Notes: Nonsmoker; no sig. alcohol u se Problems Problem Type SNOMED Code ICD Code Onset Dates Problem Status W/U Status Risk Notes Problem Colon cancer screening (178479747) Colon cancer screening (Z12.11) Active confirmed Problem Irritable bowel syndrome (30153681) Irritable bowel syndrome (K58.9) Active confirmed Problem History of adenomatous polyp of colon (946097094) History of adenomatous polyp of colon (Z86.010) Active confirmed Problem Gastroesophageal reflux disease (535462557) GERD (gastroesophageal reflux disease) (K21.9) Active confirmed Problem Diverticulosis of colon (758335187) Diverticulosis of colon (K57.30) Active confirmed Plan Of Treatment Pending Test Test Name Order Date Pathology 01/01/2022 Future Test Test Name Order Date COLONOSCOPY 11/19/2021 Insurance Providers Payer Name Payer Address Payer Phone Subscriber Number Group Number Insured Name Patient Relationship to Insured Coverage Start Date Coverage End Date MEDICARE OF [place] [address] [place] [address] [id number] ROSE MENARD Self - patient is the insured [employer] [address] [place] [address] [id number] ROSE MENARD Self - patient is the insured Medical (General) History Medical History History ICD Code HTN Breast cancer in 2014 with lumpectomy an d XRT Left Kidney cancer as below Denies MN,DM,CVA,Lung disease,renal dise ase GERD-EGD in 2012 with [...] Surgical History Surgery Date(Month/Year) Lumpectomy right breast--benign 1969 Lumpectomy left breast stag e 1 cancer with negative lymph node dissection 2015 Partial left nephrectomy for cancer 2003 Colon resection due to perf from a colon oscopy 1998 Knee replacements 2017 & 2018 Bunion surgery 2000 Cataract surgery bilaterally 2015 Thumb fusion right hand 2016
== END 2025-03-09 10:45 | disposition home or self-care (01) ==
LOC: HO.HSMS 10:09
PROVIDERS: PCP Internal Medicine; Visit Provider Psychiatry & Neurology Neurology
DX: R41.3 Other amnesia (principal)
CPT/HCPCS: 99214

== ENCOUNTER 2025-03-09 10:07 | Outpatient (REF) | payer MEDICARE, OTHER, SELFPAY ==
[2025-03-09 13:26] LABS: Appearance Urine Turbid; Glucose Urine UA Negative (Negative); PH 6.0 (5.0-9.0); Specific Gravity - Urine 1.025 (1.005-1.025); UMIC TRIGGER UACC YES
[2025-03-09 13:30] LABS: MANUAL DIFF FLAG NO
[2025-03-09 13:42] LABS: Hematocrit 43.4 % (37.0-47.0); Hemoglobin 14.6 g/dl (12.0-16.0); Imm Gran Abs Auto 0.11 X10*3/uL (0.00-0.03); Imm Gran Pct Auto 1.4 % (0.0-0.4); Lymphocytes Absolute Auto 2.5 X10*3/uL (1.2-4.9); Mean Corpuscular HGB Conc 33.6 g/dl (31.0-35.0); Mean Corpuscular Hemoglobin 32.8 pg (27.0-33.0); Mean Corpuscular Volume 97.5 fL (80.0-98.0); NRBC Abs Auto 0.000 X10*3/uL (0.0-0.012); NRBC Pct Auto 0.0 /100WBC (0.0-0.2); Platelet Count 262 X10*3/uL (160-400); Red Blood Count 4.45 X10*6/uL (4.20-5.50); White Blood Count 7.8 X10*3/uL (4.8-10.8)
[2025-03-09 14:14] LABS: Microalbum/Creatinine Ratio Ur 10.0 ug/mg cr (<30)
[2025-03-09 18:43] LABS: Alanine Aminotransferase 25 U/L (0-31); Albumin Level 4.7 g/dL (3.5-5.0); Alkaline Phosphatase 78 U/L (39-117); Anion Gap 14 (12-20); Aspartate Amino Transferase 23 U/L (5-31); Blood Urea Nitrogen 14 mg/dL (9-16); Calcium 9.7 mg/dL (8.4-10.2); Carbon Dioxide 26 mmol/L (22-29); Chloride 103 mmol/L (96-108); Cholesterol 232 mg/dL (<200); Estimated Glomerular Filt Rate > 60; Free T4 (Free Thyroxine) 1.02 ng/dL (0.71-1.85); HDL Cholesterol 52 mg/dL (>40); Potassium 4.1 mmol/L (3.3-5.1); Sodium 139 mmol/L (135-145); Thyroid Stimulating Hormone 1.72 uIU/mL (0.32-4.0); Total Protein 7.4 g/dL (6.5-8.0); Triglycerides 263 mg/dL (<150)
[2025-03-09 18:57] LABS: Folate 13.6 ng/mL (> or = 4.0); Vitamin B12 499 pg/mL (200-900)
== END 2025-03-09 10:08 | disposition home or self-care (01) ==
LOC: HO.HKASLDS 10:07
PROVIDERS: PCP Internal Medicine; Visit Provider Psychiatry & Neurology Neurology
DX: R41.3 Other amnesia (principal); E11.9 Type 2 diabetes mellitus without complications; D64.9 Anemia, unspecified; E03.9 Hypothyroidism, unspecified; E78.00 Pure hypercholesterolemia, unspecified; E53.8 Deficiency of other specified B group vitamins
CPT/HCPCS: 36415; 80053; 80061; 81001; 82043; 82570; 82607; 82746; 83036; 84439; 84443; 85025; 99212

== ENCOUNTER 2025-03-28 07:00 | Outpatient (REF) | payer MEDICARE, OTHER, SELFPAY ==
--- OUTSIDE RECORDS SUMMARY | 2024-01-06 09:44 | XMS_ITS | Encounter Summary ---
Author Organization [facility] [place] [address] Care Team Providers Care Waiter/Waitress Counter Name Role Phone Calvin Maldonado MD Primary Care Provider Encounter Details Date Type Department Care Team (Late st Contact Info) Description 01/06/2024 10:44 AM EDT Hospital Encounter TH HISTORIC ENCOUNTERS EASTERN CONVERSION ONLY Rema Carlos, DO [address] [place] [address] Social History Tobacco Use Types Packs/Day Years Used Date Smoking Tobacco: Never Smokeless Tobacco: Never Alcohol Use Standard Drinks/Week Comments No 0 (1 standard drink = 0.6 oz pur e alcohol) Comments No Sex and Gender Information Value Date Recorded Sex Assigned at Not on file Legal Sex Female 8:48 PM EST Gender Identity Not on file Sexual Orientation Not on file documented as of this encounter Last Filed Vital Signs Vital Sign Reading Time Taken Comments Blood Pressure 148/61 01/06/2024 11:33 AM EDT Sitting Left arm Pulse 64 01/06/2024 11:33 AM EDT Temperature - - Respiratory Rate - - Oxygen Saturation - - Inhaled Oxygen Concentration - - Weight 69.9 kg (154 lb) 01/06/2024 11:3 3 AM EDT Height 147.3 cm (4' 10 ) 01/06/2024 11: 33 AM EDT Body Mass Index 32.19 01/06/2024 11:33 AM EDT documented in this encounter Progress Notes * Rema Carlos MD - 01/06/2024 11:30 AM EDT Images from the original note were not included. Progress Notes by Rema Carlos DO at 01/06/2024 11:30 AM Author: Rema Carlos DO Service: -- Author Type: Physician Filed: 01/06/2024 12:02 PM Encounter Date: 01/06/2024 Status: Signed Business Development Specialist: Rema Carlos DO (Physician) Hematology/Oncology Progress Note 01/06/24 Subjective Patient identifier: 78 year-old woman with a history of T1BN0 carcinoma of the left breast status postlumpectomy and radiation in 2014. Followed by 5 years of tamoxifen. Interim history: Cassandra presents today for follow-up. She says she feels fairly good overall. Recently had skin lesions on the scalp frozen by dermatology She has no breast pain or nipple discharge. Also recently having some right sided heel pain for which she is being seen by podiatry. Constitutional: See above. Resp/CV: No cough, shortness of breath, chest pain GI: No nausea, vomiting, Skin: No rashes Neuro: No dizziness, neuropathy Musculoskeletal: No back pain. Hem/Lymph : No palpable lymph nodes, no bleeding or easy bruising Oncology history: T1b N0 carcinoma the left breast status post lumpectomy RT ....recurrence score 09 April 2014. Poor tolerance of AI subsequent transition to tamoxifen She remained on tamoxifen and completed 5 years in 2020. She has been followed with alternating MRIand mammogram. Remains without evidence of breast cancer. Objective Last Vitals Vitals: 01/06/24 1133 BP: 148/61 Pulse: 64 Temp: 98.2 ??F (36.8 ??C) TempSrc: Temporal SpO2: 95% Weight: 69.9 kg (154 lb) Height: 4' 10 (1.473 m) PainLoc: Generalized ECO General: well appearing elderly woman HENT: No scleral icterus. Lymph: No palpable cervical, supraclavicular or axillary adenopathy. Breast: no masses or lesions bilaterally , left breast slightly smaller than the right. Resp: clear to auscultation bilaterally, Cardio: regular rate and rhythm, Abdomen: soft non tender, non distended, normoactive bowel sounds Neuro: alert and oriented, normal speech Medications Current Outpatient Medications: ? esomeprazole (NEXIUM) 40 MG packet ? levothyroxine (SYNTHROID, LEVOXYL) tablet 25 mcg ? losartan (COZAAR) tablet 50 mg ? Magnesium 500 MG TABS ? mometasone (NASONEX) 50 MCG/ACT nasal spray ? Olopatadine HCl (Pataday) 0.2 % ophthalmic solution ? [place]-3 Fatty Acids (FISH OIL PO) ? omeprazole (PRILOSEC) 40 MG capsule ? Probiotic Product (PROBIOTIC DAILY PO) ? Respiratory Therapy Supplies (CareTouch 2 CPAP Hose Carpet Jack) MISC ? rosuvastatin (CRESTOR) tablet 40 mg ? VITAMIN D PO Allergies Allergies Allergen Reactions ? Codeine ? Proair Hfa [Albuterol] ? Sulfa Antibiotics ? Tape Past medical history, past surgical history, and family history reviewed. Medical history Past Medical History: Diagnosis Date ? Acid reflux ? Anxiety ? Breast cancer (HCC) ? Chronic kidney disease nephrectomy ? Disease of thyroid gland hypothyroidism ? Esophagitis ? Hypertension ? IBS (irritable bowel syndrome) Surgical history Past Surgical History: Procedure Laterality Date ? BREAST LUMPECTOMY Family history Family History Problem Relation Age of Onset ? Cancer Father gqastric,lung cancer ? Cancer Brother prostate,colon ,and lung ca ? Cancer Maternal Aunt leukemia ? Cancer Paternal Aunt breast ca Social history She is , lives in [place]. She is a never smoker Labs: Relevant data reviewed. 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 She also completed 5 years of tamoxifen. She is doing well and remains NICKO Left breast carcinoma, pT1b, ER + [place] + HER 2 negative Continue to monitor on active surveillance Ordered mammogram to be done now and MRI to be done in July Follow-up visit in 1 year Patient does prefer to continue coming here for follow-ups we will discuss next year at the 10-yearmark if she does want to continue here. Call sooner with any new breast related complaints. Recommend she continue follow-up with her PCP for other annual screenings. Sign Gertrudis Carlos DO - Hematology/Oncology [facility] documented in this encounter Plan of Treatment Upcoming Encounters Date Type Department Care Team (Late st Contact Info) Description 01/31/2026 11:00 AM EDT Office Visit [facility] Hematology Oncology [address] [place] [address] Savannah Rome PA [address] [place] [address] documented as of this encounter Procedures Procedure Name Priority Date/Time Associated Diagnosis Comments HISTORICAL IMAGING SCAN RESULT 01/06/2024 documented in this encounter Results * HISTORICAL IMAGING SCAN RESULT (01/06/2024) Anatomical Region Laterality Modality Ultrasound us Provider Onbase [place] US PROCEDURES Final Resul t documented in this encounter Visit Diagnoses Not on filedocumented in this encounter Care Teams Waiter/Waitress Counter Relationship Specialty Start Date End Date Calvin Maldonado MD [address] [place] [address] [address] [place], [place] PCP - General Internal Medicine 12/22/19 documented as of this encounter
--- OUTSIDE RECORDS SUMMARY | 2025-03-28 07:30 | XMS_ITS | Clinical Summary ---
Author Organization [facility] Address [address] [place] [address] Phone Care Team Providers Care Tax Accounting Assistant Name Role Phone Calvin Maldonado MD Primary Care Provider [phone] Allergies Active Allergy Reactions Criticality Noted Date [...] 01/31/2025 11:30 AM EDT Office Visit [facility] Hematology Oncology [address] [place] [phone] Rema Carlos, History of cancer of left breast (Primary Dx) 01/30/2025 10:15 AM EDT - 01/30/2025 11:59 PM EDT [facility] [address] [phone] Malignant neoplasm of central portion of left breast in female, estrogen receptor positive (CMS/[facility]ER[facility] V24, CMS/FORMER[facility] V28); Encounter for screening mammogram for malignant neoplasm of breast Discharge Disposition: Home or Self Care from Last 3 Months Surgical History Surgery Date Site/Laterality Comments BREAST LUMPECTOMY 04/06/2013 - 04/05/2014 Left PROCEDURE:BREAST LUMPECTOMY STEREOTACTIC CORE BIOPSY 04/06/2013 - 04/05/2014 Left BREAST MASS EXCISION Right SHOULDER SURGERY Right Medical History Medical History Date Comments Breast cancer (CMS/FORMERLY [facility] V24, [facility] V28) DX:Breast cancer (HCC) IBS (irritable bowel [...] on file Sexual Orientation Not on file Last Filed Vital Signs [...] Description 01/31/2026 11:00 AM EDT Office Visit [facility] Hematology Oncology [address] [place] [phone] Savannah Rome PA [address] [place] [address] Health Maintenance Due Date Last Done Comments [...] left breast in female, estrogen receptor positive ([facility] V24, [facility] V28) Encounter for screening mammogram for malignant [...] year. Mammo Location: [facility], [address] [place] [address], [address], . -------- FINAL REPORT -------- Dictated By: Perez Serna Dictated Date: 01/30/2025 10:58 ET Assigned Physician: Perez Serna Reviewed and Electronically Signed By: Perez Serna Signed Date: 01/30/2025 11:17 ET Workstation ID: [id number] Transcribed By: Self Edit Transcribed Date: 01/30/2025 [...] year. Mammo Location: [facility], [address] [place] [address], [address], . -------- FINAL REPORT -------- Dictated By: Perez Serna Dictated Date: 01/30/2025 10:58 ET Assigned Physician: Perez Serna Reviewed and Electronically Signed By: Perez Serna Signed Date: 01/30/2025 11:17 ET Workstation ID: [id number] Transcribed By: Self Edit Transcribed Date: 01/30/2025 10:58 ET Rema Nazia Terrance DO IMG BI PROCEDURES Fin al Result from Last 3 Months Insurance MEDICARE [facility] Care Teams Tax Accounting Assistant Relationship Specialty Start Date End Date Calvin Maldonado MD [address] [place] [address] Dr Gerda Ramsay [place] PCP - General Internal Medicine 12/22/19
--- OUTSIDE RECORDS SUMMARY | 2025-03-28 07:30 | XMS_ITS | Data Portability ---
Author Organization [place] [facility] Address [address] [address] Care Team Providers Care Supply Coordinator Name Role Phone DUKE RODRIGUEZ Primary Care [...] for routine debridement, or sooner with concerns. [email or web address] Not available 11/23/2024 09:07:21 Plan of Treatment Reminders Order Date Submit Date Provider Last Modified By Organization Details Last Modified Time Details Appointments [facility] 20[facility] 11:15A PALLAVI ARIAS Not available Not available Not available Lab None recorded . Referral None recorded . Procedures None recorded . Surgeries None recorded . Imaging CT, neck, soft tissue, w/ contrast - ct neck w contrast , red lesion in throat. hx of tonsille ctomy 2023 024 pgustavson [facility] [place], [facility], [facility] [address], [place], [address], 09/29/2023 10:29:32 Medication Orders None recorded . Patient TargetsNo targets recorded. Patient InstructionsNo instructions recorded. Reason for Referral None Reported. Results Created Date Observation Date Name Description Value Unit Range Abnormal Flag Note LastModifiedBy Organization Detail LastModifiedTime 08/27/19 24 08/28/2023 BUN BUN 17 mg/dL 8-27 Not Available [facility] ([facility]) [address] [facility], [place], [address], 08/28/2023 03:11:17 08/27/19 24 08/28/2023 CREAT ININE creatinine 0.78 mg/dL 0.57-1 .00 Not Available [facility] ([facility]) [address] [place], [address], 08/28/2023 03:11:18 08/27/19 24 08/28/2023 CREAT ININE eGFR 78 mL/mi n/1.7 3 >59 Not Available [facility] ([facility]) [address] [place], [address], 08/28/2023 03:11:18 10/20/19 24 10/20/2023 CT, neck, soft tissu e, w/ contr ast No observ ation record ed. [email or web address] [facility] [address] [facility] [address], [place], [address], 10/21/2023 11:12:59 11/25/19 24 06/09/2018 imagi ng/di [...] Organization Details Recorded Time Deviated nasal septum 712620090 Active 2013 Nasal septal deviation ; CMS Risk: moderate risk Note : Date Diagnosed : 4 11:41 AM (470) Not Available [facility] 4 02:14:51 Chronic rhinitis 30847168 Active 2013 Rhinitis, chronic; CMS Risk: moderate risk Note : Date Diagnosed : 4 11:41 AM (472.0) Not Available [facility] 4 02:14:55 Hypertrop hy of nasal turbinate s 93678386 Active 2013 Nasal turbinate hypertrop hy; Location: bilateral CMS Risk: low risk Not Available [facility] 4 02:14:55 Postopera tive follow-up visit Active 2013 Post op; Note: Date Diagnosed : 4 10:45 AM (V67.00) Not Available [facility] 4 02:13:52 Sensorine ural hearing loss of bilateral ears 047106577 Active 2018 Sensorine ural hearing loss, bilateral ; Note: Date Diagnosed : 06/09/2018 10:58 AM (H90.3) Not Available [facility] 4 02:14:21 Bilateral disorder of Eustachia n tubes 06358278789 53175 Active 2018 Other specified disorders of Eustachia n tube, bilateral ; Note: Date Diagnosed : 06/09/2018 12:44 PM (H69.83) Not Available [facility] 4 02:13:38 Allergic rhinitis 19153298 Active 2021 Allergic rhinitis, unspecifi ed; Note: Date Diagnosed : 08/05/2021 1:48 PM (J30.9) Not Available [facility] 4 02:14:58 Impacted cerumen in right ear 86966920996 34336 Active 2021 Impacted cerumen, right ear; Note: Date Diagnosed : 08/05/2021 1:48 PM (H61.21) Not Available [facility] 4 02:12:53 Cough 94126199 Active 2021 Cough, unspecifi ed; Note: Changed from R05 to R05.9 (08/06/2021 1:29 PM) , Date Diagnosed : 08/05/2021 1:48 PM (R05) Not Available [facility] 4 02:15:09 Gastroeso phageal reflux disease without esophagit is 050489605 Active 2021 Gastro-es ophageal reflux disease without esophagit is; Note: Date Diagnosed : 08/05/2021 1:48 PM (K21.9) Not Available [facility] 4 02:13:28 Impacted cerumen of bilateral ears 52905574840 90624 Active 2023 Impacted cerumen, bilateral ; Note: Date Diagnosed : 06/22/2023 4:28 PM (H61.23) Not Available [facility] 4 02:13:05 Chronic sore throat 443431596 Active 2023 LOWELL SANTILLAN PA-C [address] [place] [address],[facility] [address], [facility] [place], [address] , [facility] 4 15:10:01 Otalgia of right ear 5171006189 Active 2023 LOWELL SANTILLAN PA-C [address] [facility],[place] [address], [place], [address] , [facility] 4 15:10:59 Problem Notes None recorded. Procedures Surgical History Date Name Laterality Status Provider Name and Address Organization Details Recorded Time 5 Cerumen removal without microscope bilat completed LOWELL SANTILLAN PA-C [address] [facility],[place] [address], [place], [address], [facility] - [facility] 11/23/2024 09:07:17 5 Cerumen removal without microscope bilat completed LOWELL SANTILLAN PA-C [address] [facility],[place] [address], [place], [address], [facility] 06/06/2024 11:30:34 Imaging Results None recorded. Procedure Notes None recorded. Medical Equipment None Reported. Allergies Allergen ID Allergen Name Allergen Category Reaction Reaction Severity Criticality Documentation Date Start Date Code Code System Note Provider Name and Address Organization Details Recorded Time 61354 adhesive tape environme nt,medica tion other Not available Not available 08/18/2023 React ion: unkno wn, unspe cifie d;; Not Available [facility] 4 00:49:11 88761 Substance with sulfonami de structure and antibacte rial mechanism of action (substanc e) medicatio n other Not available Not available 08/18/2023 97113 8003 SNOMED React ion: unkno wn, unspe cifie d;; Not Available [facility] 4 00:50:15 Medications Name Sig Start Date [...] by mouth 2013 active Medicati on ID: [id number] Du ration Value: 7 Prescri bed By [...] topical cream 11/23 completed Medicati on ID: [id number] D uration Value: 7 Brand Name: alclomet [...] topical cream 2019 active Medicati on ID: [id number] D uration Value: 14 Brand Name: betameth asone dipropio jason Sen d Method: E-Prescr ibed Sub s Allowed: subs OK Speci al Instruct ion: APPLY TO RASH ON THE NECK BID FOR 1 TO 2 WEEKS Me dication GenericN trevor: betameth asone dipropio jason Not Available Not Available Not Available omeprazol e 20 mg capsule,d elayed release 2018 active Medicati on ID: [id number] D uration Value: 90 Brand Name: omeprazo [...] mg tablet 11/23 completed Medicati on ID: [id number] B rand Name: biotin S end Method: [...] mg capsule 11/23 completed Medicati on ID: [id number] B rand Name: Azo Bladder Control Send Method: E-Prescr ibed Sub s Allowed: subs OK Medic ationGen ericName : Azo Bladder Control Not Available Not Available Not Available Vitals Date Recorded Body height Body mass index (BMI) Body weight Provider Name and Address Organization Details Last Updated DateTime 06/06/2024 157.48 cm 27.8 kg/m2 53030.04 g Mone Boland [place] - [facility] 06/06/2024 11:07:34 Date Recorded Body height Provider Name an d Address Organization Details Last Updated DateTime 08/27/2023 157.48 cm Eduardo Vera [place] - [facility] 08/27/2023 14:33:20 Date Recorded Body height Body mass index (BMI) Body weight Provider Name and Address Organization Details Last Updated DateTime 11/06/2023 157.48 cm 27.8 kg/m2 93038.04 g Artemio Blum [place] - [facility] 11/06/2023 10:17:29 Date Recorded Body height Body mass index (BMI) Body weight Provider Name and Address Organization Details Last Updated DateTime 11/23/2024 148.59 cm 31.2 kg/m2 64521.04 g Jesenia Mclean [place] - [facility] 11/23/2024 08:47:54 Social History None recorded. [...] Note 1338 LOWELL SANTILLAN PA-C [facility] [address] [place] [address] 08/27/2023 13:39:36 08/27/2023 14:44:09 Chronic sore throat 618308875 R07.0 Otalgia of right ear 541 7927369 H92.01 89228 LOWELL SANTILLAN PA-C [facility] [address] [place] [address] 11/06/2023 09:48:18 11/06/2023 10:32:19 Chronic sore throat 766419372 R07.0 Otalgia of right ear 297 1879258 H92.01 83436 LOWELL SANTILLAN PA-C [facility] [address] [place] [address] 06/06/2024 10:57:50 06/06/2024 12:10:45 Impacted cerumen of bilateral ears 5214736927 448428 H61.23 96931 LOWELL SANTILLAN PA-C [facility] [address] [place] [address] 11/23/2024 08:38:35 11/23/2024 09:28:37 Impacted cerumen of bilateral ears 6799724110 825276 H61.23 Health Concerns Section Related Observation LastModified by Organization Detai ls LastModified Time None Recorded Concern Status LastModified by Organization Details LastModified Time None Recorded Advance Directives Directive None Recorded Payers Insurance Date Sequence Insurance Name Policy Number Policy Young Covered Member ID Young Member ID Guarantor Name 11/20/2024 2 FOR LIFE () Uziel Kramer [id number] Lisa Gonzalez 11/20/2024 1 MEDICARE B-ND: [employer] Татьяна Kramer [id number] Lisa Gonzalez Notes Date Note Type Note Provider Name and Address Organization Details Recorded Time 08/27/2023 text/html ROS as noted in the [facility] 78-year-old female presents for evaluation of red [...] and renal cancer. JASE DALEY MD [address] [facility],[address], [address], [place] - [facility] 08/27/2023 16:00:26 11/06/2023 text/html ROS as noted in the [facility] 78-year-old female presents for review of CT [...] and renal cancer. LELE CUEVAS MD 100 [facility],[address], [address], [facility] - [facility] 11/06/2023 10:38:11 06/06/2024 text/html ROS as noted in the [facility] 79-year-old female presents for cerumen removal. No concerns today. LELE CUEVAS MD [address] [facility],[address], [address], [facility] - [facility] 06/06/2024 17:09:07 11/23/2024 text/html ROS as noted in the [facility] 79-year-old female presents for cerumen removal. No concerns today. FELIPE IRAHETA MD [address] [facility],[address], [address], [facility] - [facility] 11/23/2024 12:58:03 OBGyn Episode No OBEpisode recorded.
--- OUTSIDE RECORDS SUMMARY | 2025-03-28 07:30 | XMS_ITS | Patient Health Record ---
Author Organization [facility] Address [address] [place] [address] Care Team Providers Care Camera Assembler Name Role Phone Calvin Maldonado MD Primary Care Provider UnaMelia Simon Unavailable [phone] Allergies Allergen (clinical drug ingredient) Drug/Non Drug [...] Details Miscellaneous: Marital status: Occupation: retired [employer]. Section Notes: Nonsmoker; no sig. alcohol u se Problems Problem Type SNOMED Code ICD Code Onset Dates Problem Status W/U Status Risk Notes Problem Colon cancer screening (878665682) Colon cancer screening (Z12.11) Active confirmed Problem Irritable bowel syndrome (74914259) Irritable bowel syndrome (K58.9) Active confirmed Problem History of adenomatous polyp of colon (781243827) History of adenomatous polyp of colon (Z86.010) Active confirmed Problem Gastroesophageal reflux disease (208938646) GERD (gastroesophageal reflux disease) (K21.9) Active confirmed Problem Diverticulosis of colon (549279221) Diverticulosis of colon (K57.30) Active confirmed Plan Of Treatment Pending Test Test Name Order Date Pathology 01/01/2022 Future Test Test Name Order Date COLONOSCOPY 11/19/2021 Insurance Providers Payer Name Payer Address Payer Phone Subscriber Number Group Number Insured Name Patient Relationship to Insured Coverage Start Date Coverage End Date MEDICARE OF [place] [address] [place] [address] [id number] ROSE MENARD Self - patient is the insured [employer] [address] [place] [address] [id number] ROSE MENARD Self - patient is the [...]
--- OUTSIDE RECORDS SUMMARY | 2025-03-28 07:30 | XMS_ITS | Clinical Summary ---
Author Organization [facility] Prior to 09/03/[address] [place] [address] Care Team Providers Care Section Forest Fire Warden Name Role Phone Calvin Maldonado MD Primary Care Provider [phone] Allergies Active Allergy Reactions Criticality Noted Date [...] 2 sprays inside Nose daily. 0 Active [place]-3 Fatty Acids (FISH OIL PO) Take 1,400 [...] Respiratory Therapy Supplies (CareTouch 2 CPAP Hose Test Development Engineer) MISC by Does not apply route. [...] age to complete this topic Care Teams Section Forest Fire Warden Relationship Specialty Start Date End Date Calvin Maldonado MD [address] [place] [address] [place] [address] PCP - General Internal Medicine 12/01/16
[2025-03-28 10:16] LABS: Appearance Urine Clear; Glucose Urine UA Negative (Negative); PH 6.5 (5.0-9.0); Specific Gravity - Urine 1.015 (1.005-1.025)
== END 2025-03-28 07:01 | disposition home or self-care (01) ==
LOC: HO.HMGCLNP 07:00
PROVIDERS: PCP Internal Medicine; Visit Provider Internal Medicine
DX: R30.0 Dysuria (principal)
CPT/HCPCS: 81003

== ENCOUNTER 2025-04-04 10:21 | Outpatient (AMB) | payer MEDICARE, OTHER, SELFPAY ==
--- OUTSIDE RECORDS SUMMARY | 2024-01-06 09:44 | XMS_ITS | Encounter Summary ---
Author Organization [facility] [place] [address] Care Team Providers Care Access Developer Name Role Phone Calvin Maldonado MD Primary Care Provider Encounter Details Date Type Department Care Team (Late st Contact Info) Description 01/06/2024 10:44 AM EDT Hospital Encounter TH HISTORIC ENCOUNTERS EASTERN CONVERSION ONLY Rema Carlos, DO [address] [place] [address] Social History Tobacco Use Types Packs/Day Years [...] 12:02 PM Encounter Date: 01/06/2024 Status: Signed X Ray Service Engineer: Rema Carlos DO (Physician) Hematology/Oncology Progress Note [...] HCl (Pataday) 0.2 % ophthalmic solution ? [place]-3 Fatty Acids (FISH OIL PO) ? omeprazole (PRILOSEC) 40 MG capsule ? Probiotic Product (PROBIOTIC DAILY PO) ? Respiratory Therapy Supplies (CareTouch 2 CPAP Hose Client Services Vice President) MISC ? rosuvastatin (CRESTOR) tablet 40 mg [...] Social history She is , lives in [place]. She is a never smoker Labs: Relevant data reviewed. 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 She also completed 5 years of tamoxifen. She is doing well and remains NICKO Left breast carcinoma, pT1b, ER + [place] + HER 2 negative Continue to monitor [...] - Hematology/Oncology [facility] documented in this encounter Plan of Treatment Upcoming Encounters Date Type Department Care Team (Late st Contact Info) Description 01/31/2026 11:00 AM EDT Office Visit [facility] Hematology Oncology [address] [place] [address] Savannah Rome PA [address] [place] [address] documented as of this encounter Procedures Procedure Name Priority Date/Time Associated Diagnosis Comments HISTORICAL IMAGING SCAN RESULT 01/06/2024 documented in this encounter Results * HISTORICAL IMAGING SCAN RESULT (01/06/2024) Anatomical Region Laterality Modality Ultrasound us Provider Onbase [place] US PROCEDURES Final Resul t documented in this encounter Visit Diagnoses Not on filedocumented in this encounter Care Teams Access Developer Relationship Specialty Start Date End Date Calvin Maldonado MD [address] [place] [address] [address] [place], [place] PCP - General Internal Medicine 12/22/19 documented as of this encounter
--- NOTE | 2025-04-04 10:39 | MHC.PC.OV ---
Vital Signs 04/04/25 10:40 Height 4 ft 10 in Weight 156 lb 8 oz BMI 32.7 BP 130/82 Blood Pressure Location Lt brachial Position Sitting Pulse 72 Pulse Source Pulse Oximeter Pulse Oximetry (%) 94 Oxygen Delivery Method Room Air Intake Visit Reasons: 4mth f/u Watch Crystal Molder Required: No Accompanied by: Self / Same As Patient Allergies adhesive tape Allergy (Intermediate, Verified 04/09/25 22:20) BLISTERS albuterol (From PROAIR HFA) Allergy (Intermediate, Verified 04/09/25 22:20) TREMOR oxybutynin Allergy (Intermediate, Verified 04/09/25 22:20) shortness of breath Sulfa (Sulfonamide Antibiotics) (SULFA (SULFONAMIDE ANTIBIOTICS)) Allergy (Intermediate, Verified 04/09/25 22:20) itching, hives ropinirole Allergy (Mild, Verified 04/09/25 22:20) joint pain codeine (CODEINE) Adverse Reaction (Intermediate, Verified 04/09/25 22:20) GI UPSET sitagliptin Adverse Reaction (Intermediate, Verified 04/09/25 22:20) joint pains Medication List - Last Reconciled 04/09/25 by Calvin Maldonado MD azelastine 2 sprays intranasal BID 30 days cholecalciferol (vitamin D3) 50 mcg PO DAILY ciprofloxacin HCl (Cipro) 500 mg PO BID 7 days citalopram 10 mg PO QAM clobetasol 0.05% 0.25 - 0.5 mL topical DAILY esomeprazole magnesium 40 mg PO QAM glucosamine sulfate 750 mg PO DAILY hydrocortisone 1% (Cortisone (hydrocortisone)) 1 appl topical BID PRN levothyroxine 50 mcg PO DAILY 90 days losartan 50 mg PO DAILY multivitamin (Multiple Vitamins tablet) 1 tab PO DAILY olopatadine 0.2% 1 drp ophthalmic (eye) DAILY rosuvastatin 5 mg PO DAILY Tobacco use date assessed: 04/04/25 Fall risk assessment: 1 Fall in past year Last assessed Fall Risk: 04/04/25 Dental Screening Dental Screen Date: 04/04/25 Did you have a dental visit in the last 12 months?: Yes Did you have a dental problem in the last 6 months where you did not have access to dental care?: No Was dental information given to patient?: Patient has dentist HPI 4mth f/u HPI Details - The patient is an 80 year old female presenting for a follow-up on chronic conditions and new/ongoing complaints. - She had her follow up labs done last week - to discuss her results - Diabetes: Her HbA1c is 7.6%, which has decreased from 7.8% but remains elevated from a prior level of 6.6%. - She reports using monk fruit or honey as a sugar substitute in her beverages and rarely drinks soda. - Hyperlipidemia: The patient continues to take her cholesterol medication. - Her LDL cholesterol has improved from 154 to 128 mg/dL, though the goal is under 100 mg/dL. - Her triglycerides have increased from 137 to 263 mg/dL, which is suspected to be related to her diet during the holidays. - Sleep issues: She has a sleep study scheduled for May 09 due to concerns about not getting enough oxygen, which may necessitate restarting CPAP therapy. - Her sleep is fragmented by nocturia, which occurs despite limiting fluid intake after supper, and by her cat's activity. - Hand pain: Since a fall in August, she has had a persistent bump and soreness on her hand. - An X-ray performed three days after the fall was reportedly okay, but a provider told her it was arthritis; she did not have this issue before the fall. - The X-ray report noted generalized arthritic changes, with more significant changes in the thumb and middle finger. - Memory concerns: A CT scan of the brain is planned to evaluate her memory. - She denies any headaches or dizziness - Denies any exertional chest pains or increased SOB - No nausea/vomiting, no abdominal pain - No change in bowel habits noted [facility] Medical History Arthritis Duodenal ulcer Awareness under anesthesia Diabetes mellitus Overactive bladder Obesity (BMI 30-39.9) Post-menopausal Obstructive sleep apnea Anxiety History of renal cell cancer History of breast cancer Constipation Vitamin D deficiency Allergic rhinitis Osteoarthritis of right knee GERD without esophagitis Impaired fasting glucose Acquired hypothyroidism Pure hypercholesterolemia Benign essential hypertension Invasive ductal carcinoma of left breast Hypothyroid HTN (hypertension) Esophagitis Mixed irritable bowel syndrome Surgical History Hx of lymph node excision Hx of excision of mass Hx of nasal septoplasty History of bilateral knee replacement History of removal of skin mole History of thumb surgery (~04/26/15) History of lumpectomy of left breast (~03/2014) History of left breast biopsy (~01/2014) History of removal of cyst History of bunionectomy History of kidney surgery History of cataract surgery History of colon resection (~2001) History of partial nephrectomy (~2002) History of colonoscopy History of esophagogastroduodenoscopy (EGD) (~09/16/12) History of eye surgery (~09/2012) Family History Father History of gastric cancer History of lung cancer Mother History of heart disease Brother Family history of prostate cancer History of colon cancer History of lung cancer Daughter History of breast cancer Paternal Aunt History of breast cancer Maternal Uncle History of leukemia Maternal Aunt History of breast cancer Social History Housing: Condominium Are you a primary care professional to a significant other at home: No Do you presently have visiting nurse or other home services: No Alcohol intake: current Alcohol intake frequency: holidays/special occasions only Alcohol type: wine Patient Tobacco Use Status: Never used Tobacco e-Cigarette/Vaping Use: Never Used Second Hand Smoke Exposure: Yes service: No Current occupational status: retired Current occupation: rt handed Cognitive needs: No Hearing needs: No Vision needs: Yes (glasses) Questionnaire PHQ-9 Over the last 2 weeks, how often have you been bothered by any of the following problems? 1. Little interest or pleasure in doing things: not at all 2. Feeling down, depressed, or hopeless: not at all 3. Trouble falling or staying asleep, or sleeping too much: not at all 4. Feeling tired or having little energy: more than half the days 5. Poor appetite or overeating: not at all 6. Feeling bad about yourself - or that you are a failure or have let yourself or your family down: not at all 7. Trouble concentrating on things, such as reading the newspaper or watching television: not at all 8. Moving or speaking so slowly that other people could have noticed. Or the opposite - being so fidgety or restless that you have been moving around a lot more than usual: not at all 9. Thoughts that you would be better off or of hurting yourself in some way: not at all Total score: 2 Depression Screening Interpretation: Negative Depression Screening Done: Yes 82304 - PHQ-9 Billing: Yes Source: Developed by Drs. Uziel Morillo, Celina Matute, Pete Patterson and colleagues, with an educational sandra from [employer]. Thrive Questionnaire Date Thrive assessed: 04/04/25 What is your living situation today?: I have a steady place to live Within the past 12 months, did the food you bought not last and you didn't have the money to get more?: Never true Within the past 12 months, did you worry whether your food would run out before you got money to buy more?: Never true Do you have trouble paying for medicines?: No Do you have trouble getting transportation to medical appointments?: No Do you have trouble paying your heating and electricity bill?: No Do you have trouble taking care of your child, family member or friend?: No Do you have trouble with day-to-day activities such as bathing, preparing meals, shopping, managing finances, etc.?: No Are you currently unemployed and looking for a job?: No Are you interested in more education?: No Please select the resources that you would like help with: None Currently or been in a relationship where the following occur: No concerns reported THRIVE Score: 0 AUDIT C Alcohol Use Questionnaire (AUDIT-C) 1. How often do you have a drink containing alcohol?: Never 3. How often do you have six or more drinks on one occasion?: Never Total Score: 0 Score Reviewed/Action Taken: Yes DELIA-7 AMB Questionnaire DELIA-7 Date DELIA - 7 assessed: 04/04/25 Feeling nervous, anxious, or on edge: 0 = Not at all Not being able to stop or control worryin = Not at all Worrying too much about different things: 0 = Not at all Trouble relaxin = Not at all Being so restless that it is hard to sit still: 0 = Not at all Becoming easily annoyed or irritable: 0 = Not at all Feeling afraid as if something awful might happen: 0 = Not at all Total DELIA-7 score (0-4 normal; 5-9 mild; 10-14 moderate; 15-21 severe): 0 Source: Developed by Drs. Uziel Morillo, Celina Matute, Pete Patterson and colleagues, with an educational sandra from [employer]. Review of Systems Const Denies chills, Denies difficulty sleeping, Reports fatigue, Denies fever(s) and Denies headache(s) ENT Denies dysphagia, Denies dizziness, Denies otalgia, Denies headache(s), Denies neck pain, Denies odynophagia and Denies sore throat Card Denies chest pain, Denies palpitations and Denies dyspnea Resp Denies chest congestion, Denies cough and Denies dyspnea GI Denies abdominal pain, Denies constipation, Denies dysphagia, Denies heartburn, Denies diarrhea, Denies nausea, Denies odynophagia and Denies vomiting Denies difficulty voiding, Reports nocturia (at least 3 times a night), Denies dysuria, Denies urinary incontinence and Denies urinary urgency Musc Reports back pain (over the lower back - on and off), Reports arthralgias (increased in the right shoulder; on the right wrist/hand lately - see HPI) and Denies neck pain Skin/Breast Denies rash Neuro Denies dizziness, Denies headache(s), Reports memory loss (feels that this is slowly getting worse) and Reports restless legs Psych Reports anxiety and Reports memory loss (feels that this is slowly getting worse) Endo Reports fatigue and Denies palpitations Physical exam (Primary Care) Vital Signs: Last Vital Signs Pulse 72 04/04/25 10:40 BP 130/82 04/04/25 10:40 Pulse Ox 94 04/04/25 10:40 Oxygen Delivery Method Room Air 04/04/25 10:40 BMI result Body Mass Index 32.7 Tobacco/Smoking Status: Tobacco use Status Tobacco use date assessed 04/04/25 04/04/25 10:42 Patient Tobacco Use Status Never used Tobacco 04/04/25 10:42 e-Cigarette/Vaping Use Never Used 04/04/25 10:42 PHQ-9: PHQ-9 Score PHQ-9: Total score 2 04/04/25 11:27 Depression Screening Interpretation: Negative Thrive Assessment: Date of Thrive Assessment Date Thrive assessed 04/04/25 04/04/25 10:42 Currently or been in a relationship where the following occur: No concerns reported Const General: no acute distress and alert Neck Neck: Yes supple and No lymphadenopathy Thyroid: Thyroid normal Resp Auscultation: clear to auscultation bilaterally, no rales and no wheezes Cardio Rate: regular rate Rhythm: regular rhythm Heart sounds: no murmurs GI Palpation (GI): Soft to palpation and nontender Auscultation: normal bowel sounds General: Yes no CVA tenderness Back/Spine/Pelvis Back: no CVA tenderness Thoracic/Lumbar Spine: No lumbar spinal tenderness Skin Rashes: no rashes Extrem General: Yes no clubbing, cyanosis or edema Right upper extremity: Extremity exam: right hand ((+) tender nodular lesion on the dorsum of the hand at the ulnar side) Results Reviewed Results Reviewed: Laboratory Tests 03/09/25 03/28/25 11:00 07:00 WBC 7.8 Hgb 14.6 Hct 43.4 Plt Count 262 Sodium 139 Potassium 4.1 Creatinine 0.72 Estimated GFR > 60 Fasting Glucose 244 H Hemoglobin A1c % 7.6 H Calcium 9.7 AST 23 ALT 25 Triglycerides 263 H Cholesterol 232 H LDL Cholesterol, Calc 128 H HDL Cholesterol 52 Vitamin B12 499 TSH 1.72 Free T4 1.02 Ur Specific [place] 1.015 Urine Protein Negative Urine Glucose (UA) Negative Urine Blood Negative Urine Nitrite Negative Ur Leukocyte Esterase Negative Microalb/Creat Ratio 10.0 Coding Level of Care Code Est Pt Level 4 (01738) Diagnoses Pure hypercholesterolemia E78.00 Benign essential hypertension I10 Type 2 diabetes mellitus without complication, without long-term current use of insulin E11.9 Diabetes mellitus complication status: without complication Diabetes mellitus intermission coordinator insulin use: without intermission coordinator use Diabetes mellitus type: type 2 Palpitations R00.2 Acquired hypothyroidism E03.9 Obstructive sleep apnea G47.33 Memory impairment R41.3 GERD without esophagitis K21.9 Primary osteoarthritis of right knee M17.11 Osteoarthritis type: primary Impingement of right shoulder M25.811 Right hand pain M79.641 Restless legs syndrome (RLS) G25.81 Allergic rhinitis, unspecified seasonality, unspecified trigger J30.9 Allergic rhinitis seasonality: unspecified Allergic rhinitis trigger: unspecified Vitamin D deficiency E55.9 Constipation, unspecified constipation type K59.00 Constipation type: unspecified constipation type Overactive bladder N32.81 History of breast cancer Z85.3 History of renal cell cancer Z85.528 Anxiety F41.9 Obesity (BMI 30-39.9) E66.9 Additional Codes PHQ-9 - 07885 - PHQ-9 Billing: Yes ([id number]) Assessment & Plan Assessment & Plan (1) Pure hypercholesterolemia: Code(s): E78.00 - Pure hypercholesterolemia, unspecified Category: Medical Plan: Results of her labs done last week reviewed and discussed with patient - her cholesterol levels have improved slightly from previous Reinforced low cholesterol diet Continue Rosuvastatin 5 mg QD for now Will recheck her labs and fasting lipids in 4 months for follow-up (2) Benign essential hypertension: Code(s): I10 - Essential (primary) hypertension Category: Medical Plan: Reinforced low sodium diet - goal is systolic BP of at least 130 to 140 mm or less Continue Losartan 50 mg QD (3) Diabetes mellitus: Comment: pt. states pre-diabetes -no Rx Code(s): E11.9 - Type 2 diabetes mellitus without complications Category: Medical Qualifiers: Diabetes mellitus complication status: without complication Diabetes mellitus intermission coordinator insulin use: without residential use Diabetes mellitus type: type 2 Qualified Code(s): E11.9 - Type 2 diabetes mellitus without complications Plan: Her HgbA1c has improved slightly to 7.6% on her recent labs done last week (was previously at 7.8% a few months ago) - goal is at least <7.0% but ideally <6.5% Reinforced diabetic diet / exercise as tolerated She could not tolerate Januvia (joint pains) and is currently still NOT on any Rx for diabetes but have again advised patient that if she cannot get her HgbA1c to goal over the next few months, then we will need to strongly consider starting her on Rx for her diabetes Will recheck her FBS and HgbA1c in 4 months for follow up (4) Palpitations: Code(s): R00.2 - Palpitations Category: Medical Plan: States that these only occur very occasionally nowadays and mostly at night when she is sitting down watching television; episodes usually last only a few seconds at most, and that their duration is too short to even be associated with any pertinent symptoms Have offered to refer her for additional testing and work ups in the past but patient declined - states that they are not occurring often or lasting long enough to really bother her and she will call for referrals/orders if she changes her mind or if they start occurring more often (5) Acquired hypothyroidism: Code(s): E03.9 - Hypothyroidism, unspecified Category: Medical Plan: Her TFTs remained normal on her recent labs Continue Levothyroxine 50 mcg QD Will continue to monitor her TFTs regularly (6) Obstructive sleep apnea: Comment: no CPAP-used in past-has not used since ~ [id number] Sleep Med. appt was in 2022 Code(s): G47.33 - Obstructive sleep apnea (adult) (pediatric) Category: Medical Plan: She was using her CPAP device at 5 - 15 cm pressure when sleeping at night previously but states that she decided to stop using it a few months ago and states that she actually started feeling better without her device, with all of her previous symptoms of headaches, nasal congestion and sore throat completely clearing up once she stopped using her device States that she has been sleeping much better without her CPAP device and does not wish to go back on it but there are concerns recently that she may not be getting enough oxygen when she is sleeping at night and this may necessitate restarting CPAP therapy on her She is scheduled for a repeat sleep study in a few weeks on 05/09/2025 Follow up with Sleep Medicine as scheduled or as needed (7) Memory impairment: Comment: ? untreated graciela ? vascular she did well on MMSE Code(s): R41.3 - Other amnesia Category: Medical Plan: Patient was finally seen by neurology last month and had a head CT done that came out negative She is currently still undergoing evaluation for her memory impairment and her repeat sleep study is one of those tests Follow up with neurology as scheduled (8) GERD without esophagitis: Code(s): K21.9 - Gastro-esophageal reflux disease without esophagitis Category: Medical Plan: Dietary restrictions reinforced Continue Nexium 40 mg QD; she also takes Tums 500 mg 4 times a day when needed (9) Osteoarthritis of right knee: Comment: S/P arthroplasty of the right knee in November 2019 Code(s): M17.11 - Unilateral primary osteoarthritis, right knee Category: Medical Qualifiers: Osteoarthritis type: primary Qualified Code(s): M17.11 - Unilateral primary osteoarthritis, right knee Plan: Continue Gabapentin 100 mg 2 times a day in the morning and afternoon and 2 capsules at bedtime, Celebrex 200 mg once a day and Tylenol Arthritis 650 mg 3 times a day as needed She also takes CBD (OTC Cannabidiol) as needed for increased knee pain (10) Impingement of right shoulder: Code(s): M25.811 - Other specified joint disorders, right shoulder Category: Medical Plan: (+) OA, RTC tendinitis and impingement syndrome of the right shoulder She underwent arthroscopic surgery/release of the right shoulder with Dr. Valenzuela a couple of months ago with (+) significant improvement of her shoulder pain She also completed physical therapy for her shoulder and states that her right shoulder is now mostly pain-free Follow up with orthopedics as scheduled (11) Right hand pain: Code(s): M79.641 - Pain in right hand Category: Medical Plan: Will send patient for x-rays of the right hand for further evaluation, especially for the nodular swelling/lesion on the dorsum of his hand (12) Restless legs syndrome (RLS): Code(s): G25.81 - Restless legs syndrome Category: Medical Plan: She was started on Ropinirole 0.5 mg QHS in the past but patient had to stop taking this as she felt that the Rx made her headaches worse States that her leg symptoms have been better controlled lately and she does not require anything else at this time (13) Allergic rhinitis: Code(s): J30.9 - Allergic rhinitis, unspecified Category: Medical Qualifiers: Allergic rhinitis seasonality: unspecified Allergic rhinitis trigger: unspecified Qualified Code(s): J30.9 - Allergic rhinitis, unspecified Plan: Continue Cetirizine 10 mg QD PRN and Montelukast 10 mg QD Continue Azelastine nasal spray BID PRN Patient feels that her symptoms have improved a lot since she stopped using her CPAP device a few months ago (14) Vitamin D deficiency: Code(s): E55.9 - Vitamin D deficiency, unspecified Category: Medical Plan: Corrected - her Vitamin D level is normal on her recent labs (15) Constipation: Code(s): K59.00 - Constipation, unspecified Category: Medical Qualifiers: Constipation type: unspecified constipation type Qualified Code(s): K59.00 - Constipation, unspecified Plan: She is again encouraged on increased oral fluids and dietary fiber intake Continue MiraLax 17 gm QD (16) Overactive bladder: Code(s): N32.81 - Overactive bladder Category: Medical Plan: This is most likely the reason for her nocturia and increased fatigue She was started on a trial of Myrbetriq 25 mg Q HS but she could not tolerate the Rx She was advised that she should probably see urology for further evaluation and management of her urinary symptoms - patient states that she will call for referral when she feels she is ready to see urology but would like to hold off on referral for now (17) History of breast cancer: Comment: S/P Tamoxifen x 5 years Code(s): Z85.3 - Personal history of malignant neoplasm of breast Category: Medical Plan: Follow up with Oncology as scheduled for continuing surveillance (18) History of renal cell cancer: Comment: S/P partial left nephrectomy-has not followed w/Nephrology since ~ 2021 Code(s): Z85.528 - Personal history of other malignant neoplasm of kidney Category: Medical Plan: Follow up with Oncology and Nephrology as scheduled for continuing surveillance (19) Anxiety: Code(s): F41.9 - Anxiety disorder, unspecified Category: Medical Plan: Continue Citalopram 10 mg QD (20) Obesity (BMI 30-39.9): Code(s): E66.9 - Obesity, unspecified Category: Medical Plan: Reinforced diet/exercise as tolerated/lose weight Plan Follow up in 4 months Orders: Orders Complete Blood Count Auto Diff 4 Months D64.9 - Anemia, unspecified Comprehensive [place]. Panel Fast 4 Months E78.00 - Pure hypercholesterolemia, unspecified Thyroid Stimulating Hormone 4 Months E03.9 - Hypothyroidism, unspecified Free T4 (Free Thyroxine) 4 Months E03.9 - Hypothyroidism, unspecified UA CC w/rflx Micro + Cult 4 Months R30.0 - Dysuria Vitamin D 25-OH Total 4 Months E55.9 - Vitamin D deficiency, unspecified XR hand RT min 3V 12/30/25 M79.641 - Pain in right hand Lipid Panel 4 Months E78.00 - Pure hypercholesterolemia, unspecified Microalbumin, Random (w Creat) 4 Months E11.9 - Type 2 diabetes mellitus without complications Hemoglobin A1c 4 Months E11.9 - Type 2 diabetes mellitus without complications Vitamin B12 and Folate 4 Months E53.8 - Deficiency of other specified B group vitamins
[2025-04-04 10:40] VITALS: BP 130/82; PULSE 72; O2SAT 94; BMI 32.7
--- OUTSIDE RECORDS SUMMARY | 2025-04-04 13:51 | XMS_ITS | Clinical Summary ---
Author Organization [facility] Prior to 09/03/[address] [place] [id number] Care Team Providers Care Counselor Education Professor Name Role Phone Calvin Maldonado MD Primary Care Provider [phone] Allergies Active Allergy Reactions Criticality Noted Date [...] 2 sprays inside Nose daily. 0 Active [place]-3 Fatty Acids (FISH OIL PO) Take 1,400 [...] Respiratory Therapy Supplies (CareTouch 2 CPAP Hose Metal Tube Cutter) MISC by Does not apply route. 0 [...] age to complete this topic Care Teams Counselor Education Professor Relationship Specialty Start Date End Date Calvin Maldonado MD [address] [place] [address] [place] [address] PCP - General Internal Medicine 12/01/16
--- OUTSIDE RECORDS SUMMARY | 2025-04-04 13:51 | XMS_ITS | Clinical Summary ---
Author Organization [facility] Address [address] [place] [address] Phone Care Team Providers Care Professor Of Latin American Studies Name Role Phone Calvin Maldonado MD Primary [...] Description 01/31/2025 11:30 AM EDT Office Visit [facility] Hematology Oncology [address] [place] [phone] Ream Carlos, History of cancer of left breast (Primary Dx) 01/30/2025 10:15 AM EDT - 01/30/2025 11:59 PM EDT Hospital [facility]counter [facility] [address] [phone] Malignant neoplasm of central portion of left breast in female, estrogen receptor positive (CMS/[facility] V24, CMS/[facility] V28); Encounter for screening mammogram for malignant neoplasm of breast Discharge Disposition: Home or Self Care from Last 3 Months Surgical History Surgery Date Site/Laterality Comments BREAST LUMPECTOMY 04/06/2013 - 04/05/2014 Left PROCEDURE:BREAST LUMPECTOMY STEREOTACTIC CORE BIOPSY 04/06/2013 - 04/05/2014 Left BREAST MASS EXCISION Right SHOULDER SURGERY Right Medical History Medical History Date Comments Breast cancer (CMS/[facility] V24, [facility] V28) DX:Breast cancer [...] Description 01/31/2026 11:00 AM EDT Office Visit [facility] Hematology Oncology [address] [place] [phone] Savannah Rome PA [address] [place] [address] Health Maintenance Due Date Last Done Comments [...] left breast in female, estrogen receptor positive ([facility] V24, [facility] V28) Encounter for screening mammogram for malignant [...] year. Mammo Location: [facility], [address] [place] [address], [id number], . -------- FINAL REPORT -------- Dictated By: Perez Serna Dictated Date: 01/30/2025 10:58 ET Assigned Physician: Perez Serna Reviewed and Electronically Signed By: Perez Serna Signed Date: 01/30/2025 11:17 ET Workstation ID: [id number] Transcribed By: Self Edit Transcribed Date: 01/30/2025 [...] year. Mammo Location: [facility], [address] [place] [address], [id number], . -------- FINAL REPORT -------- Dictated By: Perez Serna Dictated Date: 01/30/2025 10:58 ET Assigned Physician: Perez Serna Reviewed and Electronically Signed By: Perez Serna Signed Date: 01/30/2025 11:17 ET Workstation ID: [id number] Transcribed By: Self Edit Transcribed Date: 01/30/2025 10:58 ET Rema Nazia Terrance DO IMG BI PROCEDURES Fin al Result from Last 3 Months Insurance MEDICARE [facility] Care Teams Professor Of Latin American Studies Relationship Specialty Start Date End Date Calvin Maldonado MD [address] [place] [address] Dr Gerda Ramsay [place] PCP - General Internal Medicine 12/22/19
--- OUTSIDE RECORDS SUMMARY | 2025-04-04 13:51 | XMS_ITS | Patient Health Record ---
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 Section Notes: Nonsmoker; no sig. alcohol u se Problems Problem Type SNOMED Code ICD Code Onset Dates Problem Status W/U Status Risk Notes Problem Colon cancer screening (921236545) Colon cancer screening (Z12.11) Active confirmed Problem Irritable bowel syndrome (54845018) Irritable bowel syndrome (K58.9) Active confirmed Problem History of adenomatous polyp of colon (591504078) History of adenomatous polyp of colon (Z86.010) Active confirmed Problem Gastroesophageal reflux disease (132865734) GERD (gastroesophageal reflux disease) (K21.9) Active confirmed Problem Diverticulosis of colon (239102799) Diverticulosis of colon (K57.30) Active confirmed Plan Of Treatment Pending Test Test Name Order Date Pathology 01/01/2022 Future Test Test Name Order Date COLONOSCOPY 11/19/2021 Insurance Providers Payer Name Payer Address Payer Phone Subscriber Number Group Number Insured Name Patient Relationship to Insured Coverage Start Date Coverage End Date MEDICARE OF [place] [address] [place] [address] [id number] ROSE MENARD Self - patient is the insured [employer] [address] [place] [address] [id number] ROSE MENARD Self - patient is the [...] negative for polyps. The colonoscopy with Dr. Cotrez over 20 years ago was complicated by [...]
== END 2025-04-04 11:36 | disposition home or self-care (01) ==
LOC: HO.HMCH 10:21
PROVIDERS: PCP Internal Medicine; Visit Provider Internal Medicine
DX: E78.00 Pure hypercholesterolemia, unspecified (principal); I10 Essential (primary) hypertension; E11.9 Type 2 diabetes mellitus without complications; R00.2 Palpitations; E03.9 Hypothyroidism, unspecified; G47.33 Obstructive sleep apnea (adult) (pediatric); R41.3 Other amnesia; K21.9 Gastro-esophageal reflux disease without esophagitis; M17.11 Unilateral primary osteoarthritis, right knee; M25.811 Other specified joint disorders, right shoulder; M79.641 Pain in right hand; G25.81 Restless legs syndrome; J30.9 Allergic rhinitis, unspecified; E55.9 Vitamin D deficiency, unspecified; K59.00 Constipation, unspecified; N32.81 Overactive bladder; Z85.3 Personal history of malignant neoplasm of breast; Z85.528 Personal history of other malignant neoplasm of kidney; F41.9 Anxiety disorder, unspecified; E66.9 Obesity, unspecified

== ENCOUNTER → 2025-04-04 11:49 | Outpatient (BNV) | payer MEDICARE, OTHER, SELFPAY | PROVIDERS: PCP Internal Medicine; Visit Provider Radiology Diagnostic Radiology | DX: M19.041 Primary osteoarthritis, right hand (principal) | CPT/HCPCS: 73130 ==